=== PATIENT | male | born 1945 | race Caucasian/White ===

== ENCOUNTER 2018-03-12 10:59 | Day surgery (SDC) | payer MEDICARE, OTHER ==
[~2018-03-12 10:59] MED LIST: AMLODIPINE BESY10 MG PO; ASPIRIN EC81 MG PO; CALCIUM600 MG; FLUOXETINE HCL20 MG PO; FUROSEMIDE40 MG PO; LANTUS100 UNITS/ SUB-Q; LOSARTAN-HCTZ1 EAC1 PO; METOPROLOL TART50 MG PO; NOVOLOG100 UNITS/ SUB-Q; PERCOCET 5-3251 EACH PO; PRAVASTATIN SOD40 MG PO; TOUJEO SOL300 UNIT/1 SUB-Q; TYLENOL EXTRA500 MG PO; VITAMIN D32000 UNI1 PO
--- NOTE | 2018-03-12 12:50 | NUR ---
03/12/18 1250 Diane Sood 1217 PT ARRIVED IN PACU AWAKE WITH NO C/O'S. REPOSITIONED TO R SIDE FROM STOMACH. OXYGEN DECREASED TO 1L VIA NC. 1230 OXYGEN REMOVED. SATS 95% ON RA. PT AWAKE TALKING TO STAFF. 1245 PT GETTING DRESSSED. 1250 DC INSTRUCTIONS GIVEN.
== END 2018-03-12 12:55 | disposition home or self-care (01) ==
LOC: OPS 10:59 → DS 10:59 → OPS 12:00
PROVIDERS: Specialist
PROC: 07DR3ZX Extraction of Iliac Bone Marrow, Percutaneous Approach, Diagnostic (ICD-10-PCS; principal; 2018-03-12 12:00)
DX: C90.00 Multiple myeloma not having achieved remission (principal)
CPT/HCPCS: 80500; 85025; 99152; J2250; J3010; J7120

== ENCOUNTER 2018-03-28 10:46 | Day surgery (SDC) | payer MEDICARE, OTHER ==
[~2018-03-28] VITALS: Ht 185.4 cm; Wt 159.2 kg
--- NOTE | 2018-03-28 12:37 | NUR ---
03/28/18 1237 Sinai Suarez 1233 PATIENT IN PACU POST PROCEDURE, LAYING ON RIGHT SIDE. SLEEPING, AWAKENS WITH VERBAL STIMULI, DENIES PAIN THEN BACK TO SLEEP. RESP EVEN AND UNLABORED, NC AT 3 LITERS.
== END 2018-03-28 13:00 | disposition home or self-care (01) ==
LOC: OPS 10:46 → DS 10:46 → OPS 12:00
PROVIDERS: Specialist
PROC: 079T3ZX Drainage of Bone Marrow, Percutaneous Approach, Diagnostic (ICD-10-PCS; 2018-03-28)
PROC: 07DR3ZX Extraction of Iliac Bone Marrow, Percutaneous Approach, Diagnostic (ICD-10-PCS; principal; 2018-03-28 12:00)
DX: C90.00 Multiple myeloma not having achieved remission (principal); F32.9 Major depressive disorder, single episode, unspecified; M10.9 Gout, unspecified; M54.5 Low back pain; G89.29 Other chronic pain; I12.9 Hypertensive chronic kidney disease with stage 1 through stage 4 chronic kidney disease, or unspecified chronic kidney disease; N18.4 Chronic kidney disease, stage 4 (severe); E11.42 Type 2 diabetes mellitus with diabetic polyneuropathy; E55.9 Vitamin D deficiency, unspecified; Z90.89 Acquired absence of other organs; Z98.890 Other specified postprocedural states; E66.01 Morbid (severe) obesity due to excess calories; Z79.899 Other long term (current) drug therapy; Z88.1 Allergy status to other antibiotic agents; Z68.42 Body mass index [BMI] 45.0-49.9, adult
CPT/HCPCS: 85025; 99152; 99153; J2250; J3010; J7120

== ENCOUNTER 2019-03-01 10:42 | Inpatient (IN) | payer MEDICARE, OTHER ==
[~2019-03-01] VITALS: Ht 188 cm; Wt 142.0 kg
--- OUTSIDE RECORDS SUMMARY | ~2019-03-01 | XMS | Encounter Summary ---
Demographics + + + | Address | [address] | | | [place] [address] | + + + | Home Phone | | + + + | Preferred Language | Unknown | + + + | Marital Status | Single | + + + | Yarsanism Affiliation | Unknown | + + + | Race | Unknown | + + + | Ethnic Group | Other Race | + + + Author + + + | Author | [facility] | + + + | Organization | [facility] | + + + | Address | Unknown | + + + | Phone | Unavailable | + + + Care Team Providers + +------+ + | Care Printing Machine Operator Tape Rules Name | Role | Phone | + +------+ + | Daniel Sofia MD | PCP | | + +------+ + Reason for Referral Diagnostic Testing (Routine) +--------+--------+ + + + + | Status | Reason | Specialty | Diagnoses / | Referred By | Referred To | | | | | Procedures | Contact | Contact | +--------+--------+ + + + + | Closed | | Radiology | Diagnoses | Tommy | Xxrad Vasc | | | | | Lymphedema | [place], | [facility] | | | | | Procedures | MD James | [address] | | | | | VASC LAB | [address] | [address] | | | | | ARTER DUPLEX | [address] | [facility] | | | | | LOWER | [address] | Mailcode: | | | | | EXTREMITY | [facility], [place] | [address] | | | | | BILATERAL | [address] | Physicians | | | | | COMPLETE | Phone: | Pavilion | | | | | | [phone] | [place], [place] | | | | | | Fax: | [address] | | | | | | [phone] | Phone: | | | | | | | [phone] | | | | | | | Fax: | | | | | | | [phone] | +--------+--------+ + + + + Diagnostic Testing (Routine) +--------+--------+ + + + + | Status | Reason | Specialty | Diagnoses / | Referred By | Referred To | | | | | Procedures | Contact | Contact | +--------+--------+ + + + + | Closed | | Radiology | Diagnoses | [place] | Xxrad Vasc | | | | | Lymphedema | [place], | [facility] | | | | | Procedures | MD James | [address] | | | | | VASC LAB | [address] | [address] | | | | | ARTER DUPLEX | [address] | Road | | | | | LOWER | [facility] | Mailcode: | | | | | EXTREMITY | [place], [place] | [address] | | | | | BILATERAL | [address] | Physicians | | | | | COMPLETE | Phone: | Pavilion | | | | | | [phone] | [place], [place] | | | | | | Fax: | [address] | | | | | | [phone] | Phone: | | | | | | | [phone] | | | | | | | Fax: | | | | | | | [phone] | +--------+--------+ + + + + Reason for Visit Diagnostic Testing (Routine) +--------+--------+ + + + + | Status | Reason | Specialty | Diagnoses / | Referred By | Referred To | | | | | Procedures | Contact | Contact | +--------+--------+ + + + + | Closed | | Radiology | Diagnoses | Tommy | Xxrad Vasc | | | | | Lymphedema | [place], | [facility] | | | | | Procedures | MD James | [address] | | | | | VASC LAB | [address] | [address] | | | | | ARTER DUPLEX | [address] | Road | | | | | LOWER | [address] | Mailcode: | | | | | EXTREMITY | [facility], [place] | [address] | | | | | BILATERAL | [address] | Physicians | | | | | COMPLETE | Phone: | Pavilion | | | | | | [phone] | [place], [place] | | | | | | Fax: | [address] | | | | | | [phone] | Phone: | | | | | | | [phone] | | | | | | | Fax: | | | | | | | [phone] | +--------+--------+ + + + + Encounter Details +--------+ + + + + | Date | Type | Department | Care Team | Description | +--------+ + + + + | 05/06/ | Hospital | Diagnostic | | | | 2012 | Encounter | Radiology at [facility] | | | | | | [address] | | | | | | [address] | | | | | | Mailcode: [address] | | | | | | Physicians [place] | | | | | | [place], [place] | | | | | | [address] | | | | | | [phone] | | | +--------+ + + + [...] Comments | + + +---------+ + | No | | | | + + +---------+ [...] at Time of Discharge + + + +---------+--------+ + | Medication | Sig | Dispensed | Refills | Start | End Date | | | | | | Date | | + + + +---------+--------+ + | amLODIPine 10 mg | Take 10 mg by mouth | | 0 | | | | Oral tablet | once daily. | | | | | + + + +---------+--------+ + | aspirin EC 81 mg | Take 81 mg by mouth | | 0 | | | | Oral tablet,delayed | once daily. | | | | | | release (DR/EC) | | | | | | + + + +---------+--------+ + | Cinnamon Bark | Take by mouth. | | 0 | | | | (CINNAMON) 500 mg | | | | | | | Oral capsule | | | | | | + + + +---------+--------+ + | FLUoxetine 20 mg | Take 60 mg by mouth | | 0 | | | | Oral capsule | three times daily. | | | | | + + + +---------+--------+ + | furosemide 40 mg | Take 40 mg by mouth | | 0 | | | | Oral tablet | once daily. | | | | | + + + +---------+--------+ + | insulin aspart | Inject under the | | 0 | | | | (NOVOLOG) 100 | skin (SUBC) three | | | | | | unit/mL Subcutaneous | times daily before | | | | | | Solution | meals. Sliding scale | | | | | | | 2 times daily AM | | | | | | | and PM | | | | | + + + +---------+--------+ + | insulin glargine | Inject 50 Units | | 0 | | | | 100 unit/mL | under the skin | | | | | | Subcutaneous | (SUBC) two times | | | | | | Solution | daily. | | | | | + + + +---------+--------+ + | | Take 2 Tabs by mouth | | 0 | | | | losartan-hydrochloro | once daily. | | | | | | thiazide 50-12.5 mg | | | | | | | Oral tablet | | | | | | + + + +---------+--------+ + | metoprolol | Take 50 mg by mouth | | 0 | | | | tartrate 50 mg Oral | two times daily. | | | | | | tablet | | | | | | + + + +---------+--------+ + | pravastatin 40 mg | Take 40 mg by mouth | | 0 | | | | Oral tablet | once daily at | | | | | | | bedtime. | | | | | + + + +---------+--------+ + documented as of this encounter Plan of Treatment Not on filedocumented as of this encounter Procedures + +--------+ + + + | Procedure Name | Priori | Date/Time | Associated Diagnosis | Comments | | | ty | | | | + +--------+ + + + | VASC LAB ARTER | Routin | 05/06/2013 | Lymphedema | Results for this | | DUPLEX LOWER | e | 2:46 PM | | procedure are in the | | EXTREMITY BILATERAL | | PDT | | results section. | | COMPLETE | | | | | + +--------+ + + + documented in this encounter Results VAS LAB ARTER DUPLEX LOWER EXTREMITY BILATERAL COMPLETE (05/06/2013 2:46 PM PDT) + + + + + + | Component | Value | Ref Range | Performed | Pathologist | | | | | At | Signature | + + + + + + | VASC LAB | PERIPHERAL ARTERIAL | | | | | ARTERY | EXAMINATION: 05/06/20 | | | | | DUPLEX | 13 Dictated | | | | | LOWER | 05/06/2013 | | | | | EXTREMITY | INDICATION: Periphera | | | | | BILATERAL | l vascular disease. The | | | | | COMPLETE | ankle/brachial index on | | | | | | the right is 1.11 and on | | | | | | the left, 1.02. The | | | | | | duplex scanner was used | | | | | | to examine the common | | | | | | femoral, profunda | | | | | | femoris,superficial | | | | | | femoral, popliteal, and | | | | | | tibial vessels of the | | | | | | right and left | | | | | | lowerextremities. It | | | | | | is noted that the tibial | | | | | | vessels are | | | | | | significantly | | | | | | calcifiedbilaterally. In | | | | | | the right lower | | | | | | extremity, the common | | | | | | femoral artery has a | | | | | | flow velocity of158 cm/s | | | | | | with a triphasic | | | | | | waveform. The | | | | | | profunda femoris artery | | | | | | has a flowvelocity of 63 | | | | | | cm/s with a triphasic | | | | | | waveform. Flow | | | | | | velocities in | | | | | | thesuperficial femoral | | | | | | artery vary from 106 to | | | | | | 162 cm/s, all with | | | | | | triphasicwaveforms. T | | | | | | he popliteal artery has | | | | | | flow velocities between | | | | | | 117 and 130 cm/swith | | | | | | triphasic | | | | | | waveforms. The | | | | | | anterior tibial and | | | | | | peroneal arteries | | | | | | appearcontinuously | | | | | | patent from the | | | | | | popliteal trifurcation | | | | | | to the ankle. The | | | | | | peronealartery could not | | | | | | be visualized because | | | | | | of calcification. In the | | | | | | left lower extremity, | | | | | | the common femoral, | | | | | | profunda femoris, | | | | | | superficialfemoral, and | | | | | | popliteal arteries all | | | | | | have normal flow | | | | | | velocities with | | | | | | triphasicwaveforms. T | | | | | | he tibial vessels are | | | | | | highly calcified. The | | | | | | mid portions of | | | | | | theperoneal and anterior | | | | | | tibial arteries could | | | | | | not be | | | | | | identified. Proximall | | | | | | y anddistally, the | | | | | | anterior tibial and | | | | | | peroneal arteries have | | | | | | normal | | | | | | flowvelocities. The | | | | | | posterior tibial artery | | | | | | appears continuously | | | | | | patent from thepopliteal | | | | | | trifurcation to the | | | | | | ankle. IMPRESSION: Lower | | | | | | extremity peripheral | | | | | | arterial examination | | | | | | with evidence of | | | | | | calcifiedtibial vessels | | | | | | bilaterally. Arterial | | | | | | inflow to the level of | | | | | | the ankle,however, | | | | | | appears normal to near | | | | | | normal bilaterally. | | | | | | END IMPRESSION: | | | | | | Attending | | | | | | Radiologists: ,Author | | | | | | : ANIYAH WESTON MD I | | | | | | have personally viewed | | | | | | this procedure/exam, | | | | | | reviewed this report, | | | | | | and madechanges to it | | | | | | where appropriate. | | | | | | Final/Electronically | | | | | | signed / ANIYAH | | | | | | TRISTA Preliminary | | | | | | / Yomaira Clay | | | | + + + + + + + + | Specimen | + + | | + + + +---------+ + + | Performing | Address | City/State/Zipcode | Phone Number | | Organization | | | | + +---------+ + + | [facility] | | | | [facility] | | | | + +---------+ + + documented in this encounter Visit Diagnoses + + | Diagnosis | + + | Lymphedema Other lymphedema | + + documented in this encounter"
--- OUTSIDE RECORDS SUMMARY | ~2019-03-01 | XMS | Encounter Summary ---
Demographics + + + | Address | [address] | | | [place] [address] | + + + | Home Phone | | + + + | Preferred Language | Unknown | + + + | Marital Status | Single | + + + | Alevism Affiliation | Unknown | + + + | Race | Unknown | + + + | Ethnic Group | Other Race | + + + Author + + + | Author | [facility] | + + + | Organization | [facility] | + + + | Address | Unknown | + + + | Phone | Unavailable | + + + Care Team Providers + +------+ + | Care Pattern Drafter Name | Role | Phone | + +------+ + | Daniel Sofia MD | PCP | | + +------+ + Encounter Details +--------+ + + + + | Date | Type | Department | Care Team | Description | +--------+ + + + + | 07/16/ | Documentati | NON-[facility] | Unknown . | | | 2016 | on | Department | | | +--------+ + + + [...] Not on filedocumented as of this encounter Visit Diagnoses Not on filedocumented in this encounter"
--- OUTSIDE RECORDS SUMMARY | ~2019-03-01 | XMS | Clinical Summary ---
Demographics + + + | Address | [address] | | | [place] [address] | + + + | Home Phone | | + + + | Preferred Language | Unknown | + + + | Marital Status | Single | + + + | Baptist Affiliation | Unknown | + + + | Race | Unknown | + + + | Ethnic Group | Other Race | + + + Author + + + | Author | [facility] | + + + | Organization | [facility] | + + + | Address | Unknown | + + + | Phone | Unavailable | + + + Care Team Providers + +------+ + | Care Ibm Bpm Developer Name | Role | Phone | + +------+ + | Daniel Sofia MD | PP | | + +------+ + Source Comments [facility] is fully live on both EpicCare Ambulatory and EpicCare InPatient.[facility] Allergies No Known Allergies Medications + + + +---------+------+------+-------+ | Medication | Sig | Dispensed | Refills | Star | End | Statu | | | | | | t | Date | s | | | | | | Date | | | + + + +---------+------+------+-------+ | FLUoxetine 20 mg | Take 60 mg by mouth | | 0 | | | Activ | | Oral capsule | three times daily. | | | | | e | + + + +---------+------+------+-------+ | amLODIPine 10 mg | Take 10 mg by mouth | | 0 | | | Activ | | Oral tablet | once daily. | | | | | e | + + + +---------+------+------+-------+ | | Take 2 Tabs by mouth | | 0 | | | Activ | | losartan-hydrochloro | once daily. | | | | | e | | thiazide 50-12.5 mg | | | | | | | | Oral tablet | | | | | | | + + + +---------+------+------+-------+ | metoprolol | Take 50 mg by mouth | | 0 | | | Activ | | tartrate 50 mg Oral | two times daily. | | | | | e | | tablet | | | | | | | + + + +---------+------+------+-------+ | furosemide 40 mg | Take 40 mg by mouth | | 0 | | | Activ | | Oral tablet | once daily. | | | | | e | + + + +---------+------+------+-------+ | pravastatin 40 mg | Take 40 mg by mouth | | 0 | | | Activ | | Oral tablet | once daily at | | | | | e | | | bedtime. | | | | | | + + + +---------+------+------+-------+ | Cinnamon Bark | Take by mouth. | | 0 | | | Activ | | (CINNAMON) 500 mg | | | | | | e | | Oral capsule | | | | | | | + + + +---------+------+------+-------+ | insulin glargine | Inject 50 Units | | 0 | | | Activ | | 100 unit/mL | under the skin | | | | | e | | Subcutaneous | (SUBC) two times | | | | | | | Solution | daily. | | | | | | + + + +---------+------+------+-------+ | insulin aspart | Inject under the | | 0 | | | Activ | | (NOVOLOG) 100 | skin (SUBC) three | | | | | e | | unit/mL Subcutaneous | times daily before | | | | | | | Solution | meals. Sliding scale | | | | | | | | 2 times daily AM | | | | | | | | and PM | | | | | | + + + +---------+------+------+-------+ | aspirin EC 81 mg | Take 81 mg by mouth | | 0 | | | Activ | | Oral tablet,delayed | once daily. | | | | | e | | release (DR/EC) | | | | | | | + + + +---------+------+------+-------+ Active Problems No known active problems Social History + +-------+ +--------+------+ | Tobacco [...] recent travel history available. | + + Last Filed Vital Signs + + + + + | Vital Sign | Reading | Time Taken | Comments | + + + + + | Blood Pressure | 117/74 | 05/06/2013 10:28 AM | | | | | PDT | | + + + + + | Pulse | 63 | 05/06/2013 10:28 AM | | | | | PDT | | + + + + + | Temperature | 37 C (98.6 F) | 05/06/2013 10:28 AM | | | | | PDT | | + + + + + | Respiratory Rate | - | - | | + + + + + | Oxygen Saturation | 99% | 05/06/2013 10:28 AM | | | | | PDT | | + + + + + | Inhaled Oxygen | - | - | | | Concentration | | | | + + + + + | Weight | 175 kg (385 lb 12.8 | 05/06/2013 10:28 AM | | | | oz) | PDT | | + + + + + | Height | 193 cm (6' 4") | 05/06/2013 10:28 AM | | | | | PDT | | + + + + + | Body Mass Index | 46.96 | 05/06/2013 10:28 AM | | | | | PDT | | + + + + + Plan of Treatment + + + + + | Health Maintenance | Due Date | Last Done | Comments | + + + + + | Pneumococcal (Adult) | | | | | (1 of 2 - PCV13) | 8 | | | + + + + + | Influenza (Flu) | | | | | vaccination (Season | 9 | | | | Ended) | | | | + + + + + Results Not on filefrom Last 3 Months Insurance + +--------+ +--------+ + +--------+ | Payer | Benefi | Subscriber | Effect | Phone | Address | Type | | | t Plan | ID | ivanna | | | | | | / | | Dates | | | | | | Group | | | | | | + +--------+ +--------+ + +--------+ | MEDICARE | MEDICA | xxxxxxxxxx | | [phone] | [address] | | | RE [address] & | | [phone] | | | [address] | | esent | | [place], [place] | | | | | | | | [address] | | + +--------+ +--------+ + +--------+ | COMMERCIAL GROUP | COMMER | xxxxxxxxx | Effect | | | Indemn | | | CIAL | | vianna | | | ity | | | GROUP | | for | | | | | | | | all | | | | | | | | dates | | | | + +--------+ +--------+ + +--------+ + +--------+ +--------+ + + | Guarantor Name | Accoun | Relation to | Date | Phone | Billing Address | | | t Type | Patient | of | | | | | | | | | | + +--------+ +--------+ + + | Renny Mariano | Person | Self | [birth year] | [address] | | | al/[place] | | 1945 | [phone] | [place] [address] | | | walt | | | 6 (Home) | | + +--------+ +--------+ + +
--- OUTSIDE RECORDS SUMMARY | ~2019-03-01 | XMS | Encounter Summary ---
Demographics + + + | Address | [address] | | | [place] [address] | + + + | Home Phone | | + + + | Preferred Language | Unknown | + + + | Marital Status | Single | + + + | Scientologist Affiliation | Unknown | + + + | Race | Unknown | + + + | Ethnic Group | Other Race | + + + Author + + + | Author | [facility] | + + + | Organization | [facility] | + + + | Address | Unknown | + + + | Phone | Unavailable | + + + Care Team Providers + +------+ + | Care Shoe Designer Name | Role | Phone | + +------+ + PCP | Unavailable | + +------+ + Encounter Details +--------+ + + + + | Date | Type | Department | Care Team | Description | +--------+ + + + + | 10/18/ | Document-Sc | UNKNOWN DEPARTMENT | Other, Faculty | | | 2010 | anned | [address] | [phone] | | | | | [facility] | | | | | | [place], [place] | | | | | | [address] | | | +--------+ + + + [...] | + +--------+ + + + | RADIOLOGY | | 09/11/2012 | | Results for this | | | | 12:00 AM | | procedure are in the | | | | PST | | results section. | + +--------+ + + + | PATHOLOGY | | 10/19/2010 | | Results for this | | | | 12:00 AM | | procedure are in the | | | | PST | | results section. | + +--------+ + + + documented in this encounter Results RADIOLOGY (09/11/2012 12:00 AM PST) + + + | Narrative | Performed At | + + + | | | | | | + + + + + | Procedure Note | + + | Tiffany Mace - 01/13/2013 6:25 PM PDT | + + PATHOLOGY (10/19/2010 12:00 AM PST) + + + | Narrative | Performed At | + + + | | | + + + + + | Procedure Note | + + | Tiffany Mace - 10/19/2010 12:00 AM PST | | | + + documented in this encounter Visit Diagnoses Not on filedocumented in this encounter"
--- OUTSIDE RECORDS SUMMARY | ~2019-03-01 | XMS | Encounter Summary ---
Demographics + + + | Address | [address] | | | [place] [address] | + + + | Home Phone [...] Author + + + | Author | [facility] | + + + | Organization | [facility] | + + + | Address | Unknown | + + + | Phone | Unavailable | + + + Care Team Providers + +------+ + | Care Cable Television Program Director Name | Role | Phone | + [...]
--- OUTSIDE RECORDS SUMMARY | ~2019-03-01 | XMS | Encounter Summary ---
Demographics + + + | Address | [address] | | | [place] [address] | + + + | Home Phone | | + + + | Preferred Language | Unknown | + + + | Marital Status | Single | + + + | Zoroastrianism Affiliation | Unknown | + + + | Race | Unknown | + + + | Ethnic Group | Other Race | + + + Author + + + | Author | [facility] | + + + | Organization | [facility] | + + + | Address | Unknown | + + + | Phone | Unavailable | + + + Care Team Providers + +------+ + | Care Wire Machine Cutter Name | Role | Phone | + +------+ + PCP | Unavailable | + +------+ + Encounter Details +--------+ + + + + | Date | Type | Department | Care Team | Description | +--------+ + + + + | 10/18/ | Results | NON[facility] | Roula, Yohan V, | | | 2010 | Only | Department | [facility] | | | | | | [facility] | | | | | | [address] | | | | | | [place] | | | | | | [address] | | | | | | | [...] | | OLOGY(WET | FIRST TISSUE LEVEL | | DERMATOPATH | | | MNT) | [place] [address] | | OLOGY | | | | CLINICAL | | | | | | DESCRIPTION:Punch, 4mm, | [...] | | | measures 0.4 x 0.7 | | | | | | cm. The specimen is | | | | [...] | | | | | | spindled | | | | | | fibrocytes. The | | | | | | fibrocytes are | | | | | [...] | | | | | | VBK:mm10/23/10 | | | | | | Case review by:Alma | | | | | | Roshan Saucedo, | | | | | | M.D./Dermatopathology | | | | | | Hilario Longo, | | | | | | M.D./Dermatopathologist | | | | | | My [...] | | | | | | Rendering | | | | | | Diagnostician: Raul | | | | | | Donta | | | | | | M.D.PathologistElectroni | | | | | | claudia [...] + + + | [facility] | [address] | [place] [address] | | | DERMATOPATHOLOGY | [address] | | | + + + + + documented in this encounter Visit Diagnoses Not on filedocumented in this encounter"
--- OUTSIDE RECORDS SUMMARY | ~2019-03-01 | XMS | Encounter Summary ---
Demographics + + + | Address | [address] | | | [place] [address] | + + + | Home Phone | | + + + | Preferred Language | Unknown | + + + | Marital Status | Single | + + + | Latter Day Affiliation | Unknown | + + + | Race | Unknown | + + + | Ethnic Group | Other Race | + + + Author + + + | Author | [facility] | + + + | Organization | [facility] | + + + | Address | Unknown | + + + | Phone | Unavailable | + + + Care Team Providers + +------+ + | Care Fiscal Officer Name | Role | Phone | + [...] | | | ARTER DUPLEX | [place] | [facility] | | | | | LOWER | [address] | Mailcode: | | | | | EXTREMITY | [facility], [place] | [address] | | | | | BILATERAL | [address] | Physicians | | | | | COMPLETE | Phone: | Pavilion | | | | | | [phone] | [place], [place] | | | | | | Fax: | [address] | | | | | | [phone] | Phone: | | | | | | | [phone] | | | | | | | Fax: | | | | | | | [phone] | +--------+--------+ + + + + Diagnostic Testing (Routine) +--------+--------+ + + + + | Status | Reason | Specialty | Diagnoses / | Referred By | Referred To | | | | | Procedures | Contact | Contact | +--------+--------+ + + + + | Closed | | Radiology | Diagnoses | [place] | X[facility] Vasc | | | | | Lymphedema | [place], | [facility] [address] | | | | | Procedures | MD James | [address] | | | | | VASC LAB | [address] | [address] | | | | | ARTER DUPLEX | [address] [place] | Road | | | | | LOWER | [facility] | Mailcode: | | | | | EXTREMITY | [place], [place] | [address] | | | | | BILATERAL | [address] | Physicians | | | | | COMPLETE | Phone: | Pavilion | | | | | | [phone] | [place], [place] | | | | | | Fax: | [address] | | | | | | [phone] | Phone: | | | | | | | [phone] | | | | | | | Fax: | | | | | | | [phone] | +--------+--------+ + + + + Reason [...] | | | ARTER DUPLEX | [address] | Road | | | | | LOWER | [address] | Mailcode: | | | | | EXTREMITY | [facility], [place] | [address] | | | | | BILATERAL | [address] | Physicians | | | | | COMPLETE | Phone: | Pavilion | | | | | | [phone] | [place], [place] | | | | | | Fax: | [address] | | | | | | [phone] | Phone: | | | | | | | [phone] | | | | | | | Fax: | | | | | | | [phone] | +--------+--------+ + + + + Encounter [...] [address] | | | | | | [place], [place] | | | | | | [address] | | | | | | [phone] | | | +--------+ + + + [...]
--- OUTSIDE RECORDS SUMMARY | ~2019-03-01 | XMS | Encounter Summary ---
Demographics + + + | Address | [address] | | | [place] [address] | + + + | Home Phone | | + + + | Preferred Language | Unknown | + + + | Marital Status | Single | + + + | Amish Affiliation | Unknown | + + + | Race | Unknown | + + + | Ethnic Group | Other Race | + + + Author + + + | Author | [facility] | + + + | Organization | [facility] | + + + | Address | Unknown | + + + | Phone | Unavailable | + + + Care Team Providers + +------+ + | Care House Furnishings Supervisor Name | Role | Phone | + +------+ + | Daniel Sofia MD | PCP | | + +------+ + Reason for Referral Consultation (Routine) + +--------+ + + + + | Status | Reason | Specialty | Diagnoses / | Referred By | Referred To | | | | | Procedures | Contact | Contact | + +--------+ + + + + | Authorized | | Vascular | Diagnoses | Jack Burroughs | Vas Vasc | | | | Surgery | Lymphedema | [address] | Surg Ppv | | | | | Procedures | [address] | [address] | | | | | CONSULT TO | [facility] | [facility] | | | | | SURGERY - | Rd | Road | | | | | VASCULAR | [place], [place] | Mailcode: | | | | | SURGERY | [address] | [address] | | | | | DIVISION | | Physicians | | | | | | | Pavilion | | | | | | | [place], [place] | | | | | | | [address] | | | | | | | Phone: | | | | | | | [phone] | | | | | | | Fax: | | | | | | | [phone] | + +--------+ + + + + Diagnostic Testing (Urgent) +--------+--------+ + + + + | Status | Reason | Specialty | Diagnoses / | Referred By | Referred To | | | | | Procedures | Contact | Contact | +--------+--------+ + + + + | Closed | | Radiology | Diagnoses | Jack Burroughs | Xxrad Vasc | | | | | Lower | [address] | Lab [address] | | | | | extremity | [address] | | | | | edema | [facility] | [facility] | | | | | Procedures | Rd | Road | | | | | VASC LAB | [place], [place] | Mailcode: | | | | | VENOUS | [address] | [id number] | | | | | DUPLEX LOWER | | Physicians | | | | | EXTREMITY | | Pavilion | | | | | BILAT COMP | | [place], [place] | | | | | | | [address] | | | | | | | Phone: | | | | | | | [phone] | | | | | | | Fax: | | | | | | | [phone] | +--------+--------+ + + + + Reason for Visit + + + | Reason | Comments | + + + | New patient | | | consultation | | + + + Consultation (Routine) +--------+--------+ + + + + | Status | Reason | Specialty | Diagnoses / | Referred By | Referred To | | | | | Procedures | Contact | Contact | +--------+--------+ + + + + | Closed | | Orthopedics | Diagnoses | Saud, | Philippe | | | | | lumbar pain | Hollis Vazquez, | MD Dane | | | | | | MD Bui | [address] | | | | | | [facility] | [address] | | | | | | & Keegan | [place], | | | | | | [address] | [place] | | | | | | [address]yl [address] | [address] | | | | | | [place], | Phone: | | | | | | [place] [address] | [phone] | | | | | | Phone: | Fax: | | | | | | [phone] | [phone] | | | | | | Fax: | | | | | | | [phone] | | +--------+--------+ + + + + Encounter Details +--------+---------+ + + + | Date | Type | Department | Care Team | Description | +--------+---------+ + + + | 04/03/ | Office | Orthopaedic Spine | Dane Paez MD | Lymphedema (Primary | | 2012 | Visit | Center at [facility] [address] | [address] | Dx); Back pain; | | | | [address] | [facility], | Lower extremity | | | | Mailcode: [id number] | [place] [address] | edema | | | | [facility] | [phone] | | | | | and Healing, 8th | | | | | | Floor [place], [place] | | | | | | [address] | | | | | | [phone] | | | +--------+---------+ + + + Social History + +-------+ [...] + + documented as of this encounter Last Filed Vital Signs + + + + + | Vital Sign | Reading | Time Taken | Comments | + + + + + | Blood Pressure | - | - | | + + + + + | Pulse | - | - | | + + + + + | Temperature | - | - | | + + + + + | Respiratory Rate | - | - | | + + + + + | Oxygen Saturation | - | - | | + + + + + | Inhaled Oxygen | - | - | | | Concentration | | | | + + + + + | Weight | 167.8 kg (370 lb) | 04/03/2013 12:48 PM | | | | | PDT | | + + + + + | Height | 193 cm (6' 4") | 04/03/2013 12:48 PM | | | | | PDT | | + + + + + | Body Mass Index | 45.04 | 04/03/2013 12:48 PM | | | | | PDT | | + + + + + documented in this encounter Progress Notes Dane Paez MD - 04/09/2013 2:01 PM PDT Chief complaint: Chief Complaint Patient presents with New patient consultation HPI Renny Mariano is a 67 y.o. male who presents today with a history of bilateral lower extr emity edema. He has had no specific sciatica but does have some discomfort in the calves. He has had priro workup that was negative for deep vein thrombosis and is sent for evaluatio n of possible lumbar spine etiology of his leg swelling. With review of systems he has no b owel or bladder dysfunction or fevers, chills, night sweats, unexplained weight loss or appe tite changes. I have performed my own history and physical examination today and agree with the resident's documentation of the history. Current outpatient prescriptions:amLODIPine 10 mg Oral tablet, Take 10 mg by mouth once shelley ly., Disp: , Rfl: aspirin EC 81 mg Oral tablet,delayed release (DR/EC), Take 81 mg by mouth once daily., Disp : , Rfl: Cinnamon Bark (CINNAMON) 500 mg Oral capsule, Take by mouth., Disp: , Rfl: FLUoxetine 20 mg Oral capsule, Take 20 mg by mouth once daily., Disp: , Rfl: furosemide 40 mg Oral tablet, Take 40 mg by mouth once daily., Disp: , Rfl: insulin aspart (NOVOLOG) 100 unit/mL Subcutaneous Solution, Inject under the skin (SUBC) t hree times daily before meals. Sliding scale 2 times daily AM and PM, Disp: , Rfl: insulin glargine 100 unit/mL Subcutaneous Solution, Inject 50 Units under the skin (SUBC) t wo times daily., Disp: , Rfl: losartan-hydrochlorothiazide 50-12.5 mg Oral tablet, Take 2 Tabs by mouth once daily., Disp : , Rfl: metoprolol tartrate 50 mg Oral tablet, Take 50 mg by mouth two times daily., Disp: , Rfl: pravastatin 40 mg Oral tablet, Take 40 mg by mouth once daily at bedtime., Disp: , Rfl: No Known Allergies No past medical history on file. No past surgical history on file. History Social History Marital Status: Single Spouse Name: N/A Number of Children: N/A Years of Education: N/A Occupational History Not on file. Social History Main Topics Smoking status: Not on file Smokeless tobacco: Not on file Alcohol Use: Not on file Drug Use: Not on file Sexually Active: Not on file Other Topics Concern Not on file Social History Narrative No narrative on file Visit Vitals Item Reading Ht 1.93 m (6' 4") Wt 167.831 kg (370 lb) BMI 45.06 kg/(m^2) ROS Reviewed on patient information sheet filled out by patient. No other pertinent positives noted. Physical Exam Constitutional: He is well-developed, well-nourished, and in no distress. Neck: Normal range of motion. No spinous process tenderness and no muscular tenderness pres ent. Spurlings maneuver is negative. Cardiovascular: Intact distal pulses. Musculoskeletal: Normal range of motion. Right shoulder: He exhibits no tenderness and no spasm. Left shoulder: Normal. He exhibits no tenderness and no spasm. Lymphadenopathy: He has no cervical adenopathy. Neurological: Reflex Scores: Patellar reflexes are 0 on the right side and 0 on the left side. Achilles reflexes are 0 on the right side and 0 on the left side. Skin: Skin is warm and dry. No ecchymosis and no lesion noted. No cyanosis or erythema. Mary Ann ls show no clubbing. He has bilateral lower extremities swelling suggestive of lymphedema. Psychiatric: Mood and affect normal. Neurologic Exam Motor Exam Muscle bulk: normal Overall muscle tone: normal Strength Right iliopsoas: 5/5 Left iliopsoas: 5/5 Right quadriceps: 5/5 Left quadriceps: 5/5 Right hamstrin/5 Left hamstrin/5 Right anterior tibial: 5/5 Left anterior tibial: 5/5 Right peroneal: 5/5 Left peroneal: 5/5 Right gastroc: 5/5 Left gastroc: 5/5 Right extensor hallicus longus: 5/5 Left extensor hallicus longus: 5/5 Sensory Exam Right arm light touch: normal Left arm light touch: normal Right leg light touch: normal Left leg light touch: normal Gait, Coordination, and Reflexes Gait Gait: wide-based Reflexes Right patellar: 0 Left patellar: 0 Right achilles: 0 Left achilles: 0 Right plantar: normal Left plantar: normal Right ankle clonus: absent Left ankle clonus: absent Independent with transfering Ortho Exam: Right Hip Right hip exam is normal. Tenderness The patient is experiencing no tenderness. Range of Motion The patient has normal right hip ROM. Tests DENNIS: negative Left Hip Left hip exam is normal. Tenderness The patient is experiencing no tenderness. Range of Motion The patient has normal left hip ROM. Tests DENNIS: negative Back Tenderness The patient is experiencing no tenderness. Range of Motion Extension: normal Flexion: normal Lateral Bend Right: normal Lateral Bend Left: normal Muscle Strength Right Quadricep: 5 Left Quadricep: 5 Right Hamstrin Left amstrin Tests Straight leg raise right: negative Straight leg raise left: negative Other Toe Walk: normal Heel Walk: normal Gait: normal ASSESSMENT: The patients symptoms, physical examination findings are not suggestive of sciatica. This is more consistent with possible lymphedema. He is without neurologic deficits. Reviewed warning signs of progressive radiculopathy/myelopathy with patient. Patient advis ed to seek urgent medical attention if any of these occur. Encounter Diagnoses Name Primary? Lymphedema Yes Back pain Lower extremity edema RECOMMENDATIONS: We have discussed potential management options. Orders Placed This Encounter VASC LAB VENOUS DUPLEX LOWER EXTREMITY BILAT COMP Standing Status: Future Number of Occurrences: 1 Standing Expiration Date: 05/03/2014 CONSULT TO SURGERY - VASCULAR SURGERY DIVISION Call or return to clinic if these symptoms worsen or fail to improve as anticipated. Dane Paez M.D. Commercial Correspondent Physical Medicine and Rehabilitation Dane Hsieh MD - 1:51 PM PDT Chief complaint: Chief Complaint Patient presents with New patient consultation HPI Renny Mariano is a 67 y.o. male who presents today with a history of Current outpatient prescriptions:amLODIPine 10 mg Oral tablet, Take 10 mg by mouth once shelley ly., Disp: , Rfl: aspirin EC 81 mg Oral tablet,delayed release (DR/EC), Take 81 mg by mouth once daily., Disp : , Rfl: Cinnamon Bark (CINNAMON) 500 mg Oral capsule, Take by mouth., Disp: , Rfl: FLUoxetine 20 mg Oral capsule, Take 20 mg by mouth once daily., Disp: , Rfl: furosemide 40 mg Oral tablet, Take 40 mg by mouth once daily., Disp: , Rfl: insulin aspart (NOVOLOG) 100 unit/mL Subcutaneous Solution, Inject under the skin (SUBC) t hree times daily before meals. Sliding scale 2 times daily AM and PM, Disp: , Rfl: insulin glargine 100 unit/mL Subcutaneous Solution, Inject 50 Units under the skin (SUBC) t wo times daily., Disp: , Rfl: losartan-hydrochlorothiazide 50-12.5 mg Oral tablet, Take 2 Tabs by mouth once daily., Disp : , Rfl: metoprolol tartrate 50 mg Oral tablet, Take 50 mg by mouth two times daily., Disp: , Rfl: pravastatin 40 mg Oral tablet, Take 40 mg by mouth once daily at bedtime., Disp: , Rfl: No Known Allergies No past medical history on file. No past surgical history on file. History Social History Marital Status: Single Spouse Name: N/A Number of Children: N/A Years of Education: N/A Occupational History Not on file. Social History Main Topics Smoking status: Not on file Smokeless tobacco: Not on file Alcohol Use: Not on file Drug Use: Not on file Sexually Active: Not on file Other Topics Concern Not on file Social History Narrative No narrative on file Visit Vitals Item Reading Ht 1.93 m (6' 4") Wt 167.831 kg (370 lb) BMI 45.06 kg/(m^2) ROS Reviewed on patient information sheet filled out by patient. No other pertinent positives noted. Physical Exam Constitutional: He is well-developed, well-nourished, and in no distress. Neck: Normal range of motion. No spinous process tenderness and no muscular tenderness pres ent. Spurlings maneuver is negative. Musculoskeletal: Normal range of motion. Right shoulder: He exhibits no tenderness and no spasm. Left shoulder: Normal. He exhibits no tenderness and no spasm. Lymphadenopathy: He has no cervical adenopathy. Neurological: Gait normal. Reflex Scores: Patellar reflexes are 1+ on the right side and 1+ on the left side. Achilles reflexes are 0 on the right side and 0 on the left side. Skin: Skin is warm and dry. No rash noted. No cyanosis or erythema. Nails show no clubbing. He has bilateral lower extremity edema suggestive of lymphedema without significant Psychiatric: Mood and affect normal. Neurologic Exam Motor Exam Muscle bulk: normal Overall muscle tone: normal Strength Right iliopsoas: 5/5 Left iliopsoas: 5/5 Right quadriceps: 5/5 Left quadriceps: 5/5 Right hamstrin/5 Left hamstrin/5 Right anterior tibial: 5/5 Left anterior tibial: 5/5 Right peroneal: 5/5 Left peroneal: 5/5 Right gastroc: 5/5 Left gastroc: 5/5 Right extensor hallicus longus: 5/5 Left extensor hallicus longus: 5/5 Sensory Exam Right arm light touch: normal Left arm light touch: normal Right leg light touch: normal Left leg light touch: normal Gait, Coordination, and Reflexes Gait Gait: normal Reflexes Right patellar: 1+ Left patellar: 1+ Right achilles: 0 Left achilles: 0 Right plantar: normal Left plantar: normal Right ankle clonus: absent Left ankle clonus: absent Independent with transfering Ortho Exam: Right Hip Right hip exam is normal. Tenderness The patient is experiencing no tenderness. Range of Motion The patient has normal right hip ROM. Tests DENNIS: negative Left Hip Left hip exam is normal. Tenderness The patient is experiencing no tenderness. Range of Motion The patient has normal left hip ROM. Tests DENNIS: negative Back Tenderness The patient is experiencing no tenderness. Range of Motion Extension: normal Flexion: normal Lateral Bend Right: normal Lateral Bend Left: normal Muscle Strength Right Quadricep: 5 Left Quadricep: 5 Right Hamstrin Left amstrin Tests Straight leg raise right: negative Straight leg raise left: negative Other Toe Walk: normal Heel Walk: normal Gait: normal ASSESSMENT: The patients symptoms, physical examination findings are not suggestive of a lumbar spine r adiculitis. His symptoms are predominantly lower extremity edema. He is without neurologic deficits. Reviewed warning signs of progressive radiculopathy/myelopathy with patient. Patient advis ed to seek urgent medical attention if any of these occur. Encounter Diagnoses Name Primary? Lymphedema Yes Back pain Lower extremity edema RECOMMENDATIONS: We have discussed potential management options. Orders Placed This Encounter VASC LAB VENOUS DUPLEX LOWER EXTREMITY BILAT COMP Standing Status: Future Number of Occurrences: 1 Standing Expiration Date: 05/03/2014 CONSULT TO SURGERY - VASCULAR SURGERY DIVISION Call or return to clinic if these symptoms worsen or fail to improve as anticipated. Dane Paez M.D. Commercial Correspondent Physical Medicine and Rehabilitation ox, Jack Vazquez MD - 04/03 12:56 PM PDT [facility] DEPARTMENT OF ORTHOPAEDICS & REHABILITATION Physical Medicine & Rehabilitation (PMR) History & Physical Patient: Renny Mariano Encounter Date: 04/03/2013 CHIEF COMPLAINT: Renny Mariano is a 67 y.o. M with a chief complaint of left sided low back pain, bilatera l leg swelling, HISTORY OF PRESENT ILLNESS: Symptoms began swelling in August 2012. Onset for both the back pain and swelling of the left leg were subacute over 1-2 weeks. Right leg started swelling 2-3 weeks ago. They are co nstantly swollen despite positioning or time of day, worsens with walking/standing for prolo nged periods. Has seen PCP, orthopaedist doctor, "back" doctor. He was referred here to see if his back p ain was related to his swelling. Low back pain is not significant at this time. Patient notes that the symptoms are located at the midline low lumbar region. Numbness: no Weakness: no Bladder dysfunction: no Symptoms worse with laying on back and side, lifting aggravate back and flank pain Symptoms better with sitting upright. The swelling does not improve significantly with elev ation of the legs. Prior history of similar pain: no Prior treatment history: cortisone injections in knees, steroid injections in October 2012 in back helped for only 3 hours Record Review: I have reviewed notes from [facility]. In brief, these show bilateral knee arthritis s/p steroid injection with good relief. Negat ivanna DVT scan. Reports/records sent to be scanned into [employer] system. 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 Type II diabetes Stroke 10 years ago Kidney stone Hammer toe PAST SURGICAL HISTORY: No past surgical history on file. Toe amputation 2010 SOCIAL HISTORY: has no tobacco history on file., has no alcohol history on file., has no drug history on file. Occupation: retired MEDICATIONS: Current outpatient prescriptions:amLODIPine 10 mg Oral tablet, Take 10 mg by mouth once shelley ly., Disp: , Rfl: aspirin EC 81 mg Oral tablet,delayed release (DR/EC), Take 81 mg by mouth once daily., Disp : , Rfl: Cinnamon Bark (CINNAMON) 500 mg Oral capsule, Take by mouth., Disp: , Rfl: FLUoxetine 20 mg Oral capsule, Take 20 mg by mouth once daily., Disp: , Rfl: furosemide 40 mg Oral tablet, Take 40 mg by mouth once daily., Disp: , Rfl: insulin aspart (NOVOLOG) 100 unit/mL Subcutaneous Solution, Inject under the skin (SUBC) t hree times daily before meals. Sliding scale 2 times daily AM and PM, Disp: , Rfl: insulin glargine 100 unit/mL Subcutaneous Solution, Inject 50 Units under the skin (SUBC) t wo times daily., Disp: , Rfl: losartan-hydrochlorothiazide 50-12.5 mg Oral tablet, Take 2 Tabs by mouth once daily., Disp : , Rfl: metoprolol tartrate 50 mg Oral tablet, Take 50 mg by mouth two times daily., Disp: , Rfl: pravastatin 40 mg Oral tablet, Take 40 mg by mouth once daily at bedtime., Disp: , Rfl: ALLERGIES: has no known allergies. FAMILY HISTORY reviewed, non-contributory EXERCISE HISTORY Yard work ROS REVIEW OF SYSTEMS: A 10 point review of systems was completed and the pertinent positives and negatives are no delfin above in the history of present illness. PHYSICAL EXAMINATION Physical Exam Vitals reviewed. Constitutional: He is oriented to person, place, and time and well-developed, well-nourishe d, and in no distress. HENT: Head: Normocephalic and atraumatic. Cardiovascular: Normal rate. Pulmonary/Chest: Effort normal. Neurological: He is alert and oriented to person, place, and time. Gait normal. Reflex Scores: Patellar reflexes are 2+ on the right side and 2+ on the left side. Achilles reflexes are 2+ on the right side and 2+ on the left side. Skin: Skin is warm and dry. Psychiatric: Mood and affect normal. Neurologic Exam Mental Status Oriented to person, place, and time. Motor Exam Muscle bulk: normal Overall muscle tone: normal Right leg tone: normal Left leg tone: normal Strength Right iliopsoas: 5/5 Left iliopsoas: 5/5 Right quadriceps: 5/5 Left quadriceps: 5/5 Right hamstrin/5 Left hamstrin/5 Right glutei: 5/5 Left glutei: 5/5 Right anterior tibial: 5/5 Left anterior tibial: 5/5 Right posterior tibial: 5/5 Left posterior tibial: 5/5 Right peroneal: 5/5 Left peroneal: 5/5 Right gastroc: 5/5 Left gastroc: 5/5 Right extensor hallicus longus: 5/5 Sensory Exam Right leg light touch: normal Left leg light touch: normal Gait, Coordination, and Reflexes Gait Gait: normal Reflexes Right patellar: 2+ Left patellar: 2+ Right achilles: 2+ Left achilles: 2+ Right plantar: normal Left plantar: normal Ortho Exam: Right Hip Tenderness The patient is experiencing no tenderness. Range of Motion Flexion: normal Internal Rotation: normal External Rotation: normal Muscle Strength Abduction: 5/5 Adduction: 5/5 Flexion: 5/5 Left Hip Tenderness The patient is experiencing no tenderness. Range of Motion Flexion: normal Internal Rotation: normal External Rotation: normal Muscle Strength Abduction: 5/5 Adduction: 5/5 Flexion: 5/5 Back Tenderness The patient is experiencing tenderness in the lumbar. Range of Motion Extension: normal Flexion: normal Lateral Bend Right: normal Lateral Bend Left: normal Rotation Right: normal Rotation Left: normal Muscle Strength Right Quadricep: 5 Left Quadricep: 5 Right Hamstrin Left amstrin Tests Straight leg raise right: negative Straight leg raise left: negative Other Toe Walk: normal Heel Walk: normal Bilateral lower extremities: - left lateral thigh mass (there since 1949s per patient) - 3+ non-pitting edema bilaterally - mild erythema around feet, no warmth or pain - limited ankle ROM from edema - left big toe absent PATIENT ASSESSMENT 1. Idiopathic lymphedema, bilateral below knee 2. Low back pain, no neurologic deficits or radicular symptoms. Not of concern to the antonio ent at the moment. 3. Bilateral knee arthritis, mild PLAN 1. Referral to vascular surgery for lymphedema 2. Venous duplex of Bilateral lower extremities today to r/o DVT 3. Try stockings, elevation, or compressive wraps with Duarte wrap 4. RTC as needed. Jack Burroughs MD PGY-1, Orthopaedic Surgery Physical Medicine and Rehabilitation Department of Orthopaedics and Rehabilitation. [facility] [place] Department of Orthopaedics & Rehabilitation [address] [place] [address] Mail Code: OP31 [facility] [address] documented in this encoun ter Plan of Treatment Not on filedocumented as of this encounter Procedures + +--------+ + + + | Procedure Name | Priori | Date/Time | Associated Diagnosis | Comments | | | ty | | | | + +--------+ + + + | RADIOLOGY | | 12/15/2012 | | Results for this | | | | 12:00 AM | | procedure are in the | | | | PST | | results section. | + +--------+ + + + | LAB REPORTS | | 09/11/2012 | | Results for [...] + + documented in this encounter Results VASC LAB VENOUS DUPLEX LOWER EXTREMITY BILAT COMP (04/03/2013 3:07 PM PDT) + + + + + + | Component | Value | Ref Range | Performed | Pathologist | | | | | At | Signature | + + + + + + | VASC LAB | LOWER EXTREMITY VENOUS | | | | | VENOUS | STUDY: 04/03/2013 | | | | | DUPLEX | Dictated 04/03/2013 | | | | | LOWER | INDICATION: Edema. | | | | | EXTREMITY | The duplex scanner was | | | | | BILATERAL | used to examine the deep | | | | | COMPLETE | and superficial veins | | | | | | of theright and left | | | | | | lower extremities. | | | | | | The veins are patent | | | | | | with normal flows | | | | | | andresponses to | | | | | | augmentation and | | | | | | compression maneuvers | | | | | | and no thrombus was | | | | | | noted.It is noted that | | | | | | the examination of the | | | | | | calf veins was difficult | | | | | | because ofpatient | | | | | | edema. IMPRESSION: | | | | | | Venous examination of | | | | | | the lower extremities | | | | | | without evidence of | | | | | | venousthrombosis. Exa | | | | | | mination of the calf | | | | | | veins was technically | | | | | | difficult. END | | | | | | IMPRESSION: Attending | | | | | | [...] | | + +---------+ + + | [facility] DEPARTMENT OF | | | | | RADIOLOGY | | | | + +---------+ + + RADIOLOGY (12/15/2012 12:00 AM PST) + + + | Narrative | Performed At | + + + | | | | | | + + + + + | Procedure Note | + + | Tiffany Mace - 04/29/2013 2:03 PM PDT | + + LAB REPORTS (09/11/2012 12:00 AM PST) + + + | Narrative | Performed At | + + + | | | | | | + + + + + | Procedure Note | + + | Other, Faculty - 04/29/2013 2:03 PM PDT | + + RADIOLOGY (09/11/2012 12:00 AM PST) + + + | Narrative | Performed At | + + + | | | | | | + + + + + | Procedure Note | + + | Other, Faculty - 04/29/2013 2:03 PM PDT | + + documented in this encounter Visit Diagnoses + + | Diagnosis | + + | Lymphedema - Primary Other lymphedema | + + | Back pain Backache, unspecified | + + | Lower extremity edema Edema | + + documented in this encounter
--- OUTSIDE RECORDS SUMMARY | ~2019-03-01 | XMS | Encounter Summary ---
Demographics + + + | Address | [address] | | | [place] [address] | + + + | Home Phone [...] Team Providers + +------+ + | Care Sole Assessor Name | Role | Phone | + +------+ + PCP | Unavailable | + +------+ + Encounter Details +--------+ + + + + | Date | Type | Department | Care Team | Description | +--------+ + + + + | 10/18/ | Document-Sc | UNKNOWN DEPARTMENT | Other, Faculty | | | 2010 | anned | [address] [facility] | [phone] | | | | | [facility] | | | | | | [place], [place] | | | | | | [address] | | | +--------+ + + + [...]
--- OUTSIDE RECORDS SUMMARY | ~2019-03-01 | XMS | Clinical Summary ---
Demographics + + + | Address | [address] | | | [place] [address] | + + + | Home Phone | | + + + | Preferred Language | Unknown | + + + | Marital Status | | + + + | Druze Affiliation | Unknown | + + + | Race | Unknown | + + + | Ethnic Group | Unknown | + + + Author + + + | Author | [facility] | | | and [place] | + + + | Organization | [facility] | | | [...] [place], | | | | | [place] [address] | | + + + + + Care Team Providers + +------+ + | Care Resource Engineer Name | Role | Phone | + +------+ + | Andrew Parra MD | PP | | + +------+ + Allergies No Known Allergies Medications + + [...] 0 | | | Activ | | (LANTUS) 100 | under the skin 2 | | | | | e | | units/mL injection | times daily. | | | | | | + + + +---------+------+------+-------+ | insulin aspart | Inject 10 Units | | 0 | | | Activ | | (NOVOLOG) 100 | under the skin as | | | | | e | | units/mL injection | needed. | | | | | | + + + +---------+------+------+-------+ | | Take 1 tablet by | | 0 | | | Activ | | losartan-hydrochloro | mouth Daily. | | | | | e | | thiazide (HYZAAR) | | | | | | | | 100-25 MG per tablet | | | | | | | + + + +---------+------+------+-------+ | amlodipine | Take 10 mg by mouth | | 0 | | | Activ | | (NORVASC) 10 MG | Daily. | | | | | e | | tablet | | | | | | | + + + +---------+------+------+-------+ | metoprolol | Take 50 mg by mouth | | 0 | | | Activ | | tartrate (LOPRESSOR) | 2 times daily. | | | | | e | | 50 mg tablet | | | | | | | + + + +---------+------+------+-------+ | furosemide (LASIX) | Take 20 mg by mouth | | 0 | | | Activ | | 20 mg tablet | 2 times daily. | | | | | e | + + + +---------+------+------+-------+ | venlafaxine | Take 75 mg by mouth | | 0 | | | Activ | | (EFFEXOR) 75 MG | 2 times daily. | | | | | e | | tablet | | | | | | | + + + +---------+------+------+-------+ | aspirin 81 mg | Take 81 mg by mouth | | 0 | | | Activ | | chewable tablet | Daily. | | | | | e | + + + +---------+------+------+-------+ | LORazepam (ATIVAN) | Take 1 tablet by | 20 | 0 | 01/2 | | Activ | | 1 mg | mouth 1 hour prior | tablet | | 8/20 | | e | | tabletIndications: | to procedure, repeat | | | 13 | | | | Anxiety | in 30 minutes if | | | | | | | | needed. | | | | | | + + + +---------+------+------+-------+ Active Problems + + + | Problem | Noted Date | + + + | Left knee pain - medial and posterior near the insertion of the | 10/23/2012 | | hamstring tendons | | + + + | DDD (degenerative disc disease), lumbar | 10/23/2012 | + + + | Diabetes mellitus | 10/23/2012 | + + + | Obesity | 10/23/2012 | + + + Family History + + +------+ + | Medical History | Relation | Name | Comments | + + +------+ + | Stroke | Mother | | | + + +------+ + + +------+--------+ + | Relation | Name | Status | Comments | + +------+--------+ + | Mother | | | | + +------+--------+ + Social History + +-------+ +--------+------+ | [...] Filed Vital Signs + + + + | Vital Sign | Reading | Time Taken | + + + + | Blood Pressure | 134/66 | 10/23/2012 0858 PST | + + + + | Pulse | 53 | 10/23/2012857 PST | + + + + | Temperature | - | - | + + + + | Respiratory Rate | - | - | + + + + | Oxygen Saturation | - | - | + + + + | Inhaled Oxygen | - | - | | Concentration | | | + + + + | Weight | 159.2 kg (351 lb) | 10/23/2012857 PST | + + + + | Height | 193 cm (6' 4") | 10/23/2012857 PST | + + + + | Body Mass Index | 42.73 | 10/23/2012857 PST | + + + + Plan of Treatment + + + + + | Health Maintenance | Due Date | Last Done | Comments | + + + + + | Diabetic Eye Exam | | | | | | 1 | | | + + + + + | Diabetic Foot Exam | | | | | | 1 | | | + + + + + | Hemoglobin A1c | | | | | Screening | 1 | | | + + + + + | Vaccine: | | | | | Dtap/Tdap/Td (1 - | 2 | | | | Tdap) | | | | + + + + + | Colorectal Cancer | | | | | Screening | 3 | | | | (Colonoscopy) | | | | + + + + + | Vaccine: Zoster (1 | | | | | of 2) | 3 | | | + + + + + | Vaccine: | | | | | Pneumococcal 65+ | 8 | | | | Low/Medium Risk (1 | | | | | of 2 - PCV13) | | | | + + + + + | Adult Annual | | | | | Wellness Visit | 8 | | | + + + + + | Statin Therapy | | | | | (optimal intensity) | 8 | | | + + + + + | Vaccine: Influenza | | | | | (Season Ended) | 9 | | | + + + + [...] + +--------+ | MEDICARE | MEDICA | [id number] | | [phone] | | Medica | | | RE | | 009-Pr | 5 | | re | | | PART A | | esent | | | | | | AND B | | | | | | + +--------+ +--------+ + +--------+ | MODA | MODA | [id number] | | [phone] | [address] | Indemn | | | HEALTH | | [address] | 9 | [id number] | ity | | | MDCR | | esent | | [place], | | | | [place] | | | | [place] [address] | | + +--------+ +--------+ + +--------+ + +--------+ +--------+ + + | Guarantor Name | Accoun | Relation to | Date | Phone | Billing Address | | | t Type | Patient | of | | | | | | | | | | + +--------+ +--------+ + + | Ruby Mariano | Person | Other | [birth year] | [address] | | | [place] | | 1945 | [phone] | [place] [address] | | | [place] | | | 6 (Home) | | + +--------+ +--------+ + + Advance Directives Patient has advance care planning documents on file. For more information, please contact:[facility] [place] [address]
--- OUTSIDE RECORDS SUMMARY | ~2019-03-01 | XMS | Encounter Summary ---
Demographics + + + | Address | [address] | | | [place] [address] | + + + | Home Phone | | + + + | Preferred Language | Unknown | + + + | Marital Status | Single | + + + | Anglican Affiliation | Unknown | + + + | Race | Unknown | + + + | Ethnic Group | Other Race | + + + Author + + + | Author | [facility] | + + + | Organization | [facility] | + + + | Address | Unknown | + + + | Phone | Unavailable | + + + Care Team Providers + +------+ + | Care Civil Preparedness Coordinator Name | Role | Phone | + +------+ + PCP | Unavailable | + +------+ + Encounter Details +--------+ + + + + | Date | Type | Department | Care Team | Description | +--------+ + + + + | 12/15/ | Document-Sc | UNKNOWN DEPARTMENT | Unknown . | | | 2012 | anned | [address] [facility] | | | | | | [facility] | | | | | | [place], [place] | | | | | | [address] | | | +--------+ + + + [...] + documented in this encounter Results RADIOLOGY (12/15/2012 12:00 AM PST) + + + | Narrative | Performed At | + + + | | | | | | + + + + + | Procedure Note | + + | Tiffany Mace - 03/31/2013 10:53 AM PDT | + + documented in this encounter Visit Diagnoses Not on filedocumented in this encounter"
--- OUTSIDE RECORDS SUMMARY | ~2019-03-01 | XMS | Clinical Summary ---
Demographics + + + | Address | [address] | | | [place] [address] | + + + | Home Phone | | + + + | Preferred Language | Unknown | + + + | Marital Status | | + + + | Scientology Affiliation | Unknown | + + + | Race | Unknown | + + + | Ethnic Group | Unknown | + + + Author + + + | Author | [facility] | + + + | Organization | [facility] | + + + | Address | Unknown | + + + | Phone | Unavailable | + + + Support + + +---------+ + | Name | Relationship | Address | Phone | + + +---------+ + | Ian Mariano | ECON | Unknown | | + + +---------+ + Care Team Providers + +------+ + | Care Die Cast Supervisor Name | Role | Phone | + +------+ + PP | Unavailable | + +------+ + Allergies No Known Allergies Current Medications + + +---------+---------+------+------+-------+ | Prescription | Sig. | Disp. | Refills | Star | End | Statu | | | | | | t | Date | s | | | | | | Date | | | + + +---------+---------+------+------+-------+ | furosemide (LASIX) | Take 1 tablet by | 180 | 3 | 12/0 | | Activ | | 40 MG tablet | mouth 2 (two) times | tablet | | 6/20 | | e | | | daily. | | | 11 | | | + + +---------+---------+------+------+-------+ | amLODIPine | Take 10 mg by mouth | | | | | Activ | | (NORVASC) 10 MG | daily. | | | | | e | | tabletIndications: | | | | | | | | Type 1 diabetes | | | | | | | | mellitus without | | | | | | | | complication (HCC), | | | | | | | | Amputated great toe | | | | | | | | of left foot (HCC), | | | | | | | | Anemia in chronic | | | | | | | | kidney | | | | | | | | disease(285.21), | | | | | | | | Benign neoplasm of | | | | | | | | skin of other and | | | | | | | | unspecified parts of | | | | | | | | face, Benign | | | | | | | | neoplasm of skin of | | | | | | | | trunk, except | | | | | | | | scrotum, Benign | | | | | | | | neoplasm of skin of | | | | | | | | upper limb, | | | | | | | | including shoulder, | | | | | | | | unspecified | | | | | | | | laterality, Chronic | | | | | | | | kidney disease, | | | | | | | | stage III (moderate) | | | | | | | | (HCC), Vitamin D | | | | | | | | deficiency, | | | | | | | | Essential | | | | | | | | hypertension, | | | | | | | | benign, Mixed | | | | | | | | hyperlipidemia, | | | | | | | | Diabetes type 2, | | | | | | | | uncontrolled (HCC), | | | | | | | | Edema | | | | | | | + + +---------+---------+------+------+-------+ | aspirin 81 MG EC | Take 81 mg by mouth | | | | | Activ | | tabletIndications: | daily with | | | | | e | | Type 1 diabetes | breakfast. | | | | | | | mellitus without | | | | | | | | complication (HCC), | | | | | | | | Amputated great toe | | | | | | | | of left foot (HCC), | | | | | | | | Anemia in chronic | | | | | | | | kidney | | | | | | | | disease(285.21), | | | | | | | | Benign neoplasm of | | | | | | | | skin of other and | | | | | | | | unspecified parts of | | | | | | | | face, Benign | | | | | | | | neoplasm of skin of | | | | | | | | trunk, except | | | | | | | | scrotum, Benign | | | | | | | | neoplasm of skin of | | | | | | | | upper limb, | | | | | | | | including shoulder, | | | | | | | | unspecified | | | | | | | | laterality, Chronic | | | | | | | | kidney disease, | | | | | | | | stage III (moderate) | | | | | | | | (HCC), Vitamin D | | | | | | | | deficiency, | | | | | | | | Essential | | | | | | | | hypertension, | | | | | | | | benign, Mixed | | | | | | | | hyperlipidemia, | | | | | | | | Diabetes type 2, | | | | | | | | uncontrolled (HCC), | | | | | | | | Edema | | | | | | | + + +---------+---------+------+------+-------+ | FLUoxetine | Take 20 mg by mouth | | | | | Activ | | (PROZAC) 20 MG | daily. Take two | | | | | e | | capsuleIndications: | capsules at bedtime. | | | | | | | Type 1 diabetes | | | | | | | | mellitus without | | | | | | | | complication (HCC), | | | | | | | | Amputated great toe | | | | | | | | of left foot (HCC), | | | | | | | | Anemia in chronic | | | | | | | | kidney | | | | | | | | disease(285.21), | | | | | | | | Benign neoplasm of | | | | | | | | skin of other and | | | | | | | | unspecified parts of | | | | | | | | face, Benign | | | | | | | | neoplasm of skin of | | | | | | | | trunk, except | | | | | | | | scrotum, Benign | | | | | | | | neoplasm of skin of | | | | | | | | upper limb, | | | | | | | | including shoulder, | | | | | | | | unspecified | | | | | | | | laterality, Chronic | | | | | | | | kidney disease, | | | | | | | | stage III (moderate) | | | | | | | | (HCC), Vitamin D | | | | | | | | deficiency, | | | | | | | | Essential | | | | | | | | hypertension, | | | | | | | | benign, Mixed | | | | | | | | hyperlipidemia, | | | | | | | | Diabetes type 2, | | | | | | | | uncontrolled (HCC), | | | | | | | | Edema | | | | | | | + + +---------+---------+------+------+-------+ | metoprolol | Take 50 mg by mouth | | | | | Activ | | (TOPROL-XL) 50 MG 24 | 2 (two) times daily. | | | | | e | | hr | Patient takes 1.5 | | | | | | | tabletIndications: | (75mg) tabs one | | | | | | | Type 1 diabetes | daily. | | | | | | | mellitus without | | | | | | | | complication (HCC), | | | | | | | | Amputated great toe | | | | | | | | of left foot (HCC), | | | | | | | | Anemia in chronic | | | | | | | | kidney | | | | | | | | disease(285.21), | | | | | | | | Benign neoplasm of | | | | | | | | skin of other and | | | | | | | | unspecified parts of | | | | | | | | face, Benign | | | | | | | | neoplasm of skin of | | | | | | | | trunk, except | | | | | | | | scrotum, Benign | | | | | | | | neoplasm of skin of | | | | | | | | upper limb, | | | | | | | | including shoulder, | | | | | | | | unspecified | | | | | | | | laterality, Chronic | | | | | | | | kidney disease, | | | | | | | | stage III (moderate) | | | | | | | | (HCC), Vitamin D | | | | | | | | deficiency, | | | | | | | | Essential | | | | | | | | hypertension, | | | | | | | | benign, Mixed | | | | | | | | hyperlipidemia, | | | | | | | | Diabetes type 2, | | | | | | | | uncontrolled (HCC), | | | | | | | | Edema | | | | | | | + + +---------+---------+------+------+-------+ | insulin aspart | Inject into the | | | | | Activ | | (NOVOLOG) 100 | skin 3 (three) times | | | | | e | | UNIT/ML | daily before meals. | | | | | | | injectionIndications | | | | | | | | : Type 1 diabetes | | | | | | | | mellitus without | | | | | | | | complication (HCC), | | | | | | | | Amputated great toe | | | | | | | | of left foot (HCC), | | | | | | | | Anemia in chronic | | | | | | | | kidney | | | | | | | | disease(285.21), | | | | | | | | Benign neoplasm of | | | | | | | | skin of other and | | | | | | | | unspecified parts of | | | | | | | | face, Benign | | | | | | | | neoplasm of skin of | | | | | | | | trunk, except | | | | | | | | scrotum, Benign | | | | | | | | neoplasm of skin of | | | | | | | | upper limb, | | | | | | | | including shoulder, | | | | | | | | unspecified | | | | | | | | laterality, Chronic | | | | | | | | kidney disease, | | | | | | | | stage III (moderate) | | | | | | | | (HCC), Vitamin D | | | | | | | | deficiency, | | | | | | | | Essential | | | | | | | | hypertension, | | | | | | | | benign, Mixed | | | | | | | | hyperlipidemia, | | | | | | | | Diabetes type 2, | | | | | | | | uncontrolled (HCC), | | | | | | | | Edema | | | | | | | + + +---------+---------+------+------+-------+ | pravastatin | Take 40 mg by mouth | | | | | Activ | | (PRAVACHOL) 40 MG | nightly. | | | | | e | | tabletIndications: | | | | | | | | Type 1 diabetes | | | | | | | | mellitus without | | | | | | | | complication (HCC), | | | | | | | | Amputated great toe | | | | | | | | of left foot (HCC), | | | | | | | | Anemia in chronic | | | | | | | | kidney | | | | | | | | disease(285.21), | | | | | | | | Benign neoplasm of | | | | | | | | skin of other and | | | | | | | | unspecified parts of | | | | | | | | face, Benign | | | | | | | | neoplasm of skin of | | | | | | | | trunk, except | | | | | | | | scrotum, Benign | | | | | | | | neoplasm of skin of | | | | | | | | upper limb, | | | | | | | | including shoulder, | | | | | | | | unspecified | | | | | | | | laterality, Chronic | | | | | | | | kidney disease, | | | | | | | | stage III (moderate) | | | | | | | | (HCC), Vitamin D | | | | | | | | deficiency, | | | | | | | | Essential | | | | | | | | hypertension, | | | | | | | | benign, Mixed | | | | | | | | hyperlipidemia, | | | | | | | | Diabetes type 2, | | | | | | | | uncontrolled (HCC), | | | | | | | | Edema | | | | | | | + + +---------+---------+------+------+-------+ | | Take by mouth as | | | | | Activ | | Diphenhydramine-APAP | needed. | | | | | e | | , sleep, (TYLENOL PM | | | | | | | | EXTRA STRENGTH PO) | | | | | | | + + +---------+---------+------+------+-------+ | insulin glargine | Inject 50 Units into | | | | | Activ | | (KEYUR DOCKERY) | the skin daily. | | | | | e | | 300 UNIT/ML | | | | | | | | injection | | | | | | | + + +---------+---------+------+------+-------+ | insulin lispro, | Inject into the | | | | | Activ | | human, (HUMALOG) 100 | skin 2 (two) times | | | | | e | | UNIT/ML injection | daily. Sliding scale | | | | | | + + +---------+---------+------+------+-------+ | calcitRIOL | Take 1 capsule by | 30 | 11 | 11/0 | | Activ | | (ROCALTROL) 0.25 MCG | mouth daily. | capsule | | 6/20 | | e | | capsule | | | | 17 | | | + + +---------+---------+------+------+-------+ | allopurinol | Take 1 tablet by | 90 | 3 | 04/13 | | Activ | | (ZYLOPRIM) 100 MG | mouth daily. | tablet | | 11/02 | | e | | tablet | | | | 18 | | | + + +---------+---------+------+------+-------+ | | Take 0.5 tablets by | | | 11/0 | | Activ | | losartan-hydrochloro | mouth daily. | | | 05/02 | | e | | thiazide (HYZAAR) | | | | 18 | | | | 100-25 MG per | | | | | | | | tabletIndications: | | | | | | | | Type 1 diabetes | | | | | | | | mellitus without | | | | | | | | complication (HCC), | | | | | | | | Amputated great toe | | | | | | | | of left foot (HCC), | | | | | | | | Benign neoplasm of | | | | | | | | skin of trunk, | | | | | | | | except scrotum, | | | | | | | | Benign neoplasm of | | | | | | | | skin of upper limb, | | | | | | | | including shoulder, | | | | | | | | unspecified | | | | | | | | laterality, Chronic | | | | | | | | kidney disease, | | | | | | | | stage III (moderate) | | | | | | | | (HCC), Vitamin D | | | | | | | | deficiency, | | | | | | | | Essential | | | | | | | | hypertension, | | | | | | | | benign, Mixed | | | | | | | | hyperlipidemia | | | | | | | + + +---------+---------+------+------+-------+ Active Problems + + + | Problem | Noted Date | + + + | Anemia | 08/31/2016 | + + + | Morbid obesity due to excess calories (HCC) | 04/30/2016 | + + + | Bradycardia | 01/16/2016 | + + + | Hyperparathyroidism (HCC) | 10/24/2015 | + + + | Hyperuricemia | 07/18/2015 | + + + | Amputated great toe of left foot (HCC) | 05/19/2015 | + + + | Benign neoplasm of skin of other and unspecified parts of face | 05/19/2015 | + + + | Benign neoplasm of skin of trunk, except scrotum | 05/19/2015 | + + + | Benign neoplasm of skin of upper limb, including shoulder | 05/19/2015 | + + + | Chronic kidney disease, stage III (moderate) | 05/19/2015 | + + + | Vitamin D deficiency | 05/19/2015 | + + + | Essential hypertension, benign | 05/19/2015 | + + + | Mixed hyperlipidemia | 05/19/2015 | + + + | Type 2 diabetes mellitus with diabetic nephropathy (HCC) | 05/19/2015 | + + + | Bilateral edema of lower extremity | 05/19/2015 | + + + Encounters +--------+ + + + + | Date | Type | Specialty | Care Team | Description | +--------+ + + + + | 02/27/ | Telephone | | Roman, | | | 2018 | | | JOHAN Contreras | | +--------+ + + + + from Last 3 Months Immunizations + + + + | Name | Dates Previously Given | Next Due | + + + + | INFLUENZA, PF | 08/16/2016 | | | TRIVALENT HIGH DOSE | | | | 63 YRS [place] > | | | + + + + | Pneumococcal | 08/16/2016 | | | Polysaccharide | | | | 23-valent | | | + + + + Social History + +-------+ +--------+------+ | Tobacco Use | Types | Packs/Day | Years | Date | | | | | Used | | + +-------+ +--------+------+ | Never Smoker | | | | | + +-------+ +--------+------+ + +---+---+---+ | Smokeless Tobacco: | | | | | Never Used | | | | + +---+---+---+ + + | Tobacco Cessation: Counseling Given: No | + + + + +---------+ + | Alcohol Use | Drinks/We | oz/Week | Comments | | | ek | | | + + +---------+ + | No | | | | + + +---------+ + + + + | Sex Assigned at | Date Recorded | | | | + + + | Not on file | | + + + Last Filed Vital Signs + + + + | Vital Sign | Reading | Time Taken | + + + + | Blood Pressure | 116/38 | 08/20/2018 11:04 AM PST | + + + + | Pulse | 60 | 08/20/2018 11:04 AM PST | + + + + | Temperature | 36.2 C (97.1 F) | 04/23/2018 11:29 AM PDT | + + + + | Respiratory Rate | - | - | + + + + | Oxygen Saturation | 98% | 08/20/2018 11:04 AM PST | + + + + | Inhaled Oxygen | - | - | | Concentration | | | + + + + | Weight | 159.7 kg (352 lb 1.6 | 08/20/2018 11:04 AM PST | | | oz) | | + + + + | Height | 193 cm (6' 4") | 08/20/2018 11:04 AM PST | + + + + | Body Mass Index | 42.86 | 08/20/2018 11:04 AM PST | + + + + Plan of Treatment +--------+---------+ + + + | Date | Type | Specialty | Care Team | Description | +--------+---------+ + + + | 03/04/ | Office | | Cameron Self, | | | 2018 | Visit | | [facility]RIN [facility]CCALL | | | | | | [address] | | | | | | [place] [address] | | | | | | [phone] | | | | | | | | +--------+---------+ + + + + + + + + | Health Maintenance | Due Date | Last Done | Comments | + + + + + | Diabetic Eye Exam | | | | | | 3 | | | + + + + + | Diabetic Foot Exam | | | | | | 3 | | | + + + + + | Vaccine: | | | | | Dtap/Tdap/Td (1 - | 2 | | | | Tdap) | | | | + + + + + | Colon Cancer | | | | | Screening | 3 | | | | (Colonoscopy) | | | | + + + + + | Vaccine: Zoster (1 | | | | | of 2) | 3 | | | + + + + + | Statin Therapy | | | | | (optimal intensity) | 6 | | | + + + + + | Vaccine: | | 08/16/2016 | | | Pneumococcal 65+ | 7 | | | | Low/Medium Risk (2 | | | | | of 2 - PCV13) | | | | + + + + + | Hemoglobin A1c | | 08/07/2017, 12/15/2014 | | | | 8 | | | + + + + + | Vaccine: Influenza | | 08/16/2016 | | | (Season Ended) | 9 | | | + + + + + Results Not on filefrom Last 3 Months Insurance + +--------+ +------+-------+ + | Payer | Benefi | Subscriber | Type | Phone | Address | | | t Plan | ID | | | | | | / | | | | | | | Group | | | | | + +--------+ +------+-------+ + | MEDICARE | MEDICA | [id number] | | | [address] | | | RE | | | | [place] [phone] | | | IP-OP | | | | | + +--------+ +------+-------+ + | [employer] | ODS | [id number] | | | | | | HEALTH | | | | | | | PLAN | | | | | + +--------+ +------+-------+ + + +--------+ +--------+ + + | Guarantor Name | Accoun | Relation to | Date | Phone | Billing Address | | | t Type | Patient | of | | | | | | | | | | + +--------+ +--------+ + + | RENNY MARAINO | Person | Self | [birth year] | Home: | [address] | | | al/Fam | | 1945 | [phone] | [place] | | | [place] | | | [phone] | [phone] | + +--------+ +--------+ + +
--- OUTSIDE RECORDS SUMMARY | ~2019-03-01 | XMS | Encounter Summary ---
Demographics + + + | Address | [address] | | | [place] [address] | + + + | Home Phone [...] Author + + + | Author | [facility] | + + + | Organization | [facility] | + + + | Address | Unknown | + + + | Phone | Unavailable | + + + Care Team Providers + +------+ + | Care Semiconductor Development Technician Name | Role | Phone | + [...]
--- OUTSIDE RECORDS SUMMARY | ~2019-03-01 | XMS | Encounter Summary ---
Demographics + + + | Address | [address] | | | [place] [address] | + + + | Home Phone [...] Author + + + | Author | [facility] | + + + | Organization | [facility] | + + + | Address | Unknown | + + + | Phone | Unavailable | + + + Care Team Providers + +------+ + | Care Professor Of Law Name | Role | Phone | + [...] | | | | CONSULT TO | [facility] | | | | | SURGERY - | Rd | Road | | | | | VASCULAR | [place], [place] | Mailcode: | | | | | SURGERY | [address] | [address] | | | | | DIVISION | | Physicians | | | | | | | Pavilion | | | | | | | [place], [place] | | | | | | | [address] | | | | | | | Phone: | | | | | | | [phone] | | | | | | | Fax: | | | | | | | [phone] | + +--------+ + + + + [...] | | | | | edema | [facility] | | | | | Procedures | Rd | Road | | | | | VASC LAB | [place], [place] | Mailcode: | | | | | VENOUS | [address] | [address] | | | | | DUPLEX LOWER | | Physicians | | | | | EXTREMITY | | Pavilion | | | | | BILAT COMP | | [place], [place] | | | | | | | [address] | | | | | | | Phone: | | | | | | | [phone] | | | | | | | Fax: | | | | | | | [phone] | +--------+--------+ + + + + Reason [...] | | | & Keegan | [place], | | | | | | [address] | [place] | | | | | | [address] | [address] | | | | | | [place], | Phone: | | | | | | [place] [address] | [phone] | | | | | | Phone: | Fax: | | | | | | [phone] | [phone] | | | | | | Fax: | | | | | | | [phone] | | +--------+--------+ + + + + Encounter Details +--------+---------+ + + + | Date | Type | Department | Care Team | Description | +--------+---------+ + + + | 04/03/ | Office | Orthopaedic Spine | Dane Paez MD | Lymphedema (Primary | | 2012 | Visit | Center at [facility] [address] | [address] | Dx); Back pain; | | | | [address] | [facility], | Lower extremity | | | | Mailcode: CH8N | [place] [address] | edema | | | | [facility] | [phone] | | | | | and Healing, 8th | | | | | | Floor [place], [place] | | | | | | [address] | | | | | | [phone] | | | +--------+---------+ + + + [...] to improve as anticipated. Dane Paez M.D. Contract [facility] Physical Medicine and Rehabilitation Dane Hsieh MD [...] to improve as anticipated. Dane Paez M.D. Contract Mail [facility] Physical Medicine and Rehabilitation ox, Jack Vazquez MD - 04/03 12:56 PM PDT [facility] DEPARTMENT OF ORTHOPAEDICS & REHABILITATION Physical Medicine [...] Record Review: I have reviewed notes from [facility]. In brief, these show bilateral knee arthritis s/p steroid injection with good relief. Negat ivanna DVT scan. Reports/records sent to be scanned into [employer] system. DIAGNOSTIC STUDIES: CT lumbar spine at [...] and Rehabilitation Department of Orthopaedics and Rehabilitation. [facility] [place] Department of Orthopaedics & Rehabilitation [address] [place] [address] Mail Code: OP31 [facility] [id number] documented in this encoun ter Plan of [...]
--- OUTSIDE RECORDS SUMMARY | ~2019-03-01 | XMS | Encounter Summary ---
Demographics + + + | Address | [address] | | | [place] [address] | + + + | Home Phone | | + + + | Preferred Language | Unknown | + + + | Marital Status | Single | + + + | Jainism Affiliation | Unknown | + + + | Race | Unknown | + + + | Ethnic Group | Other Race | + + + Author + + + | Author | [facility] | + + + | Organization | [facility] | + + + | Address | Unknown | + + + | Phone | Unavailable | + + + Care Team Providers + +------+ + | Care Family Physician Name | Role | Phone | + +------+ + | Daniel Sofia MD | PCP | | + +------+ + Encounter Details +--------+ + + + + | Date | Type | Department | Care Team | Description | +--------+ + + + + | 04/25/ | Hospital | Dermatopathology | | | | 2016 | Encounter | [address] | | | | | | Mail Code: CH16D | | | | | | [facility] | | | | | | and Healing, 5th | | | | | | floor [place], [place] | | | | | | [address] | | | | | | [phone] | | | +--------+ + + + [...] | + +--------+ + + + | DERM PATHOLOGY | Routin | 04/25/2016 | | Results for this | | | e | | | procedure are in the | | | | | | results section. | + +--------+ + + + documented in this encounter Results DERM PATHOLOGY (04/25/2016) + + + + + + | Component | Value | Ref Range | Performed | Pathologist | | | | | At | Signature | + + + + + + | DERMATOPATH | SOURCE OF SPECIMEN:A Rt. | | [facility] | | | OLOGY(WET | mid paraspinal, | | DERMATOPATH | | | MNT) | excision | | OLOGY | | | | CLINICAL | | | | | | DESCRIPTION:Compound | | | | | | melanocytic nevus w/ | | | | | | unusual features. spec. | | | | | | marked inferiorly; | | | | | | bxscar. GROSS | | | | | | DESCRIPTION:Received in | | | | | | formalin is a specimen | | | | | | labeled García, | | | | | | Renny:A: Specimen is | | | | | | labeled "R mid | | | | | | paraspinal" and consists | | | | | | of an ellipse | | | | | | [id number]-mpm-ijamz-white | | | | | | skin, [id number]. The | | | | | | specimen is oriented by | | | | | | a sutureat one apex, | | | | | | which is designated as | | | | | | inferior. With the | | | | | | suture in the | | | | | | 12:00position, the | | | | | | specimen is inked blue | | | | | | from 12:00-3:00-6:00 and | | | | | | black | | | | | | from6:00-9:00-12:00. | | | | | | The tissue is serially | | | | | | sectioned from 12:00 to | | | | | | 6:00 andsubmitted | | | | | | respectively in | | | | | | cassettes A1 | | | | | | | | | | | | A6. MICROSCOPIC | | | | | | DESCRIPTION:There is | | | | | | dermal fibrosis with an | | | | | | increased number of | | | | | | collagen bundles | | | | | | withfibrocytes arranged | | | | | | parallel to the skin | | | | | | surface with vertically | | | | | | orientedblood | | | | | | vessels. | | | | | | DIAGNOSIS:SCAR, WITH NO | | | | | | RESIDUUM | | | | | | IDENTIFIED. | | | | | | NOTE: No residual | | | | | | melanocytic nevus with | | | | | | unusual features is | | | | | | identified. My | | | | | | electronic signature | | | | | | indicates that I have | | | | | | personally reviewed | | | | | | alldiagnostic slides, | | | | | | the gross and/or | | | | | | microscopic portion of | | | | | | thisreport and | | | | | | formulated the final | | | | | | diagnosis. | | | | | | Rendering | | | | | | Diagnostician: Dori | | | | | | katharina Walter | | | | | | MDPathologistElectronica | | | | | | lly Signed 04/30/2016 | | | | | | 11:35AM | | | | + + + [...] + + | BARBARA | [address], [address] | [place] [address] | | | DERMATOPATHOLOGY | [address] | | | + + + + + documented in this encounter Visit Diagnoses Not on filedocumented in this encounter
--- OUTSIDE RECORDS SUMMARY | ~2019-03-01 | XMS | Encounter Summary ---
Demographics + + + | Address | [address] | | | [place] [address] | + + + | Home Phone | | + + + | Preferred Language | Unknown | + + + | Marital Status | Single | + + + | Jewish Affiliation | Unknown | + + + | Race | Unknown | + + + | Ethnic Group | Other Race | + + + Author + + + | Author | [facility] | + + + | Organization | [facility] | + + + | Address | Unknown | + + + | Phone | Unavailable | + + + Care Team Providers + +------+ + | Care Capsule Machine Operator Name | Role | Phone [...] [address] | | | | | | [facility] | | | | | | and Healing, 5th | | | | | | floor [place], [place] | | | | | | [address] | | | | | | [phone] | | | +--------+ + + + [...] ellipse | | | | | | tnavq-esz-iaoti-white | | | | | | skin, [id number]. The | | | | | | [...] + + | BARBARA | [address], [address] | [place] [address] | | | DERMATOPATHOLOGY | [address] | | | + + + + + documented in this encounter Visit Diagnoses Not on filedocumented in this encounter
--- OUTSIDE RECORDS SUMMARY | ~2019-03-01 | XMS | Encounter Summary ---
Demographics + + + | Address | [address] | | | [place] [address] | + + + | Home Phone | | + + + | Preferred Language | Unknown | + + + | Marital Status | Single | + + + | Uatsdin Affiliation | Unknown | + + + | Race | Unknown | + + + | Ethnic Group | Other Race | + + + Author + + + | Author | [facility] | + + + | Organization | [facility] | + + + | Address | Unknown | + + + | Phone | Unavailable | + + + Care Team Providers + +------+ + | Care Staff Certified Nurse Midwife Name | Role | Phone | + [...]
--- OUTSIDE RECORDS SUMMARY | ~2019-03-01 | XMS | Encounter Summary ---
Demographics + + + | Address | [address] | | | [place] [address] | + + + | Home Phone | | + + + | Preferred Language | Unknown | + + + | Marital Status | Single | + + + | Religion Affiliation | Unknown | + + + | Race | Unknown | + + + | Ethnic Group | Other Race | + + + Author + + + | Author | [facility] | + + + | Organization | [facility] | + + + | Address | Unknown | + + + | Phone | Unavailable | + + + Care Team Providers + +------+ + | Care Bone Crusher Name | Role | Phone | + +------+ + PCP | Unavailable | + +------+ + Encounter Details +--------+ + + + + | Date | Type | Department | Care Team | Description | +--------+ + + + + | 10/18/ | Document-Sc | UNKNOWN DEPARTMENT | Other, Faculty | | | 2010 | anned | [address] [facility] | [phone] | | | | | [facility] | | | | | | [place], [place] | | | | | | [address] | | | +--------+ + + + [...]
--- OUTSIDE RECORDS SUMMARY | ~2019-03-01 | XMS | Encounter Summary ---
Demographics + + + | Address | [address] | | | [place] [address] | + + + | Home Phone | | + + + | Preferred Language | Unknown | + + + | Marital Status | Single | + + + | Taoism Affiliation | Unknown | + + + | Race | Unknown | + + + | Ethnic Group | Other Race | + + + Author + + + | Author | [facility] | + + + | Organization | [facility] | + + + | Address | Unknown | + + + | Phone | Unavailable | + + + Care Team Providers + +------+ + | Care Barge Engineer Name | Role | Phone | [...] | | | ART[address] | [address] | [facility] | | | | | LOWER | [address] | Mailcode: | | | | | EXTREMITY | [facility] [place] | [address] | | | | | BILATERAL | [address] | Physicians | | | | | COMPLETE | Phone: | Pavilion | | | | | | [phone] | [place], [place] | | | | | | Fax: | [address] | | | | | | [phone] | Phone: | | | | | | | [phone] | | | | | | | Fax: | | | | | | | [phone] | +--------+--------+ + + + + Reason for Visit + + + | Reason | Comments | + + + | Evaluation AND/OR | | | management - new | | | patient | | + + + Consultation (Routine) + +--------+ + + + [...] | CONSULT TO | [facility] | [facility] | | | | | SURGERY - | Rd | Road | | | | | VASCULAR | [place], [place] | Mailcode: | | | | | SURGERY | [address] | [address] | | | | | DIVISION | | Physicians | | | | | | | Pavilion | | | | | | | [place], [place] | | | | | | | [address] | | | | | | | Phone: | | | | | | | [phone] | | | | | | | Fax: | | | | | | | [phone] | + +--------+ + + + + Encounter Details +--------+---------+ + + + | Date | Type | Department | Care Team | Description | +--------+---------+ + + + | 05/06/ | Office | Vascular Surgery | Juve Shaw, | Lymphedema (Primary | | 2012 | Visit | at [facility] 2nd Floor | MD Jose Ragland | Dx); Other | | | | [address] | [facility] | lymphedema; Other | | | | [facility] | [place], [place] | noninfectious | | | | Mailcode: [address]11 | [address] | disorders of | | | | Physicians Pavilion | [phone] | lymphatic channels; | | | | [place], [place] | | Type II or | | | | [address] | | unspecified type | | | | [phone] | | diabetes mellitus | | | | | | with other specified | | | | | | manifestations, not | | | | | | stated as | | | | | | uncontrolled; Ulcer | | | | | | of other part of | | | | | | foot | +--------+---------+ + + + Social History [...] + documented in this encounter Progress Notes Juve Shaw MD - 05/06/2013 12:08 PM PDTI saw and evaluated the patient. I agree with the findings and the plan of care as documented in the resident s note. JUVE SHAW MD VASCULAR SURGERY [address] [place] [address] Mailcode: [address] [place] [address] ames Vicente MD - 05/06/2013 11:55 AM PDT VASCULAR SURGERY HISTORY AND PHYSICAL Author: JAMES ORTEGA MD Attending Physician: Rikki Shaw MD PCP: Rosey Sofia MD Chief Complaint : Bilateral lower extremity pain and edema HPI Mr. Mariano is a 68 year old man with DM, obesity referred to us for the management of ly mphedema. He noticed that his legs started swelling back in August 2012 and since then it has gotten progressively worse. He has undergone LE duplex showing no DVTs. He is currently being managed by lymphedema massage and compression gavi wraps. He denies any recurrent cellu litis or infections, however recently he has developed a small wound over hid left medial ca lf. He is diabetic and has some elevated Cr (1.8) but otherwise denies cardiac or renal problem s. 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 He denies claudication however he does notice worsening BL leg pain while laying flat, this pain gets better when he dangles his extremities over the edge of the bed. Review of Systems: General: No constitutional symptoms of fevers, fatigue, chills, weight loss or sweats. Respiratory: No shortness of breath, coughing up blood, excessive sputum, cough, chest dis comfort or wheezing. Cardiovascular: No chest pain, skipping beats, lightheadedness, difficulty breathing uprig ht or lying down, fatigue, near fainting or fainting, palpitations, weight gain, edema, leg cramps. Gastrointestinal: No abdominal pain, no jaundice, hematemesis, melena, hematochezia, dyphag ia or anorexia. Genitourinary: No urinary frequency, blood in urine, difficulty in urination, discharge, p ainful urination, incontinence, urinary urgency or genital sores. All other systems were interrogated and negative Past Medical History Diagnosis Date DM (diabetes mellitus) Hammer toe Nephrolithiasis CKD (chronic kidney disease) Obesity Past Surgical History Procedure Laterality Date Toe amputation Right Side (1st toe) No Known Allergies Current Outpatient Prescriptions on File Prior to Visit Medication Sig Dispense Refill amLODIPine 10 mg Oral tablet Take 10 mg by mouth once daily. aspirin EC 81 mg Oral tablet,delayed release (DR/EC) Take 81 mg by mouth once daily. Cinnamon Bark (CINNAMON) 500 mg Oral capsule Take by mouth. FLUoxetine 20 mg Oral capsule Take 60 mg by mouth three times daily. furosemide 40 mg Oral tablet Take 40 mg by mouth once daily. insulin aspart (NOVOLOG) 100 unit/mL Subcutaneous Solution Inject under the skin (SUBC ) three times daily before meals. Sliding scale 2 times daily AM and PM insulin glargine 100 unit/mL Subcutaneous Solution Inject 50 Units under the skin (SUBC ) two times daily. losartan-hydrochlorothiazide 50-12.5 mg Oral tablet Take 2 Tabs by mouth once daily. metoprolol tartrate 50 mg Oral tablet Take 50 mg by mouth two times daily. pravastatin 40 mg Oral tablet Take 40 mg by mouth once daily at bedtime. No current facility-administered medications on file prior to visit. History Substance Use Topics Smoking status: Never Smoker Smokeless tobacco: Not on file Alcohol Use: No Family History Non contributory Physical Exam: BP 117/74 | Pulse 63 | Temp 37 C (98.6 F) | Ht 1.93 m (6' 4") | Wt 174.998 kg (385 lb 1 2.8 oz) | SpO2 99% | BMI 46.98 kg/(m^2) General Appearance: Elderly, obese man in no distress HEENT: Moist mucosas, no palpable lymphadenopathy Respiratory: CTA Cardiovascular: RRR no mrg Gastrointestinal: Obese, benign Extremities: Severe bilateral lymphedema up to knees. Bilateral feet are scaly. His left ca lf has a 3cm supperficial ulcer, with a moist base, minimal surrounding erythema. Absence of left 1st toe. Pulse exam: R L Carotid 2+ 2+ Radial 2+ 2+ DP 1+ 1+ Assessment and Plan: Renny Mariano is a 68 y.o. Male with diabetes and severe idiopathic lymphedema. We spent most of the consultation time explaining him the physiology behind his lymphedema and the di fferent treatment possibilities. Mainly we mentioned that his lymphedema is manageable but n ot curable. We have suggested the following interventions: 1. Weight loss 2. Leg elevation and 3. Leg compression: He would benefit from custom made compression velcro Circaids however he give some symptomatology of mild PAD so before applying too much compression to his lower extremities we would like to evaluate his lower extremity circulation for which we will ord er an arterial duplex and will call him with the results. We gave him a prescription for Cir caids that he should use daily. Furthermore given his long standing diabetes and previous amputation we stressed the need t o improve feet hygiene and daily evaluation of his feet to be cautious of any foot infection s. Also his feet are dry and scaly so we also suggested use of moisturizer to avoid new woun ds to form. Finally he is being managed at home near [place], [place] by a fuel pilot engineer and a lymphedema t herapist and it appears that all the recommendations he has received from them are appropria te and will also help him for the management of his lymphedema. We answered all his questions. The patient was discussed with Dr. Valeria ORTEGA MD Resident, PGY-4 [facility], Dept. of Surgery Pager [phone] Andres Dewey - 05/06/2013 10:42 AM PDT Reason for Visit: Chief Complaint Patient presents with Evaluation AND/OR management - new patient Pain Score: 5 Filed Vitals 05/06/2013 10:31 AM Height: 193 cm (6' 4")( < 3 %ile) Weight: 174.998 kg (385 lbs 12.8 oz)( < 3 %ile) BP: 117/74 Pulse: 63 Temp: 37 C (98.6 F) SpO2: 99% BMI: 46.98 kg/(m^2) History Smoking status Never Smoker Smokeless tobacco Not on file Additional staff support provided to the patient during this encounter included: Assist with patient exam Procedures/Treatment: Dressings/simple wound care documented in this encounte r Plan of Treatment Not on filedocumented as of this encounter Results VASC LAB ARTER DUPLEX LOWER EXTREMITY BILATERAL COMPLETE [...] | | | | | | : JUVE SHAW MD I | | | | | | have personally viewed | | | | | | this procedure/exam, | | | | | | reviewed this report, | | | | | | and madechanges to it | | | | | | where appropriate. | | | | | | Final/Electronically | | | | | | signed / JUVE | | | | | | VALERIA Preliminary | | | | | | / Yomaira Clay | | | | + + + + + + + + | Specimen | + + | | + + + +---------+ + + | Performing | Address | City/State/Zipcode | Phone Number | | Organization | | | | + +---------+ + + | [facility] DEPARTMENT OF | | | | | RADIOLOGY | | | | + +---------+ + + documented in this encounter Visit Diagnoses + + | Diagnosis | + + | Lymphedema - Primary Other lymphedema | + + | Other lymphedema | + + | Other noninfectious disorders of lymphatic channels | + + | Type II or unspecified type diabetes mellitus with other specified manifestations, not | | stated as uncontrolled | + + | Ulcer of other part of foot | + + documented in this encounter
--- OUTSIDE RECORDS SUMMARY | ~2019-03-01 | XMS | Clinical Summary ---
Demographics + + + | Address | [address] | | | [place] [address] | + + + | Home Phone | | + + + | Preferred Language | Unknown | + + + | Marital Status | | + + + | Taoist Affiliation | Unknown | + + + | Race | Unknown | + + + | Ethnic Group | Unknown | + + + Author + + + | Author | [facility] | | | and [place] | + + + | Organization | [facility] | | [...] [place], | | | | | [place] [address] | | + + + + + Care Team Providers + +------+ + | Care Hot Knife Foxing Cutter Name | Role | Phone | [...] + +--------+ | MEDICARE | MEDICA | [id number] | | [phone] | | Medica | | | RE | | 009-Pr | 5 | | re | | | PART A | | esent | | | | | | AND B | | | | | | + +--------+ +--------+ + +--------+ | MODA | MODA | [id number] | | [phone] | [address] | Indemn | | | HEALTH | | 009-Pr | 9 | [id number] | ity | | | MDCR | | esent | | [place], | | | | [place] | | | | [place] [address] | | + +--------+ +--------+ + +--------+ [...] | | chapin/Luis | | 1945 | [phone] | [place] [address] | | | walt | | | 6 (Home) | | + +--------+ +--------+ + + Advance Directives Patient has advance care planning documents on file. For more information, please contact:[facility] [place] [address]
--- OUTSIDE RECORDS SUMMARY | ~2019-03-01 | XMS | Encounter Summary ---
Demographics + + + | Address | [address] | | | [place] [address] | + + + | Home Phone | | + + + | Preferred Language | Unknown | + + + | Marital Status | Single | + + + | Pentecostalism Affiliation | Unknown | + + + | Race | Unknown | + + + | Ethnic Group | Other Race | + + + Author + + + | Author | [facility] | + + + | Organization | [facility] | + + + | Address | Unknown | + + + | Phone | Unavailable | + + + Care Team Providers + +------+ + | Care Political Reporter Name | Role | Phone | + [...] | | | ARTER [address]LEX | [address] | [facility] | | | | | LOWER | [address] | Mailcode: | | | | | EXTREMITY | [facility] [place] [place] | [address] | | | | | BILATERAL | [address] | Physicians | | | | | COMPLETE | Phone: | Pavilion | | | | | | [phone] | [place], [place] | | | | | | Fax: | [address] | | | | | | [phone] | Phone: | | | | | | | [phone] | | | | | | | Fax: | | | | | | | [phone] | +--------+--------+ + + + + Diagnostic Testing (Routine) +--------+--------+ + + + + | Status | Reason | Specialty | Diagnoses / | Referred By | Referred To | | | | | Procedures | Contact | Contact | +--------+--------+ + + + + | Closed | | Radiology | Diagnoses | [place] | Xxrad Vasc | | | | | Lymphedema | [place], | Lab [facility] [address] | | | | | Procedures | MD James | [address] | | | | | VASC LAB | [address] | Jean Woodruff | | | | | ARTER [address]LEX | [address] | Road | | | | | LOWER | [facility] | Mailcode: | | | | | EXTREMITY | [place], [place] | [address] | | | | | BILATERAL | [address] | Physicians | | | | | COMPLETE | Phone: | Pavilion | | | | | | [phone] | [place], [place] | | | | | | Fax: | [address] | | | | | | [phone] | Phone: | | | | | | | [phone] | | | | | | | Fax: | | | | | | | [phone] | +--------+--------+ + + + + Reason [...] | | | ARTER DUPLEX | [address] | Road | | | | | LOWER | [address] | Mailcode: | | | | | EXTREMITY | [facility] [place] [place] | [address] | | | | | BILATERAL | [address] | Physicians | | | | | COMPLETE | Phone: | Pavilion | | | | | | [phone] | [place], [place] | | | | | | Fax: | [address] | | | | | | [phone] | Phone: | | | | | | | [phone] | | | | | | | Fax: | | | | | | | [phone] | +--------+--------+ + + + + Encounter [...] [address]ia | | | | | | [place], [place] | | | | | | [address] | | | | | | [phone] | | | +--------+ + + + [...]
--- OUTSIDE RECORDS SUMMARY | ~2019-03-01 | XMS | Encounter Summary ---
Demographics + + + | Address | [address] | | | [place] [address] | + + + | Home Phone | | + + + | Preferred Language | Unknown | + + + | Marital Status | Single | + + + | Latter-Day Affiliation | Unknown | + + + | Race | Unknown | + + + | Ethnic Group | Other Race | + + + Author + + + | Author | [facility] | + + + | Organization | [facility] | + + + | Address | Unknown | + + + | Phone | Unavailable | + + + Care Team Providers + +------+ + | Care Combat Information Center Officer Name | Role | Phone | [...] | | | ARTER DUPLEX | [place]ie [place] | [facility] | | | | | LOWER | [address] | Mailcode: | | | | | EXTREMITY | [facility], [place] | [address] | | | | | BILATERAL | [address] | Physicians | | | | | COMPLETE | Phone: | Pavilion | | | | | | [phone] | [place], [place] | | | | | | Fax: | [address] | | | | | | [phone] | Phone: | | | | | | | [phone] | | | | | | | Fax: | | | | | | | [phone] | +--------+--------+ + + + + Reason [...] | | | | | VASCULAR | [place], [place] | Mailcode: | | | | | SURGERY | [address] | [address] | | | | | DIVISION | | Physicians | | | | | | | Pavilion | | | | | | | [place], [place] | | | | | | | [address] | | | | | | | Phone: | | | | | | | [phone] | | | | | | | Fax: | | | | | | | [phone] | + +--------+ + + + + [...] | | | [address] | [facility] | lymphedema; Other | | | | [facility] | [place], [place] | noninfectious | | | | Mailcode: OP11 | [address] | disorders of | | | | Physicians Pavilion | [phone] | lymphatic channels; | | | | [place], [place] | | Type II or | | | | [address] | | unspecified type | | | | [phone] | | diabetes mellitus | | | [...] s note. JUVE SHAW MD VASCULAR SURGERY [address] [place] [address] Mailcode: [address]11 [place] [address] ames Vicente MD - 05/06/2013 11:55 AM [...] he is being managed at home near [place], [place] by a test engine mechanic and a lymphedema t herapist and it appears that all the recommendations he has received from them are appropria te and will also help him for the management of his lymphedema. We answered all his questions. The patient was discussed with Dr. Valeria ORTEGA MD Resident, PGY-4 [facility], Dept. of Surgery Pager [phone] Andres Dewey - 05/06/2013 10:42 AM PDT [...] | | + +---------+ + + | [facility] DEPARTMENT OF | | | | | [...]
--- OUTSIDE RECORDS SUMMARY | ~2019-03-01 | XMS | Encounter Summary ---
Demographics + + + | Address | [address] | | | [place] [address] | + + + | Home Phone [...] + + + | Author | [facility] | + + + | Organization | [facility] | + + + | Address | Unknown | + + + | Phone | Unavailable | + + + Care Team Providers + +------+ + | Care Mushroom Growth Media Mixer Name | Role | Phone | + +------+ + PCP | Unavailable | + +------+ + Encounter Details +--------+ + + + + | Date | Type | Department | Care Team | Description | +--------+ + + + + | 12/15/ | Document-Sc | UNKNOWN DEPARTMENT | Unknown . | | | 2012 | anned | [address] [facility] | | | | | | [facility] | | | | | | [place], [place] | | | | | | [address] | | | +--------+ + + + [...]
--- OUTSIDE RECORDS SUMMARY | ~2019-03-01 | XMS | Clinical Summary ---
Demographics + + + | Address | [address] | | | [place] [address] | + + + | Home Phone | | + + + | Preferred Language | Unknown | + + + | Marital Status | | + + + | Faith Affiliation | Unknown | + + + | Race | Unknown | + + + | Ethnic Group | Unknown | + + + Author + + + | Author | [facility] | + + + | Organization | [facility] | + + + | Address | Unknown | + + + | Phone | Unavailable | + + + Support + + +---------+ + | Name | Relationship | Address | Phone | + + +---------+ + | Ian Mariano | ECON | Unknown | | + + +---------+ + Care Team Providers + +------+ + | Care Decal Maker Name | Role | Phone | + [...] [address] | | | | | | [place] [address] | | | | | | [phone] | | | | | | | [...] +------+-------+ + | MEDICARE | MEDICA | [id number] | | | [address] | | | RE | | | | [place] [address] | | | IP-OP | | | | | + +--------+ +------+-------+ + | ODS HEALTH PLAN | ODS | [id number] | | | | | | HEALTH [...] + +--------+ +--------+ + + | RENNY MARIANO | Person | Self | [birth year] | Home: | [address] | | | al/Fam | | 1945 | [phone] [place] | | | [place] | | | [address] | [address] | + +--------+ +--------+ + +
--- OUTSIDE RECORDS SUMMARY | ~2019-03-01 | XMS | Encounter Summary ---
Demographics + + + | Address | [address] | | | [place] [address] | + + + | Home Phone [...] Author + + + | Author | [facility] | + + + | Organization | [facility] | + + + | Address | Unknown | + + + | Phone | Unavailable | + + + Care Team Providers + +------+ + | Care Supervising Airplane Pilot Name | Role | Phone | + +------+ + | Daniel Sofia MD | PCP | | + +------+ + Encounter Details +--------+ + + + + | Date | Type | Department | Care Team | Description | +--------+ + + + + | 03/15/ | Hospital | Dermatopathology | | | | 2016 | Encounter | [address] | | | | | | Mail Code: CH16D | | | | | | [facility] | | | | | | and Healing, 5th | | | | | | floor [place], [place] | | | | | | [address] | | | | | | [phone] | | | +--------+ + + + [...] + | DERM PATHOLOGY | Routin | 03/15/2016 | | Results for this | | | e | | | procedure are in the | | | | | | results section. | + +--------+ + + + documented in this encounter Results DERM PATHOLOGY (03/15/2016) + + + + + + | Component | Value | Ref Range | Performed | Pathologist | | | | | At | Signature | + + + + + + | DERMATOPATH | SOURCE OF SPECIMEN:A Rt. | | [facility] | | | OLOGY(WET | mid paraspinal, shave | | DERMATOPATH | | | MNT) | biopsy CLINICAL | | OLOGY | | | | DESCRIPTION:9.5 x 9 mm | | | | | | doll and dark brown | | | | | | macule; r/o atypical | | | | | | nevus. GROSS | | | | | | DESCRIPTION:Received in | | | | | | formalin is a specimen | | | | | | labeled Schuening, | | | | | | Renny:A: Specimen is | | | | | | labeled "R mid | | | | | | paraspinal" and consists | | | | | | of an irregularshave of | | | | | | patchy [id number] | | | | | | skin, [id number]. The | | | | | | surgical margin isinked | | | | | | black; the tissue is | | | | | | serially sectioned, and | | | | | | entirely submitted | | | | | | incassette A1. | | | | | | MICROSCOPIC | | | | | | DESCRIPTION:There is a | | | | | | broad, not entirely | | | | | | well-circumscribed, | | | | | | compound | | | | | | melanocyticneoplasm | | | | | | characterized by nests | | | | | | and an increase in | | | | | | single | | | | | | melanocytesdistributed | | | | | | somewhat irregularly | | | | | | along the basal layer, | | | | | | with a few | | | | | | singlemelanocytes | | | | | | extending focally above | | | | | | it, and in the upper | | | | | | dermis amidst apatchy | | | | | | lymphocytic infiltrate | | | | | | with melanophages. Most | | | | | | of the melanocyticnuclei | | | | | | are round to oval, a | | | | | | few are hyperchromatic, | | | | | | and the cells | | | | | | containamphophilic | | | | | | cytoplasm with | | | | | | melanin. 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 NOTE: | | | | | | Increased single | | | | | | junctional melanocytes | | | | | | with focal | | | | | | intraspinousinvolvement | | | | | | and irregular | | | | | | distribution of nests | | | | | | are unusual features. | | | | | | Thelesion extends | | | | | | focally to the deep | | | | | | biopsy margin, and | | | | | | conservative removalmay | | | | | | be considered | | | | | | prudent. My | | | | | | [...] | | | | | lly Signed 03/20/2016 | | | | | | 10:35AM | | | | + + + [...] + + | [facility] | [address] | [place] [address] | | | DERMATOPATHOLOGY | [address] | | | + + + + + documented in this encounter Visit Diagnoses Not on filedocumented in this encounter
--- OUTSIDE RECORDS SUMMARY | ~2019-03-01 | XMS | Encounter Summary ---
Demographics + + + | Address | [address] | | | [place] [address] | + + + | Home Phone | | + + + | Preferred Language | Unknown | + + + | Marital Status | | + + + | Anabaptism Affiliation | Unknown | + + + | Race | Unknown | + + + | Ethnic Group | Unknown | + + + Author + + + | Author | [facility] | + + + | Organization | [facility] [employer] [facility] [facility] | + + + | Address | Unknown | + + + | Phone | Unavailable | + + + Support + + +---------+ + | Name | Relationship | Address | Phone | + + +---------+ + | Ian Mariano | ECON | Unknown | | + + +---------+ + Care Team Providers + +------+ + | Care Steward/Stewardess Second Name | Role | Phone | + +------+ + PCP | Unavailable | + +------+ + Encounter Details +--------+ + + + + | Date | Type | Department | Care Team | Description | +--------+ + + + + | 02/27/ | Telephone | [facility] | [place], | | | 2018 | | [address] | [address] | | | | | [address] | | | | | | [place] [address] | | | | | | [phone] | | | +--------+ + + + [...] on file | | + + + as of this encounter Plan of Treatment +--------+---------+ + + + | Date | Type | Specialty | Care Team | Description | +--------+---------+ + + + | 03/04/ | Office | Nephrology | Cameron Self, | | | 2019 | Visit | | [address] | | | | | | [address] | | | | | | [place] [address] | | | | | | [phone] | | | | | | | | +--------+---------+ + + + as of this encounter Visit Diagnoses Not on filein this encounter"
--- OUTSIDE RECORDS SUMMARY | ~2019-03-01 | XMS | Encounter Summary ---
Demographics + + + | Address | [address] | | | [place] [address] | + + + | Home Phone | | + + + | Preferred Language | Unknown | + + + | Marital Status | Single | + + + | Bahai Affiliation | Unknown | + + + | Race | Unknown | + + + | Ethnic Group | Other Race | + + + Author + + + | Author | [facility] | + + + | Organization | [facility] | + + + | Address | Unknown | + + + | Phone | Unavailable | + + + Care Team Providers + +------+ + | Care Dairy Machine Operator Farmworker Name | Role | Phone | + +------+ + PCP | Unavailable | + +------+ + Encounter Details +--------+ + + + + | Date | Type | Department | Care Team | Description | +--------+ + + + + | 10/18/ | Document-Sc | UNKNOWN DEPARTMENT | Other, Faculty | | | 2010 | anned | [address] [facility] | [phone] | | | | | [facility] | | | | | | [place], [place] | | | | | | [address] | | | +--------+ + + + [...]
--- OUTSIDE RECORDS SUMMARY | ~2019-03-01 | XMS | Encounter Summary ---
Demographics + + + | Address | [address] | | | [place] [address] | + + + | Home Phone | | + + + | Preferred Language | Unknown | + + + | Marital Status | Single | + + + | Sikh Affiliation | Unknown | + + + | Race | Unknown | + + + | Ethnic Group | Other Race | + + + Author + + + | Author | [facility] | + + + | Organization | [facility] | + + + | Address | Unknown | + + + | Phone | Unavailable | + + + Care Team Providers + +------+ + | Care Distribution Agent Name | Role | Phone | [...] [address] | | | | | | [facility] | | | | | | and Healing, 5th | | | | | | floor [place], [place] | | | | | | [address] | | | | | | [phone] | | | +--------+ + + + [...] | | | | | | patchy [id number] | | | | | | skin, [id number]. The | | | | | | [...] + + | [facility] | [address] | [place] [address] | | | DERMATOPATHOLOGY | [address] | | | + + + + + documented in this encounter Visit Diagnoses Not on filedocumented in this encounter
--- OUTSIDE RECORDS SUMMARY | ~2019-03-01 | XMS | Encounter Summary ---
Demographics + + + | Address | [address] | | | [place] [address] | + + + | Home Phone [...] Author + + + | Author | [facility] | + + + | Organization | [facility] | + + + | Address | Unknown | + + + | Phone | Unavailable | + + + Care Team Providers + +------+ + | Care Alteration Manager Name | Role | Phone | [...]
--- OUTSIDE RECORDS SUMMARY | ~2019-03-01 | XMS | Clinical Summary ---
Demographics + + + | Address | [address] | | | [place] [address] | + + + | Home Phone | | + + + | Preferred Language | Unknown | + + + | Marital Status | | + + + | Episcopal Affiliation | Unknown | + + + | Race | Unknown | + + + | Ethnic Group | Unknown | + + + Author + + + | Author | [facility] | | | and [place] | + + + | Organization | [facility] | | | [...] [place], | | | | | [place] [address] | | + + + + + Care Team Providers + +------+ + | Care Improvement Intern Name | Role | Phone | + [...] + +--------+ | MEDICARE | MEDICA | [id number] | | [phone] | | Medica | | | RE | | 009-Pr | 5 | | re | | | PART A | | esent | | | | | | AND B | | | | | | + +--------+ +--------+ + +--------+ | MODA | MODA | [id number] | | [phone] | [address] | Indemn | | | HEALTH | | [address] | 9 | [phone] | ity | | | MDCR | | esent | | [place], | | | | [place] | | | | [place] [address] | | + +--------+ +--------+ + +--------+ [...] | | chapin/Luis | | 1945 | [phone] | [place] [address] | | | walt | | | 6 (Home) | | + +--------+ +--------+ + + Advance Directives Patient has advance care planning documents on file. For more information, please contact:[place] [address]
--- OUTSIDE RECORDS SUMMARY | ~2019-03-01 | XMS | Encounter Summary ---
Demographics + + + | Address | [address] | | | [place] [address] | + + + | Home Phone | | + + + | Preferred Language | Unknown | + + + | Marital Status | Single | + + + | Hinduism Affiliation | Unknown | + + + | Race | Unknown | + + + | Ethnic Group | Other Race | + + + Author + + + | Author | [facility] | + + + | Organization | [facility] | + + + | Address | Unknown | + + + | Phone | Unavailable | + + + Care Team Providers + +------+ + | Care Clerical Dentist Assistant Name | Role | Phone | [...]
--- OUTSIDE RECORDS SUMMARY | ~2019-03-01 | XMS | Encounter Summary ---
Demographics + + + | Address | [address] | | | [place] [address] | + + + | Home Phone | | + + + | Preferred Language | Unknown | + + + | Marital Status | Single | + + + | Methodist Affiliation | Unknown | + + + [...] Team Providers + +------+ + | Care Echo Vascular Technologist Name | Role | Phone | + [...] | | | | | edema | [facility] | [facility] | | | | | Procedures | Rd | Road | | | | | VASC LAB | [place], [place] | Mailcode: | | | | | VENOUS | [address] | [address] | | | | | [address] | | Physicians | | | | | EXTREMITY | | Pavilion | | | | | BILAT COMP | | [place], [place] | | | | | | | [address] | | | | | | | Phone: | | | | | | | [phone] | | | | | | | Fax: | | | | | | | [phone] | +--------+--------+ + + + + Diagnostic Testing (Urgent) [...] | | | | | edema | [facility] | [facility] | | | | | Procedures | Rd | Road | | | | | VASC LAB | [place], [place] | Mailcode: | | | | | VENOUS | [address] | [address] | | | | | [address] | | Physicians | | | | | EXTREMITY | | Pavilion | | | | | BILAT COMP | | [place], [place] | | | | | | | [address] | | | | | | | Phone: | | | | | | | [phone] | | | | | | | Fax: | | | | | | | [phone] | +--------+--------+ + + + + Reason [...] | | | | | edema | [facility] | [facility] | | | | | Procedures | Rd | Road | | | | | VASC LAB | [place], [place] | Mailcode: | | | | | VENOUS | [address] | [address] | | | | | [address] | | Physicians | | | | | EXTREMITY | | Pavilion | | | | | BILAT COMP | | [place], [place] | | | | | | | [address] | | | | | | | Phone: | | | | | | | [phone] | | | | | | | Fax: | | | | | | | [phone] | +--------+--------+ + + + + Encounter Details +--------+ + + + + | Date | Type | Department | Care Team | Description | +--------+ + + + + | 04/03/ | Hospital | Radiology/Imaging | | | | 2012 | Encounter | Lab at [facility] [address] | | | | | | [address] | | | | | | Mailcode: CH3G | | | | | | [facility] | | | | | | and Chris, 3rd | | | | | | Floor [place], [place] | | | | | | [address] | | | | | | [phone] | | | +--------+ + + + [...] | | + +---------+ + + | [facility] DEPARTMENT OF | | | | | RADIOLOGY | | | | + +---------+ + + documented in this encounter Visit Diagnoses + + | Diagnosis | + + | Lower extremity edema Edema | + + documented in this encounter"
--- OUTSIDE RECORDS SUMMARY | ~2019-03-01 | XMS | Encounter Summary ---
Demographics + + + | Address | [address] | | | [place] [address] | + + + | Home Phone | | + + + | Preferred Language | Unknown | + + + | Marital Status | | + + + | Christian Affiliation | Unknown | + + + | Race | Unknown | + + + | Ethnic Group | Unknown | + + + Author + + + | Author | [facility] | + + + | Organization | [facility] | + + + | Address | Unknown | + + + | Phone | Unavailable | + + + Support + + +---------+ + | Name | Relationship | Address | Phone | + + +---------+ + | Ian Mariano | ECON | Unknown | | + + +---------+ + Care Team Providers + +------+ + | Care Lab Associate Name | Role | Phone | + [...] | | | | | [place] [address] | | | | | | [phone] | | | +--------+ + + + [...] | | | | | [place] [address] | | | | | | [phone] | | | | | | | | +--------+---------+ + + + as of this encounter Visit Diagnoses Not on filein this encounter"
--- OUTSIDE RECORDS SUMMARY | ~2019-03-01 | XMS | Encounter Summary ---
Demographics + + + | Address | [address] | | | [place] [address] | + + + | Home Phone | | + + + | Preferred Language | Unknown | + + + | Marital Status | Single | + + + | Confucianist Affiliation | Unknown | + + + | Race | Unknown | + + + | Ethnic Group | Other Race | + + + Author + + + | Author | [facility] | + + + | Organization | [facility] | + + + | Address | Unknown | + + + | Phone | Unavailable | + + + Care Team Providers + +------+ + | Care Therapist Asst Name | Role | Phone | + [...] | | | | | | floor [place], [place] | | | | | | [address] | | | | | | [phone] | | | +--------+ + + + [...] | | | | | | patchy [id number] | | | | | | skin, [id number]. The | | | | | | [...] + + | [facility] | [address] | [place] [address] | | | DERMATOPATHOLOGY | [address] | | | + + + + + documented in this encounter Visit Diagnoses Not on filedocumented in this encounter
--- OUTSIDE RECORDS SUMMARY | ~2019-03-01 | XMS | Encounter Summary ---
Demographics + + + | Address | [address] | | | [place] [address] | + + + | Home Phone [...] Team Providers + +------+ + | Care Log Brander Name | Role | Phone | + [...]
--- OUTSIDE RECORDS SUMMARY | ~2019-03-01 | XMS | Clinical Summary ---
Demographics + + + | Address | [address] | | | [place] [address] | + + + | Home Phone | | + + + | Preferred Language | Unknown | + + + | Marital Status | Single | + + + | Catholic Affiliation | Unknown | + + + | Race | Unknown | + + + | Ethnic Group | Other Race | + + + Author + + + | Author | [facility] | + + + | Organization | [facility] | + + + | Address | Unknown | + + + | Phone | Unavailable | + + + Care Team Providers + +------+ + | Care Audio Experience Expert Name | Role | Phone | + +------+ + | Daniel Sofia MD | PP | | + +------+ + Source Comments [facility] is fully live on both EpicCare Ambulatory and EpicCare InPatient.Count Includes [facility] Allergies No Known Allergies Medications + + [...] | B | | esent | | [place], [place] | | | | | | | | [address] | | + +--------+ +--------+ + +--------+ | [employer]CIAL [employer] | COMMER | xxxxxxxxx | Effect | | | Indemn | | | CIAL | | ivanna | | | ity | | | [...] | 1945 | [phone] | [place] [address] | | | [place] | | | 6 (Home) | | + +--------+ +--------+ + +
--- OUTSIDE RECORDS SUMMARY | ~2019-03-01 | XMS | Encounter Summary ---
Demographics + + + | Address | [address] | | | [place] [address] | + + + | Home Phone | | + + + | Preferred Language | Unknown | + + + | Marital Status | Single | + + + | Episcopalian Affiliation | Unknown | + + + [...] Providers + +------+ + | Care Biomass Power Plant Superintendent Name | Role | Phone | [...] [address] | | | | | | [facility] | | | | | | and Healing, 5th | | | | | | floor [place], [place] | | | | | | [address] | | | | | | [phone] | | | +--------+ + + + [...] ellipse | | | | | | [id number] | | | | | | skin, [id number]. The | | | | | | [...] [facility] | [address] | [place] [address] | | | DERMATOPATHOLOGY | [address] | | | + + + + + documented in this encounter Visit Diagnoses Not on filedocumented in this encounter
--- OUTSIDE RECORDS SUMMARY | ~2019-03-01 | XMS | Encounter Summary ---
Demographics + + + | Address | [address] | | | [place] [address] | + + + | Home Phone | | + + + | Preferred Language | Unknown | + + + | Marital Status | Single | + + + | Caodaism Affiliation | Unknown | + + + | Race | Unknown | + + + | Ethnic Group | Other Race | + + + Author + + + | Author | [facility] | + + + | Organization | [facility] | + + + | Address | Unknown | + + + | Phone | Unavailable | + + + Care Team Providers + +------+ + | Care Pot Runner Name | Role | Phone | + [...]
--- OUTSIDE RECORDS SUMMARY | ~2019-03-01 | XMS | Clinical Summary ---
Demographics + + + | Address | [address] | | | [place] [address] | + + + | Home Phone | | + + + | Preferred Language | Unknown | + + + | Marital Status | | + + + | Advent Affiliation | Unknown | + + + | Race | Unknown | + + + | Ethnic Group | Unknown | + + + Author + + + | Author | [facility] | | | and [place] | + + + | Organization | [facility] | | | [...] [place], | | | | | [place] [address] | | + + + + + Care Team Providers + +------+ + | Care Dowel Maker Name | Role | Phone | [...] + +--------+ | MEDICARE | MEDICA | [id number] | | [phone] | | Medica | | | RE | | 009-Pr | 5 | | re | | | PART A | | esent | | | | | | AND B | | | | | | + +--------+ +--------+ + +--------+ | MODA | MODA | [id number] | | [phone] | [address] | Indemn | | | HEALTH | | [address] | 9 | [address] | ity | | | MDCR | | esent | | [place], | | | | [place] | | | | [place] [address] | | + +--------+ +--------+ + +--------+ [...] | | chapin/Luis | | 1945 | [phone] | [place] [address] | | | walt | | | 6 (Home) | | + +--------+ +--------+ + + Advance Directives Patient has advance care planning documents on file. For more information, please contact:[facility] [place] [address]
--- OUTSIDE RECORDS SUMMARY | ~2019-03-01 | XMS | Encounter Summary ---
Demographics + + + | Address | [address] | | | [place] [address] | + + + | Home Phone [...] Author + + + | Author | [facility] | + + + | Organization | [facility] | + + + | Address | Unknown | + + + | Phone | Unavailable | + + + Care Team Providers + +------+ + | Care Egyptologist Name | Role | Phone | + [...] | | | ARTER [address]LEX | [address] | [facility] | | | | | LOWER | [address] | Mailcode: | | | | | EXTREMITY | [facility], [place] | [address] | | | | | BILATERAL | [address] | Physicians | | | | | COMPLETE | Phone: | Pavilion | | | | | | [phone] | [place], [place] | | | | | | Fax: | [address] | | | | | | [phone] | Phone: | | | | | | | [phone] | | | | | | | Fax: | | | | | | | [phone] | +--------+--------+ + + + + Reason [...] | | | | | VASCULAR | [place], [place] | Mailcode: | | | | | SURGERY | [address] | [address] | | | | | DIVISION | | Physicians | | | | | | | Pavilion | | | | | | | [place], [place] | | | | | | | [address] | | | | | | | Phone: | | | | | | | [phone] | | | | | | | Fax: | | | | | | | [phone] | + +--------+ + + + + [...] | | | [address] | [facility] | lymphedema; Other | | | | [facility] | [place], [place] | noninfectious | | | | Mailcode: OP11 | [address] | disorders of | | | | [facility] | [phone] | lymphatic channels; | | | | [place], [place] | | Type II or | | | | [address] | | unspecified type | | | | [phone] | | diabetes mellitus | | | [...] s note. JUVE SHAW MD VASCULAR SURGERY [address] [place] [address] Mailcode: Op11 [place] [address] ames Vicente MD - 05/06/2013 11:55 AM [...] he is being managed at home near [place], [place] by a instructional services librarian and a lymphedema t herapist and it appears that all the recommendations he has received from them are appropria te and will also help him for the management of his lymphedema. We answered all his questions. The patient was discussed with Dr. Valeria ORTEGA MD Resident, PGY-4 [facility], Dept. of Surgery Pager [phone] Andres Dewey - 05/06/2013 10:42 AM PDT [...] | + +---------+ + + | [facility] DEPARTMENT OF | | | | [...]
--- OUTSIDE RECORDS SUMMARY | ~2019-03-01 | XMS | Encounter Summary ---
Demographics + + + | Address | [address] | | | [place] [address] | + + + | Home Phone [...] Team Providers + +------+ + | Care Financial Coach Name | Role | Phone | + [...] | | | | | edema | [facility] | [facility] | | | | | Procedures | Rd | Road | | | | | VASC LAB | [place], [place] | Mailcode: | | | | | VENOUS | [address] | [address] | | | | | DUPLEX LOWER | | Physicians | | | | | EXTREMITY | | Pavilion | | | | | BILAT COMP | | [place], [place] | | | | | | | [address] | | | | | | | Phone: | | | | | | | [phone] | | | | | | | Fax: | | | | | | | [phone] | +--------+--------+ + + + + Diagnostic [...] | | | | | edema | [facility] | [facility] | | | | | Procedures | Rd | Road | | | | | VASC LAB | [place], [place] | Mailcode: | | | | | VENOUS | [address] | [address] | | | | | DUPLEX LOWER | | Physicians | | | | | EXTREMITY | | Pavilion | | | | | BILAT COMP | | [place], [place] | | | | | | | [address] | | | | | | | Phone: | | | | | | | [phone] | | | | | | | Fax: | | | | | | | [phone] | +--------+--------+ + + + + Reason [...] | | | | | edema | [facility] | [facility] | | | | | Procedures | Rd | Road | | | | | VASC LAB | [place], [place] | Mailcode: | | | | | VENOUS | [address] | [address] | | | | | DUPLEX LOWER | | Physicians | | | | | EXTREMITY | | Pavilion | | | | | BILAT COMP | | [place], [place] | | | | | | | [address] | | | | | | | Phone: | | | | | | | [phone] | | | | | | | Fax: | | | | | | | [phone] | +--------+--------+ + + + + Encounter Details +--------+ + + + + | Date | Type | Department | Care Team | Description | +--------+ + + + + | 04/03/ | Hospital | Radiology/Imaging | | | | 2012 | Encounter | Lab at [facility] [address] | | | | | | [address] | | | | | | Mailcode: CH3G | | | | | | [facility] | | | | | | and Chris, 3rd | | | | | | Floor [place], [place] | | | | | | [address] | | | | | | [phone] | | | +--------+ + + + [...] | | + +---------+ + + | [facility] DEPARTMENT OF | | | | | RADIOLOGY | | | | + +---------+ + + documented in this encounter Visit Diagnoses + + | Diagnosis | + + | Lower extremity edema Edema | + + documented in this encounter"
--- OUTSIDE RECORDS SUMMARY | ~2019-03-01 | XMS | Encounter Summary ---
Demographics + + + | Address | [address] | | | [place] [address] | + + + | Home Phone | | + + + | Preferred Language | Unknown | + + + | Marital Status | Single | + + + | Mandaeism Affiliation [...] Team Providers + +------+ + | Care Banquet Captain Name | Role | Phone | + [...] | | | | | edema | [facility] | [facility] | | | | | Procedures | Rd | Road | | | | | VASC LAB | [place], [place] | Mailcode: | | | | | VENOUS | [address] | [address] | | | | | DUPLEX LOWER | | Physicians | | | | | EXTREMITY | | Pavilion | | | | | BILAT COMP | | [place], [place] | | | | | | | [address] | | | | | | | Phone: | | | | | | | [phone] | | | | | | | Fax: | | | | | | | [phone] | +--------+--------+ + + + + Diagnostic [...] | | | | | edema | [facility] | [facility] | | | | | Procedures | Rd | Road | | | | | VASC LAB | [place], [place] | Mailcode: | | | | | VENOUS | [address] | [address] | | | | | DUPLEX LOWER | | Physicians | | | | | EXTREMITY | | Pavilion | | | | | BILAT COMP | | [place], [place] | | | | | | | [address] | | | | | | | Phone: | | | | | | | [phone] | | | | | | | Fax: | | | | | | | [phone] | +--------+--------+ + + + + Reason [...] | | | | | edema | [facility] | [facility] | | | | | Procedures | Rd | Road | | | | | VASC LAB | [place], [place] | Mailcode: | | | | | VENOUS | [address] | [address] | | | | | DUPLEX LOWER | | Physicians | | | | | EXTREMITY | | Pavilion | | | | | BILAT COMP | | [place], [place] | | | | | | | [address] | | | | | | | Phone: | | | | | | | [phone] | | | | | | | Fax: | | | | | | | [phone] | +--------+--------+ + + + + Encounter Details +--------+ + + + + | Date | Type | Department | Care Team | Description | +--------+ + + + + | 04/03/ | Hospital | Radiology/Imaging | | | | 2012 | Encounter | Lab at [facility] [address] | | | | | | [address] | | | | | | Mailcode: CH3G | | | | | | [facility] | | | | | | and Chris, 3rd | | | | | | Floor [place], [place] | | | | | | [address] | | | | | | [phone] | | | +--------+ + + + [...] | | + +---------+ + + | [facility] DEPARTMENT OF | | | | | RADIOLOGY | | | | + +---------+ + + documented in this encounter Visit Diagnoses + + | Diagnosis | + + | Lower extremity edema Edema | + + documented in this encounter"
--- OUTSIDE RECORDS SUMMARY | ~2019-03-01 | XMS | Encounter Summary ---
Demographics + + + | Address | [address] | | | [place] [address] | + + + | Home Phone | | + + + | Preferred Language | Unknown | + + + | Marital Status | Single | + + + | Oriental Orthodox [...] Team Providers + +------+ + | Care Stenographer Secretary Name | Role | Phone | + [...] | | | [address] | [address] [place] | [facility] | | | | | LOWER | [address] | Mailcode: | | | | | EXTREMITY | [facility], [place] | [address] | | | | | BILATERAL | [address] | Physicians | | | | | COMPLETE | Phone: | Pavilion | | | | | | [phone] | [place], [place] | | | | | | Fax: | [address] | | | | | | [phone] | Phone: | | | | | | | [phone] | | | | | | | Fax: | | | | | | | [phone] | +--------+--------+ + + + + Diagnostic Testing (Routine) +--------+--------+ + + + + | Status | Reason | Specialty | Diagnoses / | Referred By | Referred To | | | | | Procedures | Contact | Contact | +--------+--------+ + + + + | Closed | | Radiology | Diagnoses | [place] | Xxrad Vasc | | | | | Lymphedema | [place], | Lab [address] | | | | | Procedures | MD James | [address] | | | | | VASC LAB | [address] | [address] | | | | | ARTER DUPLEX | [place] [place] | Road | | | | | LOWER | [facility] | Mailcode: | | | | | EXTREMITY | [place], [place] | [address] | | | | | BILATERAL | [address] | Physicians | | | | | COMPLETE | Phone: | Pavilion | | | | | | [phone] | [place], [place] | | | | | | Fax: | [address] | | | | | | [phone] | Phone: | | | | | | | [phone] | | | | | | | Fax: | | | | | | | [phone] | +--------+--------+ + + + + Reason [...] | | | ARTER DUPLEX | [place] [place] | Road | | | | | LOWER | [address] | Mailcode: | | | | | EXTREMITY | [facility], [place] | [address] | | | | | BILATERAL | [address] | Physicians | | | | | COMPLETE | Phone: | Pavilion | | | | | | [phone] | [place], [place] | | | | | | Fax: | [address] | | | | | | [phone] | Phone: | | | | | | | [phone] | | | | | | | Fax: | | | | | | | [phone] | +--------+--------+ + + + + Encounter [...] [address] | | | | | | [place], [place] | | | | | | [address] | | | | | | [phone] | | | +--------+ + + + [...]
--- OUTSIDE RECORDS SUMMARY | ~2019-03-01 | XMS | Clinical Summary ---
Demographics + + + | Address | [address] | | | [place] [address] | + + + | Home Phone | | + + + | Preferred Language | Unknown | + + + | Marital Status | | + + + | Adventist Affiliation | Unknown | + + + | Race | Unknown | + + + | Ethnic Group | Unknown | + + + Author + + + | Author | [facility] | + + + | Organization | [facility] | + + + | Address | Unknown | + + + | Phone | Unavailable | + + + Support + + +---------+ + | Name | Relationship | Address | Phone | + + +---------+ + | Ian Mariano | ECON | Unknown | | + + +---------+ + Care Team Providers + +------+ + | Care Picture Copyist Name | Role | Phone | + [...] [address] | | | | | | [place] [address] | | | | | | [phone] | | | | | | | [...] +------+-------+ + | MEDICARE | MEDICA | [id number] | | | [address] | | | RE | | | | [place] [address] | | | IP-OP | | | | | + +--------+ +------+-------+ + | [employer]AN | ODS | [id number] | | | | | | HEALTH [...] | | al/Fam | | 1945 | [phone] | [place] | | | walt | | | [address]11 | [address] | + +--------+ +--------+ + +
--- OUTSIDE RECORDS SUMMARY | ~2019-03-01 | XMS | Encounter Summary ---
Demographics + + + | Address | [address] | | | [place] [address] | + + + | Home Phone | | + + + | Preferred Language | Unknown | + + + | Marital Status | Single | + + + | Mandaen Affiliation | Unknown | + + + [...] Team Providers + +------+ + | Care Platform Power Technician Name | Role | Phone | [...] [id number] | | | | | | [facility] | | | | | | and Healing, 5th | | | | | | floor [place], [place] | | | | | | [address] | | | | | | [phone] | | | +--------+ + + + [...] ellipse | | | | | | [id number] | | | | | | skin, [id number]. The | | | | | | [...] + + | BARBARA | [address], [address] | [place] [address] | | | DERMATOPATHOLOGY | [address] | | | + + + + + documented in this encounter Visit Diagnoses Not on filedocumented in this encounter
--- OUTSIDE RECORDS SUMMARY | ~2019-03-01 | XMS | Encounter Summary ---
Demographics + + + | Address | [address] | | | [place] [address] | + + + | Home Phone | | + + + | Preferred Language | Unknown | + + + | Marital Status | Single | + + + | Gnosticism Affiliation | Unknown | + + + | Race | Unknown | + + + | Ethnic Group | Other Race | + + + Author + + + | Author | [facility] | + + + | Organization | [facility] | + + + | Address | Unknown | + + + | Phone | Unavailable | + + + Care Team Providers + +------+ + | Care Territory Account Representative Name | Role | Phone | + [...] | | | ARTER DUPLEX | [address] [place] | [facility] | | | | | LOWER | [address] | Mailcode: | | | | | EXTREMITY | [facility], [place] | [address] | | | | | BILATERAL | [address] | Physicians | | | | | COMPLETE | Phone: | Pavilion | | | | | | [phone] | [place], [place] | | | | | | Fax: | [address] | | | | | | [phone] | Phone: | | | | | | | [phone] | | | | | | | Fax: | | | | | | | [phone] | +--------+--------+ + + + + Reason [...] | | | | | VASCULAR | [place], [place] | Mailcode: | | | | | SURGERY | [address] | [address] | | | | | DIVISION | | Physicians | | | | | | | Pavilion | | | | | | | [place], [place] | | | | | | | [address] | | | | | | | Phone: | | | | | | | [phone] | | | | | | | Fax: | | | | | | | [phone] | + +--------+ + + + + [...] | | | [address] | [facility] | lymphedema; Other | | | | [facility] | [place], [place] | noninfectious | | | | Mailcode: OP11 | [address] | disorders of | | | | Physicians Pavilion | [phone] | lymphatic channels; | | | | [place], [place] | | 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 JUVE SHAW MD VASCULAR SURGERY [address] [place] [address] Mailcode: Op11 [place] [address] ames Vicente MD - 05/06/2013 11:55 AM [...] he is being managed at home near [place], [place] by a beef skinner and a lymphedema t herapist and it appears that all the recommendations he has received from them are appropria te and will also help him for the management of his lymphedema. We answered all his questions. The patient was discussed with Dr. Valeria ORTEGA MD Resident, PGY-4 [facility], Dept. of Surgery Pager [phone] Andres Dewey - 05/06/2013 10:42 AM PDT [...] | | + +---------+ + + | [facility] DEPARTMENT OF | | | | | [...]
--- OUTSIDE RECORDS SUMMARY | ~2019-03-01 | XMS | Encounter Summary ---
Demographics + + + | Address | [address] | | | [place] [address] | + + + | Home Phone | | + + + | Preferred Language | Unknown | + + + | Marital Status | Single | + + + | Mu-Ism Affiliation | Unknown | + + + | Race | Unknown | + + + | Ethnic Group | Other Race | + + + Author + + + | Author | [facility] | + + + | Organization | [facility] | + + + | Address | Unknown | + + + | Phone | Unavailable | + + + Care Team Providers + +------+ + | Care Endoscopy Technican Name | Role | Phone | + [...] | | | | CONSULT TO | [facility] | | | | | SURGERY - | Rd | Road | | | | | VASCULAR | [place], [place] | Mailcode: | | | | | SURGERY | [address] | [address] | | | | | DIVISION | | Physicians | | | | | | | Pavilion | | | | | | | [place], [place] | | | | | | | [address] | | | | | | | Phone: | | | | | | | [phone] | | | | | | | Fax: | | | | | | | [phone] | + +--------+ + + + + [...] | | | | | edema | [facility] | [facility] | | | | | Procedures | Rd | Road | | | | | VASC LAB | [place], [place] | Mailcode: | | | | | VENOUS | [address] | [address] | | | | | DUPLEX LOWER | | Physicians | | | | | EXTREMITY | | Pavilion | | | | | BILAT COMP | | [place], [place] | | | | | | | [address] | | | | | | | Phone: | | | | | | | [phone] | | | | | | | Fax: | | | | | | | [phone] | +--------+--------+ + + + + Reason [...] | | MD Bui | [address] | | | | | | [facility] | [address] | | | | | | & Keegan | Jean [address], | | | | | | [address] | [place] | | | | | | [address] | [address] | | | | | | [place], | Phone: | | | | | | [place] [address] | [phone] | | | | | | Phone: | Fax: | | | | | | [phone] | [phone] | | | | | | Fax: | | | | | | | [phone] | | +--------+--------+ + + + + Encounter Details +--------+---------+ + + + | Date | Type | Department | Care Team | Description | +--------+---------+ + + + | 04/03/ | Office | Orthopaedic Spine | Dane Paez MD | Lymphedema (Primary | | 2012 | Visit | Center at [facility] [address] | [address] | Dx); Back pain; | | | | [address] | [facility], | Lower extremity | | | | Mailcode: CH8N | [place] [address] | edema | | | | [facility] | [phone] | | | | | and Healing, 8th | | | | | | Floor [place], [place] | | | | | | [address] | | | | | | [phone] | | | +--------+---------+ + + + [...] to improve as anticipated. Dane Paez M.D. [facility] Dane Hsieh MD [...] to improve as anticipated. Dane Paez M.D. [facility] ox, Jack Vazquez MD - 04/03 12:[address] [facility] DEPARTMENT OF ORTHOPAEDICS & REHABILITATION Physical Medicine [...] Record Review: I have reviewed notes from [facility]. In brief, these show bilateral knee arthritis s/p steroid injection with good relief. Negat ivanna DVT scan. Reports/records sent to be scanned into [employer] system. DIAGNOSTIC STUDIES: CT lumbar spine at [...] Department of Orthopaedics and Rehabilitation. [facility] [place] Department of Orthopaedics & Rehabilitation [address] [place] [address] Mail Code: OP31 [facility] [address] documented in this encoun ter Plan of [...]
--- OUTSIDE RECORDS SUMMARY | ~2019-03-01 | XMS | Encounter Summary ---
Demographics + + + | Address | [address] | | | [place] [address] | + + + | Home Phone | | + + + | Preferred Language | Unknown | + + + | Marital Status | | + + + | Confucianist Affiliation | Unknown | + + + | Race | Unknown | + + + | Ethnic Group | Unknown | + + + Author + + + | Author | [facility] | + + + | Organization | [facility] | + + + | Address | Unknown | + + + | Phone | Unavailable | + + + Support + + +---------+ + | Name | Relationship | Address | Phone | + + +---------+ + | Ian Mariano | ECON | Unknown | | + + +---------+ + Care Team Providers + +------+ + | Care Senior Reliability Engineer Name | Role | Phone | [...] | | | | | [place] [address] | | | | | | [phone] | | | +--------+ + + + [...] | | | | | [place] [address] | | | | | | [phone] | | | | | | | | +--------+---------+ + + + as of this encounter Visit Diagnoses Not on filein this encounter"
--- OUTSIDE RECORDS SUMMARY | ~2019-03-01 | XMS | Encounter Summary ---
Demographics + + + | Address | [address] | | | [place] [address] | + + + | Home Phone | | + + + | Preferred Language | Unknown | + + + | Marital Status | Single | + + + | Samaritan Affiliation [...] Team Providers + +------+ + | Care Mattress Maker Name | Role | Phone | [...] | | | | | [place] | | | | | | [address] | | | | | | | [...] DERMATOPATH | | | MNT) | [place] [address] | | OLOGY | | | | [...] BARBARA | [address], [address] | [place] [address] | | | DERMATOPATHOLOGY | [address] | | | + + + + + documented in this encounter Visit Diagnoses Not on filedocumented in this encounter"
--- OUTSIDE RECORDS SUMMARY | ~2019-03-01 | XMS | Encounter Summary ---
Demographics + + + | Address | [address] | | | [place] [address] | + + + | Home Phone | | + + + | Preferred Language | Unknown | + + + | Marital Status | Single | + + + | Sabianism Affiliation | Unknown | + + + | Race | Unknown | + + + | Ethnic Group | Other Race | + + + Author + + + | Author | [facility] | + + + | Organization | [facility] | + + + | Address | Unknown | + + + | Phone | Unavailable | + + + Care Team Providers + +------+ + | Care Block Layer Name | Role | Phone | + +------+ + PCP | Unavailable | + +------+ + Encounter Details +--------+ + + + + | Date | Type | Department | Care Team | Description | +--------+ + + + + | 12/15/ | Document-Sc | UNKNOWN DEPARTMENT | Unknown . | | | 2012 | anned | [address] [facility] | | | | | | [facility] | | | | | | [place], [place] | | | | | | [address] | | | +--------+ + + + [...]
--- OUTSIDE RECORDS SUMMARY | ~2019-03-01 | XMS | Encounter Summary ---
Demographics + + + | Address | [address] | | | [place] [address] | + + + | Home Phone | | + + + | Preferred Language | Unknown | + + + | Marital Status | Single | + + + | Cheondoism Affiliation [...] Team Providers + +------+ + | Care Oil Winterizer Name | Role | Phone | + [...] | | | | | edema | [facility] | [facility] | | | | | Procedures | Rd | Road | | | | | VASC LAB | [place], [place] | Mailcode: | | | | | VENOUS | [address] | [address] | | | | | DUPLEX LOWER | | Physicians | | | | | EXTREMITY | | Pavilion | | | | | BILAT COMP | | [place], [place] | | | | | | | [address] | | | | | | | Phone: | | | | | | | [phone] | | | | | | | Fax: | | | | | | | [phone] | +--------+--------+ + + + + Diagnostic [...] | | | | | edema | [facility] | [facility] | | | | | Procedures | Rd | Road | | | | | VASC LAB | [place], [place] | Mailcode: | | | | | VENOUS | [address] | [address] | | | | | DUPLEX LOWER | | Physicians | | | | | EXTREMITY | | Pavilion | | | | | BILAT COMP | | [place], [place] | | | | | | | [address] | | | | | | | Phone: | | | | | | | [phone] | | | | | | | Fax: | | | | | | | [phone] | +--------+--------+ + + + + Reason [...] | | | | | edema | [facility] | [facility] | | | | | Procedures | Rd | Road | | | | | VASC LAB | [place], [place] | Mailcode: | | | | | VENOUS | [address] | [address] | | | | | DUPLEX LOWER | | Physicians | | | | | EXTREMITY | | Pavilion | | | | | BILAT COMP | | [place], [place] | | | | | | | [address] | | | | | | | Phone: | | | | | | | [phone] | | | | | | | Fax: | | | | | | | [phone] | +--------+--------+ + + + + Encounter Details +--------+ + + + + | Date | Type | Department | Care Team | Description | +--------+ + + + + | 04/03/ | Hospital | Radiology/Imaging | | | | 2012 | Encounter | Lab at [facility] [address] | | | | | | [address] | | | | | | Mailcode: CH3G | | | | | | [facility] | | | | | | and Chris, 3rd | | | | | | Floor [place], [place] | | | | | | [address] | | | | | | [phone] | | | +--------+ + + + [...] | | + +---------+ + + | [facility] DEPARTMENT OF | | | | | RADIOLOGY | | | | + +---------+ + + documented in this encounter Visit Diagnoses + + | Diagnosis | + + | Lower extremity edema Edema | + + documented in this encounter"
--- OUTSIDE RECORDS SUMMARY | ~2019-03-01 | XMS | Encounter Summary ---
Demographics + + + | Address | [address] | | | [place] [address] | + + + | Home Phone | | + + + | Preferred Language | Unknown | + + + | Marital Status | Single | + + + | Restorationist Affiliation | Unknown | + + + | Race | Unknown | + + + | Ethnic Group | Other Race | + + + Author + + + | Author | [facility] | + + + | Organization | [facility] | + + + | Address | Unknown | + + + | Phone | Unavailable | + + + Care Team Providers + +------+ + | Care Book Coverer Name | Role | Phone | + [...] [place] | | | | | | [address] | | | | | | | [...] DERMATOPATH | | | MNT) | [place] [address] | | OLOGY | | | | [...] BARBARA | [address], [address] | [place] [address] | | | DERMATOPATHOLOGY | [address] | | | + + + + + documented in this encounter Visit Diagnoses Not on filedocumented in this encounter"
--- OUTSIDE RECORDS SUMMARY | ~2019-03-01 | XMS | Clinical Summary ---
Demographics + + + | Address | [address] | | | [place] [address] | + + + | Home Phone | | + + + | Preferred Language | Unknown | + + + | Marital Status | Single | + + + | Sabianist Affiliation | Unknown | + + + | Race | Unknown | + + + | Ethnic Group | Other Race | + + + Author + + + | Author | [facility] | + + + | Organization | [facility] | + + + | Address | Unknown | + + + | Phone | Unavailable | + + + Care Team Providers + +------+ + | Care Concession Supervisor Name | Role | Phone | + +------+ + | Daniel Sofia MD | PP | | + +------+ + Source Comments [facility] is fully live on both EpicCare Ambulatory and EpicCare InPatient.[facility] & [facility] Allergies No Known Allergies Medications + [...] | B | | esent | | [place], [place] | | | | | | | | [address] | | + +--------+ +--------+ + +--------+ [...] | + +--------+ +--------+ + + | eRnny Mariano | Person | Self | [birth year] | | [address] | | | al/Luis | | 1945 | [phone] | [place] [address] | | | walt | | | 6 (Home) | | + +--------+ +--------+ + +
--- OUTSIDE RECORDS SUMMARY | ~2019-03-01 | XMS | Encounter Summary ---
Demographics + + + | Address | [address] | | | [place] [address] | + + + | Home Phone | | + + + | Preferred Language | Unknown | + + + | Marital Status | Single | + + + | Quaker Affiliation | Unknown | + + + [...] Team Providers + +------+ + | Care Paper And Pulp Mill Operator Name | Role | Phone | + +------+ + PCP | Unavailable | + +------+ + Encounter Details +--------+ + + + + | Date | Type | Department | Care Team | Description | +--------+ + + + + | 12/15/ | Document-Sc | UNKNOWN DEPARTMENT | Unknown . | | | 2012 | anned | [address] | | | | | | [facility] | | | | | | [place], [place] | | | | | | [address] | | | +--------+ + + + [...]
--- OUTSIDE RECORDS SUMMARY | ~2019-03-01 | XMS | Encounter Summary ---
Demographics + + + | Address | [address] | | | [place] [address] | + + + | Home Phone [...] Author + + + | Author | [facility] | + + + | Organization | [facility] | + + + | Address | Unknown | + + + | Phone | Unavailable | + + + Care Team Providers + +------+ + | Care Outdoor Adventure Guides Name | Role | Phone | + [...] | | | | CONSULT TO | [facility] | | | | | SURGERY - | Rd | Road | | | | | VASCULAR | [place], [place] | Mailcode: | | | | | SURGERY | [address] | [address] | | | | | DIVISION | | Physicians | | | | | | | Pavilion | | | | | | | [place], [place] | | | | | | | [address] | | | | | | | Phone: | | | | | | | [phone] | | | | | | | Fax: | | | | | | | [phone] | + +--------+ + + + + [...] | | | | | edema | [facility] | | | | | Procedures | Rd | Road | | | | | VASC LAB | [place], [place] | Mailcode: | | | | | VENOUS | [address] | [id number] | | | | | [address] | | Physicians | | | | | EXTREMITY | | Pavilion | | | | | BIL[address] COMP | | [place], [place] | | | | | | | [address] | | | | | | | Phone: | | | | | | | [phone] | | | | | | | Fax: | | | | | | | [phone] | +--------+--------+ + + + + Reason [...] Obie | | | | | | [facility] | [address] | | | | | | & Keegan | [place], | | | | | | [address] | [place] | | | | | | Cheryl [address] | [address] | | | | | | [place], | Phone: | | | | | | [place] [address] | [phone] | | | | | | Phone: | Fax: | | | | | | [phone] | [phone] | | | | | | Fax: | | | | | | | [phone] | | +--------+--------+ + + + + Encounter Details +--------+---------+ + + + | Date | Type | Department | Care Team | Description | +--------+---------+ + + + | 04/03/ | Office | Orthopaedic Spine | Dane Paez MD | Lymphedema (Primary | | 2012 | Visit | Center at [facility] [address] | [address] | Dx); Back pain; | | | | [address] | [facility], | Lower extremity | | | | Mailcode: CH8N | [place] [address] | edema | | | | [facility] | [phone] | | | | | and Healing, 8th | | | | | | Floor [place], [place] | | | | | | [address] | | | | | | [phone] | | | +--------+---------+ + + + [...] to improve as anticipated. Dane Paez M.D. Motorcycle Designer Physical Medicine and Rehabilitation Dane Hsieh MD [...] to improve as anticipated. Dane Paez M.D. Motorcycle Designer Physical Medicine and Rehabilitation ox, Jack Vazquez MD - 04/03 12:56 PM PDT [facility] DEPARTMENT OF ORTHOPAEDICS & REHABILITATION Physical Medicine [...] Record Review: I have reviewed notes from [facility]. In brief, these show bilateral knee arthritis s/p steroid injection with good relief. Negat ivanna DVT scan. Reports/records sent to be scanned into [employer] system. DIAGNOSTIC STUDIES: CT lumbar spine at [...] and Rehabilitation Department of Orthopaedics and Rehabilitation. [facility] [place] Department of Orthopaedics & Rehabilitation [address] [place] [address] Mail Code: OP31 [facility] [address] documented in this encoun ter Plan of [...]
--- OUTSIDE RECORDS SUMMARY | ~2019-03-01 | XMS | Encounter Summary ---
Demographics + + + | Address | [address] | | | [place] [address] | + + + | Home Phone | | + + + | Preferred Language | Unknown | + + + | Marital Status | Single | + + + | Nondenominational Affiliation | Unknown | + + + | Race | Unknown | + + + | Ethnic Group | Other Race | + + + Author + + + | Author | [facility] | + + + | Organization | [facility] | + + + | Address | Unknown | + + + | Phone | Unavailable | + + + Care Team Providers + +------+ + | Care Central Sterile Tech Name | Role | Phone | + +------+ + PCP | Unavailable | + +------+ + Encounter Details +--------+ + + + + | Date | Type | Department | Care Team | Description | +--------+ + + + + | 10/18/ | Results | [facility] | Roula, Oyhan V, | | | 2010 | Only | Department | [facility] | | | | | | [facility] | | | | | | [address] | | | | | | [place] | | | | | | [address] | | | | | | | [...] DERMATOPATH | | | MNT) | [place] [address] | | OLOGY | | | | [...] BARBARA | [address], [address] | [place] [address] | | | DERMATOPATHOLOGY | [address] | | | + + + + + documented in this encounter Visit Diagnoses Not on filedocumented in this encounter"
--- OUTSIDE RECORDS SUMMARY | ~2019-03-01 | XMS | Clinical Summary ---
Demographics + + + | Address | [address] | | | [place] [address] | + + + | Home Phone | | + + + | Preferred Language | Unknown | + + + | Marital Status | | + + + | Christian Affiliation | Unknown | + + + | Race | Unknown | + + + | Ethnic Group | Unknown | + + + Author + + + | Author | [facility] | + + + | Organization | [facility] | + + + | Address | Unknown | + + + | Phone | Unavailable | + + + Support + + +---------+ + | Name | Relationship | Address | Phone | + + +---------+ + | Ian Mariano | ECON | Unknown | | + + +---------+ + Care Team Providers + +------+ + | Care Wire Rope Sling Maker Name | Role | Phone | [...] [address] | | | | | | [place] [address] | | | | | | [phone] | | | | | | | [...] +------+-------+ + | MEDICARE | MEDICA | [id number] | | | [address] | | | RE | | | | [place] [address] | | | IP-OP | | | | | + +--------+ +------+-------+ + | [employer]AN | ODS | [id number] | | | | | | HEALTH [...] | | al/Fam | | 1945 | [phone] [place] | | | [place] | | | [phone] | [address] | + +--------+ +--------+ + +
--- OUTSIDE RECORDS SUMMARY | ~2019-03-01 | XMS | Encounter Summary ---
Demographics + + + | Address | [address] | | | [place] [address] | + + + | Home Phone | | + + + | Preferred Language | Unknown | + + + | Marital Status | | + + + | Congregation Affiliation | Unknown | + + + | Race | Unknown | + + + | Ethnic Group | Unknown | + + + Author + + + | Author | [facility] | + + + | Organization | [facility] | + + + | Address | Unknown | + + + | Phone | Unavailable | + + + Support + + +---------+ + | Name | Relationship | Address | Phone | + + +---------+ + | Ian Mariano | ECON | Unknown | | + + +---------+ + Care Team Providers + +------+ + | Care Electronic Console Display Operator Name | Role | Phone | [...] | | | | | [place] [address] | | | | | | [phone] | | | +--------+ + + + [...] | | | | | [place] [address] | | | | | | [phone] | | | | | | | | +--------+---------+ + + + as of this encounter Visit Diagnoses Not on filein this encounter"
--- OUTSIDE RECORDS SUMMARY | ~2019-03-01 | XMS | Encounter Summary ---
Demographics + + + | Address | [address] | | | [place] [address] | + + + | Home Phone | | + + + | Preferred Language | Unknown | + + + | Marital Status | Single | + + + | Spiritism Affiliation | Unknown | + + + | Race | Unknown | + + + | Ethnic Group | Other Race | + + + Author + + + | Author | [facility] | + + + | Organization | [facility] | + + + | Address | Unknown | + + + | Phone | Unavailable | + + + Care Team Providers + +------+ + | Care Physician Surgeon Name | Role | Phone | + [...] [id number] | | | | | | [facility] | | | | | | and Healing, 5th | | | | | | floor [place], [place] | | | | | | [address] | | | | | | [phone] | | | +--------+ + + + [...] | | | | | | patchy [id number] | | | | | | skin, [id number]. The | | | | | | [...] + + | BARBARA | [address] | [place] [address] | | | DERMATOPATHOLOGY | [address] | | | + + + + + documented in this encounter Visit Diagnoses Not on filedocumented in this encounter
--- OUTSIDE RECORDS SUMMARY | ~2019-03-01 | XMS | Clinical Summary ---
Demographics + + + | Address | [address] | | | [place] [address] | + + + | Home Phone | | + + + | Preferred Language | Unknown | + + + | Marital Status | Single | + + + | Orthodox Affiliation | Unknown | + + + | Race | Unknown | + + + | Ethnic Group | Other Race | + + + Author + + + | Author | [facility] | + + + | Organization | [facility] | + + + | Address | Unknown | + + + | Phone | Unavailable | + + + Care Team Providers + +------+ + | Care Safety Sitter Name | Role | Phone | + +------+ + | Daniel Sofia MD | PP | | + +------+ + Source Comments [facility] is fully live on both EpicCare Ambulatory and EpicCare InPatient.[facility] Allergies No Known Allergies Medications [...] | B | | esent | | [place], [place] | | | | | | | | [address] | | + +--------+ +--------+ + +--------+ [...] | 1945 | [phone] | [place] [address] | | | walt | | | 6 (Home) | | + +--------+ +--------+ + +
[~2019-03-01 10:42] MED LIST changes: +ALLOPURINOL100 MG PO; +CIPRO500 MG PO; +FLAGYL500 MG PO; +METOPROLOL TART25 MG PO; -METOPROLOL TART50 MG PO; +NORCO 5-325 TA1 EACH PO; +NORVASC10 MG PO; +NOVOLOG100 UNIT/1; -NOVOLOG100 UNITS/ SUB-Q; +PRAVACHOL20 MG PO; -PRAVASTATIN SOD40 MG PO; +VITAMIN D-32000 UNIT PO
[2019-03-01] MEDS ORDERED: CALCITRIOL0.25 MCG PO (11:03)
[2019-03-01] MEDS ORDERED: SERTRALINE HCL50 MG PO (11:03)
[2019-03-01] MEDS ORDERED: DICYCLOMINE HCL10 MG PO (11:03)
--- NOTE | 2019-03-01 13:25 | NUR ---
PT ARRIVED FROM ER. TRANSFERRED WITH MINIMAL ASSIST FROM STRETCHER TO HOSITAL BED. PT HAD 10/10 PAIN IN BILATERAL LE WITH AMB, BECAME VERY SOB. SATS 99% ON RA. ONCE IN BED PT REPORTS PAIN SIGNIFICANTLY IMPROVED. LEGS ELEVATED ON PILLOWS. NOTED SMALL WOUND ON RIGHT ANTERIOR ANKLE WITH SCANT AMOUNT OF SEROSANGUINOUS DRAINAGE, AND SMALL SUPERFICIAL WOUND TO LEFT CHANCE, NO DRAINAGE NOTED. SCATTERED REDDENED AREAS ON BILATERAL LE. 3+ PITTING EDEMA TO BILAT LE. CRACKLES NOTED IN BILATERAL LUNG BASES, FAITH, NO COUGH. PT ALERT AND ORIENTED. IV TO LEFT AC FLUSHES EASILY, DRESSING CDI. TELE MONITOR 5 ON, SR, HR IN 60'S. CALL LIGHT WITHIN REACH.
--- NOTE | 2019-03-01 14:05 | NUR ---
BILATERAL LE WRAPPED WITH CAST PADDING AND ELVIA WRAP. WOUNDS TO EACH LEG COVERED WITH NON ADHERANT PADS PRIOR TO WRAPPING. BOTH LEGS ELEVATED ON PILLOWS. PT REPORTS LEGS FEELING BETTER AFTER BEING WRAPPED. DENIES PAIN, NAUSEA, OR OTHER CONCERNS. CALL LIGHT WITHIN REACH.
[2019-03-01] MEDS ORDERED: METOPROLOL SUCC25 MG PO (14:47)
--- NOTE | 2019-03-01 15:20 | NUR ---
PT HAS ONLY VOIDED 100ML SINCE ADMIT. BLADDER SCANNED PER DR. CASTRO. SCANNED FOR 550ML OF URINE. HERNANDEZ PLACED AT THIS TIME, 550ML OF IMMEDIATE RETURN. URINE CLEAR, PALE YELLOW.
--- NOTE | 2019-03-01 15:27 | NUR ---
Medications reconciled using pharmacy records and patient interview. Per patient, recently fluoxetine was lowered from 40mg daily to 20mg and sertraline was added. Dr Parra felt that he was "resistant" to fluoxetine and it may be helpful to lower fluoxetine dose and add sertraline. Aside from that, minor changes in med rec made
--- NOTE | 2019-03-01 17:10 | NUR ---
PT SITTING UP IN BED EATING DINNER, ISIAH WELL. HERNANDEZ DRAINING WELL. PT DENIES NEEDS OR CONCERNS. CALL LIGHT WITHIN REACH.
--- NOTE | 2019-03-01 19:05 | NUR ---
SHIFT REPORT RECEIVED. PATIENT APPEARS TO BE SLEEPING. HOB ELEVATED. RR 19. CALL LIGHT IN REACH.
--- NOTE | 2019-03-01 20:59 | NUR ---
ROUNDED CHARGE. PATIENT IS RESTING IN BED. PATIENT DENIES ANY COMMENTS, QUESITON, OR CONCERNS. NO NEEDS NOTED. CALL LIGHT IN REACH.
--- NOTE | 2019-03-01 21:05 | NUR ---
VITALS AND I&OS DONE AND CHARTED. BLOOD SUGAR DONE WELL. INFORMED RN ANN AND CHARTED. BEDSIDE TABLE AND CALL LIGHT IN REACH.
--- NOTE | 2019-03-01 21:15 | NUR ---
EVENING MEDS PROVIDED PER ORDER. PATIENT IS AAOX4. REPORTS PAIN IN RAIN LOWER EXTREMITIES, 10/10. PRN TYLENOL PROVIDED. REPOSITION PATIENT FOR COMFORT. PATIENT APPEARS SOB BUT STATES HE IS AT HIS BASELINE. LUNG SOUNDS ARE CLEAR BUT DIM IN THE BASES. 2+ EDEMA NOTED ON UPPER EXTREMITIES. ABD IS LARGE AND SOFT. PATIENT DENIES GI UPSET. HERNANDEZ IN PLACE, CATH CARE PERFORMED. PARTIAL BED BATH PERFORMED WITH MANAGER OPERATIONS CARMEN ASSIST. NYSTATIN APPLIED TO PANIS AND IN FOLDS IN THE GROIN AREA. REDNESS NOTED BUT SKIN INTACT. ABRASIONS NOTED ON SCROTUM, PATIENT DENIES KNOWING THE CAUSE OF THESE AND STATES THEY ARE NOT PAINFUL. LIGHTLY COVERED WITH ABSORBANT PAD. RAIN LOWER EXTREMITIES ARE COVERED WITH CAST PADDING AND ELVIA WRPAS. WRAPS READJUSTED BUT LEFT IN PLACE. LEGS ELEVATED WITH TWO PILLOWS. PATINET DENIES FURTHER NEEDS. CALL LIGHT IN REACH.
--- NOTE | 2019-03-01 23:00 | NUR ---
PATIENT APPEARS TO BE SLEEPING SOUNDLY. HOB ELEVATED. RR 18. CALL LIGHT IN REACH.
--- NOTE | 2019-03-02 01:28 | NUR ---
VS COMPLETE. PATIENT HAS BEEN SLEEPING SOUNDLY. DENIES ANY NEEDS. REPORTS PAIN IS MINIMAL UNLESS HE MOVES HIS LEGS. REPOSITIONED FOR COMFORT. URINE OUTPUT QS.
--- NOTE | 2019-03-02 01:30 | NUR ---
VITALS AND I&OS DONE AND CHARTED. BEDSIDE TABLE AND CALL LIGHT IN REACH. PT NEEDS NOTHING MORE AT THIS TIME.
--- NOTE | 2019-03-02 04:24 | NUR ---
PATIENT ATTEMPTING TO ROLL IN BED. REPORTS PAIN IN LEGS AND DIFFICULTY SLEEPING. ASSISTED PATIENT TO REPOSITION AND PROVIDED PRN TYLENOL. PATIENT STATES HE TAKES TYLENOL AT HOME FOR PAIN BUT IT RARELY WORKS. ENCOURAGED PATIENT TO ATTEMPT TO REST AND IF UNABLE TO DO SO THIS RN WILL CONTACT THE MD. PATIENT AGREEABLE TO PLAN.
--- NOTE | 2019-03-02 05:20 | NUR ---
PATIENT WAS ABLE TO SLEEP OFF AND ON THIS SHIFT. REPORTS SEVERE PAIN IN RAIN LOWER EXTREMITIES, WORSE WITH MOVEMENT. LOWER EXTREMITIES ARE WRAPPED. HERNANDEZ IN PLACE, OUTPUT QS. LUNGS ARE CLEAR IN UPPER LOBES WITH FINE CRACKLES IN THE BASES. PATIENT NOT OUT OF BED THIS SHIFT, TURN PRN. NYSTATIN TO HÉCTOR AREA AND UNDER PANIS FOR RASH. WOUND CONSULT, ECHO, AND LEG ULTRASOUND SCHEDULED FOR TODAY. IV SL, 1800ML FLUID RESTRICTION.
--- NOTE | 2019-03-02 06:24 | NUR ---
VITALS AND I&OS DONE AND CHARTED. FRESH ICE WATER GIVEN. GARBAGES EMPTIED. BEDSIDE TABLE AND CALL LIGHT IN REACH. PT NEEDS NOTHING MORE AT THIS TIME.
--- NOTE | 2019-03-02 06:43 | NUR ---
PATIENT REPORTS ONGOING PAIN. DENIES REPOSITIONING AT THIS TIME.
--- NOTE | 2019-03-02 07:42 | NUR ---
CALLED TO REPORT CRITICAL LAB H/H 6.8 AND 20.1 LAB ALSO REPORTED THAT PATIENT USUALLY RECIEVES CMV- AND IRRADIATED BLOOD. SAID TO ORDER HIS USUAL.
--- NOTE | 2019-03-02 07:58 | NUR ---
MANAGER SHAREPOINT IN ROOM COMPLETING ECHO.
--- NOTE | 2019-03-02 09:30 | NUR ---
PT SITTING UP IN BED AFTER EATING 100% OF BREAKFAST, ISIAH WELL. PT REPORTING 10/10 BILATERAL LEG PAIN. LEGS WRAPPED PER DR. CASTRO AND ELEVATED ON PILLOWS. WRAP CDI. EDEMA APPEARS TO BE SIGNIFICATNLY IMPROVED FROM YESTERDAY. PT MEDICATED WITH PRN OXY. ALERT AND ORIENTED. CALL LIGHT WITHIN REACH.
--- NOTE | 2019-03-02 09:38 | NUR ---
PATIENT IN BED, RN IN ROOM. FRESH WATER GIVEN. CALL LIGHT IN REACH. NO FURTHER NEEDS AT THIS TIME.
--- NOTE | 2019-03-02 10:28 | NUR ---
NOTIFIED SG IN DAY SURGERY OF WOUND CONSULT ORDERED
--- NOTE | 2019-03-02 11:30 | NUR ---
PT RESTING QUIETLY IN BED, EYES CLOSED, RESP EVEN AND UNLABORED.
--- NOTE | 2019-03-02 11:53 | NUR ---
PT IS ALERT, ORIENTED AND FRUSTRATED WITH HIS PRESENT CONDITION, AND BEING HERE. HE ADMITTED THOUGH THAT THIS IS WHERE HE NEEDS TO BE. FEELS INFORMED, NO QUESTIONS ABOUT HIS PLAN OF CARE.WE HAD A GOOD VISIT,PT REQUESTED PRAYER WILL FOLLOW NEEDED
--- NOTE | 2019-03-02 12:11 | NUR ---
OBTAINED BLOOD FROM TATI IN LAB. SECOND VERIFIED BLOOD AND PT AND ORDER WITH VICKI LINN. PT HAS HAD BLOOD IN THE PAST AND STATES HE HAS HAD NO REACTION. AGREES TO INFUSION ATT. STARTED BLOOD AND STAYING IN ROOM FOR 1ST 15MIN. ADVISED PT OF S\S OF REACTION AND INSTRUCTED TO LET US KNOW IF HE EXPERIENCES ANYTHING AT ALL. RAN AT 100ML/HR FOR 1ST 15 MIN. THEN BUMPED UP TO 150
--- NOTE | 2019-03-02 12:30 | NUR ---
PT RESTING IN BED. NO SIGNS OF TRANSFUSION REACTION AT THIS TIME. PT REPORTS OXYCODONE "HELPED A LITTLE BIT". ONLY TOOK PAIN FROM A 07/23 TO 06/23. HERNANDEZ PUTTING OUT MODERATE AMOUNT OF CLEAR YELLOW URINE. PT DENIES NEEDS OR CONCERNS AT THIS TIME. CALL LIGHT WITHIN REACH.
--- NOTE | 2019-03-02 14:10 | NUR ---
PT SITTING UP IN BED. DENIES NEEDS OR CONCERNS. BLOOD INFUSING WITHOUT PROBLEMS. CALL LIGHT WITHIN REACH.
--- NOTE | 2019-03-02 14:28 | NUR ---
VS AND I&O'S TAKEN AND DOCUMENTED. PT STATES HE HAS NO NEEDS AT THIS TIME. INFORMED PT TO CALL IF HE NEEDS ANYTHING. CALL LIGHT IS IN REACH.
--- NOTE | 2019-03-02 15:01 | NUR ---
SECOND UNIT OF PRBC'S STARTED AT 1450. RATE OF 75ML/HR. PT RESTING QUIETLY IN BED. DENIES ANY S/S OF TRANFUSION REACTION.
--- NOTE | 2019-03-02 15:05 | NUR ---
FIRST 15 MIN OF BLOOD COMPLETED. VS STABLE. NO S/S OF REACTION. RATE INCREASED TO 150ML/HR. PT RESTING QUIETLY IN BED, EYES CLOSED, RESP EVEN AND UNLABORED. CALL LIGHT WITHIN REACH.
--- NOTE | 2019-03-02 15:30 | NUR ---
DENA RN FROM DAY SURGERY IN ROOM ASSESSING PT LEGS FOR WOUND CONSULT. THOROUGH CLEANING AND WOUND CARE COMPLETED. NEW ORERS WRITTEN BY DR. WARE. LEGS WRAPPED WITH CAST PADDING AND ELVIA WRAP. PT DENIES NEEDS OR CONCERNS AT THIS TIME. CALL LIGHT WITHIN REACH.
--- NOTE | 2019-03-02 17:45 | NUR ---
SECOND UNIT OF BLOOD COMPLETE. PT SITTING UP IN BED EATING DINNER, ISIAH WELL. MEDICATED WITH PRN OXY FOR 9/10 LEG PAIN. CALL LIGHT WITHIN REACH.
--- NOTE | 2019-03-02 18:19 | NUR ---
PATIENT IN BED RESTING WITH EYES CLOSED. CALL LIGHT IN REACH. NO FURTHER NEEDS AT THIS TIME.
--- NOTE | 2019-03-02 19:05 | NUR ---
SHIFT REPORT RECEIVED. PATIENT RESTING IN BED. APPEARS TO BE SLEEPING. RR 18. CALL LIGHT IN REACH.
--- NOTE | 2019-03-02 21:45 | NUR ---
EVENING MEDS PROVIDED. PATIENT REPORTS PAIN IN RAIN LEGS WITH MOVEMENT. REPORTS GOOD PAIN CONTROL WITH OXY. PATIENT'S BREATHING APPEARS IMPROVED FROM PREVIOUS SHIFT. LUNGS ARE CLEAR, DIM IN THE BASES. ABD IS LARGER, SOFT, WITH ACTIVE BOWEL SOUNDS. PARTIAL BEDBATH COMPLETED, HÉCTOR CARE PERFORMED. NYSTATIN APPLIED TO PANIS AND GROIN. HERNANDEZ IN PLACE. OUTPUT QS. EDEMA IMPROVED IN RAIN LOWER EXTREMITIES. WRAPS IN PLACE. ELEAVTED ON PILLOWS. REPOSITIONED PATIENT FOR COMFORT. HE DENIES FURTHER NEEDS AT THIS TIME. CALL LIGHT IN REACH.
--- NOTE | 2019-03-03 00:30 | NUR ---
PATIENT APPEARS TO BE SLEEPING SOUNDLY. DID NOT WAKE WITH RN IN ROOM. RR 20.
--- NOTE | 2019-03-03 03:30 | NUR ---
PATIENT SLEEPING SOUNDLY. WOKE EASILY TO VOICE. PATIENT DENIES PAIN AT THIS TIME. PATIENT ABLE TO ASSIST WITH REPOSITIONING IN BED. REPORTS BEING COMFORTABLE. DENIES FURTHER NEEDS. CALL LIGHT IN REACH.
--- NOTE | 2019-03-03 05:49 | NUR ---
PATIENT SLEPT MORE THIS SHIFT THAN LAST NIGHT. PAIN IN LEGSHAS IMPROVED. ENCOUARGED PATIENT TO REPOSITION NEEDED FOR COMFORT AND SKIN INTEGRITY. LEGS WRAPPED BY WOUND CARE NURSE. EDEMA SIGNIFICANTLY IMPROVED. PATIENT APPEARS SOB, STATES THIS IS NORMAL FOR HIM. LUNGS ARE CLEAR. SKIN UNDER PANIS AND IN GROIN IS RED, NYSTATIN PER ORDER. IV SL. FLUID RESTIRCTION. HERNANDEZ IN PLACE, OUTPUT QS.
--- NOTE | 2019-03-03 07:40 | NUR ---
Pt awake, alert and oriented x3, sitting up in bed. Pt received pain medication recently for generalized pain. No needs at this time. Call light within reach.
--- NOTE | 2019-03-03 08:03 | NUR ---
PATIENT SITTING UP IN BED FOR BREAKFAST. CALL LIGHT IN REACH. NO FURTHER NEEDS AT THIS TIME.
--- NOTE | 2019-03-03 11:24 | NUR ---
PT RESTING COMFORTABLY, MENTIONED THAT HE SLEPT MUCH BETTER LAST NIGHT. IV APPEARS TO BE DC'D AND PT IS CONSCIOUS ABOUT HIS FLUID RESTRICTION. EDEMA IS DOWN ON FEET AND SOME ON LEGS. HAD PLEASANT VISIT, EXTENDED A BLESSING AND WILL CONTINUE TO FOLLOW
--- NOTE | 2019-03-03 14:00 | NUR ---
PATIENT IN BED RESTING. FRESH WATER GIVEN. CALL LIGHT IN REACH. NO FURTHER NEEDS AT THIS TIME.
--- NOTE | 2019-03-03 14:17 | NUR ---
DR. WARE REMOVED ELVIA WRAP FROM LEGT AND RIGHT LEGS. PT'S BILAT LOWER EXT TO RA.
--- NOTE | 2019-03-03 15:17 | NUR ---
CONSULT RECEIVED FOR CHF DIET EDUCATION. PATIENT LIVES ALONE AND COOKS FOR HIMSELF. HE STATES HE OFTEN GETS STUCK THINKING OF DINNER IDEAS. SOMETIMES HE MIGHT JUST HAVE A BOWL OF RICE. HE EATS FRUIT THROUGHOUT THE DAY. USUALLY EATS ONLY 2 MEALS: A LATE BREAKFAST AND A DINNER. HE DOES EAT CHEESE, BUT NOT EVERY DAY. EATS SMITH OR SAUSAGE MAYBE ONCE A WEEK. DOES NOT BUY CANNED SOUPS. RARELY EATS OUT. LIKES RAW VEGGIES MORE THAN COOKED. DOES NOT DRINK MILK. DOESN'T USE KETCHUP, BBQ SAUCE, OR SOY SAUCE. LIKES MUSTARD. HE IS DOING WELL AVOIDING HIGH SODIUM FOODS. HE ADDS A LITTLE SALT TO EGGS AND CORN ONLY. PROVIDED A LIST OF LOW-SODIUM SNACKS. ALSO REVIEWED LOW-SODIUM TIPS WHICH SEVERAL HE IS ALREADY DOING. HE USES AN AIR-FRYER TO COOK MEATS IN QUITE A BIT. HE HAS NO QUESTIONS AT THIS TIME. WILL CONTINUE TO BE AVAILABLE IF NEEDED.
--- NOTE | 2019-03-03 17:29 | NUR ---
PT A&OX3. PT ON RA. IV LASIX INCREASED TODAY FROM BID TO TID. LEGS UNWRAPPED VIA DR. WARE. TOLERATING 60G CARBS DIET. BS CHECKS WITH SLIDING SCALE INSULING. HERNANDEZ IN PLACE FOR RETENTION HX. PT CALLS STAFF APPROP.
--- NOTE | 2019-03-03 18:04 | NUR ---
PATIENT IN BED RESTING WITH EYES CLOSED. HÉCTOR CARE AND CATH CARE DONE. FRESH WATER GIVEN. CALL LIGHT IN REACH. NO FURTHER NEEDS AT THI TIME.
--- NOTE | 2019-03-03 18:05 | NUR ---
REPORT RECEIVED FROM VICKI DENSON. PT RESTINGF WITH EYES CLOSED.
--- NOTE | 2019-03-03 19:01 | NUR ---
CHARGE NURSE ROUNDS WITH DAY RN. PT IN BED, WITH EYES CLOSED.
--- NOTE | 2019-03-03 19:05 | NUR ---
BEDSIDE REPORT RECEIVED FROM VICKI PALMA. PT RESTING IN BED WITH EYES CLOSED, AWAKENS TO VOICE. HERNANDEZ DRAINING CLEAR YELLOW URINE. CALL LIGHT IN REACH. NO REQUESTS AT THIS TIME.
--- NOTE | 2019-03-03 20:51 | NUR ---
PT ASSESSMENT COMPLETE. PT DENIES ANY PAIN. 2+ EDEMA BLE, CAP REFILL <3, NUMBNESS BILATERALLY. LEGS ELEVATED ON PILLOWS. CBG WNL. HERNANDEZ CARE COMPLETE. NYSTATIN PLACED UNDER PANUS, SCROTAL AREA. REDNESS NOTED. CALL LIGHT IN REACH. PT HAS NO ADDITIONAL REQUESTS AT THIS TIME. VSS.
--- NOTE | 2019-03-03 23:13 | NUR ---
CHECKED ON PT RESTING IN BED ON SIDE. RR 22. LIGHTS OFF IN ROOM.
--- NOTE | 2019-03-04 01:30 | NUR ---
CHECKED ON PT, APPEARS TO BE SLEEPING, BREATHING EQUAL AND NON-LABORED. LIGHTS OFF IN ROOM.
--- NOTE | 2019-03-04 03:10 | NUR ---
CHECKED ON PT, LYING IN BED AWAKE. PRN PAIN MEDICATION ADMINISTERED FOR 8/10 LEG PAIN. ALLEVYN REPLACED ON L ANKLE PREVIOUS ALLEVYN FELL OFF IN BED. LUNGS CLEAR THROUGHOUT ALL LOBES. 2 + EDEMA BLE. PT ASSISTED TO REPOSITION IN BED, LEGS ELEVATED. HERNANDEZ CATHETER EMPTIED CLEAR YELLOW URINE. CALL LIGHT IN REACH. ALLOTTED ICE WATER PROVIDED.
--- NOTE | 2019-03-04 06:40 | NUR ---
PATIENT RESTED IN BED THROUGHOUT SHIFT. HERNANDEZ DRAINING QS URINE, HERNANDEZ CARE COMPLETE. 2 + EDEMA BLE, ELEVATED THROUGHOUT SHIFT. ALLEVYN DRESSINGS IN PLACE BLE. PRN PAIN MEDICATION X 1 FOR LEG PAIN. REDNESS NOTED IN HÉCTOR AREA/SCROTUM, NYSTATIN APPLIED ORDERED. LUNGS CLEAR THROUGHOUT ALL LOBES. VSS.
--- NOTE | 2019-03-04 06:40 | NUR ---
PATIENT RESTING IN BED WITH EYES CLOSED, RR 22. BREATHING NON-LABORED. BED WEIGHT 333.2. CALL LIGHT NEXT TO PATIENT.
--- NOTE | 2019-03-04 07:25 | NUR ---
PT RESTING SUPINE IN BED, EYES CLOSED AND RESPIRATIONS EVEN AND UNLABORED. CALL LIGHT AND H2O IN REACH. PT APPEARS TO BE SLEEPING COMFORTABLY. BEDSIDE RTPORT RECAEIVED FROM VICKI HENDERSON.
--- NOTE | 2019-03-04 08:38 | NUR ---
PATIENT GOT UP TO THE CHAIR WITH THE FWW. WARM WASHCLOTH OFFERED. PATIENT EATING BREAKFAST. CALL LIGHT IN REACH. BED LINNENS CHANGED.
--- NOTE | 2019-03-04 08:43 | NUR ---
PT SITTING UP IN CHAIR FINISHING UP EATING BREAKFAST. PT TOLERATED WELL AND DENIES NAUSEA,SOB OR PAIN. PT ALERT AND ORIENTED. ASSESSMENT COMPLETED. CALL LIGHT AND H20 IN REACH AND PT DENIES CONCERNS OR REQUESTS AT THIS TIME.
--- NOTE | 2019-03-04 11:55 | NUR ---
PT APPEARS TO BE IN NO DISTRESS RESTING SUPINE IN BED. PT EDUCATED ON CATH DC.10 MLS OF FLUID REMOVED FROM CATH [place] AND HERNANDEZ CATH REMOVED AT THIS TIME PER DR WARE REQUEST. CALL LIGHT AND 200 MLS OF FRESH ICE WATER IN REACH. PT TOLERATING FLUID RESTRICTION WELL. NO FURTHER CONCERNS OR REQUESTS VOICED.
--- NOTE | 2019-03-04 13:00 | NUR ---
PT UP AMBULATING WITH P.T. HE APPEARS TO RELY HEAVILY ON HIS WALKER, AND KINGS IS CLOSE BY HIS SIDE. NOTICE REDDNESS ON L CALF. HE IS ABLE TO CARRY ON CONVERSATION WHILE WALKING. GAVE ENCOURAGEMENT AND BLESSING. WILL FOLLOW NEEDED
--- NOTE | 2019-03-04 13:15 | NUR ---
PT RESTING SUPINE IN BED ALERT TO VOICE AND ORIENTED X4. ASSESSMENT COMPLETED AND VS'S TAKEN. O2 SAT 84% ON RA, PT ENCOURAGED TO DEEP BREATH AND COUGH AND EDUCATED ON I.S. USE. O2 UP TO 89-90% WITH DBC AND IS. PT PLACED ON 2LPNC AND CPOX APPLIED PT SATTING IN LOW TO MID 90'S ON 2LPNC. PT DENIES SOB, NAUSEA AND STATES BILAT LE PAIN IS TOLERABLE. SCHEDULED MEDS ADMINISTERED. DR WARE NOTIFIED, NEW ORDER RECEIVED FOR I.S.
--- NOTE | 2019-03-04 14:19 | NUR ---
PATIENT IS IN BED RESTING. SHOWER OFFERED. PATIENT SAYS HE WANTS TO RELAX A LITTLE MORE. CALL LIGHT IN REACH. NO FURTHER NEEDS AT THIS TIME.
--- NOTE | 2019-03-04 16:21 | NUR ---
Certified Heart Failure Nurse Notes: Diagnosis:CHF, CKD stage IV, lower exremity swelling Floodplain Manager NA PCP: Dr Parra Date of echocardiogram 03/02/19 EF 50-55% Admit Wt.: 347 lb Today's Wt.:333 lb Admit BNP: 333 Social support system: lives alone Weight monitoring: Scale not present in home. Antenova digital scale with 440lb limit given to patient for home use.. Discussed how to weigh daily/ when to notify PCP Symptom management: Addressed monitoring and reporting changes in weight or symptoms utilizing Zones form Diet: Usual meals include eggs and toast, a lot of fruit. Likes raw vegetables. Reports not using table salk but does like a lot of pepper and cinnamon. Dines out 2 times per month. Discussed rational for monitoring salt in diet, Was seen by fountain pen turner this visit. Usual physical activity: [place] walk [place] the [place]. Limitied activity for > 10 months due to foot ulcer. Given ideas on chair exercises / asking PCP about outpatient physical therapy when stable. Medication routine:Utilizes 7 day pill box. Denies missed meds. Reports takes PO meds in AM. Tobacco: NA Advanced directive: Not discussed at this initial visit Barriers to self-care include: mobility , unable to read current education docs since he left glasses at home Screenings completed today: Mini-Cog score of 2 (a cut point of <3 has been validated for dementia screening and may indicate a need for further evaluation) PHQ-9 score of 6 Follow-up plans: Will discuss case and possible home needs with case management and [facility]. Patient may be a good candidate for outpatient services including meals on wheels. This service will call patient post [place]. Teaching materials at bedside: [facility] Heart Failure bundle folder-[facility] My Action Plan Living Well with Heart Failure book, Daily weight and symptom monitoring log, Zones magnet, [facility] contact information Low Sodium Shopping and dining lists were given by fountain pen turner
--- NOTE | 2019-03-04 17:55 | NUR ---
PT RESTING SUPINE IN BED, WATCHING TV. PT DENIES SOB, NAUSEA AND STATES HE ONLY HAS SLIGHT PAIN TO HIS BILAT LOWER EXTREMITIES AND THAT THIS IS NORMAL FOR HIM. PT DENIES WANTING TYLENOL FOR PAIN. PT CONTINUES TO VOID QS CLEAR YELLOW URINE. PT TOLERATING FLUID RESTRICTION WELL. O2 SATS REMAIN IN MID 90'S ON 2LPNC. CALL LIGHT AND H20 IN REACH. PT DENIES NEEDS/CONCERNS.
--- NOTE | 2019-03-04 19:10 | NUR ---
IN ROOM FOR REPORT, PT DENIES NEEDS AT THIS TIME. CALL LIGHT IS CLOSE.
--- NOTE | 2019-03-04 20:42 | NUR ---
IN ROOM TO ASSESS PT AND ADMINISTER MEDICATIONS. NYSTATIN APPLIED TO PANUS, HÉCTOR AREA, NO REDNESS VISUALIZED. ALLEVYN DRESSINGS ARE IN PLACE ON BILAT LE AND ARE CDI WITH A VERY SMALL AMOUT OF SHADOWING NOTED. PT REPORTS PAIN AT 5/10 BUT DENIES THE NEED FOR TYLENOL. CALL LIGHT IS CLOSE AND PT DENIES FURTHER NEEDS AT THIS TIME.
--- NOTE | 2019-03-04 22:28 | NUR ---
PT IS AWAKE IN BED WATCHING TV. HE DENIES NEEDS AT THIS TIME. CALL LIGHT IS CLOSE.
--- NOTE | 2019-03-05 00:09 | NUR ---
PT IS RESTING WITH EYES CLOSED, RESPIRATIONS ARE EVEN AND NONLABORED ON 1LNC AND CPOX AT 93%. CALL LIGHT IS CLOSE.
--- NOTE | 2019-03-05 01:59 | NUR ---
PT IS RESTING WITH EYES CLOSED, RESPIRATIONS ARE EVEN AND NONLABORED. CALL LIGHT IS WITHIN REACH.
--- NOTE | 2019-03-05 03:10 | NUR ---
PT'S NC CAME OUT OF HIS NOSE WHILE SLEEPING AND CPOX DROPED INTO UPPER 80'S. REPLACED NC AND PT IS BACK TO LOW 90'S WITH 1.5 LNC. HE DENIES PAIN AND SOB AT THIS TIME. HE DENIES NEEDS AT THIS TIME. CALL LIGHT IS WITHIN REACH.
--- NOTE | 2019-03-05 04:54 | NUR ---
PT IS RESTING WITH EYES CLOSED, RESPIRATIONS ARE EVEN AND NONLABORED ON 1.5 LNC AND CPOX. CALL LIGHT IS WITHIN REACH.
--- NOTE | 2019-03-05 05:11 | NUR ---
PT REQUIRED 1.5LNC THROUGHT THE NIGHT WHILE SLEEPING WITH CPOX IN PLACE. HE HAS NOT BEEN OUT OF BED DURING THIS SHIFTBUT AMBULATES 2PA WITH FWW PER REPORT. HE IS ON A 60G CARB DIET WITH ACCUCHECKS ACHS, 1800 FLUID RESTRICTION, AND 2G SODIUM. HE HAS LASIX 60MG BID AND IS VOIDING LIGHT YELLOW URINE IN THE URINAL AT BEDSIDE. NYSTATIN IS APPLIED TO PUNUS AND EMILIANA/HÉCTOR AREA. PT'S BLOOD SUGAR AT HS WAS 173 REQUIRING 2 UNITS OF INSULIN.
--- NOTE | 2019-03-05 06:41 | NUR ---
PT IS RESTING WITH EYES CLOSED, RESPIRATIONS ARE EVEN AND NONLABORED. CALL LIGHT IS WITHIN REACH.
--- NOTE | 2019-03-05 08:04 | NUR ---
PT RESTING ON RIGHT LATERAL SIDE IN BED, EYES CLOSED AND RESPIRATIONS EVEN AND UNLABORED. PT ALERT TO VOICE AND INSULIN ADMINISTERED, BREAKFAST TRAY SET UP AND PT EATING AT THIS TIME. PT DENIES FURTHER NEEDS/CONCERNS
--- NOTE | 2019-03-05 09:15 | NUR ---
PT RESTING SUPINE IN BED EYES CLOSED AND RESPIRATIONS EVEN AND UNLABORED. PT ALERT TO VOICE. ASSESSMENT COMPLETED. AM MEDS ADMINISTERED AT THSI TIME -SEE EMAR. PT DENIES PAIN, NAUSEA OR SOB. 02 SATTING IN MID 90'S ON 1LPNC SO TITRATED OFF AND PT SATS 89% SO WAS TITRATED BACK UP TO 1LPNC AND SATTING IN LOW 90'S. CALL LIGHT AND H2O IN REACH. PT DENIES FURTHER NEEDS/CONCERNS.
--- NOTE | 2019-03-05 10:47 | NUR ---
PT SITTING UP IN CHAIR, AGREES TO GET UP TO SHOWER WITH SN DENIZ AND LINNEA WALLACE. PT ALERT AND ORIENTED, PT DENIES CONCERNS OR REQUESTS AT THIS TIME.
--- NOTE | 2019-03-05 11:15 | NUR ---
PT SITTING UP IN CHAIR, DR WARE IN TO SEE PATIENT. DRESSINGS TO BILAT LE'S REMOVED PER DR WARE REQUESTS AND WOUNDS ASSESSED BY MD. PER DR WARE REQUEST, WILL HAVE PT SHOWERED WITH ANTIBACTERIAL SOAP AND DRESSINGS WILL BE REPLACED. MADISON YARBROUGH AND SN DENIZ IN TO SHOWER PATIENT AT THIS TIME WITH ANTIBACREIAL SOAP FOR LE'S.
--- NOTE | 2019-03-05 12:55 | NUR ---
PT ASSISTED UP FROM CHAIR WITH SBA AND FWW TO BED, WOUNDS TO BILAT LE'S CLEANSED WITH WOUND CLEANSER. NEW AG DSGS APPLIED TO OPEN SORES AND NEW ALLYVN DSGS APPLIED. PT DENIES PAIN. LUNCH TRAY SET UP FOR PATIENT. PT DENIES FURTHER NEEDS/CONCERNS. CALL LIGHT AND H2O IN REACH.
--- NOTE | 2019-03-05 17:36 | NUR ---
PT RESTING IN SEMIFOWLERS POSITION IN BED EYES CLOSED AND RESPIRATIONS EVEN AND UNLABORED AT 18 O2 SAT MAINTAINING IN MID 90'S ON .5LPNC SO TITRATED OFF AND PT CONTINUES TO MAINTAIN O2 SAT AT 93% ON RA. CALL LIGHT AND H20 IN REACH. CPOX REMAINS IN PLACE. NO NEEDS/CONCERNS VOICED.
--- NOTE | 2019-03-05 19:43 | NUR ---
AWAKE, WATCHING TV, NO C/O PAIN
--- NOTE | 2019-03-05 21:51 | NUR ---
COOP WITH ASSESSMENT, IN BED, CPOX IN PLACE, ON ROOM AIR, SATS 92%. NO C/O PAIN, NO N/V. SL PATENT, USING USIRNAL. CBG 168 RECEIVED 2 UNITS HUMALOG INSULIN SQ
--- NOTE | 2019-03-06 00:18 | NUR ---
resting, no c/o resp distress or pain. call light at bedside.
--- NOTE | 2019-03-06 02:11 | NUR ---
RESTING, NO REQUESTS, NO S/SX CP OR SOB. USING USIRNADL AND VOIDING QS YELLOW URINE. CONTINUES TO TOLERATE FLUID RESTRICTION, LEGS ELEVATED. CALL LIGHT AT BEDSIDE
--- NOTE | 2019-03-06 06:05 | NUR ---
currently resting, no c/o cp or sob. turns self in bed. uses urinal, voiding qs, CBG was 168 received 2 units Insulin sq. Has denies c/o pain. dressing over both feet/leg intact. elevated. Continues on fluid restriction. Call light at bedside
--- NOTE | 2019-03-06 07:01 | NUR ---
REPORT RECEIVED FROM UMESH COHEN. PT RESTING SUPINE IN BED WITH EYES CLOSED AND APPEARS TO BE SLEEPING COMFORTABLY. RESPIRATIONS EVEN AND UNLABORED. CALL LIGHT AND H20 IN REACH.
--- NOTE | 2019-03-06 09:49 | NUR ---
PT UP TO RESTROOM AT THIS TIME WITH PT.
--- NOTE | 2019-03-06 11:21 | NUR ---
PT RESTING IN SEMI FOWLERS POSITION IN BED ALERT AND ORIENTED, DSGS PEELING OFF SO REMOVED AND WOUNDS CLEANSED WITH WOUND CLEANSER, [AT DRIED WITH STERILE GUAZE AND SILVER AG APPLIED TO OPEN WOUNDS AND ALLYVN DSGS APPLIED. LEGS WRAPPED WITH ELVIA WRAPPS INSTEAD OF STOCKINGS DUE TO FRAGILE SKIN TO BILAT LEGS. PT VOICES THAT HE FEELS LIKE HE IS READY TO GO HOME TODAY AND STATES HE FELT FINE AMBULATING IN HALLS AND GOING UP AND DOWN STAIRS WITH PHYSICAL THERAPY. PT DENIES HAVING ANY FURTHER CONCERNS OR REQUESTS AND STATES HE IS COMFORTABLE. [facility] WNL FOR PATIENT TO BILAT LE'S. CALL LIGHT AND H2O IN REACH. PT TOLERATING FLUID RESTRICTION WELL AND EDEMA TO BILAT LE'S APPEARS TO BE IMPROVED. PT SATTING IN LOW 90'S ON ROOM AIR AND DENIES SOB, CPOX REMAINS IN PLACE.
--- NOTE | 2019-03-06 12:10 | NUR ---
PT SITTING UP EATING LUNCH, PT DENIES NEEDS/CONCERNS AND APPEARS TO BE IN NO DISTRESS ON RA. CALL LIGHT AND H20 IN REACH.
--- NOTE | 2019-03-06 13:03 | NUR ---
PT RESTING IN BED, ALERT AND ORIENTED. EDEMA IN LEGS IS REDUCED AND REDDNESS DECREASED WELL. PT SEEMS TO BE MORE "MANAGER GENERATION" TODAY AND SAID HE WANTS TO GO HOME SO HE CAN SLEEP. GOOD VISIT, EXTENDED A BLESSING. WILL FOLLOW NEEDED
[2019-03-06] MEDS ORDERED: FUROSEMIDE80 MG PO (13:51)
--- NOTE | 2019-03-06 14:21 | NUR ---
PT RESTING IN SEMI FOWLERS POSITION IN BED, ALERT AND ORIENTED. PM MED ADMINISTERED SEE EMAR. PT WATCHING TV AND DENIES NEEDS/CONCERNS. PT DENIES NAUSEA,PAIN OR SOB AND VSS ON ROOM AIR. CALL LIGHT AND H20 IN REACH.
== END 2019-03-06 15:55 | disposition home or self-care (01) | DRG 291 ==
LOC: ED 10:42 → MS 10:44 → ED 10:44 → MS 14:02
PROVIDERS: ADMIT Student in an Organized Health Care Education/Training Program
PROC: 30233N1 Transfusion of Nonautologous Red Blood Cells into Peripheral Vein, Percutaneous Approach (ICD-10-PCS; principal; 2019-03-02)
DX: I13.0 Hypertensive heart and chronic kidney disease with heart failure and stage 1 through stage 4 chronic kidney disease, or unspecified chronic kidney disease (principal); I50.33 Acute on chronic diastolic (congestive) heart failure; L97.929 Non-pressure chronic ulcer of unspecified part of left lower leg with unspecified severity; L97.919 Non-pressure chronic ulcer of unspecified part of right lower leg with unspecified severity; Z68.41 Body mass index [BMI] 40.0-44.9, adult; N18.3 Chronic kidney disease, stage 3 (moderate); E11.22 Type 2 diabetes mellitus with diabetic chronic kidney disease; I87.2 Venous insufficiency (chronic) (peripheral); F32.9 Major depressive disorder, single episode, unspecified; D64.3 Other sideroblastic anemias; M10.9 Gout, unspecified; E78.5 Hyperlipidemia, unspecified; M54.5 Low back pain; G89.29 Other chronic pain; E66.01 Morbid (severe) obesity due to excess calories; E55.9 Vitamin D deficiency, unspecified; E11.42 Type 2 diabetes mellitus with diabetic polyneuropathy; M79.605 Pain in left leg; M79.604 Pain in right leg; Z79.82 Long term (current) use of aspirin; Z87.442 Personal history of urinary calculi; Z88.1 Allergy status to other antibiotic agents; Z79.4 Long term (current) use of insulin; Z79.899 Other long term (current) drug therapy
CPT/HCPCS: 36415; 36430; 71045; 80048; 80053; 83735; 83880; 85025; 86644; 86850; 86900; 86901; 86920; 93306; 93971; 94762; 96374; 97110; 97116; 97162; 97165; 99285-25; J1650; J1815; J1940; P9040

== ENCOUNTER 2020-04-07 18:19 | Emergency (ER) | payer MEDICARE, OTHER ==
[~2020-04-07] VITALS: Ht 188 cm; Wt 150.6 kg
--- OUTSIDE RECORDS SUMMARY | ~2020-04-07 | XMS | Encounter Summary ---
Demographics + + + | Address | [address] | | | [place] [address] | + + + | Home Phone | | + + + | Preferred Language | Unknown | + + + | Marital Status | | + + + | Spiritism Affiliation | Unknown | + + + | Race | Unknown | + + + | Ethnic Group | Unknown | + + + Author + + + | Author | [facility] | | | and [place] | + + + | Organization | [facility] | | | and [place] | + + + | Address | Unknown | + + + | Phone | Unavailable | + + + Support + + + + + | Name | Relationship | Address | Phone | + + + + + | [facility] | [address] | | | | | [place] | | | | | [place] [address] | | + + + + + Care Team Providers + +------+ + | Care Airplane Dispatcher Name | Role | Phone | + +------+ + | Andrew Parra MD | PCP | | + +------+ + Encounter Details +--------+ + + + + | Date | Type | Department | Care Team | Description | +--------+ + + + + | 03/02/ | Orders Only | [facility] | [address] | | | 2019 | | [address] | | [address] | [place] [address] | | | | | [place], [place] | [phone] | | | | | [address] | | | | | | [phone] | | | +--------+ + + + + Social History + +-------+ +--------+------+ | Tobacco Use | Types | Packs/Day | Years | Date | | | | | Used | | + +-------+ +--------+------+ | Never Smoker | | | | | + +-------+ +--------+------+ + + +---------+ + | Alcohol Use | Drinks/Week | oz/Week | Comments | + + +---------+ + | Not Asked | | | | + + +---------+ + + + + | Sex Assigned at | Date Recorded | | | | + + + | Not on file | | + + + documented as of this encounter Plan of Treatment +--------+---------+ + + + | Date | Type | Specialty | Care Team | Description | +--------+---------+ + + + | 07/04/ | Office | Nephrology | Arnold Sun MD | | | 2020 | Visit | | [address] [facility] | | | | | | [address] [place] | | | | | | [address] | | | | | | | | +--------+---------+ + + + documented as of this encounter Procedures + +--------+ + + + | Procedure Name | Priori | Date/Time | Associated Diagnosis | Comments | | | ty | | | | + +--------+ + + + | ECHO INTERPRETATION | Routin | 03/02/2019 | | Results for this | | OF OUTSIDE FILMS | e | 9:53 AM | | procedure are in the | | | | PDT | | results section. | + +--------+ + + + documented in this encounter Results ECHO Interpretation of Outside Films (03/02/2019 9:53 AM PDT) + + | Specimen | + + | | + + + + + | Impressions | Performed At | + + + | 1. This was a technically difficult study with suboptimal views. 2. | | | Overall left ventricular systolic function is low-normal with, an EF | | | between 50 - 55 %. 3. There is mild concentric left ventricular | | | hypertrophy. 4. Pseudonormal LV diastolic filling pattern, consistent | | | with elevated LA pressure and moderate dysfunction (Grade II). 5. | | | The right ventricle is mildly enlarged with normal systolic function. | | | 6. The right ventricular systolic pressure (pulmonary artery systolic | | | pressure), as measured by Doppler, is 59.12mmHg. | | + + + + + + | Narrative | Performed At | + + + | Patient Name: Renny Mariano Date of : 1945 | | | Performing Physician: Elana Soares | | | | | | INDICATIONS Volume overload, R/O CHF CONCLUSIONS | | | 1. This was a technically difficult study with suboptimal | | | views. 2. Overall left ventricular systolic function is low-normal | | | with, an EF between 50 - 55 %. 3. There is mild concentric left | | | ventricular hypertrophy. 4. Pseudonormal LV diastolic filling | | | pattern, consistent with elevated LA pressure and moderate dysfunction | | | (Grade II). 5. The right ventricle is mildly enlarged with normal | | | systolic function. 6. The right ventricular systolic pressure | | | (pulmonary artery systolic pressure), as measured by Doppler, is | | | 59.12mmHg. FINDINGS -------- ECG rhythm: Sinus rhythm. Study: A | | | 2-dimensional transthoracic echocardiogram with m-mode, spectral and | | | color flow Doppler was perfomed. Study: This was a technically | | | difficult study with suboptimal views. Left Ventricle: Overall left | | | ventricular systolic function is low-normal with, an EF between 50 - | | | 55 %. Left Ventricle: The left ventricle is mildly dilated. Left | | | Ventricle: There is mild concentric left ventricular hypertrophy. | | | Left Ventricle: There is a septal bounce present. Left Ventricle: | | | Pseudonormal LV diastolic filling pattern, consistent with elevated LA | | | pressure and moderate dysfunction (Grade II). Right Ventricle: The | | | right ventricle is mildly enlarged. Right Ventricle: The right | | | ventricular systolic function is normal. Left Atrium: The left atrium | | | is moderately enlarged. Right Atrium: The right atrium is mildly | | | enlarged. Aortic Valve: The aortic valve appears to be trileaflet. | | | Aortic Valve: There is no evidence of aortic regurgitation. Aortic | | | Valve: There is no evidence of aortic stenosis. Aortic Valve: Aortic | | | valve is mildly thickened. Mitral Valve: No mitral regurgitation. | | | Mitral Valve: Mild mitral annular calcification present. Tricuspid | | | Valve: The tricuspid valve appears structurally normal. Tricuspid | | | Valve: Trace tricuspid regurgitation present. Tricuspid Valve: There | | | is moderate to severe pulmonary hypertension. Tricuspid Valve: The | | | right ventricular systolic pressure (pulmonary artery systolic | | | pressure), as measured by Doppler, is 59.12mmHg. Pulmonic Valve: The | | | pulmonic valve was not well visualized. Pericardium: There is no | | | pericardial effusion. IVC/Hepatic Veins: The IVC is dilated (>2.5cm) | | | and collapses <50% with sniff, consistent with central venous | | | pressures of 15-20mmHg. Aorta: The ascending aorta is dilated | | | measuring up to 3.9cm. Mass: No mass visualized Thrombus: No clot | | | visualized Thrombus: No vegetation visualized. Septum: No ASD | | | observed. Septum: No VSD observed. MEASUREMENTS | | | Ao asc: 3.86 cm Ao Diam: 3.37 cm Ao sinus: 3.[address] | | | junct: 3.39 cm IVC: 2.92 cm LA Major: 5.61 cm EDV(Teich): | | | 186.26 ml IVSd: 1.17 cm LVIDd: 6.09 cm LVPWd: 1.23 cm | | | LVOT Diam: 2.41 cm %FS: 25.88 % EF(Teich): 50.00 % | | | ESV(Teich): 93.12 ml LVIDs: 4.51 cm SV(Teich): 93.14 ml RA | | | Major: 5.44 cm RV Major: 9.72 cm RV Minor: 3.61 cm RV | | | Minor: 3.56 cm LVEF MOD A2C: 50.17 % SV MOD A2C: 99.40 ml | | | LVEF MOD A4C: 50.49 % SV MOD A4C: 95.57 ml EF Biplane: | | | 47.36 % LVEDV MOD BP: 181.11 ml LVESV MOD BP: 95.32 ml LVEDV | | | MOD A2C: 198.11 ml LVLd A2C: 10.42 cm LVEDV MOD A4C: 189.28 | | | ml LVLd A4C: 10.08 cm LVESV MOD A2C: 98.71 ml LVLs A2C: | | | 8.80 cm LVESV MOD A4C: 93.71 ml LVLs A4C: 8.25 cm LAESV(A-L): | | | 114.96 ml LAESV Index (A-L): 42.26 ml/m2 LAAs A2C: 31.62 | | | cm2 LAESV A-L A2C: 126.54 ml LAESV MOD A2C: 122.01 ml LALs | | | A2C: 6.70 cm LAAs A4C: 24.51 cm2 LAESV A-L A4C: 89.12 ml | | | LAESV MOD A4C: 82.23 ml LALs A4C: 5.72 cm RAAs: 18.36 cm2 | | | RAESV A-L: 46.64 ml RAESV MOD: 47.83 ml RALs: 6.13 cm | | | TAPSE: 3.11 cm LVOT Env.Ti: 384.38 ms LVOT maxP.87 mmHg | | | LVOT meanP.24 mmHg LVSI Dopp: 54.43 ml/m2 LVSV Dopp: | | | 148.05 ml LVOT Vmax: 1.21 m/s LVOT Vmean: 0.84 m/s LVOT VTI: | | | 32.37 cm MV A Chris: 0.93 m/s MV Dec [place]: 6.79 m/s2 MV | | | DecT: 169.58 ms MV E Chris: 1.15 m/s MV E/A Ratio: 1.23 E/E' | | | Sept: 16.60 E' Lat: 0.09 m/s E' Sept: 0.06 m/s RAP: 15 | | | mmHg RV S': 0.14 m/s RVSP: 59.11 mmHg TR maxP.11 | | | mmHg TR Vmax: 3.32 m/s Furnace Process Plant Operator: Authenticated by: Elana | | | Rodger Report Date/Time: 03-02-2019 14:6:24 | | + + + + + | Procedure Note | + + | Allan Dickerson Conversion - 06/04/2019 1:43 PM PDT Patient Name: Marilynn Marianomaninder of | | : 1945 Performing Physician: Elana | | Rodger INDICATIONS | | -Volume overload, R/O CHF CONCLUSIONS 1. This was a technically difficult | | study with suboptimal views.2. Overall left ventricular systolic function is low-normal | | with, an EF between 50 - 55 %.3. There is mild concentric left ventricular | | hypertrophy.4. Pseudonormal LV diastolic filling pattern, consistent with elevated LA | | pressure and moderate dysfunction (Grade II).5. The right ventricle is mildly enlarged | | with normal systolic function.6. The right ventricular systolic pressure (pulmonary | | artery systolic pressure), as measured by Doppler, is 59.12mmHg. FINDINGS--------ECG | | rhythm: Sinus rhythm.Study: A 2-dimensional transthoracic echocardiogram with m-mode, | | spectral and color flow Doppler was perfomed.Study: This was a technically difficult | | study with suboptimal views.Left Ventricle: Overall left ventricular systolic function | | is low-normal with, an EF between 50 - 55 %.Left Ventricle: The left ventricle is mildly | | dilated.Left Ventricle: There is mild concentric left ventricular hypertrophy.Left | | Ventricle: There is a septal bounce present.Left Ventricle: Pseudonormal LV diastolic | | filling pattern, consistent with elevated LA pressure and moderate dysfunction (Grade | | II).Right Ventricle: The right ventricle is mildly enlarged.Right Ventricle: The right | | ventricular systolic function is normal.Left Atrium: The left atrium is moderately | | enlarged.Right Atrium: The right atrium is mildly enlarged.Aortic Valve: The aortic | | valve appears to be trileaflet.Aortic Valve: There is no evidence of aortic | | regurgitation.Aortic Valve: There is no evidence of aortic stenosis.Aortic Valve: Aortic | | valve is mildly thickened.Mitral Valve: No mitral regurgitation.Mitral Valve: Mild | | mitral annular calcification present.Tricuspid Valve: The tricuspid valve appears | | structurally normal.Tricuspid Valve: Trace tricuspid regurgitation present.Tricuspid | | Valve: There is moderate to severe pulmonary hypertension.Tricuspid Valve: The right | | ventricular systolic pressure (pulmonary artery systolic pressure), as measured by | | Doppler, is 59.12mmHg.Pulmonic Valve: The pulmonic valve was not well | | visualized.Pericardium: There is no pericardial effusion.IVC/Hepatic Veins: The IVC is | | dilated (>2.5cm) and collapses <50% with sniff, consistent with central venous pressures | | of 15-20mmHg.Aorta: The ascending aorta is dilated measuring up to 3.9cm.Mass: No mass | | visualizedThrombus: No clot visualizedThrombus: No vegetation visualized.Septum: No ASD | | observed.Septum: No VSD observed. MEASUREMENTS Ao asc: 3.86 cmAo Diam: | | 3.37 cmAo sinus: 3.[address] junct: 3.39 cmIVC: 2.92 cmLA Major: 5.61 | | cmEDV(Teich): 186.26 mlIVSd: 1.17 cmLVIDd: 6.09 cmLVPWd: 1.23 cmLVOT Diam: | | 2.41 cm%FS: 25.88 %EF(Teich): 50.00 %ESV(Teich): 93.12 mlLVIDs: 4.51 | | cmSV(Teich): 93.14 mlRA Major: 5.44 cmRV Major: 9.72 cmRV Minor: 3.61 cmRV | | Minor: 3.56 cmLVEF MOD A2C: 50.17 %SV MOD A2C: 99.40 mlLVEF MOD A4C: 50.49 %SV | | MOD A4C: 95.57 mlEF Biplane: 47.36 %LVEDV MOD BP: 181.11 mlLVESV MOD BP: 95.32 | | mlLVEDV MOD A2C: 198.11 mlLVLd A2C: 10.42 cmLVEDV MOD A4C: 189.28 mlLVLd A4C: | | 10.08 cmLVESV MOD A2C: 98.71 mlLVLs A2C: 8.80 cmLVESV MOD A4C: 93.71 mlLVLs A4C: | | 8.25 cmLAESV(A-L): 114.96 mlLAESV Index (A-L): 42.26 ml/m2LAAs A2C: 31.62 | | [id number] A-L A2C: 126.54 mlLAESV MOD A2C: 122.01 mlLALs A2C: 6.70 cmLAAs A4C: | | 24.51 [id number] A-L A4C: 89.12 mlLAESV MOD A4C: 82.23 mlLALs A4C: 5.72 cmRAAs: | | 18.36 [id number] A-L: 46.64 mlRAESV MOD: 47.83 mlRALs: 6.13 cmTAPSE: 3.11 cmLVOT | | Env.Ti: 384.38 msLVOT maxP.87 mmHgLVOT meanP.24 mmHgLVSI Dopp: 54.43 | | ml/m2LVSV Dopp: 148.05 mlLVOT Vmax: 1.21 m/sLVOT Vmean: 0.84 m/sLVOT VTI: 32.37 | | cmMV A Chris: 0.93 m/sMV Dec [place]: 6.79 m/s2MV DecT: 169.58 msMV E Chris: 1.15 | | m/sMV E/A Ratio: 1.23E/E' Sept: 16.60E' Lat: 0.09 m/sE' Sept: 0.06 m/sRAP: 15 | | mmHgRV S': 0.14 m/sRVSP: 59.11 mmHgTR maxP.11 mmHgTR Vmax: 3.32 m/s | | Furnace Process Plant Operator:Authenticated by: Elana Valentino Date/Time: 03-02-2019 14:6:24 | | IMPRESSION: 1. This was a technically difficult study with suboptimal views.2. Overall | | left ventricular systolic function is low-normal with, an EF between 50 - 55 %.3. There | | is mild concentric left ventricular hypertrophy.4. Pseudonormal LV diastolic filling | | pattern, consistent with elevated LA pressure and moderate dysfunction (Grade II).5. The | | right ventricle is mildly enlarged with normal systolic function.6. The right | | ventricular systolic pressure (pulmonary artery systolic pressure), as measured by | | Doppler, is 59.12mmHg. | |Ao Diam: 3.37 cm | |Ao sinus: 3.37 cm | |Ao st junct: 3.39 cm | |IVC: 2.92 cm | |LA Major: 5.61 cm | |EDV(Teich): 186.26 ml | |IVSd: 1.17 cm | |LVIDd: 6.09 cm | |LVPWd: 1.23 cm | |LVOT Diam: 2.41 cm | |%FS: 25.88 % | |EF(Teich): 50.00 % | |ESV(Teich): 93.12 ml | |LVIDs: 4.51 cm | |SV(Teich): 93.14 ml | |RA Major: 5.44 cm | |RV Major: 9.72 cm | |RV Minor: 3.61 cm | |RV Minor: 3.56 cm | |LVEF MOD A2C: 50.17 % | |SV MOD A2C: 99.40 ml | |LVEF MOD A4C: 50.49 % | |SV MOD A4C: 95.57 ml | |EF Biplane: 47.36 % | |LVEDV MOD BP: 181.11 ml | |LVESV MOD BP: 95.32 ml | |LVEDV MOD A2C: 198.11 ml | |LVLd A2C: 10.42 cm | |LVEDV MOD A4C: 189.28 ml | |LVLd A4C: 10.08 cm | |LVESV MOD A2C: 98.71 ml | |LVLs A2C: 8.80 cm | |LVESV MOD A4C: 93.71 ml | |LVLs A4C: 8.25 cm | |LAESV(A-L): 114.96 ml | |LAESV Index (A-L): 42.26 ml/m2 | |LAAs A2C: 31.62 cm2 | |LAESV A-L A2C: 126.54 ml | |LAESV MOD A2C: 122.01 ml | |LALs A2C: 6.70 cm | |LAAs A4C: 24.51 cm2 | |LAESV A-L A4C: 89.12 ml | |LAESV MOD A4C: 82.23 ml | |LALs A4C: 5.72 cm | |RAAs: 18.36 cm2 | |RAESV A-L: 46.64 ml | |RAESV MOD: 47.83 ml | |RALs: 6.13 cm | |TAPSE: 3.11 cm | |LVOT Env.Ti: 384.38 ms | |LVOT maxP.87 mmHg | |LVOT meanP.24 mmHg | |LVSI Dopp: 54.43 ml/m2 | |LVSV Dopp: 148.05 ml | |LVOT Vmax: 1.21 m/s | |LVOT Vmean: 0.84 m/s | |LVOT VTI: 32.37 cm | |MV A Chris: 0.93 m/s | |MV Dec [place]: 6.79 m/s2 | |MV DecT: 169.58 ms | |MV E Chris: 1.15 m/s | |MV E/A Ratio: 1.23 | |E/E' Sept: 16.60 | |E' Lat: 0.09 m/s | |E' Sept: 0.06 m/s | |RAP: 15 mmHg | |RV S': 0.14 m/s | |RVSP: 59.11 mmHg | |TR maxP.11 mmHg | |TR Vmax: 3.32 m/s | | | |Furnace Process Plant Operator: | |Authenticated by: Elana Soares | |Report Date/Time: 03-02-2019 14:6:24 | | | |IMPRESSION: | |1. This was a technically difficult study with suboptimal views. | |2. Overall left ventricular systolic function is low-normal with, an EF between 50 - 55 %. | |3. There is mild concentric left ventricular hypertrophy. | |4. Pseudonormal LV diastolic filling pattern, consistent with elevated LA pressure and mode rate dysfunction (Grade II). | |5. The right ventricle is mildly enlarged with normal systolic function. | |6. The right ventricular systolic pressure (pulmonary artery systolic pressure), as measure d by Doppler, is 59.12mmHg. | + + documented in this encounter Visit Diagnoses Not on filedocumented in this encounter"
--- OUTSIDE RECORDS SUMMARY | ~2020-04-07 | XMS | Encounter Summary ---
Demographics + + + | Address | [address] | | | [place] [address] | + + + | Home Phone | | + + + | Preferred Language | Unknown | + + + | Marital Status | | + + + | Denominational Affiliation | Unknown | + + + | Race | Unknown | + + + | Ethnic Group | Unknown | + + + Author + + + | Author | [facility] | | | and [place] | + + + | Organization | [facility] | | | and [...] [place] | | | | | [place] [address] | | + + + + + Care Team Providers + +------+ + | Care Database Marketing Manager Name | Role | Phone | + +------+ + | Hollis Villavicencio MD | PCP | | + +------+ + Encounter Details +--------+ + + + + | Date | Type | Department | Care Team | Description | +--------+ + + + + | 11/24/ | Hospital | [facility] | [place], | | | 2012 | Encounter | MED CTR EMERGENCY | Gregory Mosher MD [address] | | | | [place] [address] | [address] [place] | | | | | [place], [place] | [place] [address] | | | | | [address] | [phone] | | | | | [phone] | | | +--------+ + + + [...] + + documented as of this encounter Medications at Time of Discharge + + + +---------+ + + | Medication | Sig | Dispensed | Refills | Start | End Date | | | | | | Date | | + + + +---------+ + + | amlodipine | Take 10 mg by mouth | | 0 | | | | (NORVASC) 10 MG | Daily. | | | | | | tablet | | | | | | + + + +---------+ + + | furosemide (LASIX) | Take 20 mg by mouth | | 0 | | | | 20 mg tablet | 2 times daily. | | | | | + + + +---------+ + + | insulin aspart | Inject 10 Units | | 0 | | | | (NOVOLOG) 100 | under the skin as | | | | | | units/mL injection | needed. | | | | | + + + +---------+ + + | | Take 1 tablet by | | 0 | | | | losartan-hydrochloro | mouth Daily. | | | | | | thiazide (HYZAAR) | | | | | | | 100-25 MG per tablet | | | | | | + + + +---------+ + + | aspirin 81 mg | Take 81 mg by mouth | | 0 | | | | chewable tablet | Daily. | | | | 9 | + + + +---------+ + + | furosemide (LASIX) | Take 1 tablet by | | 0 | 09/18/20 | | | 40 mg tablet | mouth 2 (two) times | | | 11 | 9 | | | daily. | | | | | + + + +---------+ + + | insulin glargine | Inject 50 Units | | 0 | | | | (LANTUS) 100 | under the skin 2 | | | | 9 | | units/mL injection | times daily. | | | | | + + + +---------+ + + | LORazepam (ATIVAN) | Take 1 tablet by | 20 | 0 | 11/10/19 | | | 1 mg | mouth 1 hour prior | tablet | | 13 | 9 | | tabletIndications: | to procedure, repeat | | | | | | Anxiety | in 30 minutes if | | | | | | | needed. | | | | | + + + +---------+ + + | metoprolol | Take 50 mg by mouth | | 0 | | | | tartrate (LOPRESSOR) | 2 times daily. | | | | 9 | | 50 mg tablet | | | | | | + + + +---------+ + + | venlafaxine | Take 75 mg by mouth | | 0 | | | | (EFFEXOR) 75 MG | 2 times daily. | | | | 9 | | tablet | | | | | | + + + +---------+ + + documented as of this encounter ED Notes Gregory Link MD - 11/24/2012 10:12 AM [place], [place] [id number] Patient Name: RENNY MARIANO Provider: Unit #: [id number] Location: [facility] #: [id number] : 1945 DATE: 11/24/2012 TIME: 908. CHIEF COMPLAINT: Fall. PRIMARY CARE PHYSICIAN: Dr. Sofia in [place]. HISTORY OF PRESENT ILLNESS: Mr. Mariano is a 67-year-old gentleman who tripped a week ag o walking to the bathroom and said he sort of a ping-ponged off the TV and then a table and then ended up hitting the edge of a rocking chair sort of on his inferior left lateral rib s. He has had pain since then. He said it is worse in the morning when he tries to get up a nd move around, but it is off and on during the day that it bothers him. He has had no abdo nimisha pain per se. He has had no hematuria. He has had no syncope or near syncope, and it j ust occasionally hurts when he breathes deeply, but he does not feel particularly short of breath. PAST MEDICAL HISTORY: He has had a stroke in 1997, diabetes, morbid obesity, and left foot great toe surgery. CURRENT MEDICATIONS 1. Amlodipine. 2. Aspirin. 3. Calcium. 4. Fluoxetine. 5. Furosemide. 6. Kersey. 7. Lantus insulin. 8. NovoLog insulin. 9. Hyzaar. 10. Metoprolol. 11. Pravachol. 13. Vitamin D2 ALLERGIES: NONE. REVIEW OF SYSTEMS A 10-system review is negative except as noted above. SOCIAL HISTORY: Nonsmoker. PHYSICAL EXAMINATION VITAL SIGNS: Blood pressure 125/53, heart rate 50, respirations 18, temperature 97.4, O2 s aturation 98 %. GENERAL APPEARANCE: male, sitting up, speaking normally. HEENT: He is atraumatic. Pupils are equal, round, and reactive. Oropharynx benign. NECK: Supple. CHEST: Good air movement bilaterally. No wheezes or rales. A little tenderness inferior an d lateral left ribs, but no crepitus or step-off. CARDIOVASCULAR: Normal S1, S2. ABDOMEN: Soft, completely nontender, without rebound, guarding, or masses. EXTREMITIES: Atraumatic. NEUROLOGIC: Alert and oriented. Gait and speech are normal. EMERGENCY DEPARTMENT COURSE: I did check a 2-view chest x-ray, which appears clear. I do n ot see any obvious rib fractures, and there is no pneumothorax. So I think this is likely r ib contusion. I told him it certainly could be a cracked rib that we cannot see. At this po int, he will be discharged home. Continue his pain medication, activity as tolerated. Retur n for any concerns. IMPRESSION: LEFT RIB CONTUSIONS. DICTATED BY: Gregory Link MD Emergency Medicine JOB #: [id number] EXT JOB #:[id number] <<Signature on File>> Gregory pham MD11/25/12 0745 < documented in t his encounter Plan of Treatment +--------+---------+ + + + | Date | Type | Specialty | Care Team | Description | +--------+---------+ + + + | 07/04/ | Office | Nephrology | Arnold Sun MD | | | 2020 | Visit | | [address] [facility] | | | | | | [address] [place] | | | | | | [address] | | | | | | | | +--------+---------+ + + + documented as of this encounter Procedures + +--------+ + + + | Procedure Name | Priori | Date/Time | Associated Diagnosis | Comments | | | ty | | | | + +--------+ + + + | XR CHEST PA AND | Routin | 11/24/2012 | | Results for this | | LATERAL | e | 11:10 AM | | procedure are in the | | | | PST | | results section. | + +--------+ + + + | URINALYSIS, REFLEX | Routin | 11/24/2012 | | Results for this | | MICROSCOPIC AND/OR | e | 10:18 AM | | procedure are in the | | CULTURE | | PST | | results section. | + +--------+ + + + documented in this encounter Results XR Chest PA and Lateral (11/24/2012 11:10 AM PST) + + | Specimen | + + | | + + + + + | Narrative | Performed At | + + + | [facility] Diagnostic [facility] | [place] | | Department [address] [facility] | [facility] | | [ rep [address]] [ rep [facility] | | st zip] Signed | - IMAGING | | | | | Patient Name: RENNY MARIANO | | | Physician: STEPH : 1945 Age: 67 Sex: M Unit | | | #: [id number] Exam Date: 11/24/12 Location: | | | ER Report #: [id number] Page: | | | %(RAD)RES..mtdd.print.filter("pg") of %(RAD) | | | RES..mtdd.print.filter("tpg") | | | | | | Accession Number: [id number] | | | CHEST X-RAY CLINICAL HISTORY: FALL ONE WEEK AGO. | | | COMPARISON: None. FINDINGS: PA and lateral views of | | | the chest were obtained. There is some mild scarring versus | | | atelectasis in the left lung base. Bilateral lungs are otherwise clear | | | with no evidence for pneumothorax. The cardiomediastinal silhouette | | | is normal. There are small bridging osteophytes of the thoracic | | | spine. There is no evidence for compression fracture. Limited | | | evaluation of the ribs demonstrates no definite evidence for a | | | fracture. IMPRESSION: 1. NO EVIDENCE FOR TRAUMA TO | | | THE CHEST. IF CLINICALLY INDICATED, DEDICATED RIB SERIES OR CT SCAN | | | COULD BE PERFORMED FOR FURTHER EVALUATION. Dictated | | | Date/Time: 11/24/2012 11:10 Transcribed Date/Time: 11/24/2012 | | | 11:27 Instant Potato Processor: <<Signature on | | | File>> | | | Kishan | | | MD Hernandez11/24/12 1217 <Electronically signed by Kishan Ng MD> | | | Kishan Ng MD 11/24/12 1110 Instant Potato Processor: Nasreen | | | [id number]/13 1127 Gregory Link MD | | | | | + + + + + + + + | Performing | Address | City/State/Zipcode | Phone Number | | Organization | | | | + + + + + | [facility] | [address] | [place] | [phone] | | [facility] | | [address] | | | - IMAGING | | | | + + + + + Urinalysis, Reflex Microscopic and/or Culture (11/24/2012 10:18 AM PST) + + + + + + | Component | Value | Ref Range | Performed | Pathologist | | | | | At | Signature | + + + + + + | COLLECTION | VOID | | [facility] | | | METHOD [facility] | | | [facility] | | | | | | MEDICAL | | | | | | CENTER - | | | | | | LABORATORY | | + + + + + + | Color, | YELLOW | | [facility] | | | Urine | | | [facility] | | | | | | MEDICAL | | | | | | CENTER - | | | | | | LABORATORY | | + + + + + + | Clarity | CLEAR | | [facility] | | | | | | [facility] | | | | | | MEDICAL | | | | | | CENTER - | | | | | | LABORATORY | | + + + + + + | Glucose, | NEGATIVE | NEGATIVE mg/dL | [facility] | | | Urine | | | [facility] | | | | | | MEDICAL | | | | | | CENTER - | | | | | | LABORATORY | | + + + + + + | Bilirubin, | NEGATIVE | NEGATIVE | [facility] | | | Urine | | | [facility] | | | | | | MEDICAL | | | | | | CENTER - | | | | | | LABORATORY | | + + + + + + | Ketones, | NEGATIVE | NEGATIVE | [facility] | | | Urine | | | [facility] | | | | | | MEDICAL | | | | | | CENTER - | | | | | | LABORATORY | | + + + + + + | Specific | 1.020 | 1.001 - 1.030 | [facility] | | | [place], | | | [facility] | | | Urine | | | MEDICAL | | | | | | CENTER - | | | | | | LABORATORY | | + + + + + + | Blood, | NEGATIVE | NEGATIVE | [facility] | | | Urine | | | [facility] | | | | | | MEDICAL | | | | | | CENTER - | | | | | | LABORATORY | | + + + + + + | pH, Urine | 5.5 | 5.0 - 8.0 | [facility] | | | | | | [facility] | | | | | | MEDICAL | | | | | | CENTER - | | | | | | LABORATORY | | + + + + + + | Protein, | NEGATIVE | NEGATIVE mg/dL | [facility] | | | Urine | | | [facility] | | | | | | MEDICAL | | | | | | CENTER - | | | | | | LABORATORY | | + + + + + + | Urobilinoge | NORMAL | NORMAL EU/dL | [facility] | | | n, Urine | | | [facility] | | | | | | MEDICAL | | | | | | CENTER - | | | | | | LABORATORY | | + + + + + + | Nitrite, | NEGATIVE | NEGATIVE | [facility] | | | Urine | | | [facility] | | | | | | MEDICAL | | | | | | CENTER - | | | | | | LABORATORY | | + + + + + + | Leukocyte | NEGATIVE | NEGATIVE | [facility] | | | Esterase, | | | [facility] | | | Urine | | | MEDICAL | | | | | | CENTER - | | | | | | LABORATORY | | + + + + + + | White Blood | 0-2 | 0 - 1 /hpf | [facility] | | | Cells, | | | [facility] | | | Urine | | | MEDICAL | | | | | | CENTER - | | | | | | LABORATORY | | + + + + + + | Red Blood | NONE | 0 - 4 /hpf | [facility] | | | Cells, | | | [facility] | | | Urine | | | MEDICAL | | | | | | CENTER - | | | | | | LABORATORY | | + + + + + + | Squamous | FEW | FEW /hps | [facility] | | | Epithelial | | | [facility] | | | Cells, | | | MEDICAL | | | Urine | | | CENTER - | | | | | | LABORATORY | | + + + + + + | Bacteria, | NONE | NONE /hpf | [facility] | | | Urine | | | [facility] | | | | | | MEDICAL | | | | | | CENTER - | | | | | | LABORATORY | | + + + + + + | Mucus, | MODERATE | /hpf | [facility] | | | Urine | | | [facility] | | | | | | MEDICAL | | | | | | CENTER - | | | | | | LABORATORY | | + + + + + + | Hyaline | MANY | 0 - 1 /lpf | [facility] | | | Casts, | | | [facility] | | | Urine | | | MEDICAL | | | | | | CENTER - | | | | | | LABORATORY | | + + + + + + | Culture | NO | | [facility] | | | Indicated | | | [facility] | | | | | | MEDICAL | | | | | | CENTER - | | | | | | LABORATORY | | + + + + + + + + | Specimen | + + | | + + + + + + + | Performing | Address | City/State/Zipcode | Phone Number | | Organization | | | | + + + + + | [facility] | [address] | [place] | [phone] | | [facility] | | [address] | | | - LABORATORY | | | | + + + + + | [facility] | [address] | [place], [place] | | | [facility] | | [address], [facility] | | | - LABORATORY | | | | + + + + + documented in this encounter Visit Diagnoses Not on filedocumented in this encounter
--- OUTSIDE RECORDS SUMMARY | ~2020-04-07 | XMS | Encounter Summary ---
Demographics + + + | Address | [address] | | | [place] [address] | + + + | Home Phone | | + + + | Preferred Language | Unknown | + + + | Marital Status | Single | + + + | Congregation Affiliation | Unknown | + + + | Race | Unknown | + + + | Ethnic Group | Other Race | + + + Author + + + | Author | [facility] | + + + | Organization | [facility] | + + + | Address | Unknown | + + + | Phone | Unavailable | + + + Care Team Providers + +------+ + | Care C Engineer Name | Role | Phone | + +------+ + PCP | Unavailable | + +------+ + Encounter Details +--------+ + + + + | Date | Type | Department | Care Team | Description | +--------+ + + + + | 10/18/ | Results | [facility] | [place], Y[place], | | | 2010 | Only | Department | [facility] | | | | | | [facility] D[facility] | | | | | | [address] | | | | | | [place] | | | | | | [address] | | | | | | | | +--------+ + + + + Social History + +-------+ +--------+------+ | Tobacco Use | Types | Packs/Day | Years | Date | | | | | Used | | + +-------+ +--------+------+ | Never Assessed | | | | | + +-------+ +--------+------+ + + + | Sex Assigned at | Date Recorded | | | | + + + | Not on file | | + + + + + + + | Job Start Date | Occupation | Industry | + + + + | Not on file | Not on file | Not on file | + + + + + + + + | Travel History | Travel Start | Travel End | + + + + + + | No recent travel history available. | + + documented as of this encounter Plan of Treatment Not on filedocumented as of this encounter Procedures + +--------+ + + + | Procedure Name | Priori | Date/Time | Associated Diagnosis | Comments | | | ty | | | | + +--------+ + + + | DERMATOPATHOLOGY(WET | Routin | 10/18/2010 | | Results for this | | [facility]) | e | | | procedure are in the | | | | | | results section. | + +--------+ + + + documented in this encounter Results DERMATOPATHOLOGY(WET [place]) (10/18/2010) + + + + + + | Component | Value | Ref Range | Performed | Pathologist | | | | | At | Signature | + + + + + + | DERMATOPATH | SOURCE OF SPECIMEN:A | | [facility] | | | OLOGY(WET | FIRST TISSUE LEVEL IV | | DERMATOPATH | | | MNT) | [address] CLINICAL | | OLOGY | | | | DESCRIPTION:Punch, 4mm, | | | | | | rt. lateral upper arm; 8 | | | | | | x 6 mm erythematous | | | | | | firm papule withpositive | | | | | | dimple sign; R/O | | | | | | dermatofibroma vs BCC vs | | | | | | other. GROSS | | | | | | DESCRIPTION:Rt. lateral | | | | | | upper arm. The | | | | | | specimen is received in | | | | | | formalin, labeled | | | | | | rt.lateral upper arm, | | | | | | with the patient's name | | | | | | and consists of a pale | | | | | | doll punchbiopsy, which | | | | | | measures 0.4 x 0.7 cm. | | | | | | The specimen is | | | | | | bisected and | | | | | | entirelysubmitted in one | | | | | | cassette. | | | | | | MICROSCOPIC | | | | | | DESCRIPTION:There is a | | | | | | well circumscribed | | | | | | nodule within the dermis | | | | | | characterized by | | | | | | aproliferation of | | | | | | spindled fibrocytes. | | | | | | The fibrocytes are | | | | | | associated withcollagen | | | | | | bundles arranged in | | | | | | haphazard as well as | | | | | | storiform | | | | | | configurationwith | | | | | | peripheral keloidal | | | | | | collagen. | | | | | | DIAGNOSIS:DERMATOFIBROMA | | | | | | . NOTE: The | | | | | | right lateral upper arm | | | | | | DERMATOFIBROMA extends | | | | | | to the | | | | | | peripheralsurgical | | | | | | margins of the punch | | | | | | specimen. There is no | | | | | | evidence of basal | | | | | | cellcarcinoma in these | | | | | | sections. | | | | | | VBK:mm10/23/10 Case | | | | | | review by:Alma Islas | | | | | | Lewis, | | | | | | Kimber/Dermatopathology | | | | | | Hilario Longo, | | | | | | MKonrad/Dermatopathologist | | | | | | My electronic | | | | | | signature indicates that | | | | | | I have personally | | | | | | reviewed alldiagnostic | | | | | | slides, the gross and/or | | | | | | microscopic portion of | | | | | | thisreport and | | | | | | formulated the final | | | | | | diagnosis. | | | | | | Rendering Diagnostician: | | | | | | Raul Longo | | | | | | MKonradPathologistElectroni | | | | | | claudia Signed 10/25/2010 | | | | | | 10:23AM | | | | + + + + + + + + | Specimen | + + | | + + + + + + + | Performing | Address | City/State/Zipcode | Phone Number | | Organization | | | | + + + + + | [facility] | [address] | [place] [address] | | | DERMATOPATHOLOGY | [address] | | | + + + + + documented in this encounter Visit Diagnoses Not on filedocumented in this encounter"
--- OUTSIDE RECORDS SUMMARY | ~2020-04-07 | XMS | Encounter Summary ---
Demographics + + + | Address | [address] | | | [place] [address] | + + + | Home Phone | | + + + | Preferred Language | Unknown | + + + | Marital Status | | + + + | Sabianism Affiliation | Unknown | + + + | Race | Unknown | + + + | Ethnic Group | Unknown | + + + Author + + + | Author | [facility] | | | and [place] | + + + | Organization | [facility] | | | [...] [place] | | | | | [place] [address] | | + + + + + Care Team Providers + +------+ + | Care Director Hydrogen Storage Engineering Name | Role | Phone | + +------+ + | Andrew Parra MD | PCP | | + +------+ + Encounter Details +--------+ + + + + | Date | Type | Department | Care Team | Description | +--------+ + + + + | 04/06/ | Orders Only | [facility] | Arnold Sun MD | | | 2019 | | NEPHROLOGY [place] | [address] [place] | | | | | [address] [place] | [address] [place], [place] | | | | | [address] [place], [place] | [address] | | | | | [address] | | | | | | [phone] | | | +--------+ + + + [...] 2020 | Visit | | [address] [place] | | | | | | [address] [place] | | | | | | [address] | | | | | | | | +--------+---------+ + + + documented as of this encounter Procedures + +--------+ + + + | Procedure Name | Priori | Date/Time | Associated Diagnosis | Comments | | | ty | | | | + +--------+ + + + | EXTERNAL LAB: CBC | Routin | 04/06/2019 | | Results for this | | | e | 2:50 PM | | procedure are in the | | | | PDT | | results section. | + +--------+ + + + | BASIC METABOLIC | Routin | 04/06/2019 | | Results for this | | PANEL | e | 2:50 PM | | procedure are in the | | | | PDT | | results section. | + +--------+ + + + documented in this encounter Results External Lab: CBC (04/06/2019 2:50 PM PDT) + + + + + + | Component | Value | Ref Range | Performed | Pathologist | | | | | At | Signature | + + + + + + | WBC | 5.2 | 4.5 - 11.0 10 | EXTERNAL | | | | | | LAB | | + + + + + + | Red Blood | 2.68 (A) | 4.3 - 5.7 10 | EXTERNAL | | | Cells | | | LAB | | | Counted | | | | | + + + + + + | Hemoglobin | 9.0 (A) | 13.5 - 18.0 | EXTERNAL | | | | | g/dL | LAB | | + + + + + + | Hematocrit, | 26.5 (A) | 41 - 50 % | EXTERNAL | | | POC | | | LAB | | + + + + + + | MCV | 98.6 | 81 - 99 fL | EXTERNAL | | | | | | LAB | | + + + + + + | MCH | 34 (A) | 27 - 33 pg | EXTERNAL | | | | | | LAB | | + + + + + + | MCHC | 34 | 30 - 36 g/dL | EXTERNAL | | | | | | LAB | | + + + + + + | Platelet | 137 (A) | 140 - 440 K/ L | EXTERNAL | | | Count | | | LAB | | | Plasma | | | | | + + + + + + | RDW-CV | 22.4 (A) | 10.5 - 15.0 % | EXTERNAL | | | | | | LAB | | + + + + + + | MPV | | fL | EXTERNAL | | | | | | LAB | | + + + + + + | Differentia | | | EXTERNAL | | | l Type | | | LAB | | + + + + + + | % Segmented | 46.4 | 39 - 80 % | EXTERNAL | | | | | | LAB | | | Neutrophils | | | | | + + + + + + | % | 26.8 | 24 - 44 % | EXTERNAL | | | Lymphocytes | | | LAB | | + + + + + + | % Monocytes | 14.5 (A) | 0 - 12 % | EXTERNAL | | | | | | LAB | | + + + + + + | % | 11.4 (A) | 0 - 6 % | EXTERNAL | | | Eosinophils | | | LAB | | + + + + + + | % Basophils | 0.9 | 0 - 2 % | EXTERNAL | | | | | | LAB | | + + + + + + | Absolute | | / L | EXTERNAL | | | Segmented | | | LAB | | | Neutrophils | | | | | + + + + + + | Absolute | | / L | EXTERNAL | | | Lymphocytes | | | LAB | | + + + + + + | Absolute | | / L | EXTERNAL | | | Monocytes | | | LAB | | + + + + + + | Absolute | | / L | EXTERNAL | | | Eosinophils | | | LAB | | + + + + + + | Absolute | | / L | EXTERNAL | | | Basophils | | | LAB | | + + + + + + + + | Specimen | + + | Blood specimen | | (specimen) | + + + +---------+ + + | Performing | Address | City/State/Zipcode | Phone Number | | Organization | | | | + +---------+ + + | EXTERNAL LAB | | | | + +---------+ + + Basic Metabolic Panel (04/06/2019 2:50 PM PDT) + + + + + + | Component | Value | Ref Range | Performed | Pathologist | | | | | At | Signature | + + + + + + | Glucose, | 70 | 70 - 100 mg/dL | EXTERNAL | | | Fasting | | | LAB | | + + + + + + | BUN | 9 | 6 - 23 mg/dL | EXTERNAL | | | | | | LAB | | + + + + + + | Creatinine | 2.25 (A) | 0.70 - 1.18 | EXTERNAL | | | | | mg/dL | LAB | | + + + + + + | BUN/Creatin | 41.3 (A) | 6.0 - 28.6 | EXTERNAL | | | ine Ratio | | | LAB | | + + + + + + | Calcium | 8.8 | 8.5 - 10.3 | EXTERNAL | | | | | mg/dL | LAB | | + + + + + + | Na | 142 | 132 - 143 | EXTERNAL | | | | | mmol/L | LAB | | + + + + + + | K | 4.4 | 3.6 - 5.1 | EXTERNAL | | | | | mmol/L | LAB | | + + + + + + | Cl | 107 | 95 - 112 mmol/L | EXTERNAL | | | | | | LAB | | + + + + + + | CO2 | 24 | 19 - 31 mmol/L | EXTERNAL | | | | | | LAB | | + + + + + + | Anion Gap | 15.4 | 7 - 21 mmol/L | EXTERNAL | | | | | | LAB | | + + + + + + | Estimated | 29 (A) | 60 - 140 mg/dL | EXTERNAL | | | GFR | | | LAB | | + + + + + + + + | Specimen | + + | Blood specimen | | (specimen) | + + + +---------+ + + | Performing | Address | City/State/Zipcode | Phone Number | | Organization | | | | + +---------+ + + | EXTERNAL LAB | | | | + +---------+ + + documented in this encounter Visit Diagnoses Not on filedocumented in this encounter"
--- OUTSIDE RECORDS SUMMARY | ~2020-04-07 | XMS | Encounter Summary ---
Demographics + + + | Address | [address] | | | [place] [address] | + + + | Home Phone | | + + + | Preferred Language | Unknown | + + + | Marital Status | | + + + | Jainism Affiliation | Unknown | + + + | Race | Unknown | + + + | Ethnic Group | Unknown | + + + Author + + + | Author | [facility] | | | and [place] | + + + | Organization | [facility] | | | and [place] | + + + | Address | Unknown | + + + | Phone | Unavailable | + + + Support + + + + + | Name | Relationship | Address | Phone | + + + + + | Jersey Mariano | ECON | [address] | | | | | [place], | | | | | [place] [address] | | + + + + + Care Team Providers + +------+ + | Care Snow Plow Operator Name | Role | Phone | + +------+ + PCP | Unavailable | + +------+ + Encounter Details +--------+ + + + + | Date | Type | Department | Care Team | Description | +--------+ + + + + | 12/26/ | Hospital | [facility] | GeraldineGregory, | | | 1999 - | Encounter | MED CTR GENERIC IP | [address] | | | | | CONV DEPT [address] [place], [place] | | | 01/02/ | | [place], | [address] | | | 2001 | | [place] [address] | | | | | | [phone] | | | +--------+ + + + [...] 2020 | Visit | | [address] [facility] | | | | | | [address] [place] | | | | | | [address] | | | | | | | | +--------+---------+ + + + documented as of this encounter Visit Diagnoses Not on filedocumented in this encounter"
--- OUTSIDE RECORDS SUMMARY | ~2020-04-07 | XMS | Encounter Summary ---
Demographics + + + | Address | [address] | | | [place] [address] | + + + | Home Phone | | + + + | Preferred Language | Unknown | + + + | Marital Status | | + + + | Denominational Affiliation | Unknown | + + + | Race | Unknown | + + + | Ethnic Group | Unknown | + + + Author + + + | Author | [facility] | | | and [place] | + + + | Organization | [facility] | | | and [...] [place] | | | | | [place] [address] | | + + + + + Care Team Providers + +------+ + | Care Aerospace Stress Engineer Name | Role | Phone | + +------+ + | Andrew Parra MD | PCP | | + +------+ + Encounter Details +--------+ + + + + | Date | Type | Department | Care Team | Description | +--------+ + + + + | 08/13/ | Orders Only | [facility] | Conversion | | | 2017 | | [place]OLOG[place] | Transaction, | | | | | [address] | Provider Unknown | | | | | [address] [place], [place] | [phone] | | | | | [address] | | | | | | [phone] | | | +--------+ + + + [...] 2020 | Visit | | [address] [facility] | | | | | | [address] [place] | | | | | | [address] | | | | | | | | +--------+---------+ + + + documented as of this encounter Procedures + +--------+ + + + | Procedure Name | Priori | Date/Time | Associated Diagnosis | Comments | | | ty | | | | + +--------+ + + + | LIPID PANEL | Routin | 08/14/2018 | | Results for this | | | e | 12:00 AM | | procedure are in the | | | | PDT | | results section. | + +--------+ + + + | COMPREHENSIVE | Routin | 08/14/2018 | | Results for this | | METABOLIC PANEL | e | 12:00 AM | | procedure are in the | | | | PDT | | results section. | + +--------+ + + + | CBC NO DIFFERENTIAL | Routin | 08/13/2018 | | Results for this | | | e | 12:00 AM | | procedure are in the | | | | PDT | | results section. | + +--------+ + + + | COMPREHENSIVE | Routin | 08/13/2018 | | Results for this | | METABOLIC PANEL | e | 12:00 AM | | procedure are in the | | | | PDT | | results section. | + +--------+ + + + documented in this encounter Results Lipid Panel (08/14/2018 12:00 AM PDT) + +-------+ + + + | Component | Value | Ref Range | Performed | Pathologist | | | | | At | Signature | + +-------+ + + + | Cholesterol | 78 | mg/dL | EXTERNAL | | | | | | LAB | | + +-------+ + + + | Triglycerid | 57 | 30 - 150 mg/dL | EXTERNAL | | | es | | | LAB | | + +-------+ + + + | HDL | 20 | mg/dl | EXTERNAL | | | | | | LAB | | + +-------+ + + + | LDL, | 47 | mg/dL | EXTERNAL | | | Calculated | | | LAB | | + +-------+ + + + | LDl/HDL | | | EXTERNAL | | | Ratio | | | LAB | | + +-------+ + + + | Chol/HDL | 39 | | EXTERNAL | | | Ratio | | | LAB | | + +-------+ + + + | VLDL | 11 | 4 - 40 mg/dL | EXTERNAL | | | | | | LAB | | + +-------+ + + + | Non HDL | 58 | | EXTERNAL | | | Chol. | | | LAB | | | (LDL+VLDL) | | | | | + +-------+ + + + + + | Specimen | + + | Blood specimen | | (specimen) | + + + +---------+ + + | Performing | Address | City/State/Zipcode | Phone Number | | Organization | | | | + +---------+ + + | EXTERNAL LAB | | | | + +---------+ + + Comprehensive Metabolic Panel (08/14/2018 12:00 AM PDT) + + + + + + | Component | Value | Ref Range | Performed | Pathologist | | | | | At | Signature | + + + + + + | Glucose, | 82 | 70 - 100 mg/dL | EXTERNAL | | | Fasting | | | LAB | | + + + + + + | BUN | 67 (A) | 6 - 28.6 mg/dL | EXTERNAL | | | | | | LAB | | + + + + + + | Creatinine | 1.98 (A) | 0.70 - 1.18 | EXTERNAL | | | | | mg/dL | LAB | | + + + + + + | BUN/Creatin | 33.8 (A) | 6 - 28.6 | EXTERNAL | | | ine Ratio | | | LAB | | + + + + + + | Calcium | 8.4 (A) | 8.5 - 10.3 | EXTERNAL | | | | | mg/dL | LAB | | + + + + + + | Protein, | 6.4 | 6.0 - 8.3 g/dL | EXTERNAL | | | Total | | | LAB | | + + + + + + | Albumin | 3.7 | 3.5 - 5.0 | EXTERNAL | | | | | | LAB | | + + + + + + | Globulin | 2.7 | 1.8 - 3.5 | EXTERNAL | | | | | | LAB | | + + + + + + | A/G Ratio | 1.4 | 1.1 - 2.4 | EXTERNAL | | | | | | LAB | | + + + + + + | Bilirubin | 0.4 | 0.0 - 1.2 mg/dL | EXTERNAL | | | Total | | | LAB | | + + + + + + | ALP, | 60 | 31 - 120 | EXTERNAL | | | External | | | LAB | | + + + + + + | ALT | 9 | 7 - 52 U/L | EXTERNAL | | | | | | LAB | | + + + + + + | AST | 10 (A) | 13 - 39 U/L | EXTERNAL | | | | | | LAB | | + + + + + + | Na | 139 | 132 - 143 | EXTERNAL | | | | | mmol/L | LAB | | + + + + + + | K | 4.3 | 3.6 - 5.1 | EXTERNAL | | | | | mmol/L | LAB | | + + + + + + | Cl | 109 | 95 - 112 mmol/L | EXTERNAL | | | | | | LAB | | + + + + + + | CO2 | 23 | 19 - 31 mmol/L | EXTERNAL | | | | | | LAB | | + + + + + + | Anion Gap | 11.3 | 7 - 21 mmol/L | EXTERNAL | | | | | | LAB | | + + + + + + | Estimated | 33 | mg/dL | EXTERNAL | | | GFR [...] | | | + +---------+ + + CBC no Differential (08/13/2018 12:00 AM PDT) + + + + + + | Component | Value | Ref Range | Performed | Pathologist | | | | | At | Signature | + + + + + + | WBC | 4.8 | 4.5 - 11 10 | EXTERNAL | | | | | | LAB | | + + + + + + | Red Blood | 2.59 (A) | 4.3 - 5.7 10 | EXTERNAL | | | Cells | | | LAB | | | Counted | | | | | + + + + + + | Hemoglobin | 9.4 (A) | 13.5 - 18 g/dL | EXTERNAL | | | | | | LAB | | + + + + + + | Hematocrit, | 28.1 (A) | 41 - 50 % | EXTERNAL | | | POC | | | LAB | | + + + + + + | MCV | 108.5 (A) | 81 - 99 fL | EXTERNAL | | | | | | LAB | | + + + + + + | MCH | 36 (A) | 27 - 33 pg | EXTERNAL | | | | | | LAB | | + + + + + + | MCHC | 33 | 30 - 36 g/dL | EXTERNAL | | | | | | LAB | | + + + + + + | RDW-CV | 17.9 (A) | 10.5 - 15 | EXTERNAL | | | | | | LAB | | + + + + + + | Platelet | 139 (A) | 140 - 440 K/ L [...] | | | + +---------+ + + Comprehensive Metabolic Panel (08/13/2018 12:00 AM PDT) + + + + + + | Component | Value | Ref Range | Performed | Pathologist | | | | | At | Signature | + + + + + + | Glucose, | 101 (A) | 70 - 100 mg/dL | EXTERNAL | | | Fasting | | | LAB | | + + + + + + | BUN | 71 (A) | 6 - 23 mg/dL | EXTERNAL | | | | | | LAB | | + + + + + + | Creatinine | 1.99 (A) | 0.70 - 1.18 | EXTERNAL | | | | | mg/dL | LAB | | + + + + + + | BUN/Creatin | 35.7 (A) | 6 - 28.6 | EXTERNAL | | | ine Ratio | | | LAB | | + + + + + + | Calcium | 8.6 | 8.5 - 10.3 | EXTERNAL | | | | | mg/dL | LAB | | + + + + + + | Protein, | 5.8 (A) | 6.0 - 8.3 g/dL | EXTERNAL | | | Total | | | LAB | | + + + + + + | Albumin | 3.5 | 3.5 - 5.0 | EXTERNAL | | | | | | LAB | | + + + + + + | Globulin | 2.3 | 1.8 - 3.5 | EXTERNAL | | | | | | LAB | | + + + + + + | A/G Ratio | 1.5 | 1.1 - 2.4 | EXTERNAL | | | | | | LAB | | + + + + + + | Bilirubin | 0.4 | 0.0 - 1.2 mg/dL | EXTERNAL | | | Total | | | LAB | | + + + + + + | ALP, | 65 | 31 - 120 | EXTERNAL | | | External | | | LAB | | + + + + + + | ALT | 8 | 7 - 52 U/L | EXTERNAL | | | | | | LAB | | + + + + + + | AST | 9 (A) | 13 - 39 U/L | EXTERNAL | | | | | | LAB | | + + + + + + | Na | 141 | 132 - 143 | EXTERNAL | | | | | mmol/L | LAB | | + + + + + + | K | 4.3 | 3.6 - 5.1 | EXTERNAL | | | | | mmol/L | LAB | | + + + + + + | Cl | 109 | 95 - 112 mmol/L | EXTERNAL | | | | | | LAB | | + + + + + + | CO2 | 21 | 19 - 31 mmol/L | EXTERNAL | | | | | | LAB | | + + + + + + | Anion Gap | 15.3 | 7 - 21 mmol/L | EXTERNAL | | | | | | LAB | | + + + + + + | Estimated | 33 | mg/dL | EXTERNAL | | | GFR [...]
--- OUTSIDE RECORDS SUMMARY | ~2020-04-07 | XMS | Encounter Summary ---
Demographics + + + | Address | [address] | | | [place] [address] | + + + | Home Phone | | + + + | Preferred Language | Unknown | + + + | Marital Status | | + + + | Adventism Affiliation | Unknown | + + + | Race | Unknown | + + + | Ethnic Group | Unknown | + + + Author + + + | Author | [facility] | | | and [place] | + + + | Organization | [facility] | | | [...] [place] | | | | | [place] [address] | | + + + + + Care Team Providers + +------+ + | Care Reverse Unit Operator Name | Role | Phone | + +------+ + | Hollis Villavicencio MD | PCP | | + +------+ + Encounter Details +--------+ + + + + | Date | Type | Department | Care Team | Description | +--------+ + + + + | 05/12/ | Hospital | [facility] | Jean ClaudeAlex mercedes, | | | 2013 - | Encounter | [facility] | DPM [address] | | | | | [address] | [place] | | | 05/13/ | | [place] [address] | [address] | | | 2012 | | [phone] | [phone] | | | | | | | [...] Sun MD | | | 2019 | Visit | | [address] [facility] | | | | | | [address] | | | | | | [address] | | | | | | | | +--------+---------+ + + + documented as of this encounter Visit Diagnoses Not on filedocumented in this encounter"
--- OUTSIDE RECORDS SUMMARY | ~2020-04-07 | XMS | Encounter Summary ---
Demographics + + + | Address | [address] | | | [place] [address] | + + + | Home Phone | | + + + | Preferred Language | Unknown | + + + | Marital Status | | + + + | Baptist Affiliation | Unknown | + + + | Race | Unknown | + + + | Ethnic Group | Unknown | + + + Author + + + | Author | [facility] | | | and [place] | + + + | Organization | [facility] | | | and [...] [place] | | | | | [place] [address] | | + + + + + Care Team Providers + +------+ + | Care Pipe Cutter Name | Role | Phone | + +------+ + | Andrew Parra MD | PCP | | + +------+ + Encounter Details +--------+ + + + + | Date | Type | Department | Care Team | Description | +--------+ + + + + | 04/21/ | Orders Only | [facility] | Conversion | | | 2019 | | NEPRHOLOGY [place] | Transaction, | | | | | [address] | Provider Unknown | | | | | [address] [place], [place] | [phone] | | | | | [address] | | | | | | [phone] | | | +--------+ + + + [...] 2020 | Visit | | [address] [facility] | | | | | | [address] [place] | | | | | | [address] | | | | | | | | +--------+---------+ + + + documented as of this encounter Procedures + +--------+ + + + | Procedure Name | Priori | Date/Time | Associated Diagnosis | Comments | | | ty | | | | + +--------+ + + + | BASIC METABOLIC | Routin | 04/21/2019 | | Results for this | | PANEL | e | 12:00 AM | | procedure are in the | | | | PDT | | results section. | + +--------+ + + + documented in this encounter Results Basic Metabolic Panel (04/21/2019 12:00 AM PDT) + + + + + + | Component | Value | Ref Range | Performed | Pathologist | | | | | At | Signature | + + + + + + | Glucose, | 171 (A) | 70 - 100 mg/dL | EXTERNAL | | | Fasting | | | LAB | | + + + + + + | BUN | 69 (A) | 6 - 23 mg/dL | EXTERNAL | | | | | | LAB | | + + + + + + | Creatinine | 2.11 (A) | 0.70 - 1.18 | EXTERNAL | | | | | mg/dL | LAB | | + + + + + + | BUN/Creatin | 32.7 (A) | 6.0 - 28.6 | EXTERNAL | | | ine Ratio | | | LAB | | + + + + + + | Calcium | 8.3 (A) | 8.5 - 10.3 | EXTERNAL | | | | | mg/dL | LAB | | + + + + + + | Na | 141 | 132 - 143 | EXTERNAL | | | | | mmol/L | LAB | | + + + + + + | K | 3.6 | 3.6 - 5.1 | EXTERNAL | | | | | mmol/L | LAB | | + + + + + + | Cl | 106 | 95 - 112 mmol/L | EXTERNAL | | | | | | LAB | | + + + + + + | CO2 | 26 | 19 - 31 mmol/L | EXTERNAL | | | | | | LAB | | + + + + + + | Anion Gap | 12.6 | 7 - 21 mmol/L | EXTERNAL | | | | | | LAB | | + + + + + + | Estimated | 31 | mg/dL | EXTERNAL | | | GFR | | | LAB | | + + + + + + + + | Specimen | + + | Blood specimen | | (specimen) | + + + + + | Narrative | Performed At | + + + | [facility] | EXTERNAL LAB | + + + + +---------+ + + | Performing | Address | City/State/Zipcode | Phone Number | | Organization | | | | + +---------+ + + | EXTERNAL LAB | | | | + +---------+ + + documented in this encounter Visit Diagnoses Not on filedocumented in this encounter"
--- OUTSIDE RECORDS SUMMARY | ~2020-04-07 | XMS | Encounter Summary ---
Demographics + + + | Address | [address] | | | [place] [address] | + + + | Home Phone | | + + + | Preferred Language | Unknown | + + + | Marital Status | | + + + | Zoroastrianism Affiliation | Unknown | + + + | Race | Unknown | + + + | Ethnic Group | Unknown | + + + Author + + + | Author | [facility] | | | and [place] | + + + | Organization | [facility] | | | and [...] [place] | | | | | [place] [address] | | + + + + + Care Team Providers + +------+ + | Care General Ledger Accountant Name | Role | Phone | + +------+ + | Adnrew Parra MD | PCP | | + +------+ + Encounter Details +--------+ + + + + | Date | Type | Department | Care Team | Description | +--------+ + + + + | 08/23/ | Orders Only | [facility] | Conversion | | | 2015 | | NEPHROLOGY [place] | Transaction, | | | | | [address] | Provider Unknown | | | | | [address] [place], [place] | | | | | | [address] | (Fax) | | | | | [phone] | | | +--------+ + + + [...] 2020 | Visit | | [address] [facility] | | | | | | [address] [place] | | | | | | [address] | | | | | | | | +--------+---------+ + + + documented as of this encounter Procedures + +--------+ + + + | Procedure Name | Priori | Date/Time | Associated Diagnosis | Comments | | | ty | | | | + +--------+ + + + | EXTERNAL LAB: CBC | Routin | 08/23/2016 | | Results for this | | | e | 3:00 PM | | procedure are in the | | | | PST | | results section. | + +--------+ + + + | VITAMIN D, | Routin | 08/23/2016 | | Results for this | | DEFICIENCY SCREEN | e | 3:00 PM | | procedure are in the | | (25-HYDROXY) | | PST | | results section. | + +--------+ + + + | URINALYSIS, | Routin | 08/23/2016 | | Results for this | | MICROSCOPIC ONLY | e | 3:00 PM | | procedure are in the | | | | PST | | results section. | + +--------+ + + + | URIC ACID | Routin | 08/23/2016 | | Results for this | | | e | 3:00 PM | | procedure are in the | | | | PST | | results section. | + +--------+ + + + | PARATHYROID HORMONE, | Routin | 08/23/2016 | | Results for this | | INTACT | e | 3:00 PM | | procedure are in the | | | | PST | | results section. | + +--------+ + + + | MAGNESIUM | Routin | 08/23/2016 | | Results for this | | | e | 3:00 PM | | procedure are in the | | | | PST | | results section. | + +--------+ + + + | RENAL FUNCTION PANEL | Routin | 08/23/2016 | | Results for this | | | e | 3:00 PM | | procedure are in the | | | | PST | | results section. | + +--------+ + + + documented in this encounter Results Vitamin D, Deficiency Screen (25-Hydroxy) (08/23/2016 3:00 PM PST) + +-------+ + + + | Component | Value | Ref Range | Performed | Pathologist | | | | | At | Signature | + +-------+ + + + | Vit D, | 40 | 30 - 100 | EXTERNAL | | | 25-Hydroxy | | | LAB | | + +-------+ + + + + + | Specimen | + + | Blood specimen | | (specimen) | + + + +---------+ + + | Performing | Address | City/State/Zipcode | Phone Number | | Organization | | | | + +---------+ + + | EXTERNAL LAB | | | | + +---------+ + + Urinalysis, Microscopic Only (08/23/2016 3:00 PM PST) + + + + + + | Component | Value | Ref Range | Performed | Pathologist | | | | | At | Signature | + + + + + + | Color | Yellow | | EXTERNAL | | | | | | LAB | | + + + + + + | Clarity | Clear | | EXTERNAL | | | | | | LAB | | + + + + + + | Specific | 1.011 | 1.005 - 1.030 | EXTERNAL | | | Roberts, | | | LAB | | | Urine | | | | | + + + + + + | Leukocyte | Negative | | EXTERNAL | | | Esterase, | | | LAB | | | Urine | | | | | + + + + + + | Nitrite, | Negative | | EXTERNAL | | | Urine | | | LAB | | + + + + + + | Urobilinoge | Normal | | EXTERNAL | | | n, Urine | | | LAB | | + + + + + + | Protein, | Negative | | EXTERNAL | | | Urine | | | LAB | | + + + + + + | pH, Urine | 5 | 5 - 9 | EXTERNAL | | | | | | LAB | | + + + + + + | Blood, | NegativeComment: 10 | | EXTERNAL | | | Urine | | | LAB | | + + + + + + | Ketones | Negative | | EXTERNAL | | | | | | LAB | | + + + + + + | Bilirubin, | Negative | | EXTERNAL | | | Urine | | | LAB | | + + + + + + | Glucose, | Negative | | EXTERNAL | | | Urine | | | LAB | | + + + + + + + + | Specimen | + + | Urine specimen | | (specimen) | + + + +---------+ + + | Performing | Address | City/State/Zipcode | Phone Number | | Organization | | | | + +---------+ + + | EXTERNAL LAB | | | | + +---------+ + + External Lab: [facility] (08/23/2016 3:00 PM PST) + + + + + + | Component | Value | Ref Range | Performed | Pathologist | | | | | At | Signature | + + + + + + | WBC | 6.5 | 4.5 - 11.0 10 | EXTERNAL | | | | | | LAB | | + + + + + + | Red Blood | 3.73 (A) | 4.3 - 5.7 10 | EXTERNAL | | | Cells | | | LAB | | | Counted | | | | | + + + + + + | Hemoglobin | 11.7 (A) | 13.5 - 18.0 | EXTERNAL | | | | | g/dL | LAB | | + + + + + + | Hematocrit, | 35.1 (A) | 41 - 50 % | EXTERNAL | | | POC | | | LAB | | + + + + + + | MCV | 94.2 | 81 - 99 fL | EXTERNAL | | | | | | LAB | | + + + + + + | MCH | 31 | 27 - 33 pg | EXTERNAL | | | | | | LAB | | + + + + + + | MCHC | 33 | 30 - 36 g/dL | EXTERNAL | | | | | | LAB | | + + + + + + | Platelet | 207 | 140 - 440 K/ L | EXTERNAL | | | Count | | | LAB | | | Plasma | | | | | + + + + + + | RDW-CV | 16.2 (A) | 10.5 - 15.0 % | [...] + + + | % Segmented | | % | EXTERNAL | | | | | | LAB | | | Neutrophils | | | | | + + + + + + | % | | % | EXTERNAL | | | Lymphocytes | | | LAB | | + + + + + + | % Monocytes | | % | EXTERNAL | | | | | | LAB | | + + + + + + | % | | % | EXTERNAL | | | Eosinophils | | | LAB | | + + + + + + | % Basophils | | % | EXTERNAL | | | | [...] | | | + +---------+ + + Uric Acid (08/23/2016 3:00 PM PST) + +-------+ + + + | Component | Value | Ref Range | Performed | Pathologist | | | | | At | Signature | + +-------+ + + + | Uric Acid | 6.8 | 4.4 - 7.6 | EXTERNAL | | | | | [...] | | | + +---------+ + + Parathyroid Hormone, Intact (08/23/2016 3:00 PM PST) + + + + + + | Component | Value | Ref Range | Performed | Pathologist | | | | | At | Signature | + + + + + + | PTH INTACT | 197.8 (A) | 15 - 65 pg/mL | EXTERNAL | | | | | [...] | | | + +---------+ + + Magnesium (08/23/2016 3:00 PM PST) + +-------+ + + + | Component | Value | Ref Range | Performed | Pathologist | | | | | At | Signature | + +-------+ + + + | Magnesium | 2.1 | 1.7 - 2.5 mg/dL | EXTERNAL | | | | [...] | | | + +---------+ + + Renal Function Panel (08/23/2016 3:00 PM PST) + + + + + + | Component | Value | Ref Range | Performed | Pathologist | | | | | At | Signature | + + + + + + | Glucose, | 117 (A) | 70 - 100 mg/dL | EXTERNAL | | | Fasting | | | LAB | | + + + + + + | BUN | 75 (A) | 6 - 23 mg/dL | EXTERNAL | | | | | | LAB | | + + + + + + | Creatinine | 2.09 (A) | 0.70 - 1.18 | EXTERNAL | | | | | mg/dL | LAB | | + + + + + + | PHOSPHORUS | 4.0 | 2.5 - 5.0 mg/dL | EXTERNAL | | | | | | LAB | | + + + + + + | Albumin | 3.7 | 3.5 - 5.0 | EXTERNAL | | | | | | LAB | | + + + + + + | Na | 138 | 132 - 143 | EXTERNAL | | | | | mmol/L | LAB | | + + + + + + | K | 4.5 | 3.6 - 5.1 | EXTERNAL | [...] + + + | Anion Gap | 15.5 | 7 - 21 mmol/L | EXTERNAL | | | | | | LAB | | + + + + + + | eGFR if not | | | EXTERNAL | | | | | | LAB | | | TRINIDADIAN | | | | | + + + + + + | Phosphorus, | 4.0 | 2.5 - 5.0 | EXTERNAL | | | Inorganic | | | LAB | | + + + + + + | BUN/Creatin | 35.9 (A) | 6.0 - 28.6 | EXTERNAL | | | ine Ratio | | | LAB | | + + + + + + | Calcium | 8.6 | 8.4 - 10.2 | EXTERNAL | | | | | [...]
--- OUTSIDE RECORDS SUMMARY | ~2020-04-07 | XMS | Encounter Summary ---
Demographics + + + | Address | [address] | | | [place] [address] | + + + | Home Phone | | + + + | Preferred Language | Unknown | + + + | Marital Status | | + + + | Baptist Affiliation | Unknown | + + + | Race | Unknown | + + + | Ethnic Group | Unknown | + + + Author + + + | Author | [facility] | | | and [place] | + + + | Organization | [facility] | | | [...] [place] | | | | | [place] [address] | | + + + + + Care Team Providers + +------+ + | Care Vehicle Service Agent Name | Role | Phone | + +------+ + | Andrew Parra MD | PCP | | + +------+ + Encounter Details +--------+ + + + + | Date | Type | Department | Care Team | Description | +--------+ + + + + | 08/07/ | Orders Only | [facility] | Cameron Self, | | | 2017 | | NEPHROLOGY [place] | GEOGRAPHIC INFORMATION SYSTEM ANALYST [address] | | | | | [address] [place] | [address] | | | | | [address] [place], [place] | [place] | | | | | [address] | [address] | | | | | [phone] | [phone] | | | | | | | [...] 2020 | Visit | | [facility] [address] [facility] | | | | | | [address] | | | | | | [address] | | | | | | | | +--------+---------+ + + + documented as of this encounter Procedures + +--------+ + + + | Procedure Name | Priori | Date/Time | Associated Diagnosis | Comments | | | ty | | | | + +--------+ + + + | PROTEIN/CREATININE | Routin | 08/07/2017 | | Results for this | | RATIO, URINE | e | 12:05 PM | | procedure are in the | | | | PDT | | results section. | + +--------+ + + + | PARATHYROID HORMONE, | Routin | 08/07/2017 | | Results for this | | INTACT | e | 12:05 PM | | procedure are in the | | | | PDT | | results section. | + +--------+ + + + | MAGNESIUM | Routin | 08/07/2017 | | Results for this | | | e | 12:05 PM | | procedure are in the | | | | PDT | | results section. | + +--------+ + + + | RENAL FUNCTION PANEL | Routin | 08/07/2017 | | Results for this | | | e | 12:05 PM | | procedure are in the | | | | PDT | | results section. | + +--------+ + + + documented in this encounter Results Protein/Creatinine Ratio, Urine (08/07/2017 12:05 PM PDT) + +-------+ + + + | Component | Value | Ref Range | Performed | Pathologist | | | | | At | Signature | + +-------+ + + + | Protein/Cre | 68.0 | 0 - 150 | EXTERNAL | | | at Ratio | | | LAB | | [...] + +---------+ + + Parathyroid Hormone, Intact (08/07/2017 12:05 PM PDT) + + + + + + | Component | Value | Ref Range | Performed | Pathologist | | | | | At | Signature | + + + + + + | PTH INTACT | 301.1 (A) | 15 - 65 pg/mL | [...] | | + +---------+ + + Magnesium (08/07/2017 12:05 PM PDT) + +-------+ + + + | Component | Value | Ref Range | Performed | Pathologist | | | | | At | Signature | + +-------+ + + + | Magnesium | 2.0 | 1.7 - 2.5 mg/dL | EXTERNAL [...] + +---------+ + + Renal Function Panel (08/07/2017 12:05 PM PDT) + + + + + + | Component | Value | Ref Range | Performed | Pathologist | | | | | At | Signature | + + + + + + | Glucose, | 108 (A) | 70 - 100 mg/dL | EXTERNAL | | | Fasting | | | LAB | | + + + + + + | BUN | 49 (A) | 6 - 23 mg/dL | EXTERNAL | | | | | | LAB | | + + + + + + | Creatinine | 1.82 (A) | 0.70 - 1.18 | EXTERNAL | | | | | mg/dL | LAB | | + + + + + + | PHOSPHORUS | | mg/dL | EXTERNAL | | | | | | LAB | | + + + + + + | Albumin | 3.7 | 3.5 - 5.0 | EXTERNAL | | | | | | LAB | | + + + + + + | Na | 140 | 132 - 143 | EXTERNAL | | | | | mmol/L | LAB | | + + + + + + | K | 4.3 | 3.6 - 5.1 | EXTERNAL | | | | | mmol/L | LAB | | + + + + + + | Cl | 105 | 95 - 112 mmol/L | EXTERNAL | | | | | | LAB | | + + + + + + | CO2 | 22 | 19 - 31 mmol/L | EXTERNAL | | | | | | LAB | | + + + + + + | Anion Gap | 17.3 | 7 - 21 mmol/L | EXTERNAL | | | | | | LAB | | + + + + + + | eGFR if not | | | EXTERNAL | | | | | | LAB | | | [facility] | | | | | + + + + + + | Phosphorus, | 5.4 (A) | 2.5 - 5.0 | EXTERNAL | | | Inorganic | | | LAB | | + + + + + + | BUN/Creatin | 26.9 | 6.0 - 28.6 | EXTERNAL | | | ine Ratio | | | LAB | | + + + + + + | Calcium | 8.6 | 8.4 - 10.2 | EXTERNAL | | | | | mg/dL | LAB | | + + + + + + | Estimated | 37 (A) | 60 mg/dL | EXTERNAL | | | GFR [...]
--- OUTSIDE RECORDS SUMMARY | ~2020-04-07 | XMS | Encounter Summary ---
Demographics + + + | Address | [address] | | | [place] [address] | + + + | Home Phone | | + + + | Preferred Language | Unknown | + + + | Marital Status | Single | + + + | Buddhism Affiliation | Unknown | + + + | Race | Unknown | + + + | Ethnic Group | Other Race | + + + Author + + + | Author | [facility] | + + + | Organization | [facility] | + + + | Address | Unknown | + + + | Phone | Unavailable | + + + Care Team Providers + +------+ + | Care Ticket Chopper Assembler Name | Role | Phone | + +------+ + | Daniel Sofia MD | PCP | | + +------+ + Encounter Details +--------+ + + + + | Date | Type | Department | Care Team | Description | +--------+ + + + + | 10/01/ | Documentati | NON-[facility] EPIC | Unknown [...]
--- OUTSIDE RECORDS SUMMARY | ~2020-04-07 | XMS | Encounter Summary ---
Demographics + + + | Address | [address] | | | [place] [address] | + + + | Home Phone | | + + + | Preferred Language | Unknown | + + + | Marital Status | | + + + | Mu-Ism Affiliation | Unknown | + + + | Race | Unknown | + + + | Ethnic Group | Unknown | + + + Author + + + | Author | [facility] | | | and [place] | + + + | Organization | [facility] | | | [...] [place] | | | | | [place] [address] | | + + + + + Care Team Providers + +------+ + | Care Cementing Bulk Material Operator Name | Role | Phone | + +------+ + | Andrew Parra MD | PCP | | + +------+ + Encounter Details +--------+ + + + + | Date | Type | Department | Care Team | Description | +--------+ + + + + | 04/21/ | Orders Only | [facility] | Cameron Self, | | | 2018 | | NEPHROLOGY [place] | DOCUMENTATION LEAD [address] | | | | [address] [place] | [address] | | | | | [address] [place], [place] | [address] | | | | | [address] | [address] | | | | | [phone] | [phone] | | | | | | | [...] 2020 | Visit | | [address] [facility] | | | | | | [address] [place] | | | | | | [address] | | | | | | | | +--------+---------+ + + + documented as of this encounter Procedures + +--------+ + + + | Procedure Name | Priori | Date/Time | Associated Diagnosis | Comments | | | ty | | | | + +--------+ + + + | PROTEIN/CREATININE | Routin | 04/21/2018 | | Results for this | | RATIO, URINE | e | 11:50 AM | | procedure are in the | | | | PDT | | results section. | + +--------+ + + + | URIC ACID | Routin | 04/21/2018 | | Results for this | | | e | 11:50 AM | | procedure are in the | | | | PDT | | results section. | + +--------+ + + + | PARATHYROID HORMONE, | Routin | 04/21/2018 | | Results for this | | INTACT | e | 11:50 AM | | procedure are in the | | | | PDT | | results section. | + +--------+ + + + | MAGNESIUM | Routin | 04/21/2018 | | Results for this | | | e | 11:50 AM | | procedure are in the | | | | PDT | | results section. | + +--------+ + + + | RENAL FUNCTION PANEL | Routin | 04/21/2018 | | Results for this | | | e | 11:50 AM | | procedure are in the | | | | PDT | | results section. | + +--------+ + + + documented in this encounter Results Protein/Creatinine Ratio, Urine (04/21/2018 11:50 AM PDT) + + + + + + | Component | Value | Ref Range | Performed | Pathologist | | | | | At | Signature | + + + + + + | Protein/Cre | 433.3 (A) | 0 - 150 | EXTERNAL | [...] | + +---------+ + + Uric Acid (04/21/2018 11:50 AM PDT) + + + + + + | Component | Value | Ref Range | Performed | Pathologist | | | | | At | Signature | + + + + + + | Uric Acid | 10.6 (A) | 4.4 - 7.6 | EXTERNAL | [...] + +---------+ + + Parathyroid Hormone, Intact (04/21/2018 11:50 AM PDT) + + + + + + | Component | Value | Ref Range | Performed | Pathologist | | | | | At | Signature | + + + + + + | PTH INTACT | 288.3 (A) | 15 - 65 pg/mL | [...] | | + +---------+ + + Magnesium (04/21/2018 11:50 AM PDT) + +-------+ + + + [...] + +---------+ + + Renal Function Panel (04/21/2018 11:50 AM PDT) + + + + + + | Component | Value | Ref Range | Performed | Pathologist | | | | | At | Signature | + + + + + + | Glucose, | 85 | 70 - 100 mg/dL | EXTERNAL | | | Fasting | | | LAB | | + + + + + + | BUN | 58 (A) | 6 - 23 mg/dL | EXTERNAL | | | | | | LAB | | + + + + + + | Creatinine | 2.17 (A) | 0.7 - 1.18 | EXTERNAL | | | [...] + + + + | CO2 | 20 | 19 - 31 mmol/L | EXTERNAL [...] | | | LAB | | | [facility] | | | | | + + + + + + | Phosphorus, | | | EXTERNAL | | | Inorganic | | | LAB | | + + + + + + | BUN/Creatin | 26.7 | 6.0 - 28.6 | EXTERNAL | | | ine Ratio | | | LAB | | + + + + + + | Calcium | 8.4 | 8.4 - 10.2 | EXTERNAL | | | | | mg/dL | LAB | | + + + + + + | Estimated | 30 (A) | 60 mg/dL | EXTERNAL | [...]
--- OUTSIDE RECORDS SUMMARY | ~2020-04-07 | XMS | Encounter Summary ---
Demographics + + + | Address | [address] | | | [place] [address] | + + + | Home Phone | | + + + | Preferred Language | Unknown | + + + | Marital Status | | + + + | Jewish Affiliation | Unknown | + + + [...] [place] | | | | | [place] [address] | | + + + + + Care Team Providers + +------+ + | Care Bearing Machine Operator Name | Role | Phone | + +------+ + | Andrew Parra MD | PCP | | + +------+ + Encounter Details +--------+ + + + + | Date | Type | Department | Care Team | Description | +--------+ + + + + | 04/25/ | Orders Only | [facility] | Arnold Sun MD | | | 2016 | | NEPRHOLOGY [place] | [address] [place] | | | | | [address] | [address] [place], [place] | | | | | [address] [place], [place] | [address] | | | | | [address] | | | | | | [phone] | | | +--------+ + + + [...] 2020 | Visit | | [address] [place] | | | | | | [address] [place] | | | | | | [address] | | | | | | (Fax) | | +--------+---------+ + + + documented as of this encounter Procedures + +--------+ + + + | Procedure Name | Priori | Date/Time | Associated Diagnosis | Comments | | | ty | | | | + +--------+ + + + | RENAL FUNCTION PANEL | Routin | 04/25/2016 | | Results for this | | | e | 4:55 PM | | procedure are in the | | | | PDT | | results section. | + +--------+ + + + | EXTERNAL LAB: CBC | Routin | 04/25/2016 | | Results for this | | | e | 12:55 PM | | procedure are in the | | | | PDT | | results section. | + +--------+ + + + | IRON AND IRON | Routin | 04/25/2016 | | Results for this | | BINDING CAPACITY | e | 12:55 PM | | procedure are in the | | | | PDT | | results section. | + +--------+ + + + | URINALYSIS WITH | Routin | 04/25/2016 | | Results for this | | MICROSCOPIC IF | e | 12:55 PM | | procedure are in the | | INDICATED | | PDT | | results section. | + +--------+ + + + | VITAMIN D, | Routin | 04/25/2016 | | Results for this | | DEFICIENCY SCREEN | e | 12:55 PM | | procedure are in the | | (25-HYDROXY) | | PDT | | results section. | + +--------+ + + + | PROTEIN/CREATININE | Routin | 04/25/2016 | | Results for this | | RATIO, URINE | e | 12:55 PM | | procedure are in the | | | | PDT | | results section. | + +--------+ + + + | URIC ACID | Routin | 04/25/2016 | | Results for this | | | e | 12:55 PM | | procedure are in the | | | | PDT | | results section. | + +--------+ + + + | MAGNESIUM | Routin | 04/25/2016 | | Results for this | | | e | 12:55 PM | | procedure are in the | | | | PDT | | results section. | + +--------+ + + + | FERRITIN | Routin | 04/25/2016 | | Results for this | | | e | 12:55 PM | | procedure are in the | | | | PDT | | results section. | + +--------+ + + + documented in this encounter Results Renal Function Panel (04/25/2016 4:55 PM PDT) + + + + + + | Component | Value | Ref Range | Performed | Pathologist | | | | | At | Signature | + + + + + + | Glucose, | 283 (A) | 70 - 100 mg/dL | EXTERNAL | | | Fasting | | | LAB | | + + + + + + | BUN | 64 (A) | 6 - 23 mg/dL | EXTERNAL | | | | | | LAB | | + + + + + + | Creatinine | 2.14 (A) | 0.70 - 1.18 | EXTERNAL | | | | | mg/dL | LAB | | + + + + + + | PHOSPHORUS | 3.6 | 2.5 - 5.0 mg/dL | EXTERNAL | | | | | | LAB | | + + + + + + | Albumin | 3.6 | 3.5 - 5.0 | EXTERNAL | | | | | | LAB | | + + + + + + | Na | 135 | 132 - 143 | EXTERNAL | | | | | mmol/L | LAB | | + + + + + + | K | 4.7 | 3.6 - 5.1 | EXTERNAL | | | | | mmol/L | LAB | | + + + + + + | Cl | 103 | 95 - 112 mmol/L | EXTERNAL | | | | | | LAB | | + + + + + + | CO2 | 21 | 19 - 31 mmol/L | EXTERNAL | | | | | | LAB | | + + + + + + | Anion Gap | 15.7 | 7 - 21 mmol/L | EXTERNAL | | | | | | LAB | | + + + + + + | eGFR if not | | | EXTERNAL | | | | | | LAB | | | THAI | | | | | + + + + + + | Phosphorus, | | | EXTERNAL | | | Inorganic | | | LAB | | + + + + + + | BUN/Creatin | 29.9 (A) | 6.0 - 28.6 | EXTERNAL | | | ine Ratio | | | LAB | | + + + + + + | Calcium | 8.4 | 8.4 - 10.2 | EXTERNAL | | | | | mg/dL | LAB | | + + + + + + | Estimated | 30 | mg/dL | EXTERNAL | | | [...] | | | + +---------+ + + Iron and Iron Binding Capacity (04/25/2016 12:55 PM PDT) + +-------+ + + + | Component | Value | Ref Range | Performed | Pathologist | | | | | At | Signature | + +-------+ + + + | Iron | 65.63 | 37 - 160 | EXTERNAL | | | | | | LAB | | + +-------+ + + + | Iron | 26.1 | 20 - 55 | EXTERNAL | | | Saturation | | | LAB | | + +-------+ + + + | TIBC | 251 | 245 - 400 | EXTERNAL | | | | | [...] | | | + +---------+ + + Protein/Creatinine Ratio, Urine (04/25/2016 12:55 PM PDT) + +-------+ + + + | Component | Value | Ref Range | Performed | Pathologist | | | | | At | Signature | + +-------+ + + + | Protein/Cre | 99.0 | 0 - 150 | EXTERNAL | [...] | | | + +---------+ + + Vitamin D, Deficiency Screen (25-Hydroxy) (04/25/2016 12:55 PM PDT) + +--------+ + + + | Component | Value | Ref Range | Performed | Pathologist | | | | | At | Signature | + +--------+ + + + | Vit D, | 24 (A) | 30 - 100 | EXTERNAL | | | 25-Hydroxy | | | LAB | | + +--------+ + + + + + | Specimen | + + | Blood specimen | | (specimen) | + + + +---------+ + + | Performing | Address | City/State/Zipcode | Phone Number | | Organization | | | | + +---------+ + + | EXTERNAL LAB | | | | + +---------+ + + Urinalysis with Microscopic if Indicated (04/25/2016 12:55 PM PDT) + + + + + [...] + + + + + + | Spec Grav, | 1.012 | 1.005 - 1.030 | EXTERNAL | | | Fluid | | | LAB | | + [...] + + + + + + | Total | Negative | | EXTERNAL | | | Protein | | | LAB | | + + + + + + | pH, Urine | 5 | 5 - 9 | EXTERNAL | | | | | | LAB | | + + + + + + | Blood, | Negative | | EXTERNAL | | [...] | + +---------+ + + External Lab: CBC (04/25/2016 12:55 PM PDT) + + + + + + | Component | Value | Ref Range | Performed | Pathologist | | | | | At | Signature | + + + + + + | WBC | 6.7 | 4.5 - 11.0 10 | EXTERNAL | | | | | | LAB | | + + + + + + | Red Blood | 3.67 (A) | 4.3 - 5.7 10 | EXTERNAL | | | Cells | | | LAB | | | Counted | | | | | + + + + + + | Hemoglobin | 11.3 (A) | 13.5 - 18.0 | EXTERNAL | | | | | g/dL | LAB | | + + + + + + | Hematocrit, | 34.2 (A) | 41 - 50 % | EXTERNAL | | | POC | | | LAB | | + + + + + + | MCV | 93.2 | 81 - 99 fL | EXTERNAL [...] + + + + | Platelet | 197 | 140 - 440 K/ L | EXTERNAL | | | Count | | | LAB | | | Plasma | | | | | + + + + + + | RDW-CV | | % | EXTERNAL | | [...] | + +---------+ + + Uric Acid (04/25/2016 12:55 PM PDT) + +-------+ + + + | Component | Value | Ref Range | Performed | Pathologist | | | | | At | Signature | + +-------+ + + + | Uric Acid | 6.4 | 4.4 - 7.6 | EXTERNAL | [...] | | + +---------+ + + Magnesium (04/25/2016 12:55 PM PDT) + +-------+ + + + [...] | | | + +---------+ + + Ferritin (04/25/2016 12:55 PM PDT) + +-------+ + + + | Component | Value | Ref Range | Performed | Pathologist | | | | | At | Signature | + +-------+ + + + | Ferritin, | 180.9 | 30 - 400 ng/mL | EXTERNAL | | | External | [...]
--- OUTSIDE RECORDS SUMMARY | ~2020-04-07 | XMS | Encounter Summary ---
Demographics + + + | Address | [address] | | | [place] [address] | + + + | Home Phone | | + + + | Preferred Language | Unknown | + + + | Marital Status | Single | + + + | Church Affiliation | Unknown | + + + | Race | Unknown | + + + | Ethnic Group | Other Race | + + + Author + + + | Author | [facility] | + + + | Organization | [facility] | + + + | Address | Unknown | + + + | Phone | Unavailable | + + + Care Team Providers + +------+ + | Care Controls Design Engineer Name | Role | Phone | [...] | | Procedures | [address] | [address] | | | | | CONSULT TO | Jean Woodruff | Kaia Judge | | | | | SURGERY - | Rd | Physicians | | | | | VASCULAR | [place], [place] | [address], [facility] | | | | | SURGERY | [address] | Floor | | | | | DIVISION | | [place], [place] | | | | | | | [address] | | | | | | | Phone: | | | | | | | [phone] | | | | | | | Fax: | | | | | | | [phone] | + +--------+ + + + + Diagnostic Testing (Urgent) +--------+--------+ + + + + | Status | Reason | Specialty | Diagnoses / | Referred By | Referred To | | | | | Procedures | Contact | Contact | +--------+--------+ + + + + | Closed | | Radiology | Diagnoses | Jack Burroughs | Valrad Vasc | | | | | Lower | MD [address] | [address] | | | | | extremity | [address] | [address] | | | | | edema | [address] | Loop | | | | | Procedures | Rd | Mailcode: | | | | | VASC LAB | [facility] [place] | [address] | | | | | VENOUS | [address] | Physician's | | | | | DUPLEX LOWER | | Pavilion | | | | | EXTREMITY | | [place], [place] | | | | | BILAT COMP | | [address] | | | | | | | Phone: | | | | | | | [phone] | | | | | | | Fax: | | | | | | | [phone] | +--------+--------+ + + + + Reason [...] | Orthopedics | Diagnoses | Saud, | Philippe, | | | | | lumbar pain | Hollis Vazquez, | MD Dane | | | | | | MD Bui | [address] | | | | | | [facility] | Jean Woodruff | | | | | | & Keegan | [place] | | | | | | [address] | [place] | | | | | | Cheryl Escobar | [address] | | | | | | [place] | Phone: | | | | | | [place] [address] | [phone] | | | | | | Phone: | Fax: | | | | | | [phone] | [phone] | | | | | | Fax: | | | | | | | [phone] | | +--------+--------+ + + + + Encounter Details +--------+---------+ + + + | Date | Type | Department | Care Team | Description | +--------+---------+ + + + | 04/03/ | Office | Orthopaedic Spine | Dane Paez MD | Lymphedema (Primary | | 2012 | Visit | Center at [facility] [address] | [address] | Dx); Back pain; | | | | [address] | [address] [place], | Lower extremity | | | | Mailcode: [address] | [place] [address] | edema | | | | [facility] | [phone] | | | | | and Healing, | | | | | | [facility] | | | | | | Floor [place], [place] | | | | | | [address] | | | | | | [phone] | | | +--------+---------+ + + + [...] to improve as anticipated. Dane Paez M.D. Bottling Supervisor Physical Medicine and Rehabilitation arDane saxena MD - 1:51 PM PDT Chief complaint: [...] to improve as anticipated. Dane Paez M.D. Bottling Supervisor Physical Medicine and Rehabilitation ox, Jack Vazquez MD - 04/03 12:56 PM PDT [facility] DEPARTMENT OF ORTHOPAEDICS & REHABILITATION Physical Medicine [...] Record Review: I have reviewed notes from [facility]. In brief, these show bilateral knee arthritis s/p steroid injection with good relief. Negat ivanna DVT scan. Reports/records sent to be scanned into [employer] system. 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 [facility] [place] Department of Orthopaedics & Rehabilitation [address] [facility] Mail Code: OP31 [facility] [id number] documented in this encoun ter Plan of [...] | | | LOWER | INDICATION: Edema. The | | | | | EXTREMITY | duplex scanner was used | | | | | BILATERAL | to examine the deep and | | | | | COMPLETE | superficial veins of | | | | | | theright and left lower | | | | | | extremities. The | | | | | | veins are patent with | | | | | | normal flows | | | | | [...] | | | | | | venousthrombosis. | | | | | | Examination of the | | | | | | calf veins was | | | | | | technically difficult. | | | | | | END IMPRESSION: | | | | | | Attending Radiologists: | | | | | | ,Author: ANIYAH | | | | | | MD TRISTA I have | | | | | | personally viewed this | | | | | | procedure/exam, reviewed | | | | | | this report, and | | | | | | madechanges to it where | | | | | | appropriate. | | | | | | Final/Electronically | | | | | | signed / ANIYAH | | | | | | TRISTA Preliminary / | | | | | | Yomaira Clay | | | | + + + + + + + + | Specimen | + + | | + + + +---------+ + + | Performing | Address | City/State/Zipcode | Phone Number | | Organization | | | | + +---------+ + + | [facility] DEPARTMENT OF | | | | | [...]
--- OUTSIDE RECORDS SUMMARY | ~2020-04-07 | XMS | Encounter Summary ---
Demographics + + + | Address | [address] | | | [place] [address] | + + + | Home Phone | | + + + | Preferred Language | Unknown | + + + | Marital Status | | + + + | Faith Affiliation | Unknown | + + + | Race | Unknown | + + + | Ethnic Group | Unknown | + + + Author + + + | Author | [facility] | | | and [place] | + + + | Organization | [facility] | | | and [...] [place] | | | | | [place] [address] | | + + + + + Care Team Providers + +------+ + | Care Health Care Marketing Manager Name | Role | Phone | + +------+ + | Andrew Parra MD | PCP | | + +------+ + Encounter Details +--------+ + + + + | Date | Type | Department | Care Team | Description | +--------+ + + + + | 07/11/ | Orders Only | [facility] | Arnold Sun MD | | | 2014 | | NEPHROLOGY [place] | [address] [place] | | | | | [address] [place] | [address] [place], [place] | | | | | [address] [place], [place] | [address] | | | | | [address] | | | | | | [phone] | | | +--------+ + + + [...] [place] | | | | | | [id number] | | | | | | | | +--------+---------+ + + + documented as of this encounter Procedures + +--------+ + + + | Procedure Name | Priori | Date/Time | Associated Diagnosis | Comments | | | ty | | | | + +--------+ + + + | EXTERNAL LAB: CBC | Routin | 07/11/2015 | | Results for this | | | e | 12:00 AM | | procedure are in the | | | | PDT | | results section. | + +--------+ + + + | LIPID PANEL | Routin | 07/11/2015 | | Results for this | | | e | 12:00 AM | | procedure are in the | | | | PDT | | results section. | + +--------+ + + + | VITAMIN B-12 | Routin | 07/11/2015 | | Results for this | | | e | 12:00 AM | | procedure are in the | | | | PDT | | results section. | + +--------+ + + + | URINALYSIS, | Routin | 07/11/2015 | | Results for this | | MICROSCOPIC ONLY | e | 12:00 AM | | procedure are in the | | | | PDT | | results section. | + +--------+ + + + | PROTEIN/CREATININE | Routin | 07/11/2015 | | Results for this | | RATIO, URINE | e | 12:00 AM | | procedure are in the | | | | PDT | | results section. | + +--------+ + + + | URIC ACID | Routin | 07/11/2015 | | Results for this | | | e | 12:00 AM | | procedure are in the | | | | PDT | | results section. | + +--------+ + + + | TSH | Routin | 07/11/2015 | | Results for this | | | e | 12:00 AM | | procedure are in the | | | | PDT | | results section. | + +--------+ + + + | MAGNESIUM | Routin | 07/11/2015 | | Results for this | | | e | 12:00 AM | | procedure are in the | | | | PDT | | results section. | + +--------+ + + + | COMPREHENSIVE | Routin | 07/11/2015 | | Results for this | | METABOLIC PANEL | e | 12:00 AM | | procedure are in the | | | | PDT | | results section. | + +--------+ + + + documented in this encounter Results Protein/Creatinine Ratio, Urine (07/11/2015 12:00 AM PDT) + +-------+ + + + | Component | Value | Ref Range | Performed | Pathologist | | | | | At | Signature | + +-------+ + + + | Protein/Cre | 97.2 | 0 - 150 | EXTERNAL | [...] + +---------+ + + Urinalysis, Microscopic Only (07/11/2015 12:00 AM PDT) + + + + [...] + + + + | Specific | 1.009 | 1.005 - 1.030 | EXTERNAL | | | [place], | | | LAB | | | Urine | | | | | + + + + + + | Leukocyte | | | EXTERNAL | | | Esterase, | | | LAB | | | Urine | | | | | + + + + + + | Nitrite, | | | EXTERNAL | | | Urine [...] + + + + | Blood, | | | EXTERNAL | | | Urine [...] + +---------+ + + External Lab: CBC (07/11/2015 12:00 AM PDT) + + + + + + | Component | Value | Ref Range | Performed | Pathologist | | | | | At | Signature | + + + + + + | WBC | 7.1Comment: 4 | 4.5 - 11.0 10 | EXTERNAL | | | | | | LAB | | + + + + + + | Red Blood | 4.06 (A) | 4.3 - 5.7 10 | EXTERNAL | | | Cells | | | LAB | | | Counted | | | | | + + + + + + | Hemoglobin | 12.5 (A) | 13.5 - 18.0 | EXTERNAL | | | | | g/dL | LAB | | + + + + + + | Hematocrit, | 36.5 (A) | 41 - 50 % | EXTERNAL | | | POC | | | LAB | | + + + + + + | MCV | 90.0 | 81 - 99 fL | EXTERNAL [...] + + + + | Platelet | 192 | 140 - 440 K/ L | EXTERNAL | | | Count | | | LAB | | | Plasma | | | | | + + + + + + | RDW-CV | 15.5 (A) | 10.5 - 15.0 % | EXTERNAL | | | | | | LAB | | + + + + + + | MPV | | fL | EXTERNAL | | | | | | LAB | | + + + + + + | Differentia | Auto | | EXTERNAL | | | l Type | | | LAB | | + + + + + + | % Segmented | 47.5 | 39 - 80 % | EXTERNAL | | | | | | LAB | | | Neutrophils | | | | | + + + + + + | % | 32.5 | 24 - 44 % | EXTERNAL | | | Lymphocytes | | | LAB | | + + + + + + | % Monocytes | 12.8 (A) | 0 - 12 % | EXTERNAL | | | | | | LAB | | + + + + + + | % | 6.3 (A) | 0 - 6 % | [...] | + +---------+ + + Uric Acid (07/11/2015 12:00 AM PDT) + +---------+ + + + | Component | Value | Ref Range | Performed | Pathologist | | | | | At | Signature | + +---------+ + + + | Uric Acid | 9.5 (A) | 4.4 - 7.6 | EXTERNAL | | | | | | LAB | | + +---------+ + + + + + | Specimen | + + | Blood specimen | | (specimen) | + + + +---------+ + + | Performing | Address | City/State/Zipcode | Phone Number | | Organization | | | | + +---------+ + + | EXTERNAL LAB | | | | + +---------+ + + TSH (07/11/2015 12:00 AM PDT) + +-------+ + + + | Component | Value | Ref Range | Performed | Pathologist | | | | | At | Signature | + +-------+ + + + | TSH | 2.30 | 0.270 - 4.20 | EXTERNAL | | | | | uIU/mL | LAB | | + +-------+ + + + + + | Specimen | + + | Blood specimen | | (specimen) | + + + +---------+ + + | Performing | Address | City/State/Zipcode | Phone Number | | Organization | | | | + +---------+ + + | EXTERNAL LAB | | | | + +---------+ + + Magnesium (07/11/2015 12:00 AM PDT) + +-------+ + + + | Component | Value | Ref Range | Performed | Pathologist | | | | | At | Signature | + +-------+ + + + | Magnesium | 1.8 | 1.7 - 2.5 mg/dL | EXTERNAL [...] | | + +---------+ + + Vitamin B-12 (07/11/2015 12:00 AM PDT) + +-------+ + + + | Component | Value | Ref Range | Performed | Pathologist | | | | | At | Signature | + +-------+ + + + | VITAMIN | 334.1 | 211 - 946 | EXTERNAL | | | B-12 | | | LAB | | + +-------+ + + + + + | Specimen | + + | Blood specimen | | (specimen) | + + + +---------+ + + | Performing | Address | City/State/Zipcode | Phone Number | | Organization | | | | + +---------+ + + | EXTERNAL LAB | | | | + +---------+ + + Lipid Panel (07/11/2015 12:00 AM PDT) + +---------+ + + + | Component | Value | Ref Range | Performed | Pathologist | | | | | At | Signature | + +---------+ + + + | Cholesterol | 120 | 200 mg/dL | EXTERNAL | | | | | | LAB | | + +---------+ + + + | Triglycerid | 78 | 30 - 150 mg/dL | EXTERNAL | | | es | | | LAB | | + +---------+ + + + | HDL | 21 (A) | 40 mg/dl | EXTERNAL | | | | | | LAB | | + +---------+ + + + | LDL, | 83 | 100 mg/dL | EXTERNAL | | | Calculated | | | LAB | | + +---------+ + + + | LDl/HDL | | | EXTERNAL | | | Ratio | | | LAB | | + +---------+ + + + | Chol/HDL | 5.5 (A) | 4.97 | EXTERNAL | | | Ratio | | | LAB | | + +---------+ + + + | VLDL | 16 | 4 - 40 mg/dL | EXTERNAL | | | | | | LAB | | + +---------+ + + + | Non HDL | 98 | 130 | EXTERNAL | | | Chol. | | | LAB | | | (LDL+VLDL) | | | | | + +---------+ + + + + + | Specimen | + + | Blood specimen | | (specimen) | + + + +---------+ + + | Performing | Address | City/State/Zipcode | Phone Number | | Organization | | | | + +---------+ + + | EXTERNAL LAB | | | | + +---------+ + + Comprehensive Metabolic Panel (07/11/2015 12:00 AM PDT) + + + + + + | Component | Value | Ref Range | Performed | Pathologist | | | | | At | Signature | + + + + + + | Glucose, | 106 (A) | 70 - 100 mg/dL | EXTERNAL | | | Fasting | | | LAB | | + + + + + + | BUN | 42 (A) | 6 - 23 | EXTERNAL | | | | | | LAB | | + + + + + + | Creatinine | 1.86 (A) | 0.70 - 1.18 | EXTERNAL | | | | | mg/dL | LAB | | + + + + + + | BUN/Creatin | 22.6 | 6.0 - 28.6 | EXTERNAL | | | ine Ratio | | | LAB | | + + + + + + | Calcium | 8.7 | 8.4 - 10.2 | EXTERNAL | | | | | mg/dL | LAB | | + + + + + + | Protein, | 6.5 | 6.0 - 8.0 g/dL | EXTERNAL | | | Total | | | LAB | | + + + + + + | Albumin | 3.9 | 3.5 - 5.0 | EXTERNAL | | | | | | LAB | | + + + + + + | Globulin | 2.6 | 1.8 - 3.5 | EXTERNAL | | | | | | LAB | | + + + + + + | A/G Ratio | 1.5 | 1.1 - 2.4 | EXTERNAL | | | | | | LAB | | + + + + + + | Bilirubin | 0.5 | 0.0 - 1.2 mg/dL | EXTERNAL | | | Total | | | LAB | | + + + + + + | ALP, | 107 | 30 - 128 | EXTERNAL | | | External | | | LAB | | + + + + + + | ALT | 15 | 7 - 52 U/L | EXTERNAL | | | | | | LAB | | + + + + + + | AST | 13 | 13 - 39 U/L | EXTERNAL | | | | | | LAB | | + + + + + + | Na | 139 | 132 - 143 | EXTERNAL | | | | | mmol/L | LAB | | + + + + + + | K | 3.8 | 3.6 - 5.1 | EXTERNAL | | | | | mmol/L | LAB | | + + + + + + | Cl | 103 | 95 - 112 mmol/L | EXTERNAL | | | | | | LAB | | + + + + + + | CO2 | 25 | 19 - 31 mmol/L | EXTERNAL | | | | | | LAB | | + + + + + + | Anion Gap | 14.8 | 7 - 21 mmol/L | EXTERNAL | | | | | | LAB | | + + + + + + | Estimated | 36 (A) | 60 - 140 mg/dL | [...]
--- OUTSIDE RECORDS SUMMARY | ~2020-04-07 | XMS | Encounter Summary ---
Demographics + + + | Address | [address] | | | [place] [address] | + + + | Home Phone | | + + + | Preferred Language | Unknown | + + + | Marital Status | Single | + + + | Confucianism Affiliation | Unknown | + + + | Race | Unknown | + + + | Ethnic Group | Other Race | + + + Author + + + | Author | [facility] | + + + | Organization | [facility] | + + + | Address | Unknown | + + + | Phone | Unavailable | + + + Care Team Providers + +------+ + | Care Table Filler Name | Role | Phone | + +------+ + | Daneil Sofia MD | PCP | | + [...]
--- OUTSIDE RECORDS SUMMARY | ~2020-04-07 | XMS | Encounter Summary ---
Demographics + + + | Address | [address] | | | [place] [address] | + + + | Home Phone | | + + + | Preferred Language | Unknown | + + + | Marital Status | | + + + | Buddhist Affiliation | Unknown | + + + | Race | Unknown | + + + | Ethnic Group | Unknown | + + + Author + + + | Author | [facility] | | | and [place] | + + + | Organization | [facility] | | | and [...] [place] | | | | | [place] [address] | | + + + + + Care Team Providers + +------+ + | Care Fish And Wildlife Biologist Name | Role | Phone | + +------+ + | Hollis Villavicencio MD | PCP | | + +------+ + Encounter Details +--------+ + + + + | Date | Type | Department | Care Team | Description | +--------+ + + + + | 07/23/ | Hospital | [facility] | Jean ClaudeAlex mercedes, | | | 2012 - | Encounter | MED [facility] | DPM [address] | | | | | [address] | [place] | | | 08/13/ | | [place] [id number] | [address] | | | 2012 | | [phone] | [phone] | | | | | | | [...] 2019 | Visit | | [address] [facility] | | | | | | [address] [place] | | | | | | [address] | | | | | | | | +--------+---------+ + + + documented as of this encounter Visit Diagnoses Not on filedocumented in this encounter"
--- OUTSIDE RECORDS SUMMARY | ~2020-04-07 | XMS | Encounter Summary ---
Demographics + + + | Address | [address] | | | [place] [address] | + + + | Home Phone | | + + + | Preferred Language | Unknown | + + + | Marital Status | | + + + | Samaritan Affiliation | Unknown | + + + | Race | Unknown | + + + | Ethnic Group | Unknown | + + + Author + + + | Author | [facility] | | | and [place] | + + + | Organization | [facility] | | [...] [place], | | | | | [place] [address] | | + + + + + Care Team Providers + +------+ + | Care Motor Route Carrier Name | Role | Phone | + +------+ + | Andrew Parra MD | PCP | | + +------+ + Reason for Visit + +--------+ + | Reason | Onset | Comments | | | Date | | + +--------+ + | Medication Refill | 06/05/ | | | | 2019 | | + +--------+ + Encounter Details +--------+--------+ + + + | Date | Type | Department | Care Team | Description | +--------+--------+ + + + | 06/05/ | Refill | [facility] | Ирина Hinson | Medication Refill | | 2019 | | NEPRHOLOGY [place] | Ariel Mcintosh | | | | | [address] | Carton Maker | | | | | [address] [place], [place] | | | | | | [address] | | | | | | [phone] | | | +--------+--------+ + + + Social History + +-------+ [...] + + documented as of this encounter Miscellaneous Notes Telephone Encounter - Ирина Hinson V, Deputy Building Guard - 06/05/2019 11:49 AM [place] CP[facility] ent called requesting a refill of: Furosemide 40mg Medication name/dose/frequency: Take one table by mouth twice daily. Pharmacy: [facility] Have they contacted pharmacy: Yes Last OV: 03/23/19 (must be within the past year or we cannot refill medication-options are to schedule follow up and we can refill until their next OV appt or they can get prescriptio n from PCP if they do not choose to schedule). Next OV: 06/22/19 He is aware that refill can take up to two business days to process request: Yes Tdocumented in this encounter Plan of Treatment +--------+---------+ + + + | Date | Type | Specialty | Care Team | Description | +--------+---------+ + + + | 07/04/ | Office | Nephrology | Arnold Sun MD | | | 2020 | Visit | | [address] [facility] | | | | | | [address] [place], [place] | | | | | | [address] | | | | | | | | +--------+---------+ + + + documented as of this encounter Visit Diagnoses + + | Diagnosis | + + | Essential hypertension, benign - Primary | + + | Chronic kidney disease, stage III (moderate) (HCC) Chronic kidney disease, Stage III | | (moderate) | + + documented in this encounter"
--- OUTSIDE RECORDS SUMMARY | ~2020-04-07 | XMS | Clinical Summary ---
Demographics + + + | Address | [address] | | | [place] [address] | + + + | Home Phone | | + + + | Preferred Language | Unknown | + + + | Marital Status | | + + + | Sabianist Affiliation | Unknown | + + + | Race | Unknown | + + + | Ethnic Group | Unknown | + + + Author + + + | Author | [facility] | | | and [place] | + + + | Organization | [facility] | | | [...] [place], | | | | | [place] [address] | | + + + + + Care Team Providers + +------+ + | Care Printing Table Hand Name | Role | Phone | + +------+ + | Kennedy Arzola DO | PCP | | + +------+ + Allergies No [...] + + + +---------+------+------+-------+ | | Take by mouth as | | 0 | | | Activ | | diphenhydrAMINE-APAP | needed. | | | | | e | | , sleep, (TYLENOL PM | | | | | | | | EXTRA STRENGTH PO) | | | | | | | + + + +---------+------+------+-------+ | allopurinol | Take 2 tablets by | | 0 | 06/1 | | Activ | | (ZYLOPRIM) 100 mg | mouth daily. | | | 0/20 | | e | | tablet | | | | 19 | | | + + + +---------+------+------+-------+ | cholecalciferol | Take 2,000 Units by | | 0 | | | Activ | | (CHOLECALCIFEROL) | mouth daily. | | | | | e | | 1000 units TABS | | | | | | | + + + +---------+------+------+-------+ | dicyclomine | Take 10 mg by mouth | | 0 | | | Activ | | (BENTYL) 10 mg | 4 (four) times daily | | | | | e | | capsule | before meals and | | | | | | | | nightly. | | | | | | + + + +---------+------+------+-------+ | FLUoxetine | Take 20 mg by mouth | | 0 | | | Activ | | (PROZAC) 20 mg | daily. Take two | | | | | e | | capsule | capsules at bedtime. | | | | | | + + + +---------+------+------+-------+ | metoprolol | Take 50 mg by mouth | | 0 | | | Activ | | succinate | 2 (two) times daily. | | | | | e | | (TOPROL-XL) 50 mg 24 | Patient takes 1.5 | | | | | | | hr tablet | (75mg) tabs one | | | | | | | | daily. | | | | | | + + + +---------+------+------+-------+ | pravastatin | Take 40 mg by mouth | | 0 | | | Activ | | (PRAVACHOL) 40 MG | nightly. | | | | | e | | tablet | | | | | | | + + + +---------+------+------+-------+ | aspirin 81 MG EC | Take 81 mg by mouth | | 0 | | | Activ | | tablet | daily with | | | | | e | | | breakfast. | | | | | | + + + +---------+------+------+-------+ | insulin glargine | Inject 50 Units into | | 0 | | | Activ | | (TOUJEO SOLOSTAR) | the skin daily. | | | | | e | | 300 units/mL | | | | | | | | concentrated | | | | | | | | injection (pen) | | | | | | | + + + +---------+------+------+-------+ | calcitriol | Take 1 capsule by | 90 | 3 | 03/1 | | Activ | | (ROCALTROL) 0.5 MCG | mouth Daily. | capsule | | 6/20 | | e | | capsule | | | | 20 | | | + + + +---------+------+------+-------+ Active Problems + + + | Problem | Noted Date | + + + | Secondary hyperparathyroidism | 12/28/2019 | + + + | Macrocytic anemia | 08/31/2016 | + + + | Morbid obesity due to excess calories | 04/30/2016 | + + + | Bradycardia | 01/16/2016 | + + + | Hyperuricemia | 07/18/2015 | + + + | Amputated great toe of left foot | 05/19/2015 | + + + | [...] extremity | 05/19/2015 | + + + | Chronic kidney disease, stage III (moderate) | 05/19/2015 | + + + | Essential hypertension, benign | 05/19/2015 | + + + | Mixed hyperlipidemia | 05/19/2015 | + + + | Vitamin D deficiency | 05/19/2015 | + + + | Type 2 diabetes mellitus with diabetic nephropathy, 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 | | + + + | Left knee pain - medial and posterior near the insertion of the | 10/23/2012 | | hamstring tendons | | + + + | DDD (degenerative disc disease), lumbar | 10/23/2012 | + + + | Diabetes mellitus | 10/23/2012 | + + + | Obesity | 10/23/2012 | + + + Resolved Problems + + + + | Problem | Noted | Resolved | | | Date | Date | + + + + | Hyperparathyroidism | 10/24/19 | | | | 16 | 9 | + + + + Immunizations + + + + | Name | Administration Dates | Next Due | + + + + | INFLUENZA 63 Y OR >, | 08/16/2016 | | | TRIVALENT HIGH-DOSE | | | + + + + | PNEUMOCOCCAL | 08/16/2016 | | | POLYSACCHARIDE | | | | 23-VALENT (PPSV23) | | | + + + + Family History + + [...] | | | + +---+---+---+ + + +---------+ + | Alcohol Use | Drinks/Week | oz/Week | Comments | + + +---------+ + | Not Currently | | | | + + +---------+ + + + + | Sex Assigned at | Date Recorded | | | | + + + | Not on file | | + + + Last Filed Vital Signs + + + + + | Vital Sign | Reading | Time Taken | Comments | + + + + + | Blood Pressure | 142/48 | 12/28/2019 2:09 PM | | | | | PDT | | + + + + + | Pulse | 64 | 12/28/2019 2:09 PM | | | | | PDT | | + + + + + | Temperature | 36.2 C (97.1 F) | 04/23/2018 11:34 AM | | | | | PDT | | + + + + + | Respiratory Rate | - | - | | + + + + + | Oxygen Saturation | 99% | 12/28/2019 2:09 PM | | | | | PDT | | + + + + + | Inhaled Oxygen | - | - | | | Concentration | | | | + + + + + | Weight | 152.3 kg (335 lb | 12/28/2019 2:09 PM | | | | 11.2 oz) | PDT | | + + + + + | Height | 188 cm (6' 2") | 12/28/2019 2:09 PM | | | | | PDT | | + + + + + | Body Mass Index | 43.1 | 12/28/2019 2:09 PM | | | | | PDT | | + + + + + Plan of Treatment +--------+---------+ + + + | Date | Type | Specialty | Care Team | Description | +--------+---------+ + + + | 07/04/ | Office | Nephrology | Arnold Sun MD | | | 2020 | Visit | | [address] [facility] | | | | | | [facility] | | | | | | [address] | | | | | | | | +--------+---------+ + + + + + + + + | Health Maintenance | Due Date | Last | Comments | | | | Done | | + + + + + [...] + + | Hemoglobin A1c | | 08/07/20 | | | Screening | 8 | 17, | | | | | 12/16/19 | | | | | 15 | | + + + + + | Adult Annual | | | | | Wellness Visit | 8 | | | + + + + + | Vaccine: Influenza | | 08/14/20 | | | (Season Ended) | 0 | 18, | | | | | 07/28/20 | | | | | 18, | | | | | 07/31/20 | | | | | 17, | | | | | Addition | | | | | al | | | | | history | | | | | exists | | + + + + + | Vaccine: | | 02/22/20 | | | Dtap/Tdap/Td (2 - | 5 | 15 | | | Td) | | | | + + + + + | Vaccine: | Completed | 08/16/20 | | | Pneumococcal 65+ | | 16 | | + + + + + Procedures + +--------+ + + + | Procedure Name | Priori | Date/Time | Associated Diagnosis | Comments | | | ty | | | | + +--------+ + + + | PATHOLOGY - EXTERNAL | | 01/07/2020 | | Results for this | | SCAN | | 12:00 AM | | procedure are in the | | | | PDT | | results section. | + +--------+ + + + from Last 3 Months Results PATHOLOGY - EXTERNAL SCAN (01/07/2020 12:00 AM PDT) + + + | Narrative | Performed At | + + + | Ordered by an | | | unspecified provider. | | + + + from Last 3 Months Insurance + +--------+ +--------+ [...] + +--------+ | MEDICARE | MEDICA | [id number] | | [phone] | | Medica | | | RE | | 009-Pr | 5 | | re | | | PART A | | esent | | | | | | AND B | | | | | | + +--------+ +--------+ + +--------+ | MODA | MODA | [id number] | | [phone] | [address] | Indemn | | | HEALTH | | 009-Pr | 9 | [phone] | ity | | | MDCR | | esent | | [place], | | | | [place] | | | | [place] [address] | | + +--------+ +--------+ + +--------+ | MEDICARE | MEDICA | [id number] | | [phone] | | Medica | | | RE | | 009-Pr | 5 | | re | | | PART A | | esent | | | | | | AND B | | | | | | + +--------+ +--------+ + +--------+ | MODA | MODA | [id number] | 10/14/19 | [phone] | [address] | [place] | | | HEALTH | | 19-Pre | 9 | [phone] | ity | | | MDCR | | sent | | [place], | | | | [place] | | | | [place] [address] | | + +--------+ +--------+ + +--------+ [...] | | chapin/Luis | | 1945 | [phone] | [place] [address] | | | [place] | | | 6 (Home) | | + +--------+ +--------+ + + | Renny Mariano | Person | Self | [birth year] | | [address] | | | al/Fam | | 1945 | [phone] | [address] [place] | | | [place] | | | 6 ([place]) | [address] | + +--------+ +--------+ + + Advance Directives + + + + + | Type | Date Recorded | Patient | Explanation | | | | Capacity Planner | | + + + + + | Power of | | | | | Manager Of Recruiting | | | | + + + + + | Advance | | | | | Directive | | | | + + + + +
--- OUTSIDE RECORDS SUMMARY | ~2020-04-07 | XMS | Encounter Summary ---
Demographics + + + | Address | [address] | | | [place] [address] | + + + | Home Phone | | + + + | Preferred Language | Unknown | + + + | Marital Status | | + + + | Sabianism Affiliation | Unknown | + + + | Race | Unknown | + + + | Ethnic Group | Unknown | + + + Author + + + | Author | [facility] | | | and [place] | + + + | Organization | [facility] | | | [...] [place] | | | | | [place] [address] | | + + + + + Care Team Providers + +------+ + | Care Flask Pusher Name | Role | Phone | + +------+ + | Andrew Parra MD | PCP | | + +------+ + Encounter Details +--------+ + + + + | Date | Type | Department | Care Team | Description | +--------+ + + + + | 06/24/ | Orders Only | [facility] | Ирина Hinson | Essential | | 2019 | | NEPRHOLOGY [place] | V, Medical | hypertension, benign | | | | [address] | Senior Accounting Clerk | (Primary Dx); Type | | | | [address] [place], [place] | | 2 diabetes mellitus | | | | [address] | | with diabetic | | | | [phone] | | nephropathy, with | | | | | | long-term current | | | | | | use of insulin | | | | | | (HCC); Chronic | | | | | | kidney disease, | | | | | | stage III (moderate) | | | | | | (HCC); Macrocytic | | | | | | anemia; Bilateral | | | | | | edema of lower | | | | | | extremity; | | | | | | Hyperuricemia | +--------+ + + + + Social [...] + + documented as of this encounter Ирина Ibarra V, Packer Inspector - 06/24/2019 3:00 PM PDTError. d ocumented in this encounter Plan of Treatment +--------+---------+ + + + | Date | Type | Specialty | Care Team | Description | +--------+---------+ + + + | 07/04/ | Office | Nephrology | Arnold Sun MD | | | 2020 | Visit | | [address] [facility] | | | | | | [address] | | | | | | [id number] | | | | | | | | +--------+---------+ + + + documented as of this encounter Visit Diagnoses + + | Diagnosis | + + | Essential hypertension, benign - Primary | + + | Type 2 diabetes mellitus with diabetic nephropathy, with long-term current use of | | insulin (HCC) | + + | Chronic kidney disease, stage III (moderate) (HCC) Chronic kidney disease, Stage III | | (moderate) | + + | Macrocytic anemia Unspecified deficiency anemia | + + | Bilateral edema of lower extremity Edema | + + | Hyperuricemia Other abnormal blood chemistry | + + documented in this encounter"
--- OUTSIDE RECORDS SUMMARY | ~2020-04-07 | XMS | Encounter Summary ---
Demographics + + + | Address | [address] | | | [place] [address] | + + + | Home Phone | | + + + | Preferred Language | Unknown | + + + | Marital Status | | + + + | Roman Catholic Affiliation | Unknown | + + + | Race | Unknown | + + + | Ethnic Group | Unknown | + + + Author + + + | Author | [facility] | | | and [place] | + + + | Organization | [facility] | | | [...] [place], | | | | | [place] [address] | | + + + + + Care Team Providers + +------+ + | Care Intermission Coordinator Name | Role | Phone | + +------+ + | Andrew Parra MD | PCP | | + +------+ + Reason for Visit +--------+ + | Reason | Comments | +--------+ + | Other | Referral and Notes from PCP | +--------+ + Encounter Details +--------+ + + + + | Date | Type | Department | Care Team | Description | +--------+ + + + + | 06/19/ | Documentati | [facility] | Diane Red | Other (Referral and | | 2019 | on | CARDIOLOGY [place], Kitchen And Bath Designer | Notes from PCP ) | | | | [address] | | | | | | [place] | | | | | | [address] | | | | | | [phone] | | | +--------+ + + + [...] 2019 | Visit | | [address] [facility] | | | | | | [address] | | | | | | [address] | | | | | | | | +--------+---------+ + + + documented as of this encounter Visit Diagnoses Not on filedocumented in this encounter"
--- OUTSIDE RECORDS SUMMARY | ~2020-04-07 | XMS | Encounter Summary ---
Demographics + + + | Address | [address] | | | [place] [address] | + + + | Home Phone | | + + + | Preferred Language | Unknown | + + + | Marital Status | | + + + | Sabianism Affiliation | Unknown | + + + | Race | Unknown | + + + | Ethnic Group | Unknown | + + + Author + + + | Author | [facility] | | | and [place] | + + + | Organization | [facility] | | | and [...] [place] | | | | | [place] [address] | | + + + + + Care Team Providers + +------+ + | Care Nurse Practitioner Physicians Assistant Name | Role | Phone | + +------+ + | Andrew Parra MD | PCP | | + +------+ + Encounter Details +--------+ + + + + | Date | Type | Department | Care Team | Description | +--------+ + + + + | 11/29/ | Orders Only | [facility] | Conversion | | | 2017 | | NEPRHOLOGY [place] | Transaction, | | | | | [address] | Provider Unknown | | | | | [address] [place], [place] | [phone] | | | | | [address] | | | | | | [phone] | | | +--------+ + + + [...] 2020 | Visit | | [address] [facility] | | | | | | [address] | | | | | | [address] | | | | | | | | +--------+---------+ + + + documented as of this encounter Procedures + +--------+ + + + | Procedure Name | Priori | Date/Time | Associated Diagnosis | Comments | | | ty | | | | + +--------+ + + + | EXTERNAL LAB: CBC | Routin | 11/29/2016 | | Results for this | | | e | 2:00 PM | | procedure are in the | | | | PST | | results section. | + +--------+ + + + | METHYLMALONIC ACID, | Routin | 11/29/2016 | | Results for this | | SERUM | e | 2:00 PM | | procedure are in the | | | | PST | | results section. | + +--------+ + + + | IRON AND IRON | Routin | 11/29/2016 | | Results for this | | BINDING CAPACITY | e | 2:00 PM | | procedure are in the | | | | PST | | results section. | + +--------+ + + + | URINALYSIS, | Routin | 11/29/2016 | | Results for this | | MICROSCOPIC ONLY | e | 2:00 PM | | procedure are in the | | | | PST | | results section. | + +--------+ + + + | PROTEIN/CREATININE | Routin | 11/29/2016 | | Results for this | | RATIO, URINE | e | 2:00 PM | | procedure are in the | | | | PST | | results section. | + +--------+ + + + | URIC ACID | Routin | 11/29/2016 | | Results for this | | | e | 2:00 PM | | procedure are in the | | | | PST | | results section. | + +--------+ + + + | TRANSFERRIN | Routin | 11/29/2016 | | Results for this | | | e | 2:00 PM | | procedure are in the | | | | PST | | results section. | + +--------+ + + + | PARATHYROID HORMONE, | Routin | 11/29/2016 | | Results for this | | INTACT | e | 2:00 PM | | procedure are in the | | | | PST | | results section. | + +--------+ + + + | FERRITIN | Routin | 11/29/2016 | | Results for this | | | e | 2:00 PM | | procedure are in the | | | | PST | | results section. | + +--------+ + + + | RENAL FUNCTION PANEL | Routin | 11/29/2016 | | Results for this | | | e | 2:00 PM | | procedure are in the | | | | PST | | results section. | + +--------+ + + + documented in this encounter Results Methylmalonic Acid, Serum (11/29/2016 2:00 PM PST) + +-------+ + + + | Component | Value | Ref Range | Performed | Pathologist | | | | | At | Signature | + +-------+ + + + | METHYLMALON | 308.0 | 211 - 946 | EXTERNAL | | | IC ACID | | | LAB | | + [...] + + Iron and Iron Binding Capacity (11/29/2016 2:00 PM PST) + +-------+ + + + | Component | Value | Ref Range | Performed | Pathologist | | | | | At | Signature | + +-------+ + + + | Iron | 80.81 | 37 - 160 | EXTERNAL | | | | | | LAB | | + +-------+ + + + | Iron | 32.6 | 20 - 55 | EXTERNAL | | | Saturation | | | LAB | | + +-------+ + + + | TIBC | 248 | 245 - 400 | EXTERNAL | [...] + +---------+ + + Protein/Creatinine Ratio, Urine (11/29/2016 2:00 PM PST) + +-------+ + + + | Component | Value | Ref Range | Performed | Pathologist | | | | | At | Signature | + +-------+ + + + | Protein/Cre | 91.5 | 0 - 150 | EXTERNAL | [...] + +---------+ + + Urinalysis, Microscopic Only (11/29/2016 2:00 PM PST) + + + + + [...] + + + + | Specific | 1.012 | 1.005 - 1.030 | EXTERNAL | | | [place], | | | LAB | | | [...] + +---------+ + + External Lab: CBC (11/29/2016 2:00 PM PST) + + + + + [...] + + + | Red Blood | 3.48 (A) | 4.3 - 5.7 10 | EXTERNAL | | | Cells | | | LAB | | | Counted | | | | | + + + + + + | Hemoglobin | 11.0 (A) | 13.5 - 18.0 | EXTERNAL | | | | | g/dL | LAB | | + + + + + + | Hematocrit, | 33.2 (A) | 41 - 50 % | EXTERNAL | | | POC | | | LAB | | + + + + + + | MCV | 95.2 | 81 - 99 fL | EXTERNAL | | | | | | LAB | | + + + + + + | MCH | 32 | 27 - 33 pg | EXTERNAL | | | | | | LAB | | + + + + + + | MCHC | 33 | 30 - 36 g/dL | EXTERNAL | | | | | | LAB | | + + + + + + | Platelet | 173 | 140 - 440 K/ L | EXTERNAL | | | Count | | | LAB | | | Plasma | | | | | + + + + + + | RDW-CV | 15.4 (A) | 10.5 - 15.0 % | [...] | + +---------+ + + Uric Acid (11/29/2016 2:00 PM PST) + +-------+ + + + | Component | Value | Ref Range | Performed | Pathologist | | | | | At | Signature | + +-------+ + + + | Uric Acid | 6.2 | 4.4 - 7.6 | EXTERNAL | [...] | | | + +---------+ + + Transferrin (11/29/2016 2:00 PM PST) + + + + + + | Component | Value | Ref Range | Performed | Pathologist | | | | | At | Signature | + + + + + + | TRANSFERRIN | 177.45 (A) | 180 - 329 | EXTERNAL | | | | | [...] + +---------+ + + Parathyroid Hormone, Intact (11/29/2016 2:00 PM PST) + + + + + + | Component | Value | Ref Range | Performed | Pathologist | | | | | At | Signature | + + + + + + | PTH INTACT | 231.0 (A) | 15 - 65 pg/mL | [...] | | + +---------+ + + Ferritin (11/29/2016 2:00 PM PST) + +-------+ + + + | Component | Value | Ref Range | Performed | Pathologist | | | | | At | Signature | + +-------+ + + + | Ferritin, | 225.6 | 30 - 400 ng/mL | EXTERNAL [...] + +---------+ + + Renal Function Panel (11/29/2016 2:00 PM PST) + + + + + + | Component | Value | Ref Range | Performed | Pathologist | | | | | At | Signature | + + + + + + | Glucose, | 208 (A) | 70 - 100 mg/dL | EXTERNAL | | | Fasting | | | LAB | | + + + + + + | BUN | 54 (A) | 6 - 23 mg/dL | EXTERNAL | | | | | | LAB | | + + + + + + | Creatinine | 1.96 (A) | 0.70 - 1.18 | EXTERNAL [...] + + + + | K | 4.2 | 3.6 - 5.1 | EXTERNAL | [...] + + + | Anion Gap | 17.2 | 7 - 21 mmol/L | EXTERNAL | | | | | | LAB | | + + + + + + | eGFR if not | | | EXTERNAL | | | | | | LAB | | | [facility] | | | | | + + + + + + | Phosphorus, | 3.5 | 2.5 - 5.0 | EXTERNAL | | | Inorganic | | | LAB | | + + + + + + | BUN/Creatin | 27.6 | 6.0 - 28.6 | EXTERNAL | | | ine Ratio | | | LAB | | + + + + + + | Calcium | 8.8 | 8.4 - 10.2 | EXTERNAL | | | | | mg/dL | LAB | | + + + + + + | Estimated | 34 | mg/dL | EXTERNAL | | | [...]
--- OUTSIDE RECORDS SUMMARY | ~2020-04-07 | XMS | Encounter Summary ---
Demographics + + + | Address | [address] | | | [place] [address] | + + + | Home Phone | | + + + | Preferred Language | Unknown | + + + | Marital Status | | + + + | Rastafari Affiliation | Unknown | + + + | Race | Unknown | + + + | Ethnic Group | Unknown | + + + Author + + + | Author | [facility] | | | and [place] | + + + | Organization | [facility] | | [...] [place] | | | | | [place] [address] | | + + + + + Care Team Providers + +------+ + | Care Creping Machine Operator Name | Role | Phone | + +------+ + | Andrew Parra MD | PCP | | + +------+ + Encounter Details +--------+ + + + + | Date | Type | Department | Care Team | Description | +--------+ + + + + | 12/06/ | Orders Only | [facility] | Conversion | | | 2018 | | NEPHROLOGY [place] | Transaction, | | | | | [address] | Provider Unknown | | | | | [address] [place], [place] | | | | | | [address] | (Fax) | | | | | [phone] | | | +--------+ + + + [...] 2020 | Visit | | [address] [facility] | | | | | | [address] [place] | | | | | | [address] | | | | | | | | +--------+---------+ + + + documented as of this encounter Procedures + +--------+ + + + | Procedure Name | Priori | Date/Time | Associated Diagnosis | Comments | | | ty | | | | + +--------+ + + + | PROTEIN | Routin | 12/06/2017 | | Results for this | | ELECTROPHORESIS AND | e | 4:39 PM | | procedure are in the | | DEE DEE, SERUM | | PST | | results section. | + +--------+ + + + documented in this encounter Results Protein Electrophoresis and DEE DEE, Serum (12/06/2017 4:39 PM PST) + + | Specimen | + + | Blood specimen | | (specimen) | + + + + + | Narrative | Performed At | + + + | Protein: 30 Range: 0-50 Albumin: 91.7 Alpha 1: 0 Alpha 2: 1.0 | EXTERNAL LAB | | Beta Glob: 2.1 Gamma Glob: 5.2 Concentrated: 60 Volume: 2500 | | | Interp: Protein electrophoresis on concentrated urine reveals an | | | abnormal protein band of restricted mobility in the gamma region. 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 | | + + + + +---------+ + + | Performing | Address | City/State/Zipcode | Phone Number | | Organization | | | | + +---------+ + + | EXTERNAL LAB | | | | + +---------+ + + documented in this encounter Visit Diagnoses Not on filedocumented in this encounter"
--- OUTSIDE RECORDS SUMMARY | ~2020-04-07 | XMS | Encounter Summary ---
Demographics + + + | Address | [address] | | | [place] [address] | + + + | Home Phone | | + + + | Preferred Language | Unknown | + + + | Marital Status | | + + + | Jain Affiliation | Unknown | + + + | Race | Unknown | + + + | Ethnic Group | Unknown | + + + Author + + + | Author | [facility] | | | and [place] | + + + | Organization | [facility] | | | [...] [place] | | | | | [place] [address] | | + + + + + Care Team Providers + +------+ + | Care Education Managers Name | Role | Phone | + +------+ + | Andrew Parra MD | PCP | | + +------+ + Encounter Details +--------+ + + + + | Date | Type | Department | Care Team | Description | +--------+ + + + + | 01/12/ | Orders Only | [facility] | Conversion | | | 2015 | | NEPRHOLOGY [place] | Transaction, | | | | | [address] | Provider Unknown | | | | | [address] [place], [place] | [phone] | | | | | [address] | | | | | | [phone] | | | +--------+ + + + [...] 2020 | Visit | | [address] [facility] | | | | | | [address] | | | | | | [address] | | | | | | | | +--------+---------+ + + + documented as of this encounter Procedures + +--------+ + + + | Procedure Name | Priori | Date/Time | Associated Diagnosis | Comments | | | ty | | | | + +--------+ + + + | IRON AND IRON | Routin | 01/13/2016 | | Results for this | | BINDING CAPACITY | e | 12:00 AM | | procedure are in the | | | | PDT | | results section. | + +--------+ + + + | PROTEIN/CREATININE | Routin | 01/13/2016 | | Results for this | | RATIO, URINE | e | 12:00 AM | | procedure are in the | | | | PDT | | results section. | + +--------+ + + + | URIC ACID | Routin | 01/13/2016 | | Results for this | | | e | 12:00 AM | | procedure are in the | | | | PDT | | results section. | + +--------+ + + + | MAGNESIUM | Routin | 01/13/2016 | | Results for this | | | e | 12:00 AM | | procedure are in the | | | | PDT | | results section. | + +--------+ + + + | FERRITIN | Routin | 01/13/2016 | | Results for this | | | e | 12:00 AM | | procedure are in the | | | | PDT | | results section. | + +--------+ + + + | RENAL FUNCTION PANEL | Routin | 01/13/2016 | | Results for this | | | e | 12:00 AM | | procedure are in the | | | | PDT | | results section. | + +--------+ + + + documented in this encounter Results Iron and Iron Binding Capacity (01/13/2016 12:00 AM PDT) + +-------+ + + + | Component | Value | Ref Range | Performed | Pathologist | | | | | At | Signature | + +-------+ + + + | Iron | 74.86 | 37 - 160 | EXTERNAL | | | | | | LAB | | + +-------+ + + + | Iron | 25.0 | 20 - 55 | EXTERNAL | | | Saturation | | | LAB | | + +-------+ + + + | TIBC | 300 | 245 - 400 | EXTERNAL | [...] + +---------+ + + Protein/Creatinine Ratio, Urine (01/13/2016 12:00 AM PDT) + +-------+ + + + | Component | Value | Ref Range | Performed | Pathologist | | | | | At | Signature | + +-------+ + + + | Protein/Cre | 125.0 | 0 - 150 | EXTERNAL | [...] | + +---------+ + + Uric Acid (01/13/2016 12:00 AM PDT) + +---------+ + + + | Component | Value | Ref Range | Performed | Pathologist | | | | | At | Signature | + +---------+ + + + | Uric Acid | 8.1 (A) | 4.4 - 7.6 | EXTERNAL [...] | | + +---------+ + + Magnesium (01/13/2016 12:00 AM PDT) + +-------+ + + [...] | | + +---------+ + + Ferritin (01/13/2016 12:00 AM PDT) + +-------+ + + + | Component | Value | Ref Range | Performed | Pathologist | | | | | At | Signature | + +-------+ + + + | Ferritin, | 231.8 | 30 - 400 ng/mL | EXTERNAL [...] + +---------+ + + Renal Function Panel (01/13/2016 12:00 AM PDT) + +---------+ + + + | Component | Value | Ref Range | Performed | Pathologist | | | | | At | Signature | + +---------+ + + + | Glucose, | 245 (A) | 70 - 100 mg/dL | EXTERNAL | | | Fasting | | | LAB | | + +---------+ + + + | BUN | 45 | mg/dL | EXTERNAL | | | | | | LAB | | + +---------+ + + + | Creatinine | 2.02 | mg/dL | EXTERNAL | | | | | | LAB | | + +---------+ + + + | PHOSPHORUS | | mg/dL | EXTERNAL | | | | | | LAB | | + +---------+ + + + | Albumin | 4.0 | | EXTERNAL | | | | | | LAB | | + +---------+ + + + | Na | 136 | mmol/L | EXTERNAL | | | | | | LAB | | + +---------+ + + + | K | 4.7 | mmol/L | EXTERNAL | | | | | | LAB | | + +---------+ + + + | Cl | 101 | mmol/L | EXTERNAL | | | | | | LAB | | + +---------+ + + + | CO2 | 25 | mmol/L | EXTERNAL | | | | | | LAB | | + +---------+ + + + | Anion Gap | 14.7 | mmol/L | EXTERNAL | | | | | | LAB | | + +---------+ + + + | eGFR if not | | | EXTERNAL | | | | | | LAB | | | [facility] | | | | | + +---------+ + + + | Phosphorus, | 3.2 | | EXTERNAL | | | Inorganic | | | LAB | | + +---------+ + + + | BUN/Creatin | 22.3 | | EXTERNAL | | | ine Ratio | | | LAB | | + +---------+ + + + | Calcium | 9.3 | mg/dL | EXTERNAL | | | | | | LAB | | + +---------+ + + + | Estimated | 33 [...]
--- OUTSIDE RECORDS SUMMARY | ~2020-04-07 | XMS | Encounter Summary ---
Demographics + + + | Address | [address] | | | [place] [address] | + + + | Home Phone | | + + + | Preferred Language | Unknown | + + + | Marital Status | | + + + | Hoahaoism Affiliation | Unknown | + + + | Race | Unknown | + + + | Ethnic Group | Unknown | + + + Author + + + | Author | [facility] | | | and [place] | + + + | Organization | [facility] | | [...] [place] | | | | | [place] [address] | | + + + + + Care Team Providers + +------+ + | Care Traffic Superintendent Name | Role | Phone | + +------+ + | Hollis Villavicencio MD | PCP | | + +------+ + Reason for Referral Diagnostic/Screening (Routine) +--------+--------+ + + + + | Status | Reason | Specialty | Diagnoses / | Referred By | Referred To | | | | | Procedures | Contact | Contact | +--------+--------+ + + + + | Closed | | Radiology | Diagnoses | | [facility] | | | | | Left knee | Cristobal, | Imaging [address] | | | | | pain | Bhupendra Altman MD | [address] | | | | | Procedures | [address] | [facility] | | | | | MRI Knee | [place] | [place] | | | | | Left wo | [place] | [address] | | | | | Contrast | [address] | Phone: | | | | | | Phone: | | | | | | | [phone] | Fax: | | | | | | Fax: | | | | | | | [phone] | | +--------+--------+ + + + + Encounter Details +--------+ + + + + | Date | Type | Department | Care Team | Description | +--------+ + + + + | 11/07/ | Hospital | [facility] | Bhupendra Jain | Left knee pain | | 2012 - | Encounter | MED CTR XRAY [address] Altman MD [address] | | | | | [place] | [address] | | | 11/09/ | | [place] [address] | [address] | | | 2012 | | [phone] | | | +--------+ + + + [...] 2020 | Visit | | [address] [facility] | | | | | | [address] | | | | | | [address] | | | | | | | | +--------+---------+ + + + + +---------+--------+ + + | Name | Type | Priori | Associated Diagnoses | Order Schedule | | | | ty | | | + +---------+--------+ + + | MRI Knee Left wo | Imaging | Routin | Left knee pain | 1 Occurrences | | Contrast | | e | | starting 11/07/2012 | + +---------+--------+ + + documented as of this encounter Visit Diagnoses + + | Diagnosis | + + | Left knee pain Pain in joint, lower leg | + + documented in this encounter"
--- OUTSIDE RECORDS SUMMARY | ~2020-04-07 | XMS | Encounter Summary ---
Demographics + + + | Address | [address] | | | [place] [address] | + + + | Home Phone | | + + + | Preferred Language | Unknown | + + + | Marital Status | Single | + + + | Adventism Affiliation | Unknown | + + + | Race | Unknown | + + + | Ethnic Group | Other Race | + + + Author + + + | Author | [facility] | + + + | Organization | [facility] | + + + | Address | Unknown | + + + | Phone | Unavailable | + + + Care Team Providers + +------+ + | Care Activity Manager Name | Role | Phone | + +------+ + | Daniel Sofia MD | PCP | | + +------+ + Encounter Details +--------+ + + + + | Date | Type | Department | Care Team | Description | +--------+ + + + + | 03/23/ | Document-Sc | Health Information | Other, Faculty | | | 2020 | anned | Services [address] | [phone] | | | | | [address] | | | | | | Mailcode: [id number] | | | | | | [facility] | | | | | | [place], [place] | | | | | | [address] | | | | | | [phone] | | | +--------+ + + + [...] + + + | RADIOLOGY | | 02/16/2020 | | Results for this | | | | 12:00 AM | | procedure are in the | | | | PDT | | results section. | + +--------+ + + + documented in this encounter Results RADIOLOGY (02/16/2020 12:00 AM PDT) + + + | Narrative | Performed At | + + + | | | + + + documented in this encounter Visit Diagnoses Not on filedocumented in this encounter"
--- OUTSIDE RECORDS SUMMARY | ~2020-04-07 | XMS | Encounter Summary ---
Demographics + + + | Address | [address] | | | [place] [address] | + + + | Home Phone | | + + + | Preferred Language | Unknown | + + + | Marital Status | | + + + | Taoism Affiliation | Unknown | + + + | Race | Unknown | + + + | Ethnic Group | Unknown | + + + Author + + + | Author | [facility] | | | and [place] | + + + | Organization | [facility] | | [...] [place] | | | | | [place] [address] | | + + + + + Care Team Providers + +------+ + | Care Office Technology Professor Name | Role | Phone | + +------+ + | Hollis Villavicencio MD | PCP | | + +------+ + Encounter Details +--------+ + + + + | Date | Type | Department | Care Team | Description | +--------+ + + + + | 07/02/ | Hospital | [facility] | Jean Claudedaren Alex Altman, | | | 2013 | Encounter | MED CTR LABORATORY | DPM [address] | | | | | [address] [place] | [place], [place] | | | | | [place], [place] | [address] | | | | | [address] | [phone] | | | | | [phone] | | | +--------+ + + + [...] 2019 | Visit | | [address] [facility] | | | | | | [address] [place] | | | | | | [address] | | | | | | | | +--------+---------+ + + + documented as of this encounter Visit Diagnoses Not on filedocumented in this encounter"
--- OUTSIDE RECORDS SUMMARY | ~2020-04-07 | XMS | Encounter Summary ---
Demographics + + + | Address | [address] | | | [place] [address] | + + + | Home Phone | | + + + | Preferred Language | Unknown | + + + | Marital Status | Single | + + + | Adventist Affiliation | Unknown | + + + | Race | Unknown | + + + | Ethnic Group | Other Race | + + + Author + + + | Author | [facility] | + + + | Organization | [facility] | + + + | Address | Unknown | + + + | Phone | Unavailable | + + + Care Team Providers + +------+ + | Care Deep Well Contractor Name | Role | Phone | + +------+ + | Daniel Sofia MD | PCP | | + +------+ + Reason for Referral Diagnostic Testing (Urgent) +--------+--------+ + + + [...] | | | | edema | [address] | Loop | | | | | Procedures | Rd | Mailcode: | | | | | VASC LAB | [place], [place] | [address] | | | | | VENOUS | [address] | Physician's | | | | | DUPLEX LOWER | | Pavilion | | | | | EXTREMITY | | [place], [place] | | | | | BILAT COMP | | [address] | | | | | | | Phone: | | | | | | | [phone] | | | | | | | Fax: | | | | | | | [phone] | +--------+--------+ + + + + Reason for Visit Diagnostic Testing (Urgent) +--------+--------+ + + + + | Status | Reason | Specialty | Diagnoses / | Referred By | Referred To | | | | | Procedures | Contact | Contact | +--------+--------+ + + + + | Closed | | Radiology | Diagnoses | Jack [address]roughs | [facility] | | | | | Lower | [address] | [address] | | | | | extremity | [address] | [address] | | | | | edema | [address] | Loop | | | | | Procedures | Rd | Mailcode: | | | | | VASC LAB | [place], [place] | [address] | | | | | VENOUS | [address] | Physician's | | | | | DUPLEX LOWER | | Pavilion | | | | | EXTREMITY | | [place], [place] | | | | | BILAT COMP | | [address] | | | | | | | Phone: | | | | | | | [phone] | | | | | | | Fax: | | | | | | | [phone] | +--------+--------+ + + + + Encounter Details +--------+ + + + + | Date | Type | Department | Care Team | Description | +--------+ + + + + | 04/03/ | Hospital | Radiology/Imaging | | | | 2012 | Encounter | Lab at [facility] [address] | | | | | | [address] Mailcode: | | | | | | [facility] | | | | | | [facility], | | | | | | [place] [address], [facility] | | | | | | Floor [place], [place] | | | | | | [address] | | | | | | [phone] | | | +--------+ + + + [...] +--------+ + + + | VASC LAB VENOUS | Routin | 04/03/2013 | Lower extremity | Results for this | | DUPLEX LOWER | e | 3:07 PM | edema | procedure are in the | | EXTREMITY BILAT COMP | | PDT | | results section. [...] + | Diagnosis | + + | Lower extremity edema Edema | + + documented in this encounter"
--- OUTSIDE RECORDS SUMMARY | ~2020-04-07 | XMS | Encounter Summary ---
Demographics + + + | Address | [address] | | | [place] [address] | + + + | Home Phone | | + + + | Preferred Language | Unknown | + + + | Marital Status | | + + + | Uatsdin Affiliation | Unknown | + + + | Race | Unknown | + + + | Ethnic Group | Unknown | + + + Author + + + | Author | [facility] | | | and [place] | + + + | Organization | [facility] | | | and [...] [place], | | | | | [place] [address] | | + + + + + Care Team Providers + +------+ + | Care 3D Modeler Name | Role | Phone | + +------+ + PCP | Unavailable | + +------+ + Encounter Details +--------+ + + + + | Date | Type | Department | Care Team | Description | +--------+ + + + + | 01/17/ | Hospital | [facility] | | | | 2009 - | Encounter | [facility] | | | | | | CENTER [address] | | | | 02/10/ | | [place] | | | | 2009 | | [address] | | | | | | [phone] | | | +--------+ + + + [...] 2020 | Visit | | [address] [facility] | | | | | | [address] [place] | | | | | | [address] | | | | | | | | +--------+---------+ + + + documented as of this encounter Visit Diagnoses Not on filedocumented in this encounter"
--- OUTSIDE RECORDS SUMMARY | ~2020-04-07 | XMS | Encounter Summary ---
Demographics + + + | Address | [address] | | | [place] [address] | + + + | Home Phone | | + + + | Preferred Language | Unknown | + + + | Marital Status | | + + + | Oriental Orthodox Affiliation | Unknown | + + + | Race | Unknown | + + + | Ethnic Group | Unknown | + + + Author + + + | Author | [facility] | | | and [place] | + + + | Organization | [facility] | | | [...] [place] | | | | | [place] [address] | | + + + + + Care Team Providers + +------+ + | Care Clinical Laboratory Assistant Name | Role | Phone | + +------+ + | Andrew Parar MD | PCP | | + +------+ + Encounter Details +--------+ + + + + | Date | Type | Department | Care Team | Description | +--------+ + + + + | 01/28/ | Orders Only | [facility] | Conversion | | | 2018 | | NEPHROLOGY [place] | Transaction, | | | | | [address] | Provider Unknown | | | | | [address] [place], [place] | | | | | | [address] | (Fax) | | | | | [phone] | | | +--------+ + + + [...] 2020 | Visit | | [address] [facility] | | | | | | [address] [place] | | | | | | [address] | | | | | | | | +--------+---------+ + + + documented as of this encounter Procedures + +--------+ + + + | Procedure Name | Priori | Date/Time | Associated Diagnosis | Comments | | | ty | | | | + +--------+ + + + | EXTERNAL LAB: [facility] | Routin | 01/28/2018 | | Results for this | | | e | 10:39 AM | | procedure are in the | | | | PDT | | results section. | + +--------+ + + + | COMPREHENSIVE | Routin | 01/28/2018 | | Results for this | | METABOLIC PANEL | e | 10:39 AM | | procedure are in the | | | | PDT | | results section. | + +--------+ + + + documented in this encounter Results External Lab: [facility] (01/28/2018 10:39 AM PDT) + + + + + + | Component | Value | Ref Range | Performed | Pathologist | | | | | At | Signature | + + + + + + | WBC | 6.1 | 4.5 - 11.0 10 | EXTERNAL | | | | | | LAB | | + + + + + + | Red Blood | 2.41 (A) | 4.3 - 5.7 10 | EXTERNAL | | | Cells | | | LAB | | | Counted | | | | | + + + + + + | Hemoglobin | 8.6 (A) | 13.5 - 18.0 | EXTERNAL | | | | | g/dL | LAB | | + + + + + + | Hematocrit, | 25.3 (A) | 41 - 50 % | EXTERNAL | | | POC | | | LAB | | + + + + + + | MCV | 105 (A) | 81 - 99 fL | [...] + + + + | Platelet | 161 | 140 - 440 K/ L | EXTERNAL | | | Count | | | LAB | | | Plasma | | | | | + + + + + + | RDW-CV | 16.6 (A) | 10.5 - 15.0 % | [...] + +---------+ + + Comprehensive Metabolic Panel (01/28/2018 10:39 AM PDT) + + + + + + | Component | Value | Ref Range | Performed | Pathologist | | | | | At | Signature | + + + + + + | Glucose, | 168 (A) | 70 - 100 mg/dL | EXTERNAL | | | Fasting | | | LAB | | + + + + + + | BUN | 58 (A) | 6 - 23 mg/dL | EXTERNAL | | | | | | LAB | | + + + + + + | Creatinine | 2.25 (A) | 0.7 - 1.18 | EXTERNAL | | | | | mg/dL | LAB | | + + + + + + | BUN/Creatin | 25.8 | 6.0 - 28.6 | EXTERNAL | | | ine Ratio | | | LAB | | + + + + + + | Calcium | 8.6 | 8.4 - 10.2 | EXTERNAL | | | | | mg/dL | LAB | | + + + + + + | Protein, | 6.0 | 6.0 - 8.0 g/dL | EXTERNAL | | | Total | | | LAB | | + + + + + + | Albumin | 3.5 | 3.5 - 5.0 | EXTERNAL | | | | | | LAB | | + + + + + + | Globulin | 2.5 | 1.8 - 3.5 | EXTERNAL | | | | | | LAB | | + + + + + + | A/G Ratio | 1.4 | 1.1 - 2.4 | EXTERNAL | | | | | | LAB | | + + + + + + | Bilirubin | 0.3 | 0.0 - 1.2 mg/dL | EXTERNAL | | | Total | | | LAB | | + + + + + + | ALP, | 74 | 31 - 120 | EXTERNAL | | | External | | | LAB | | + + + + + + | ALT | 10 | 7 - 52 U/L | EXTERNAL [...] + + + + | Cl | 108 | 5 - 112 mmol/L | EXTERNAL | | | | | | LAB | | + + + + + + | CO2 | 21 | 19 - 31 mmol/L | EXTERNAL | | | | | | LAB | | + + + + + + | Anion Gap | 17.7 | 7 - 21 mmol/L | EXTERNAL | | | | | | LAB | | + + + + + + | Estimated | 29 (A) | 60 mg/dL | EXTERNAL | [...]
--- OUTSIDE RECORDS SUMMARY | ~2020-04-07 | XMS | Encounter Summary ---
Demographics + + + | Address | [address] | | | [place] [address] | + + + | Home Phone | | + + + | Preferred Language | Unknown | + + + | Marital Status | | + + + | Mormon Affiliation | Unknown | + + + [...] [place] | | | | | [place] [address] | | + + + + + Care Team Providers + +------+ + | Care Pvc Loader Name | Role | Phone | + +------+ + | Andrew Parra MD | PCP | | + +------+ + Encounter Details +--------+ + + + + | Date | Type | Department | Care Team | Description | +--------+ + + + + | 10/21/ | Orders Only | [facility] | Arnold Sun MD | | | 2016 | | NEPRHOLOGY [place] | [address] | | | | | [address] | [address] [place], [place] | | | | | [address] [place], [place] | [address] | | | | | [address] | | | | | | [phone] | | | +--------+ + + + [...] [place] | | | | | | [address] | | | | | | (Fax) | | +--------+---------+ + + + documented as of this encounter Procedures + +--------+ + + + | Procedure Name | Priori | Date/Time | Associated Diagnosis | Comments | | | ty | | | | + +--------+ + + + | IRON AND IRON | Routin | 10/21/2015 | | Results for this | | BINDING CAPACITY | e | 12:00 AM | | procedure are in the | | | | PST | | results section. | + +--------+ + + + | URINALYSIS WITH | Routin | 10/21/2015 | | Results for this | | MICROSCOPIC IF | e | 12:00 AM | | procedure are in the | | INDICATED | | PST | | results section. | + +--------+ + + + | PARATHYROID HORMONE, | Routin | 10/21/2015 | | Results for this | | INTACT AND CALCIUM | e | 12:00 AM | | procedure are in the | | | | PST | | results section. | + +--------+ + + + | PROTEIN/CREATININE | Routin | 10/21/2015 | | Results for this | | RATIO, URINE | e | 12:00 AM | | procedure are in the | | | | PST | | results section. | + +--------+ + + + | URIC ACID | Routin | 10/21/2015 | | Results for this | | | e | 12:00 AM | | procedure are in the | | | | PST | | results section. | + +--------+ + + + | URIC ACID | Routin | 10/21/2015 | | Results for this | | | e | 12:00 AM | | procedure are in the | | | | PST | | results section. | + +--------+ + + + | MAGNESIUM | Routin | 10/21/2015 | | Results for this | | | e | 12:00 AM | | procedure are in the | | | | PST | | results section. | + +--------+ + + + | FERRITIN | Routin | 10/21/2015 | | Results for this | | | e | 12:00 AM | | procedure are in the | | | | PST | | results section. | + +--------+ + + + | RENAL FUNCTION PANEL | Routin | 10/21/2015 | | Results for this | | | e | 12:00 AM | | procedure are in the | | | | PST | | results section. | + +--------+ + + + documented in this encounter Results Iron and Iron Binding Capacity (10/21/2015 12:00 AM PST) + +-------+ + + + | Component | Value | Ref Range | Performed | Pathologist | | | | | At | Signature | + +-------+ + + + | Iron | 73.58 | 37 - 160 | EXTERNAL | | | | | | LAB | | + +-------+ + + + | Iron | 26.7 | 20 - 55 | EXTERNAL | | | Saturation | | | LAB | | + +-------+ + + + | TIBC | 276 | 245 - 400 | EXTERNAL | [...] + +---------+ + + Parathyroid Hormone, Intact and Calcium (10/21/2015 12:00 AM PST) + + + + + + | Component | Value | Ref Range | Performed | Pathologist | | | | | At | Signature | + + + + + + | PTH Intact | 251.2 (A) | 15 - 65 | EXTERNAL | | | | | | LAB | | + + + + + + | Calcium | 8.9 | 8.4 - 10.2 | EXTERNAL | [...] + +---------+ + + Protein/Creatinine Ratio, Urine (10/21/2015 12:00 AM PST) + +-------+ + + + | Component | Value | Ref Range | Performed | Pathologist | | | | | At | Signature | + +-------+ + + + | Protein/Cre | 103.9 | 0 - 150 | EXTERNAL | [...] + + Urinalysis with Microscopic if Indicated (10/21/2015 12:00 AM PST) + + + + + [...] + + + | Spec Grav, | 1.009 | 1.005 - 1.030 | [...] + + + + | Glucose, | 1+Comment: 50 | | EXTERNAL | | | Urine [...] | + +---------+ + + Uric Acid (10/21/2015 12:00 AM PST) + +-------+ + + + | Component | Value | Ref Range | Performed | Pathologist | | | | | At | Signature | + +-------+ + + + | Uric Acid | 7.0 | 4.4 - 7.6 | EXTERNAL | [...] | + +---------+ + + Uric Acid (10/21/2015 12:00 AM PST) + +-------+ + + + | Component | Value | Ref Range | Performed | Pathologist | | | | | At | Signature | + +-------+ + + + | Uric Acid | 7.0 | 4.4 - 7.6 | EXTERNAL | [...] | | + +---------+ + + Magnesium (10/21/2015 12:00 AM PST) + +-------+ + + + | Component | Value | Ref Range | Performed | Pathologist | | | | | At | Signature | + +-------+ + + + | Magnesium | 1.9 | 1.7 - 2.5 mg/dL | EXTERNAL [...] | | + +---------+ + + Ferritin (10/21/2015 12:00 AM PST) + +-------+ + + + | Component | Value | Ref Range | Performed | Pathologist | | | | | At | Signature | + +-------+ + + + | Ferritin, | 206.9 | 30 - 400 ng/mL | EXTERNAL [...] + +---------+ + + Renal Function Panel (10/21/2015 12:00 AM PST) + + + + + + | Component | Value | Ref Range | Performed | Pathologist | | | | | At | Signature | + + + + + + | Glucose, | 172 (A) | 70 - 100 mg/dL | EXTERNAL | | | Fasting | | | LAB | | + + + + + + | BUN | 45 (A) | 6 - 23 mg/dL | EXTERNAL | | | | | | LAB | | + + + + + + | Creatinine | 1.95 (A) | 0.70 - 1.18 | EXTERNAL | | | | | mg/dL | LAB | | + + + + + + | PHOSPHORUS | | mg/dL | EXTERNAL | | | | | | LAB | | + + + + + + | Albumin | 4.1 | 3.5 - 5.0 | EXTERNAL | | | | | | LAB | | + + + + + + | Na | 135 | 132 - 143 | EXTERNAL | | | | | mmol/L | LAB | | + + + + + + | K | 4.1 | 3.6 - 5.1 | EXTERNAL | | | | | mmol/L | LAB | | + + + + + + | Cl | 100 | 95 - 112 mmol/L | EXTERNAL | | | | | | LAB | | + + + + + + | CO2 | 24 | 19 - 31 mmol/L | EXTERNAL | | | | | | LAB | | + + + + + + | Anion Gap | 15.1 | 7 - 21 mmol/L | EXTERNAL | | | | | | LAB | | + + + + + + | eGFR if not | | | EXTERNAL | | | | | | LAB | | | ENGLISH | | | | | + + + + + + | Phosphorus, | 3.4 | 2.5 - 5.0 | EXTERNAL | | | Inorganic | | | LAB | | + + + + + + | BUN/Creatin | 23.1 | 6.0 - 28.6 | EXTERNAL | | | ine Ratio | | | LAB | | + + + + + + | Calcium | 8.9 | 8.4 - 10.2 | EXTERNAL | | | | | mg/dL | LAB | | + + + + + + | Estimated | 34 (A) | 60 - 140 mg/dL | [...]
--- OUTSIDE RECORDS SUMMARY | ~2020-04-07 | XMS | Encounter Summary ---
Demographics + + + | Address | [address] | | | [place] [address] | + + + | Home Phone | | + + + | Preferred Language | Unknown | + + + | Marital Status | Single | + + + | Roman Catholic Affiliation | Unknown | + + + | Race | Unknown | + + + | Ethnic Group | Other Race | + + + Author + + + | Author | [facility] | + + + | Organization | [facility] | + + + | Address | Unknown | + + + | Phone | Unavailable | + + + Care Team Providers + +------+ + | Care Threat Monitoring Analyst Name | Role | Phone | + +------+ + | Daniel Sofia MD | PCP | | + +------+ + Encounter Details +--------+ + + + + | Date | Type | Department | Care Team | Description | +--------+ + + + + | 04/25/ | Hospital | Dermatopathology | | | | 2016 | Encounter | [address] | | | | | | Mailcode: CH16D | | | | | | [facility] | | | | | | and Healing, | | | | | | Building [address], | | | | | | Floor [place], [place] | | | | | | [address] | | | | | | [phone] | | | +--------+ + + + [...] DERMATOPATH | | | MNT) | excision CLINICAL | | OLOGY | | | | DESCRIPTION:Compound | | [...] ellipse | | | | | | asyzf-cdi-vsukv-white | | | | | | skin, [id number]. The | | | | | | [...] | | | | | | orientedblood vessels. | | | | | | DIAGNOSIS:SCAR, | | | | | | WITH NO RESIDUUM | | | | | | IDENTIFIED. NOTE: | | | | | | No residual melanocytic | | | | | | nevus with unusual | | | | | | features is identified. | | | | | | My [...] Diagnostician: | | | | | | Licha Mcmillan | | | | | | [place] | | | | | | MDPathologistElectronica [...] + + + | [facility] | [address] [facility] | [place] [address] | | | DERMATOPATHOLOGY | [address] | | | + + + + + documented in this encounter Visit Diagnoses Not on filedocumented in this encounter
--- OUTSIDE RECORDS SUMMARY | ~2020-04-07 | XMS | Encounter Summary ---
Demographics + + + | Address | [address] | | | [place] [address] | + + + | Home Phone | | + + + | Preferred Language | Unknown | + + + | Marital Status | | + + + | Temple Affiliation | Unknown | + + + [...] [place] | | | | | [place] [address] | | + + + + + Care Team Providers + +------+ + | Care Steward/Stewardess Third Class Name | Role | Phone | + [...] pain | Bhupendra Altman MD | [address] | | | | | Procedures | [address] | [address] [facility] | | | | | MRI Knee | [address] [place] | [place], [place] | | | | | Left wo | [place] | [address] | | | | | Contrast | [address] | Phone: | | | | | | Phone: | | | | | | | [phone] | Fax: | | | | | | Fax: | | | | | | | [phone] | | +--------+--------+ + + + + Encounter Details +--------+ + + + + | Date | Type | Department | Care Team | Description | +--------+ + + + + | 11/10/ | Orders Only | [facility] | Bhupendra Jain | Left knee pain | | 2012 | | PHYSIATRY [address] | MD Agapito [address] | (Primary Dx); | | | | [address] | [address] [place] | Anxiety | | | | [place], [place] | [address] | | | | | [address] | | | | | | [phone] | | | +--------+ + + + [...] 2020 | Visit | | [address] [facility] | | | | | | [facility] | | | | | | [address] | | | | | | | | +--------+---------+ + + + documented as of this encounter Results MRI Knee Left wo Contrast (11/14/2012 11:41 AM PST) + + | Specimen | + + | | + + + + + | Narrative | Performed At | + + + | [facility] | [place] | | Department [address] [facility][1] | [facility] | | [ rep [address]] [ rep [facility] | | [facility]] Signed | - IMAGING | | | | | Patient Name: RENNY MARIANO W | | | Physician: MELISSA : 1945 Age: 67 Sex: M Unit | | | #: [id number] Exam Date: 11/14/12 Location: | | | [facility] [place] [place] Report #: [id number] Page: | | | %(RAD)RES..mtdd.print.filter("pg") of %(RAD) | | | RES..mtdd.print.filter("tpg") | | | | | | Accession Number: [id number] | | | UNENHANCED MRI LEFT KNEE, 11/14/2012 CLINICAL HISTORY: | | | KNEE PAIN. COMPARISON: None available. | | | TECHNIQUE: The following 3T MR sequences of the left knee were | | | obtained: 1. Coronal T1. 2. Axial and coronal proton | | | density with fat suppression and sagittal proton density without fat | | | suppression. 3. Sagittal T2 with fat suppression. | | | FINDINGS: Several of the sequences are somewhat degraded by motion | | | artifact. Marrow signal demonstrates no evidence of fracture. | | | The anterior and posterior cruciate ligaments and lateral | | | collateral ligamentous complex appear intact and unremarkable, along | | | with the patellar retinaculi and imaged quadriceps tendon. A | | | circumscribed fat signal ovoid structure measuring 1.4 cm in long axis | | | is positioned within the proximal, lateral aspect of the patellar | | | tendon and is consistent with an accessory ossicle. The patellar | | | tendon is otherwise unremarkable. A small volume of fluid is | | | suggested along the course of the medial collateral ligament, although | | | the ligament itself appears intact. There is localized | | | signal alteration involving the mid substance and free margin of the | | | body of the lateral meniscus, extending to the articular surfaces | | | and suspicious for meniscal tear. A complete tear of the posterior | | | horn of the medial meniscus near the meniscal root is suggested, and | | | there is some associated extrusion of the meniscal body. Near full | | | thickness denuding of articular cartilage is noted over the central | | | aspect of the medial femoral condyle, and there is moderate to severe | | | cartilage loss at the level of the medial tibial plateau. | | | Subchondral marrow edema is present on both sides of the medial | | | compartment. Mild to moderate, generalized cartilage loss is visible | | | in the lateral femoral tibial compartment. There is moderate | | | cartilage loss in the patellofemoral joint, with regions of at least | | | partial thickness fissuring. Localized subchondral marrow edema is | | | noted in the medial facet of the femoral trochlea. A moderate | | | joint effusion is present, with trace fluid extending into the | | | synovial recess arising between the medial head gastrocnemius and | | | semimembranosus tendons. There is generalized subcutaneous edema | | | surrounding the knee. IMPRESSION: 1. COMPLETE TEAR | | | OF THE POSTERIOR HORN OF THE MEDIAL MENISCUS NEAR THE MENISCAL ROOT | | | WITH EXTRUSION OF THE MEDIAL MENISCAL BODY. 2. TEAR | | | OF THE BODY OF THE LATERAL MENISCUS. 3. FLUID ALONG THE | | | COURSE OF THE MEDIAL COLLATERAL LIGAMENT, CONSISTENT WITH GRADE 1 | | | SPRAIN. 4. TRICOMPARTMENTAL CHONDROMALACIA, MOST SEVERELY | | | INVOLVING THE MEDIAL FEMOROTIBIAL COMPARTMENT, WITH SUBCHONDRAL | | | MARROW EDEMA AT THIS LEVEL AND ALSO WITHIN THE MEDIAL FACET OF THE | | | FEMORAL TROCHLEA. 5. MODERATE JOINT EFFUSION WITH EARLY | | | HARRIS'S CYST FORMATION AND GENERALIZED SUBCUTANEOUS EDEMA. | | | Dictated Date/Time: 11/14/2012 11:41 Transcribed Date/Time: | | | 11/14/2012 11:59 Area Field Manager: | | | <<Signature on File>> | | | Hai Douglas | | | MD Arsenio11/15/12 [id number] <Electronically signed by Hai Cesar MD> | | | Hai Cesar MD 11/14/12 1141 Area Field Manager: | | | EZBOBkenny Lwkdqaajlbfcn63/01/13 1159 Bhupendra Jain MD | | | | | + + + + + + + + | Performing | Address | City/State/Zipcode | Phone Number | | Organization | | | | + + + + + | [facility] | [address] | [place], [place] | [phone] | | [facility] | | [address] | | | - IMAGING | | | | + + + + + documented in this encounter Visit Diagnoses + + | Diagnosis | + + | Left knee pain - Primary Pain in joint, lower leg | + + | Anxiety Anxiety state, unspecified | + + documented in this encounter
--- OUTSIDE RECORDS SUMMARY | ~2020-04-07 | XMS | Encounter Summary ---
Demographics + + + | Address | [address] | | | [place] [address] | + + + | Home Phone | | + + + | Preferred Language | Unknown | + + + | Marital Status | Single | + + + | Rastafarian Affiliation | Unknown | + + + | Race | Unknown | + + + | Ethnic Group | Other Race | + + + Author + + + | Author | [facility] | + + + | Organization | [facility] | + + + | Address | Unknown | + + + | Phone | Unavailable | + + + Care Team Providers + +------+ + | Care Low Vision Therapist Name | Role | Phone | + [...] [facility] | | | | | | [facility] | | | | | | and Healing, | | | | | | Building [address], | | | | | | Floor [place], [place] | | | | | | [address] | | | | | | [phone] | | | +--------+ + + + [...] ellipse | | | | | | hupah-jrg-[id number]-white | | | | | | skin, [id number]. The | | | | | | [...] [facility] | [address] [facility] | [place] [address] | | | DERMATOPATHOLOGY | [address] | | | + + + + + documented in this encounter Visit Diagnoses Not on filedocumented in this encounter
--- OUTSIDE RECORDS SUMMARY | ~2020-04-07 | XMS | Encounter Summary ---
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 Name | Role | Phone | [...] | | | | Left knee | [place], | Imaging [address] | | | | | pain | Bhupendra Altman MD | [address] | | | | | Procedures | [address] | [address] [place] | | | | | MRI Knee | [address] [place] | [place], [place] | | | | | Left wo | [place] | [address] | | | | | Contrast | [address] | Phone: | | | | | | Phone: | | | | | | | [phone] | Fax: | | | | | | Fax: | | | | | | | [phone] | | +--------+--------+ + + + + Reason for Visit + + + | Reason | Comments | + + + | Leg Pain | Pain on the back side of the left knee | + + + Encounter Details +--------+---------+ + + + | Date | Type | Department | Care Team | Description | +--------+---------+ + + + | 10/23/ | Office | [facility] | Bhupendra Jain | Left knee pain | | 2012 | Visit | PHYSIATRY [address] | T[address] | (Primary Dx); Left | | | | [address] [place] | [address] [place] | knee pain - medial | | | | [place] | [address] | and posterior near | | | | [address] | | the insertion of the | | | | [phone] | | hamstring tendons; | | | | | | DDD (degenerative | | | | | | disc disease), | | | | | | lumbar; Diabetes | | | | | | mellitus (HCC); | | | | | | Obesity | +--------+---------+ + + + Social History [...] | Blood Pressure | 134/66 | 10/23/2012 8:58 AM | | | | | PST | | + + + + + | Pulse | 53 | 10/23/2012 8:58 AM | | | | | PST | | + + + + + [...] Weight | 159.2 kg (351 lb) | 10/23/2012 8:58 AM | | | | | PST | | + + + + + | Height | 193 cm (6' 4") | 10/23/2012 8:58 AM | | | | | PST | | + + + + + | Body Mass Index | 42.73 | 10/23/2012 8:58 AM | | | | | PST | | + + + + + documented in this encounter Progress Bhupendra Elise MD - 10/23/2012 9:06 AM PST Subjective: Patient ID: Renny Mariano is a 67 y.o. male. Chief Complaint Patient presents with Leg Pain Pain on the back side of the left knee HPI The patient is being seen today at the request of Dr. Hollis Huizar for complaints of pa in behind the left knee. The patient's symptoms began approximately two months ago with no i ncident. Patient did mention that the day this all started he had been moving a ladder. Ini eduardolly the pain was radiating down the entire leg, especially in the thigh and the pain was described as severe. It was so bad that he could hardly walk. He did go to the emergency r oom for evaluation. Now he has only one small focal area of pain on the medial and posterio r aspect of the knee, near the hamstring tendons or their insertion. He describes his sympt oms as aching. His symptoms have been constant. His symptoms worsen with walking. His sympto ms improve while sitting if he can find a neutral position for his knee. He denies numbness. He denies weakness. He denies having bowel and bladder dysfunction. He also denies having s addle anesthesia. Treatments for these complaints have included physical therapy.Prior injections have includ ed sacroiliac joint injections but this was on the right side for a different issue. Past Medical History Diagnosis Date Hypertension Stroke Kidney stones Diabetes mellitus Past Surgical History Procedure Date Toe amputation 2009 Dr. Villavicencio Family History Problem Relation Age of Onset Stroke Mother History Social History Marital Status: Spouse Name: N/A Number of Children: N/A Years of Education: N/A Social History Main Topics Smoking status: Never Smoker Smokeless tobacco: None Alcohol Use: None Drug Use: None Sexually Active: None Other Topics Concern None Social History Narrative None Current Outpatient Prescriptions Medication Sig Dispense Refill insulin glargine (LANTUS) 100 units/mL injection Inject 50 Units under the skin 2 times daily. insulin aspart (NOVOLOG) 100 units/mL injection Inject 10 Units under the skin as neede d. losartan-hydrochlorothiazide (HYZAAR) 100-25 MG per tablet Take 1 tablet by mouth Daily . amlodipine (NORVASC) 10 MG tablet Take 10 mg by mouth Daily. metoprolol tartrate (LOPRESSOR) 50 mg tablet Take 50 mg by mouth 2 times daily. furosemide (LASIX) 20 mg tablet Take 20 mg by mouth 2 times daily. venlafaxine (EFFEXOR) 75 MG tablet Take 75 mg by mouth 2 times daily. aspirin 81 mg chewable tablet Take 81 mg by mouth Daily. No Known Allergies Review of Systems Constitutional: Negative for fever, chills, activity change and unexpected weight change. HENT: Positive for hearing loss. Negative for trouble swallowing, neck pain and neck stiffn ess. Respiratory: Negative for cough, chest tightness, shortness of breath and wheezing. Cardiovascular: Negative for chest pain, palpitations and leg swelling. Gastrointestinal: Negative for nausea and vomiting. Genitourinary: Negative for difficulty urinating. Musculoskeletal: Positive for joint swelling (ankle swelling). Negative for back pain and a rthralgias. Neurological: Negative for dizziness, speech difficulty, weakness and numbness. Psychiatric/Behavioral: Negative for disturbed wake/sleep cycle and dysphoric mood. The pat ient is not nervous/anxious. All other systems reviewed and are negative. Objective: Physical Exam Nursing note and vitals reviewed. Constitutional: He is oriented to person, place, and time. He appears well-developed and we ll-nourished. HENT: Head: Normocephalic and atraumatic. Neck: No tracheal deviation present. Cardiovascular: Normal rate and regular rhythm. Pulmonary/Chest: Effort normal and breath sounds normal. No respiratory distress. Lymphadenopathy: He has no cervical adenopathy. Neurological: He is alert and oriented to person, place, and time. He has normal strength. No cranial nerve deficit or sensory deficit. He displays no Babinski's sign on the right morgan e. He displays no Babinski's sign on the left side. Reflex Scores: Patellar reflexes are 2+ on the right side and 2+ on the left side. Achilles reflexes are 0 on the right side and 0 on the left side. Skin: Skin is warm, dry and intact. No abrasion, no bruising, no ecchymosis, no laceration and no rash noted. Psychiatric: He has a normal mood and affect. His speech is normal and behavior is normal. Thought content normal. Cognition and memory are normal. Musculoskeletal: Straight leg raise and slump-sit are negative. Shon's maneuver and im pingement testing were negative for any groin pain. There was no tenderness to palpation o huan the greater trochanters or sacral sulci. The patient localized the majority of the pain to the medial knee, slightly posterior around the hamstring tendons and their insertion. Gi stephanie the patient's body habitus it is difficult to tell if there is an effusion. He does hav e severe bilateral lower extremity pitting edema. There is no redness or warmth in the knee . The knee had full extension and had flexion to 120 degrees. Alison's and posterior draw er tests were negative. There was no significant ligamentous laxity with varus and valgus t esting. There was no significant fullness or discomfort with palpation the the popliteal fo ssa. He did have pain with palpation in the medial knee and posteriorly in the region of th e hamstring tendons and their insertion. Resisted knee flexion did also give him pain in th at region. Strength testing throughout the lower extremities showed no focal weakness. Assessment: 1. Left knee pain - medial and posterior near the insertion of the hamstring tendons 2. Mild to moderate DDD lumbar - no obvious spinal source for his current symptoms is appr eciated. 3. Diabetes 4. Obesity Plan: 1. I personally feel that the patient's current symptoms are coming primarily from a local source in the knee. This appears to possibly be a hamstring tendonitis. I would like to o btain more advanced imaging of the left knee for further evaluation and an MRI was ordered. 2. It would seem strange to me that a lumbar radiculopathy or other spinal problem would r efer pain to such a precise location. The reproduction of his pain with local palpation and with resisted knee flexion also would suggest that this is not coming from his back. 3. I discussed trying anti-inflammatories. He is somewhat reluctant to take oral medicati ons but may try some Aleve. 4. He will follow-up with me for the results of the MRI and thereafter as needed. documented in this encounter Miscellaneous Notes Miscellaneous - MARLI BRIONES - 10/02/2012 12:00 AM PST documented in this encounter Plan of Treatment +--------+---------+ + + + | Date | Type | Specialty | Care Team | Description | +--------+---------+ + + + | 07/04/ | Office | Nephrology | Arnold Sun MD | | | 2020 | Visit | | [address] [facility] [place] | | | | | | [address] [place], [place] | | | | | | [address] | | | | | | | | +--------+---------+ + + + + +---------+--------+ + + | Name | Type | Priori | Associated Diagnoses | Order Schedule | | | | ty | | | + +---------+--------+ + + | MRI Knee Left wo | Imaging | Routin | Left knee pain | Expected: | | Contrast | | e | | 10/23/2012, Expires: | | | | | | 10/23/2013 | + +---------+--------+ + + documented as of this encounter Visit Diagnoses + + | Diagnosis | + + | Left knee pain - medial and posterior near the insertion of the hamstring tendons - | | Primary Pain in joint, lower leg | + + | DDD (degenerative disc disease), lumbar Degeneration of lumbar or lumbosacral | | intervertebral disc | + + | Diabetes mellitus (HCC) Type II or unspecified type diabetes mellitus without mention | | of complication, not stated as uncontrolled | + + | Obesity Obesity, unspecified | + + documented in this encounter
--- OUTSIDE RECORDS SUMMARY | ~2020-04-07 | XMS | Encounter Summary ---
Demographics + + + | Address | [address] | | | [place] [address] | + + + | Home Phone | | + + + | Preferred Language | Unknown | + + + | Marital Status | | + + + | Mormonism Affiliation | Unknown | + + + | Race | Unknown | + + + | Ethnic Group | Unknown | + + + Author + + + | Author | [facility] | | | and [place] | + + + | Organization | [facility] | | | [...] [place] | | | | | [place] [address] | | + + + + + Care Team Providers + +------+ + | Care Document Coordinator Name | Role | Phone | + +------+ + | Andrew Parra MD | PCP | | + +------+ + Encounter Details +--------+ + + + + | Date | Type | Department | Care Team | Description | +--------+ + + + + | 05/05/ | Orders Only | [facility] | Provider, | Chronic kidney | | 2018 | | [facility] | MD [address] | disease, stage III | | | | CONVERSION [address] | [address] | (moderate) (HCC); | | | | [address] [place], [place] | [place] [address] | Localized edema; | | | | [address] | | Essential (primary) | | | | [phone] | | hypertension; Type 1 | | | | | | diabetes mellitus | | | | | | without | | | | | | complications (HCC); | | | | | | Complete traumatic | | | | | | amputation of left | | | | | | great toe (HCC); | | | | | | Other benign | | | | | | neoplasm of skin of | | | | | | trunk; Other benign | | | | | | neoplasm of skin of | | | | | | unspecified upper | | | | | | limb, including | | | | | | shoulder; Chronic | | | | | | kidney disease, | | | | | | stage III (moderate) | | | | | | (HCC); Vitamin D | | | | | | deficiency; | | | | | | Essential (primary) | | | | | | hypertension; Mixed | | | | | | hyperlipidemia | +--------+ + + + + Social [...] 2019 | Visit | | [address] [facility] [place] | | | | | | [address] [place] | | | | | | [address] | | | | | | | | +--------+---------+ + + + + +------+--------+ + + | Name | Type | Priori | Associated Diagnoses | Order Schedule | | | | ty | | | + +------+--------+ + + | Magnesium | Lab | Routin | Chronic kidney | Expected: | | | | e | disease, stage III | 02/19/2019, Expires: | | | | | (moderate) (HCC) | 08/20/2020 | | | | | Localized edema | | | | | | Essential (primary) | | | | | | hypertension Type 1 | | | | | | diabetes mellitus | | | | | | without | | | | | | complications (HCC) | | | | | | Complete traumatic | | | | | | amputation of left | | | | | | great toe (HCC) | | | | | | Other benign | | | | | | neoplasm of skin of | | | | | | trunk Other benign | | | | | | neoplasm of skin of | | | | | | unspecified upper | | | | | | limb, including | | | | | | shoulder Chronic | | | | | | kidney disease, | | | | | | stage III (moderate) | | | | | | (HCC) Vitamin D | | | | | | deficiency | | | | | | Essential (primary) | | | | | | hypertension Mixed | | | | | | hyperlipidemia | | + +------+--------+ + + documented as of this encounter Results Protein/Creatinine Ratio, Urine (06/19/2019) + + + + + + | Component | Value | Ref Range | Performed | Pathologist | | | | | At | Signature | + + + + + + | Protein, | Comment: 10 | Negative | REFERENCE | | | Urine | | | LAB | | | | | | [facility] | | + + + + + + | Creatinine, | 76.25 | | REFERENCE | | | Urine | | | LAB | | | | | | [facility] | | + + + + + + | Protein/Cre | 131.1 | 0 - 150 | REFERENCE | | | at Ratio | | | LAB | | | | | | [facility] | | + + + + + + + + | Specimen | + + | Urine | + + + + + + + | Performing | Address | City/State/Zipcode | Phone Number | | Organization | | | | + + + + + | REFERENCE LAB | [address] | [place] | [phone] | | [facility] | | [address] | | + + + + + | REFERENCE LAB | [address] | [place] | [phone] | | [facility] | | [address] | | + + + + + Urinalysis with Microscopic if Indicated (06/19/2019) + + + + + + | Component | Value | Ref Range | Performed | Pathologist | | | | | At | Signature | + + + + + + | Color | yellow | | REFERENCE | | | | | | LAB | | | | | | [facility] | | + + + + + + | Clarity, UA | clear | | REFERENCE | | | | | | LAB | | | | | | [facility] | | + + + + + + | pH, Urine | 5.0 | 5.0 - 9.0 | REFERENCE | | | | | | LAB | | | | | | [facility] | | + + + + + + | Protein, | Negative | Negative | REFERENCE | | | Urine | | | LAB | | | | | | [facility] | | + + + + + + | Glucose, UA | normal | | REFERENCE | | | | | | LAB | | | | | | [facility] | | + + + + + + | Ketones, UA | neg | | REFERENCE | | | | | | LAB | | | | | | [facility] | | + + + + + + | Bilirubin, | neg | | REFERENCE | | | UA | | | LAB | | | | | | [facility] | | + + + + + + | CASTS | Comment: hyaline1+ | | REFERENCE | | | | | | LAB | | | | | | [facility] | | + + + + + + | WBC, UA | 2 | 0 - 4 | REFERENCE | | | | | | LAB | | | | | | [facility] | | + + + + + + | RBC UA | 0 | 0 - 4 /HPF | REFERENCE | | | | | | LAB | | | | | | [facility] | | + + + + + + | Specific | 1.009 | 1.005 - 1.030 | REFERENCE | | | [place], | | | LAB | | | Urine | | | [facility] | | + + + + + + | Blood, | Negative | Negative | REFERENCE | | | Urine | | | LAB | | | | | | [facility] | | + + + + + + | Nitrite, | Negative | Negative | REFERENCE | | | Urine | | | LAB | | | | | | [facility] | | + + + + + + | Urobilinoge | normal | | REFERENCE | | | n, Ur | | | LAB | | | | | | [facility] | | + + + + + + | Leukocyte | neg | | REFERENCE | | | esterase, | | | LAB | | | UA | | | [facility] | | + + + + + + | EPITHELIAL | Comment: saryanamous 1+ | /LPF | REFERENCE | | | [facility]STS UA | | | LAB | | | | | | [facility] | | + + + + + + | CRYSTAL UA | ne | | REFERENCE | | | | | | LAB | | | | | | [facility] | | + + + + + + | Bacteria, | neg | | REFERENCE | | | UA | | | LAB | | | | | | [facility] | | + + + + + + + + | Specimen | + + | Urine | + + + + + + + | Performing | Address | City/State/Zipcode | Phone Number | | Organization | | | | + + + + + | REFERENCE LAB | [address] [facility] | [place], [place] | [phone] | | [facility] | | [address] | | + + + + + | REFERENCE LAB | [address] [facility] | [place], [place] | [phone] | | [facility] | | [address] | | + + + + + Uric Acid (06/19/2019) + +---------+ + + + | Component | Value | Ref Range | Performed | Pathologist | | | | | At | Signature | + +---------+ + + + | Uric Acid | 8.0 (A) | 4.4 - 7.6 | REFERENCE | | | | | | LAB | | | | | | [facility] | | + +---------+ + + + + + | Specimen | + + | Blood | + + + + + + + | Performing | Address | City/State/Zipcode | Phone Number | | Organization | | | | + + + + + | REFERENCE LAB | [address] [facility] | [place] | [phone] | | [facility] | | [address] | | + + + + + | REFERENCE LAB | [address] [facility] | [place], [place] | [phone] | | [facility] | | [address] | | + + + + + Parathyroid Hormone, Intact (06/19/2019) + + + + + + | Component | Value | Ref Range | Performed | Pathologist | | | | | At | Signature | + + + + + + | PTH INTACT | 227.0 (A) | 15 - 65 pg/mL | REFERENCE | | | | | | LAB | | | | | | [facility] | | + + + + + + + + | Specimen | + + | Blood | + + + + + + + | Performing | Address | City/State/Zipcode | Phone Number | | Organization | | | | + + + + + | REFERENCE LAB | [address] | [place] | [phone] | | [facility] | | [address] | | + + + + + | REFERENCE LAB | [address] [facility] | [place], [place] | [phone] | | [facility] | | [address] | | + + + + + CBC with Differential (06/19/2019) + + + + + + | Component | Value | Ref Range | Performed | Pathologist | | | | | At | Signature | + + + + + + | WBC | 5.3 | 4.5 - 11.0 | REFERENCE | | | | | | LAB | | | | | | [facility] | | + + + + + + | RBC Count | 2.02 (A) | 4.3 - 5.7 | REFERENCE | | | | | | LAB | | | | | | [facility] | | + + + + + + | Hemoglobin | 6.8 (A) | 13.5 - 18.0 | REFERENCE | | | A | | | LAB | | | | | | [facility] | | + + + + + + | Hematocrit, | 20.6 (A) | 41 - 50 | REFERENCE | | | BF | | | LAB | | | | | | [facility] | | + + + + + + | Platelet | 131 (A) | 140 - 440 | REFERENCE | | | Estimate | | | LAB | | | | | | [facility] | | + + + + + + | MCV | 101.8 (A) | 81 - 99 | REFERENCE | | | | | | LAB | | | | | | [facility] | | + + + + + + | RDW | 24.2 (A) | 10.5 - 15.0 | REFERENCE | | | | | | LAB | | | | | | [facility] | | + + + + + + | MCH | 34 (A) | 27 - 33 | REFERENCE | | | | | | LAB | | | | | | [facility] | | + + + + + + | MCHC | 33 | 30 - 36 | REFERENCE | | | | | | LAB | | | | | | [facility] | | + + + + + + | BF % | 59 | 39 - 80 % | REFERENCE | | | Neutrophils | | | LAB | | | | | | [facility] | | + + + + + + | % | 21.4 (A) | 24 - 44 | REFERENCE | | | Lymphocytes | | | LAB | | | | | | [facility] | | + + + + + + | Monocyte % | 12.7 (A) | 0 - 12 | REFERENCE | | | | | | LAB | | | | | | [facility] | | + + + + + + | Eosinophils | 6.1 (A) | 0 - 6 | REFERENCE | | | % | | | LAB | | | | | | [facility] | | + + + + + + | Basophils % | 0.8 | 0 - 2 | REFERENCE | | | | | | LAB | | | | | | [facility] | | + + + + + + + + | Specimen | + + | Blood | + + + + + + + | Performing | Address | City/State/Zipcode | Phone Number | | Organization | | | | + + + + + | REFERENCE LAB | [address] [facility] | [place], [place] | [phone] | | [facility] | | [address] | | + + + + + | REFERENCE LAB | [address] [facility] | [place], [place] | [phone] | | [facility] | | [address] | | + + + + + Renal Function Panel (06/19/2019) + + + + + + | Component | Value | Ref Range | Performed | Pathologist | | | | | At | Signature | + + + + + + | Na | 136 | 132 - 143 | REFERENCE | | | | | mmol/L | LAB | | | | | | [facility] | | + + + + + + | K | 4.7 | 3.6 - 5.1 | REFERENCE | | | | | mmol/L | LAB | | | | | | [facility] | | + + + + + + | Cl | 107 | 95 - 112 mmol/L | REFERENCE | | | | | | LAB | | | | | | [facility] | | + + + + + + | Carbon | 19 | 19 - 31 | REFERENCE | | | Dioxide, WB | | | LAB | | | | | | [facility] | | + + + + + + | Anion Gap | 15 | 7 - 21 mmol/L | REFERENCE | | | | | | LAB | | | | | | [facility] | | + + + + + + | Glucose | 238 (A) | 70 - 100 mg/dL | REFERENCE | | | | | | LAB | | | | | | [facility] | | + + + + + + | BUN | 74 (A) | 6 - 23 mg/dL | REFERENCE | | | | | | LAB | | | | | | [facility] | | + + + + + + | Creatinine | 2.30 (A) | 0.70 - 1.18 | REFERENCE | | | | | | LAB | | | | | | [facility] | | + + + + + + | GFR | 28 | | REFERENCE | | | ESTIMATE | | | LAB | | | (REF) | | | [facility] | | + + + + + + | BUN/Creatin | 32.2 (A) | 6.0 - 28.8 | REFERENCE | | | ine Ratio | | | LAB | | | | | | [facility] | | + + + + + + | Albumin | 3.3 (A) | 3.5 - 5.0 g/dL | REFERENCE | | | | | | LAB | | | | | | [facility] | | + + + + + + | Calcium | 8.2 (A) | 8.5 - 10.3 | REFERENCE | | | | | | LAB | | | | | | [facility] | | + + + + + + | Phosphorus, | 4.0 | 2.5 - 5.0 | REFERENCE | | | Inorganic | | | LAB | | | | | | [facility] | | + + + + + + + + | Specimen | + + | Blood | + + + + + + + | Performing | Address | City/State/Zipcode | Phone Number | | Organization | | | | + + + + + | REFERENCE LAB | [address] [facility] | [place] | [phone] | | [facility] | | [address] | | + + + + + | REFERENCE LAB | [address] [facility] | [place] | [phone] | | [facility] | | [address] | | + + + + + documented in this encounter Visit Diagnoses + + | Diagnosis | + + | Chronic kidney disease, stage III (moderate) (HCC) Chronic kidney disease, Stage III | | (moderate) | + + | Localized edema Edema | + + | Essential (primary) hypertension Unspecified essential hypertension | + + | Type 1 diabetes mellitus without complications (HCC) Type I (juvenile type) diabetes | | mellitus without mention of complication, not stated as uncontrolled | + + | 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
--- OUTSIDE RECORDS SUMMARY | ~2020-04-07 | XMS | Encounter Summary ---
Demographics + + + | Address | [address] | | | [place] [address] | + + + | Home Phone | | + + + | Preferred Language | Unknown | + + + | Marital Status | | + + + | Orthodoxy Affiliation | Unknown | + + + | Race | Unknown | + + + | Ethnic Group | Unknown | + + + Author + + + | Author | [facility] | | | and [place] | + + + | Organization | [facility] | | | [...] [place] | | | | | [place] [address] | | + + + + + Care Team Providers + +------+ + | Care Biomass Boiler Operator Name | Role | Phone | + +------+ + | Andrew Parra MD | PCP | | + +------+ + Encounter Details +--------+ + + + + | Date | Type | Department | Care Team | Description | +--------+ + + + + | 06/22/ | Orders Only | [facility] | Ирина Hinson | Chronic kidney | | 2019 | | NEPRHOLOGY [place] | V, Medical | disease, stage III | | | | [address] | [employer] | (moderate) (HCC); | | | | [address] [place], [place] | | Essential (primary) | | | | [address] | | hypertension | | | | [phone] | | | +--------+ + + + [...] 2020 | Visit | | [address] [facility] [place] | | | | | | [address] [place], [place] | | | | | | [address] | | | | | | | | +--------+---------+ + + + documented as of this encounter Procedures + +--------+ + + + | Procedure Name | Priori | Date/Time | Associated Diagnosis | Comments | | | ty | | | | + +--------+ + + + | URINALYSIS WITH | Routin | 06/19/2019 | Chronic kidney | Results for this | | MICROSCOPIC IF | e | | disease, stage III | procedure are in the | | INDICATED | | | (moderate) (HCC) | results section. | | | | | Essential (primary) | | | | | | hypertension | | + +--------+ + + + | PROTEIN/CREATININE | Routin | 06/19/2019 | Chronic kidney | Results for this | | RATIO, URINE | e | | disease, stage III | procedure are in the | | | | | (moderate) ([facility]) | results section. | | | | | Essential (primary) | | | | | | hypertension | | + +--------+ + + + | CBC WITH | Routin | 06/19/2019 | Chronic kidney | Results for this | | DIFFERENTIAL | e | | disease, stage III | procedure are in the | | | | | (moderate) ([facility]) | results section. | | | | | Essential (primary) | | | | | | hypertension | | + +--------+ + + + | URIC ACID | Routin | 06/19/2019 | Chronic kidney | Results for this | | | e | | disease, stage III | procedure are in the | | | | | (moderate) ([facility]) | results section. | | | | | Essential (primary) | | | | | | hypertension | | + +--------+ + + + | PARATHYROID HORMONE, | Routin | 06/19/2019 | Chronic kidney | Results for this | | INTACT | e | | disease, stage III | procedure are in the | | | | | (moderate) ([facility]) | results section. | | | | | Essential (primary) | | | | | | hypertension | | + +--------+ + + + | RENAL FUNCTION PANEL | Routin | 06/19/2019 | Chronic kidney | Results for this | | | e | | disease, stage III | procedure are in the | | | | | (moderate) ([facility]) | results section. | | | | | Essential (primary) | | | | | | hypertension | | + +--------+ + + + documented in this encounter Results Protein/Creatinine Ratio, Urine (06/19/2019) [...] + + | REFERENCE LAB | [address] | [place], [place] | [phone] | | [facility] | | [address] | | + + + + + | REFERENCE LAB | [address] | [place] | [phone] | | [facility] | | [address] | | + + + + + [...] - 1.030 | REFERENCE | | | [place], | | | LAB | | | [...] + + + | EPITHELIAL | Comment: saquamous 1+ | /LPF | REFERENCE | | [...] + + | REFERENCE LAB | [address] [facility] | [place] | [phone] | | [facility] | | [address] | | + + + + + | REFERENCE LAB | [address] [facility] | [place] | [phone] | | [facility] | | [address] | | + + + + + [...] + + | REFERENCE LAB | [address] | [place] | [phone] | | [facility] | | [address] | | + + + + + | REFERENCE LAB | [address] | [place] | [phone] | | [facility] | | [address] | | + + + + + [...] + + | REFERENCE LAB | [address] [facility] | [place] | [phone] | | [facility] | | [address] | | + + + + + | REFERENCE LAB | [facility] | [place], [place] | [phone] | | [facility] | | [address] | | + + + + + [...] + + | REFERENCE LAB | [address] [facility] | [place], [place] | [phone] | | [facility] | | [address] | | + + + + + | REFERENCE LAB | [address] [facility] | [place], [place] | [phone] | | [facility] | | [address] | | + + + + + [...] + + | REFERENCE LAB | [address] | [place] | [phone] | | [facility] | | [address] | | + + + + + | REFERENCE LAB | [address] | [place] | [phone] | | [facility] | | [address] | | + + + + + documented in this encounter Visit Diagnoses + + | Diagnosis | + + | Chronic kidney disease, stage III (moderate) (HCC) Chronic kidney disease, Stage III | | (moderate) | + + | Essential (primary) hypertension Unspecified essential hypertension | + + documented in this encounter"
--- OUTSIDE RECORDS SUMMARY | ~2020-04-07 | XMS | Encounter Summary ---
Demographics + + + | Address | [address] | | | [place] [address] | + + + | Home Phone | | + + + | Preferred Language | Unknown | + + + | Marital Status | | + + + | Anabaptism Affiliation | Unknown | + + + | Race | Unknown | + + + | Ethnic Group | Unknown | + + + Author + + + | Author | [facility] | | | and [place] | + + + | Organization | [facility] | | [...] [place] | | | | | [place] [address] | | + + + + + Care Team Providers + +------+ + | Care Social Work Manager Name | Role | Phone | + +------+ + | Andrew Parra MD | PCP | | + +------+ + Encounter Details +--------+ + + + + | Date | Type | Department | Care Team | Description | +--------+ + + + + | 12/12/ | Orders Only | [facility] | Conversion | | | 2018 | | NEPHROLOGY [place] | Transaction, | | | | | [address] [place] | Provider Unknown | | | | | [address] [place], [place] | | | | | | [address] | (Fax) | | | | | [phone] | | | +--------+ + + + [...] 2020 | Visit | | [address] [facility] | | | | | | [address] [place] | | | | | | [address] | | | | | | | | +--------+---------+ + + + documented as of this encounter Procedures + +--------+ + + + | Procedure Name | Priori | Date/Time | Associated Diagnosis | Comments | | | ty | | | | + +--------+ + + + | TRANSFERRIN | Routin | 12/12/2017 | | Results for this | | | e | 1:41 PM | | procedure are in the | | | | PST | | results section. | + +--------+ + + + documented in this encounter Results Transferrin (12/12/2017 1:41 PM PST) + + + + + + | Component | Value | Ref Range | Performed | Pathologist | | | | | At | Signature | + + + + + + | TRANSFERRIN | 171.95 (A) | 180 - 329 | EXTERNAL [...]
--- OUTSIDE RECORDS SUMMARY | ~2020-04-07 | XMS | Encounter Summary ---
Demographics + + + | Address | [address] | | | [place] [address] | + + + | Home Phone | | + + + | Preferred Language | Unknown | + + + | Marital Status | | + + + | Mandaeism Affiliation | Unknown | + + + | Race | Unknown | + + + | Ethnic Group | Unknown | + + + Author + + + | Author | [facility] | | | and [place] | + + + | Organization | [facility] | | [...] [place], | | | | | [place] [address] | | + + + + + Care Team Providers + +------+ + | Care Outbound Sales Specialist Name | Role | Phone | + +------+ + | No, Physician | PCP | Unavailable | + +------+ + Encounter Details +--------+---------+ + + + | Date | Type | Department | Care Team | Description | +--------+---------+ + + + | 12/27/ | Office | [facility] | Arnold Sun MD | Chronic kidney | | 2020 | Visit | NEPHROLOGY [place] | [address] [place] | disease, stage III | | | | [address] | [address] [place], [place] | (moderate) (HCC) | | | | [address] [place] [address] | [address] | (Primary Dx); | | | | [place], [place] | | Bilateral edema of | | | | [address] | | lower extremity; | | | | [phone] | | Hyperuricemia; | | | | | | Vitamin D | | | | | | deficiency; | | | | | | Essential | | | | | | hypertension, | | | | | | benign; Type 2 | | | | | | diabetes mellitus | | | | | | with diabetic | | | | | | nephropathy, with | | | | | | long-term current | | | | | | use of insulin | | | | | | (HCC); Morbid | | | | | | obesity due to | | | | | | excess calories | | | | | | (HCC); Secondary | | | | | | hyperparathyroidism | | | | | | (HCC) | +--------+---------+ + + + Social History [...] + + + documented in this encounter Patient Instructions Patient Instructions Arnold Sun MD - 12/28/2019 2:00 PM PDTDiscussions/Recommendations : I discussed today with Mr. Mariano the meaning of his CKD and the interaction of that with his diabetes & hypertension. I stressed the importance of keeping his BG & BP controlled and avoiding getting dehydra delfin if we are to have a chance at helping preserve his renal function. He showed good under standing. I gave him instructions on how to chart his blood pressure in the appropriate manner at home. He is to call us if they fall outside of the optimal provided range. He will bring his sphygmomanometer for validation once a year. He will strictly abide by a low salt & low purine diet. He will avoid all kinds of NSAIDs for analgesia. Also: I will not change any of his vasoactive meds today. I asked him to elevate his legs for 1 hour twice a day. He knows that he still needs to be active and ambulatory carefully as possible. He will bring me back his home BP charts if they fall outside of the optimal provided ra nge. At that time, I will decide whether any changes to his vasoactive regimen are warranted . I increased his Calcitriol to 0.5 mcg every day. I advised him to exercise regularly but safely & to try to lose weight methodically; He voiced good understanding. Discussed to avoid alcohol and caffeine. Patient has expressed understanding of today's instructions, all questions have been ans wered to their satisfaction and written instructions have been provided. I asked him to call the Hematology team team to get guidance on whether he needs to have a blood transfusion ROMEL or not. I provided him with a copy of his lab results from 020 (labs done 6 days after he received 2 units of blood, he tells me). He will F/U with your office regularly. He will have RFP, CBC, uric acid, iPTH, Urine total [id number]-umchiwtrtl ratio done bef ore he comes back in 6 months. documented in this encounter Progress Notes Arnold Sun MD - 12/28/2019 2:00 PM PDT Patient Active Problem List Diagnosis Date Noted POA Macrocytic anemia 08/31/2016 Unknown Morbid obesity due to excess calories 04/30/2016 Unknown Bradycardia 01/16/2016 Unknown Hyperuricemia 07/18/2015 Unknown Amputated great toe of left foot 05/19/2015 Unknown Benign neoplasm of skin of other and unspecified parts of face 05/19/2015 Unknown Benign neoplasm of skin of trunk, except scrotum 05/19/2015 Unknown Benign neoplasm of skin of upper limb, including shoulder 05/19/2015 Unknown Bilateral edema of lower extremity 05/19/2015 Unknown Chronic kidney disease, stage III (moderate) 05/19/2015 Unknown Essential hypertension, benign 05/19/2015 Unknown Mixed hyperlipidemia 05/19/2015 Unknown Vitamin D deficiency 05/19/2015 Unknown Type 2 diabetes mellitus with diabetic nephropathy 05/19/2015 Unknown Left knee pain - medial and posterior near the insertion of the hamstring tendons 10/23 Unknown DDD (degenerative disc disease), lumbar 10/23/2012 Unknown Diabetes mellitus 10/23/2012 Unknown Obesity 10/23/2012 Unknown Dear Colleague : I saw your patient Mr. Mariano in the office today. He is here to F/U on his CKD & its associated complications. On 04/21/15, his SCr & eGFR were 2.6 & 25; on 05/11/15, 1.9 & 34. Of note, in 12/2014, they were 1.65 & 41. He reports he sees Hem/Onc now, from [facility] with Myelodysplastic syndrome. No radha rds for review of these visits. The patient has history of hypertension since the late 1969's, Diabetes Mellitus since the early . his BG and BP control has been reportedly inadequate; he denies any history of prolonged exposure to NSAIDs or recent exposure to known nephrotoxins; he denies any recurr ent or recent nephrolithiasis or pyelonephritis. He had a stone removed decades ago; no recu rrence; he tells me that he's had no history of urinary retention, gross hematuria or dysur ia. he has incontinence symptoms. No symptoms of UTI. For male patients: no history of freq uency, nocturia, weak urinary stream, hesitancy, intermittence, incomplete emptying or urgen cy; he has 2-4 nightly nocturia. No history of passing kidney stones. he has no foamy urin e either. his baseline Creatinine is 1.8-2.0. There is no family history of renal genetic di seases such as PKD. He says that he feels 'good ' today, reports arthritis pains in his knees that is chronic. he denies any blurred vision tinnitus, headache, fever, chills, or cough. No nausea, vomi ting, abdominal pain, diarrhea, melena, or hematochezia. No chest pain, palpitation, dizzin ess, loss of consciousness, orthopnea, paroxysmal nocturnal dyspnea; he has chronic leg laura a that has not changed much in years, he says. Not elevating much, does not follow low sodiu m diet. He reports he has a wound on his left foot, wearing a ortho sandal now. He reports his BP has been low, no log today. Reports he had a recent adjustment to his BP meds, he does not recall what medication this was. I have no records for review. Reports he had a colonoscopy in 2016 and was normal - per patient. The following portions of the patient's history were reviewed and updated as appropriate: a llergies, current medications, past medical history, past social history, past surgical hist ory, family history and problem list. ROS: As in History of Present Illness & in Assessment. All the pertinent systems were revi ewed and were otherwise negative. Current Outpatient Medications: allopurinol (ZYLOPRIM) 100 mg tablet, Take 2 tablets by mouth daily., Disp: , Rfl: amlodipine (NORVASC) 10 MG tablet, Take 10 mg by mouth Daily., Disp: , Rfl: aspirin 81 MG EC tablet, Take 81 mg by mouth daily with breakfast., Disp: , Rfl: calcitriol (ROCALTROL) 0.25 mcg capsule, Take 1 capsule by mouth Daily., Disp: 90 caps ule, Rfl: 3 cholecalciferol (CHOLECALCIFEROL) 1000 units TABS, Take 2,000 Units by mouth daily., D isp: , Rfl: dicyclomine (BENTYL) 10 mg capsule, Take 10 mg by mouth 4 (four) times daily before me als and nightly., Disp: , Rfl: diphenhydrAMINE-APAP, sleep, (TYLENOL PM EXTRA STRENGTH PO), Take by mouth as needed. , Disp: , Rfl: FLUoxetine (PROZAC) 20 mg capsule, Take 20 mg by mouth daily. Take two capsules at bed time., Disp: , Rfl: furosemide (LASIX) 20 mg tablet, Take 20 mg by mouth 2 times daily., Disp: , Rfl: insulin aspart (NOVOLOG) 100 units/mL injection, Inject 10 Units under the skin as nee ded., Disp: , Rfl: insulin glargine (TOUJEO SOLOSTAR) 300 units/mL concentrated injection (pen), Inject 5 0 Units into the skin daily., Disp: , Rfl: losartan-hydrochlorothiazide (HYZAAR) 100-25 MG per tablet, Take 1 tablet by mouth Brisa ly., Disp: , Rfl: metoprolol succinate (TOPROL-XL) 50 mg 24 hr tablet, Take 50 mg by mouth 2 (two) times daily. Patient takes 1.5 (75mg) tabs one daily., Disp: , Rfl: pravastatin (PRAVACHOL) 40 MG tablet, Take 40 mg by mouth nightly., Disp: , Rfl: Physical Exam: BP 142/48 | Pulse 64 | Ht 1.88 m (6' 2") | Wt (!) 152.3 kg (335 lb 11.2 oz) | SpO2 99% | BMI 43.10 kg/m General appearance: Pleasant, obese, not in acute distress. Uses 4ww. Neck: Supple without tracheal deviation or jugular venous distension. Head and ENT: Head is atraumatic. The oropharynx is without erythema or thrush. Eyes: Anicteric. The extraocular muscle movements are normal. Lungs: Clear to auscultation bilaterally. There are no wheezes. Heart: Regular rate and rhythm without any rub, gallop. No murmur heard. Abdominal exam: severely obese. Soft and nontender with normal bowel sounds. Musculoskeletal: No costovertebral angle tenderness bilaterally. Ortho sandal left foot. Extremities: Warm to touch with 2+ leg pitting edema to knees. There is no cyanosis. Skin: There are no rashes, petechiae, or ecchymosis. Neurological: Awake, alert, and oriented to time, place, and person. Normal gross motor po wer. There is no asterixis. Psychiatric: The patient s behavior is normal. Judgment and thought content are normal. Lab Results Component Value Date HGB 7.1 (A) 12/24/2019 HGB 9.0 (A) 04/06/2019 NA 139 12/24/2019 K 4.9 12/24/2019 CL 108 12/24/2019 CO2 19 12/24/2019 CO2 19 06/19/2019 BUN 74 (A) 12/24/2019 CREA 2.21 (A) 12/24/2019 CREA 2.30 (A) 06/19/2019 CALCIUM 8.4 (A) 12/24/2019 ALBUMIN 3.7 12/24/2019 EGFR 29.0 (A) 12/24/2019 PTH 227.0 (A) 06/19/2019 LABPROT 131.1 06/19/2019 [id number] 33 08/07/2017 Protein: 30 Range: 0-50 Albumin: 91.7 Alpha 1: 0 Alpha 2: 1.0 Beta Glob: 2.1 Gamma Glob: 5.2 Concentrated: 60 Volume: 2500 Interp: Protein electrophoresis on concentrated urine reveals an abnormal protein band of r estricted mobility in the gamma region. 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 Specimen Collected: 12/06/17 16:39 Last Resulted: 01/05/18 17:19 * U/S from 05/11/15: no evidence of any significant renal anatomic abnormalities. Assessment: Mr. Mariano is a 74 y.o. male patient with stage IIIb CKD on a background of longstanding diabetes & hypertension. The most likely pathology here is that of diabetic nephropathy +/- hypertensive nephrosclerosis/arteriolosclerosis. RENAL FUNCTION: Relatively stable for him BLOOD PRESSURE: Unknown control at home, his DBP's are low in the office BLOOD SUGAR: reports controlled ELECTROLYTES: Acceptable ANEMIA: Significant. Macrocytic. His anemia is out of proportion to his CKD. He sees hem atology/oncology now. VITAMIN D: Improved with replacement PARATHYROID HORMONE: Up URIC ACID: On allopurinol PROTEINURIA: Mild URINALYSIS: No UTI or hematuria VOLUME STATUS: Euvolumic. Discussions/Recommendations: I discussed today with Mr. Mariano the meaning of his CKD and the interaction of that with his diabetes & hypertension. I stressed the importance of keeping his BG & BP controlled and avoiding getting dehydra delfin if we are to have a chance at helping preserve his renal function. He showed good under standing. I gave him instructions on how to chart his blood pressure in the appropriate manner at home. He is to call us if they fall outside of the optimal provided range. He will bring his sphygmomanometer for validation once a year. He will strictly abide by a low salt & low purine diet. He will avoid all kinds of NSAIDs for analgesia. Also: I will not change any of his vasoactive meds today. I asked him to elevate his legs for 1 hour twice a day. He knows that he still needs to be active and ambulatory carefully as possible. He will bring me back his home BP charts if they fall outside of the optimal provided ra nge. At that time, I will decide whether any changes to his vasoactive regimen are warranted . I increased his Calcitriol to 0.5 mcg every day. I advised him to exercise regularly but safely & to try to lose weight methodically; He voiced good understanding. Discussed to avoid alcohol and caffeine. Patient has expressed understanding of today's instructions, all questions have been ans wered to their satisfaction and written instructions have been provided. I asked him to call the Hematology team team to get guidance on whether he needs to have a blood transfusion ROMEL or not. I provided him with a copy of his lab results from 020 (labs done 6 days after he received 2 units of PRBC's, he tells me). He will F/U with your office regularly. He will have RFP, CBC, uric acid, iPTH, Urine total [id number]-lr-[id number] ratio done bef ore he comes back in 6 months. Thank you Colleague for the opportunity to follow up with this patient and be part of the c are team. Please do not hesitate to call me at any time with questions or concerns. Truly yours, Arnold Sun MD documented in this enco unter Plan of Treatment +--------+---------+ + + + | Date | Type | Specialty | Care Team | Description | +--------+---------+ + + + | 07/04/ | Office | Nephrology | Arnold Sun MD | | | 2019 | Visit | | [address] [facility] | | | | | | [address] [place] | | | | | | [address] | | | | | | | | +--------+---------+ + + + documented as of this encounter Visit Diagnoses + + | Diagnosis | + + | Chronic kidney disease, stage III (moderate) (HCC) - Primary Chronic kidney disease, | | Stage III (moderate) | + + | Bilateral edema of lower extremity Edema | + + | Hyperuricemia Other abnormal blood chemistry | + + | Vitamin D deficiency Unspecified vitamin D deficiency | + + | Essential hypertension, benign | + + | Type 2 diabetes mellitus with diabetic nephropathy, with long-term current use of | | insulin (HCC) | + + | Morbid obesity due to excess calories (HCC) | + + | Secondary hyperparathyroidism (HCC) Secondary hyperparathyroidism (of renal origin) | + + documented in this encounter
--- OUTSIDE RECORDS SUMMARY | ~2020-04-07 | XMS | Encounter Summary ---
Demographics + + + | Address | [address] | | | [place] [address] | + + + | Home Phone | | + + + | Preferred Language | Unknown | + + + | Marital Status | Single | + + + | Synagogue Affiliation | Unknown | + + + [...] Team Providers + +------+ + | Care Supervisor Paper Coating Name | Role | Phone | + +------+ + PCP | Unavailable | + +------+ + Encounter Details +--------+ + + + + | Date | Type | Department | Care Team | Description | +--------+ + + + + | 10/18/ | Results | [facility] | [place], [place], | | | 2010 | Only | Department | [facility] | | | | | | [facility] | | | | | | [address] | | | | | | [place] | | | | | | [address] | | | | | | | [...] | DERMATOPATH | | | MNT) | [address] CLIN[facility] | | OLOGY | | | [...] + + | [facility] | [address] | [place] [address] | | | DERMATOPATHOLOGY | [address] | | | + + + + + documented in this encounter Visit Diagnoses Not on filedocumented in this encounter"
--- OUTSIDE RECORDS SUMMARY | ~2020-04-07 | XMS | Encounter Summary ---
Demographics + + + | Address | [address] | | | [place] [address] | + + + | Home Phone | | + + + | Preferred Language | Unknown | + + + | Marital Status | | + + + | Anglican Affiliation | Unknown | + + + | Race | Unknown | + + + | Ethnic Group | Unknown | + + + Author + + + | Author | [facility] | | | and [place] | + + + | Organization | [facility] | | | [...] [place] | | | | | [place] [address] | | + + + + + Care Team Providers + +------+ + | Care Kitchen Stewardess Name | Role | Phone | + +------+ + | Andrew Parra MD | PCP | | + +------+ + Encounter Details +--------+ + + + + | Date | Type | Department | Care Team | Description | +--------+ + + + + | 12/12/ | Orders Only | [facility] | Cameron Self, | | | 2017 | | NEPHROLOGY [place] | MARINE PROPULSION TECHNICIAN [address] | | | | | [address] [place] | [address] | | | | | [address] [place], [place] | [place] | | | | | [address] | [address] | | | | | [phone] | [phone] | | | | | | | [...] | Visit | | [address] [facility] | | | | | | [address] [place] | | | | | | [address] | | | | | | | | +--------+---------+ + + + documented as of this encounter Procedures + +--------+ + + + | Procedure Name | Priori | Date/Time | Associated Diagnosis | Comments | | | ty | | | | + +--------+ + + + | EXTERNAL LAB: CBC | Routin | 12/12/2017 | | Results for this | | | e | 1:41 PM | | procedure are in the | | | | PST | | results section. | + +--------+ + + + | IRON AND IRON | Routin | 12/12/2017 | | Results for this | | BINDING CAPACITY | e | 1:41 PM | | procedure are in the | | | | PST | | results section. | + +--------+ + + + | PROTEIN/CREATININE | Routin | 12/12/2017 | | Results for this | | RATIO, URINE | e | 1:41 PM | | procedure are in the | | | | PST | | results section. | + +--------+ + + + | URIC ACID | Routin | 12/12/2017 | | Results for this | | | e | 1:41 PM | | procedure are in the | | | | PST | | results section. | + +--------+ + + + | PARATHYROID HORMONE, | Routin | 12/12/2017 | | Results for this | | INTACT | e | 1:41 PM | | procedure are in the | | | | PST | | results section. | + +--------+ + + + | MAGNESIUM | Routin | 12/12/2017 | | Results for this | | | e | 1:41 PM | | procedure are in the | | | | PST | | results section. | + +--------+ + + + | FERRITIN | Routin | 12/12/2017 | | Results for this | | | e | 1:41 PM | | procedure are in the | | | | PST | | results section. | + +--------+ + + + | RENAL FUNCTION PANEL | Routin | 12/12/2017 | | Results for this | | | e | 1:41 PM | | procedure are in the | | | | PST | | results section. | + +--------+ + + + documented in this encounter Results Iron and Iron Binding Capacity (12/12/2017 1:41 PM PST) + +---------+ + + + | Component | Value | Ref Range | Performed | Pathologist | | | | | At | Signature | + +---------+ + + + | Iron | 92.68 | 37 - 160 | EXTERNAL | | | | | | LAB | | + +---------+ + + + | Iron | 38.5 | 20 - 55 | EXTERNAL | | | Saturation | | | LAB | | + +---------+ + + + | TIBC | 241 (A) | 245 - 400 | EXTERNAL | [...] + +---------+ + + Protein/Creatinine Ratio, Urine (12/12/2017 1:41 PM PST) + +---------+ + + + | Component | Value | Ref Range | Performed | Pathologist | | | | | At | Signature | + +---------+ + + + | Protein/Cre | 275 (A) | 0 - 150 | EXTERNAL [...] + +---------+ + + External Lab: CBC (12/12/2017 1:41 PM PST) + + + + + + | Component | Value | Ref Range | Performed | Pathologist | | | | | At | Signature | + + + + + + | WBC | 4.2 (A) | 4.5 - 11.0 10 | EXTERNAL | | | | | | LAB | | + + + + + + | Red Blood | 2.29 (A) | 4.3 - 5.7 10 | EXTERNAL | | | Cells | | | LAB | | | Counted | | | | | + + + + + + | Hemoglobin | 8.3 (A) | 13.5 - 18.0 | EXTERNAL | | | | | g/dL | LAB | | + + + + + + | Hematocrit, | 24.3 (A) | 41 - 50 % | EXTERNAL | | | POC | | | LAB | | + + + + + + | MCV | 106 (A) | 81 - 99 fL | [...] + + + + | Platelet | 153 | 140 - 440 K/ L | EXTERNAL | | | Count | | | LAB | | | Plasma | | | | | + + + + + + | RDW-CV | 16.5 (A) | 10.5 - 15.0 % | [...] | + +---------+ + + Uric Acid (12/12/2017 1:41 PM PST) + +-------+ + + + | Component | Value | Ref Range | Performed | Pathologist | | | | | At | Signature | + +-------+ + + + | Uric Acid | 6.9 | 4.4 - 7.6 | EXTERNAL | [...] + +---------+ + + Parathyroid Hormone, Intact (12/12/2017 1:41 PM PST) + +---------+ + + + | Component | Value | Ref Range | Performed | Pathologist | | | | | At | Signature | + +---------+ + + + | PTH INTACT | 236 (A) | 15 - 65 pg/mL | [...] | | + +---------+ + + Magnesium (12/12/2017 1:41 PM PST) + +-------+ + + + [...] | | + +---------+ + + Ferritin (12/12/2017 1:41 PM PST) + +-------+ + + + | Component | Value | Ref Range | Performed | Pathologist | | | | | At | Signature | + +-------+ + + + | Ferritin, | 354.8 | 30 - 400 ng/mL | EXTERNAL [...] + +---------+ + + Renal Function Panel (12/12/2017 1:41 PM PST) + + + + + + | Component | Value | Ref Range | Performed | Pathologist | | | | | At | Signature | + + + + + + | Glucose, | 143 (A) | 70 - 100 mg/dL | EXTERNAL | | | Fasting | | | LAB | | + + + + + + | BUN | 51 (A) | 6 - 23 mg/dL | EXTERNAL | | | | | | LAB | | + + + + + + | Creatinine | 1.78 (A) | 0.7 - 1.18 | EXTERNAL [...] + + + + | K | 4.0 | 3.6 - 5.1 | EXTERNAL | | | | | mmol/L | LAB | | + + + + + + | Cl | 108 | 95 - 112 mmol/L | EXTERNAL | | | | | | LAB | | + + + + + + | CO2 | 21 | 19 - 31 mmol/L | EXTERNAL | | | | | | LAB | | + + + + + + | Anion Gap | 16 | 7 - 21 mmol/L | EXTERNAL | | | | | | LAB | | + + + + + + | eGFR if not | | | EXTERNAL | | | | | | LAB | | | [place] | | | | | + + + + + + | Phosphorus, | 3.5 | 2.5 - 5.0 | EXTERNAL | | | Inorganic | | | LAB | | + + + + + + | BUN/Creatin | 28.7 (A) | 6.0 - 28.6 | EXTERNAL | | | ine Ratio | | | LAB | | + + + + + + | Calcium | 8.2 (A) | 8.4 - 10.2 | EXTERNAL | | | | | mg/dL | LAB | | + + + + + + | Estimated | 38 (A) | 60 mg/dL | EXTERNAL | [...]
--- OUTSIDE RECORDS SUMMARY | ~2020-04-07 | XMS | Encounter Summary ---
Demographics + + + | Address | [address] | | | [place] [address] | + + + | Home Phone | | + + + | Preferred Language | Unknown | + + + | Marital Status | | + + + | Pentecostal Affiliation | Unknown | + + + | Race | Unknown | + + + | Ethnic Group | Unknown | + + + Author + + + | Author | [facility] | | | and [place] | + + + | Organization | [facility] | | [...] [place] | | | | | [place] [address] | | + + + + + Care Team Providers + +------+ + | Care Junior Data Analyst Name | Role | Phone | + +------+ + | Andrew Parra MD | PCP | | + +------+ + Encounter Details +--------+ + + + + | Date | Type | Department | Care Team | Description | +--------+ + + + + | 03/20/ | Orders Only | [facility] | Conversion | | | 2019 | | NEPRHOLOGY [place] | Transaction, | | | | | [address] | Provider Unknown | | | | | [address] [place], [place] | [phone] | | | | | [address] | | | | | | [phone] | | | +--------+ + + + [...] 2020 | Visit | | [address] [facility] | | | | | | [address] [place] | | | | | | [address] | | | | | | | | +--------+---------+ + + + documented as of this encounter Procedures + +--------+ + + + | Procedure Name | Priori | Date/Time | Associated Diagnosis | Comments | | | ty | | | | + +--------+ + + + | MAGNESIUM | Routin | 03/20/2019 | | Results for this | | | e | 4:42 PM | | procedure are in the | | | | PDT | | results section. | + +--------+ + + + | IRON AND IRON | Routin | 03/20/2019 | | | | BINDING CAPACITY | e | 10:14 AM | | | | | | PDT | | | + +--------+ + + + | URINALYSIS, | Routin | 03/20/2019 | | | | MICROSCOPIC ONLY | e | 10:14 AM | | | | | | PDT | | | + +--------+ + + + | URIC ACID | Routin | 03/20/2019 | | Results for this | | | e | 10:14 AM | | procedure are in the | | | | PDT | | results section. | + +--------+ + + + | FERRITIN | Routin | 03/20/2019 | | | | | e | 10:14 AM | | | | | | PDT | | | + +--------+ + + + documented in this encounter Results Magnesium (03/20/2019 4:42 PM PDT) + +-------+ + + + [...] + + Iron and Iron Binding Capacity (03/20/2019 10:14 AM PDT) + +-------+ + + + | Component | Value | Ref Range | Performed | Pathologist | | | | | At | Signature | + +-------+ + + + | Iron | | | EXTERNAL | | | | | | LAB | | + +-------+ + + + | Iron | | | EXTERNAL | | | Saturation | | | LAB | | + +-------+ + + + | TIBC | | | EXTERNAL | | | [...] + +---------+ + + Urinalysis, Microscopic Only (03/20/2019 10:14 AM PDT) + +-------+ + + + | Component | Value | Ref Range | Performed | Pathologist | | | | | At | Signature | + +-------+ + + + | Color | | | EXTERNAL | | | | | | LAB | | + +-------+ + + + | Clarity | | | EXTERNAL | | | | | | LAB | | + +-------+ + + + | Specific | | | EXTERNAL | | | [place], | | | LAB | | | Urine | | | | | + +-------+ + + + | Leukocyte | | | EXTERNAL | | | Esterase, | | | LAB | | | Urine | | | | | + +-------+ + + + | Nitrite, | | | EXTERNAL | | | Urine | | | LAB | | + +-------+ + + + | Urobilinoge | | | EXTERNAL | | | n, Urine | | | LAB | | + +-------+ + + + | Protein, | | | EXTERNAL | | | Urine | | | LAB | | + +-------+ + + + | pH, Urine | | | EXTERNAL | | | | | | LAB | | + +-------+ + + + | Blood, | | | EXTERNAL | | | Urine | | | LAB | | + +-------+ + + + | Ketones | | | EXTERNAL | | | | | | LAB | | + +-------+ + + + | Bilirubin, | | | EXTERNAL | | | Urine | | | LAB | | + +-------+ + + + | Glucose, | | | EXTERNAL | | | [...] | + +---------+ + + Uric Acid (03/20/2019 10:14 AM PDT) + +---------+ + + + | Component | Value | Ref Range | Performed | Pathologist | | | | | At | Signature | + +---------+ + + + | Uric Acid | 9.3 (A) | 4.4 - 7.6 | EXTERNAL [...] | | + +---------+ + + Ferritin (03/20/2019 10:14 AM PDT) + +-------+ + + + | Component | Value | Ref Range | Performed | Pathologist | | | | | At | Signature | + +-------+ + + + | Ferritin, | | ng/mL | EXTERNAL | | | External [...]
--- OUTSIDE RECORDS SUMMARY | ~2020-04-07 | XMS | Encounter Summary ---
Demographics + + + | Address | [address] | | | [place] [address] | + + + | Home Phone | | + + + | Preferred Language | Unknown | + + + | Marital Status | | + + + | Restorationist Affiliation | Unknown | + + + | Race | Unknown | + + + | Ethnic Group | Unknown | + + + Author + + + | Author | [facility] | | | and [place] | + + + | Organization | [facility] | | | [...] [place] | | | | | [place] [address] | | + + + + + Care Team Providers + +------+ + | Care Quality Coordinator Name | Role | Phone | + +------+ + | Hollis Villavicencio MD | PCP | | + +------+ + Reason for Visit +--------+--------+ + | Reason | Onset | Comments | | | Date | | +--------+--------+ + | Other | 11/12/ | | | | 2012 | | +--------+--------+ + Encounter Details +--------+ + + + + | Date | Type | Department | Care Team | Description | +--------+ + + + + | 11/12/ | Telephone | [facility] | Bhupendra Jain | Other | | 2012 | | PHYSIATRY [address] | [address] | | | | | [address] [place] [address] | [place], [place] | | | | | [place], [place] | [address] | | | | | [address] | | | | | | [phone] | | | +--------+ + + + [...] this encounter Miscellaneous Notes Telephone Encounter - Lolis Leyva - 11/12/2012 11:51 AM PSTAtivan called into patient s pharmacy. elephone Monique Chance - 11/12/2012 9:02 AM PSTCall from patient's spouse Olga stating antonio ent needs a prescription prior to an MRI, as discussed with , and is requesting to have it called in today. Pat states she will only be in [place] to merchandise pickup/receiving associate meds today. Patient us amy [facility]. Please advise. documented in this encounter Plan of Treatment +--------+---------+ + + + | Date | Type | Specialty | Care Team | Description | +--------+---------+ + + + | 07/04/ | Office | Nephrology | Arnold Sun MD | | | 2020 | Visit | | [address] [facility] | | | | | | [address] [facility] | | | | | | [address] | | | | | | | | +--------+---------+ + + + documented as of this encounter Visit Diagnoses Not on filedocumented in this encounter"
--- OUTSIDE RECORDS SUMMARY | ~2020-04-07 | XMS | Encounter Summary ---
Demographics + + + | Address | [address] | | | [place] [address] | + + + | Home Phone | | + + + | Preferred Language | Unknown | + + + | Marital Status | Single | + + + | Restoration Affiliation | Unknown | + + + | Race | Unknown | + + + | Ethnic Group | Other Race | + + + Author + + + | Author | [facility] | + + + | Organization | [facility] | + + + | Address | Unknown | + + + | Phone | Unavailable | + + + Care Team Providers + +------+ + | Care Wash House Supervisor Name | Role | Phone | [...] 2020 | anned | [address] | [phone] | | | | | [address] | | | | | | Mailcode: [id number] | | | | | | [facility] | | | | | | [place], [place] | | | | | | [address] | | | | | | [phone] | | | +--------+ + + + [...]
--- OUTSIDE RECORDS SUMMARY | ~2020-04-07 | XMS | Encounter Summary ---
Demographics + + + | Address | [address] | | | [place] [address] | + + + | Home Phone | | + + + | Preferred Language | Unknown | + + + | Marital Status | | + + + | Cheondoism Affiliation | Unknown | + + + | Race | Unknown | + + + | Ethnic Group | Unknown | + + + Author + + + | Author | [facility] | | | and [place] | + + + | Organization | [facility] | | [...] [place] | | | | | [place] [address] | | + + + + + Care Team Providers + +------+ + | Care Sustainability Purchasing Agent Name | Role | Phone | + +------+ + | Hollis Villavicencio MD | PCP | | + +------+ + Reason for Visit +--------+--------+ + | Reason | Onset | Comments | | | Date | | +--------+--------+ + | Other | 11/04/ | Schedule MRI | | | 2012 | | +--------+--------+ + Encounter Details +--------+ + + + + | Date | Type | Department | Care Team | Description | +--------+ + + + + | 11/04/ | Telephone | [facility] | Bhupendra Jain | Other (Schedule MRI) | | 2012 | | PHYSIATRY [address] | [address] | | | | | [address] [place] [address] | [address] [place] | | | | | [place] | [address] | | | | | [address] | | | | | | [phone] | | | +--------+ + + + [...] Notes Telephone Encounter - Lolis Leyva - 11/04/2012 3:44 PM PSTPatient scheduled for MRI of his knee on Saturday11/07/2012 check in at 10:30am. documented in this encounter Plan of Treatment +--------+---------+ + + + | Date | Type | Specialty | Care Team | Description | +--------+---------+ + + + | 07/04/ | Office | Nephrology | Arnold Sun MD | | | 2020 | Visit | | [address] [facility] | | | | | | [address] [place] | | | | | | [address] | | | | | | | | +--------+---------+ + + + documented as of this encounter Visit Diagnoses Not on filedocumented in this encounter"
--- OUTSIDE RECORDS SUMMARY | ~2020-04-07 | XMS | Encounter Summary ---
Demographics + + + | Address | [address] | | | [place] [address] | + + + | Home Phone | | + + + | Preferred Language | Unknown | + + + | Marital Status | | + + + | Sabianist Affiliation | Unknown | + + + | Race | Unknown | + + + | Ethnic Group | Unknown | + + + Author + + + | Author | [facility] | | | and [place] | + + + | Organization | [facility] | | | [...] [place] | | | | | [place] [address] | | + + + + + Care Team Providers + +------+ + | Care Reduction Furnace Operator Helper Name | Role | Phone | + +------+ + | Daniel Sofia MD | PCP | | + +------+ + Reason for Visit +--------+--------+ + | Reason | Onset | Comments | | | Date | | +--------+--------+ + | Other | 03/27/ | | | | 2017 | | +--------+--------+ + Encounter Details +--------+ + + + + | Date | Type | Department | Care Team | Description | +--------+ + + + + | 03/27/ | Telephone | [facility] | Davey, | Rod[facility] | | 2018 | | [facility] | Gregory Jaime MD [address] | | | | | [facility] [address] | | | | | [address] [place] [place] | [place] [address] | | | | | [place] [address] | [phone] | | | | | [phone] | | | +--------+ + + + [...] this encounter Miscellaneous Notes Telephone Encounter - Mary Doss RN - 03/27/2018 11:33 AM PDTCall returned: tessa saldivar is a blood spec not bone marrow though marked such. Because of this Multiple My eloma panel was cancelled as well as comprehensive evaluation. Proceeding with other testin g and fax will sent explaining this. Electronically signed by Mary Doss RN at 11:49 AM PDTTelephone Encounter - Eloisemonico Farhan Coleen - 03/27/2018 10:07 AM PDTValeria wang from [facility], she was advised by the [place] office to call here. This is in regards to sample that was rec'd. They cannot do any testing at this time and ne ed to discuss this with him Please use reference # [id number] when calling And call # [phone] Anyone can help document ed in this encounter Plan of Treatment +--------+---------+ + + + | Date | Type | Specialty | Care Team | Description | +--------+---------+ + + + | 07/04/ | Office | Nephrology | Arnold Sun MD | | | 2020 | Visit | | [address] [facility] | | | | | | [address] [place] [address] | | | | | | [address] | | | | | | | | +--------+---------+ + + + documented as of this encounter Visit Diagnoses Not on filedocumented in this encounter"
--- OUTSIDE RECORDS SUMMARY | ~2020-04-07 | XMS | Encounter Summary ---
Demographics + + + | Address | [address] | | | [place] [address] | + + + | Home Phone | | + + + | Preferred Language | Unknown | + + + | Marital Status | | + + + | Anabaptist Affiliation | Unknown | + + + | Race | Unknown | + + + | Ethnic Group | Unknown | + + + Author + + + | Author | [facility] | | | and [place] | + + + | Organization | [facility] | | [...] [place], | | | | | [place] [address] | | + + + + + Care Team Providers + +------+ + | Care Waitress Name | Role | Phone | + +------+ + | No, Physician | PCP | Unavailable | + +------+ + Encounter Details +--------+ + + + + | Date | Type | Department | Care Team | Description | +--------+ + + + + | 12/28/ | Orders Only | [facility] | Arnold Sun MD | Essential | | 2020 | | NEPHROLOGY [place] | [address] [place] | hypertension, benign | | | | [address] | [address] [place], [place] | (Primary Dx); | | | | [address] [place] [address] | [address] | Chronic kidney | | | | [place], [place] | | disease, stage III | | | | [address] | | (moderate) (HCC) | | | | [phone] | | | +--------+ + + + [...] 2019 | Visit | | [address] [facility] [place] | | | | | | [address] [place], [place] | | | | | | [address] | | | | | | | | +--------+---------+ + + + + +------+--------+ + + | Name | Type | Priori | Associated Diagnoses | Order Schedule | | | | ty | | | + +------+--------+ + + | Renal Function Panel | Lab | Routin | Essential | Expected: | | | | e | hypertension, benign | 06/30/2020, Expires: | | | | | Chronic kidney | 12/28/2020 | | | | | disease, stage III | | | | | | (moderate) (HCC) | | + +------+--------+ + + | CBC with | Lab | Routin | Essential | Expected: | | Differential | | e | hypertension, benign | 06/30/2020, Expires: | | | | | Chronic kidney | 12/28/2020 | | | | | disease, stage III | | | | | | (moderate) (HCC) | | + +------+--------+ + + | Uric Acid | Lab | Routin | Essential | Expected: | | | | e | hypertension, benign | 06/30/2020, Expires: | | | | | Chronic kidney | 12/28/2020 | | | | | disease, stage III | | | | | | (moderate) (HCC) | | + +------+--------+ + + | Parathyroid Hormone, | Lab | Routin | Essential | Expected: | | Intact | | e | hypertension, benign | 06/30/2020, Expires: | | | | | Chronic kidney | 12/28/2020 | | | | | disease, stage III | | | | | | (moderate) (HCC) | | + +------+--------+ + + | Protein/Creatinine | Lab | Routin | Essential | Expected: | | Ratio, Urine | | e | hypertension, benign | 06/30/2020, Expires: | | | | | Chronic kidney | 12/28/2020 | | | | | disease, stage III | | | | | | (moderate) (HCC) | | + +------+--------+ + + documented as of this encounter Visit Diagnoses + + | Diagnosis | + + | Essential hypertension, benign - Primary | + + | Chronic kidney disease, stage III (moderate) (HCC) Chronic kidney disease, Stage III | | (moderate) | + + documented in this encounter"
--- OUTSIDE RECORDS SUMMARY | ~2020-04-07 | XMS | Clinical Summary ---
Demographics + + + | Address | [address] | | | [place] [address] | + + + | Home Phone [...] + + | Author | [facility] | + + + | Organization | [facility] | + + + | Address | Unknown | + + + | Phone | Unavailable | + + + Care Team Providers + +------+ + | Care Professor Of Social Work Name | Role | Phone | + +------+ + | Daniel Sofia MD | PCP | | + +------+ + Source Comments [facility] is fully live on both EpicCare Ambulatory and EpicCare InPatient.[facility] Allergies No Known Allergies Medications + [...] +---------+------+------+-------+ Active Problems No known active problems Encounters +--------+ + + + + | Date | Type | Specialty | Care Team | Description | +--------+ + + + + | 03/23/ | Document-Sc | | Other, Faculty | | | 2020 | anned | | | | +--------+ + + + + from Last 3 Months Social History + +-------+ +--------+------+ | Tobacco [...] + + + + + | Pneumococcal | | | | | vaccination (1 of 2 | 8 | | | | - PCV13) | | | | + + + + + | Influenza (Flu) | | | | | vaccination (Season | 0 | | | | Ended) | | [...] + + from Last 3 Months Results RADIOLOGY (02/16/2020 12:00 AM PDT) + + + | Narrative | Performed At | + + + | | | + + + from Last [...] MEDICARE | MEDICA | xxxxxxxxxx | | [phone] | [address] | [address] | | | [address] & | | [phone] | | | [address] | | [address] | | [place] | | | | | | | | [address] | | + +--------+ +--------+ + +--------+ [...] | | al/Luis | | 1945 | [phone] | [place] [address] | | | [address] | | | [address] (Home) | | + +--------+ +--------+ + +
--- OUTSIDE RECORDS SUMMARY | ~2020-04-07 | XMS | Encounter Summary ---
Demographics + + + | Address | [address] | | | [place] [address] | + + + | Home Phone | | + + + | Preferred Language | Unknown | + + + | Marital Status | | + + + | Worship Affiliation | Unknown | + + + | Race | Unknown | + + + | Ethnic Group | Unknown | + + + Author + + + | Author | [facility] | | | and [place] | + + + | Organization | [facility] | | | and [...] [place] | | | | | [place] [address] | | + + + + + Care Team Providers + +------+ + | Care Bow Tacker Name | Role | Phone | + +------+ + | Andrew Parra MD | PCP | | + +------+ + Encounter Details +--------+ + + + + | Date | Type | Department | Care Team | Description | +--------+ + + + + | 08/07/ | Orders Only | [facility] | Conversion | | | 2016 | | NEPHROLOGY [place] | Transaction, | | | | | [address] [place] | Provider Unknown | | | | | [address] [place], [place] | | | | | | [address] | (Fax) | | | | | [phone] | | | +--------+ + + + [...] 2020 | Visit | | [address] [facility] | | | | | | [address] [place] | | | | | | [address] | | | | | | | | +--------+---------+ + + + documented as of this encounter Procedures + +--------+ + + + | Procedure Name | Priori | Date/Time | Associated Diagnosis | Comments | | | ty | | | | + +--------+ + + + | EXTERNAL LAB: CBC | Routin | 08/07/2017 | | Results for this | | | e | 12:06 PM | | procedure are in the | | | | PDT | | results section. | + +--------+ + + + | LIPID PANEL | Routin | 08/07/2017 | | Results for this | | | e | 12:06 PM | | procedure are in the | | | | PDT | | results section. | + +--------+ + + + | VITAMIN D, | Routin | 08/07/2017 | | Results for this | | DEFICIENCY SCREEN | e | 12:06 PM | | procedure are in the | | (25-HYDROXY) | | PDT | | results section. | + +--------+ + + + | URINALYSIS, | Routin | 08/07/2017 | | Results for this | | MICROSCOPIC ONLY | e | 12:06 PM | | procedure are in the | | | | PDT | | results section. | + +--------+ + + + | SEDIMENTATION RATE, | Routin | 08/07/2017 | | Results for this | | AUTOMATED | e | 12:06 PM | | procedure are in the | | | | PDT | | results section. | + +--------+ + + + | URIC ACID | Routin | 08/07/2017 | | Results for this | | | e | 12:06 PM | | procedure are in the | | | | PDT | | results section. | + +--------+ + + + | TSH | Routin | 08/07/2017 | | Results for this | | | e | 12:06 PM | | procedure are in the | | | | PDT | | results section. | + +--------+ + + + | HEMOGLOBIN A1C | Routin | 08/07/2017 | | Results for this | | | e | 12:06 PM | | procedure are in the | | | | PDT | | results section. | + +--------+ + + + | COMPREHENSIVE | Routin | 08/07/2017 | | Results for this | | METABOLIC PANEL | e | 12:06 PM | | procedure are in the | | | | PDT | | results section. | + +--------+ + + + documented in this encounter Results Vitamin D, Deficiency Screen (25-Hydroxy) (08/07/2017 12:06 PM PDT) + +-------+ + + + | Component | Value | Ref Range | Performed | Pathologist | | | | | At | Signature | + +-------+ + + + | Vit D, | 33 | 30 - 100 | EXTERNAL | [...] + +---------+ + + Urinalysis, Microscopic Only (08/07/2017 12:06 PM PDT) + + + + + [...] + + + + | Specific | 1.010 | 1.005 - 1.030 | EXTERNAL | | | [place], | | | LAB | | | [...] | | | + +---------+ + + Sedimentation rate, automated (08/07/2017 12:06 PM PDT) + +--------+ + + + | Component | Value | Ref Range | Performed | Pathologist | | | | | At | Signature | + +--------+ + + + | Sed Rate | 51 (A) | 0 - 15 | EXTERNAL | | | [...] + +---------+ + + External Lab: CBC (08/07/2017 12:06 PM PDT) + + + + + + | Component | Value | Ref Range | Performed | Pathologist | | | | | At | Signature | + + + + + + | WBC | 6.0 | 4.5 - 11.0 10 | EXTERNAL | | | | | | LAB | | + + + + + + | Red Blood | 2.94 (A) | 4.3 - 5.7 10 | EXTERNAL | | | Cells | | | LAB | | | Counted | | | | | + + + + + + | Hemoglobin | 9.9 (A) | 13.5 - 18.0 | EXTERNAL | | | | | g/dL | LAB | | + + + + + + | Hematocrit, | 29.3 (A) | 41 - 50 % | EXTERNAL | | | POC | | | LAB | | + + + + + + | MCV | 99.8 (A) | 81 - 99 fL | [...] + + + + | Platelet | 149 | 140 - 440 K/ L | EXTERNAL | | | Count | | | LAB | | | Plasma | | | | | + + + + + + | RDW-CV | 17.0 (A) | 10.5 - 15.0 % | [...] | + +---------+ + + Uric Acid (08/07/2017 12:06 PM PDT) + +-------+ + + + | Component | Value | Ref Range | Performed | Pathologist | | | | | At | Signature | + +-------+ + + + | Uric Acid | 7.2 | 4.4 - 7.6 | EXTERNAL | [...] | | + +---------+ + + TSH (08/07/2017 12:06 PM PDT) + +-------+ + + + | Component | Value | Ref Range | Performed | Pathologist | | | | | At | Signature | + +-------+ + + + | TSH | 1.82 | 0.270 - 4.20 | EXTERNAL | [...] | | | + +---------+ + + Hemoglobin A1C (08/07/2017 12:06 PM PDT) + +-------+ + + + | Component | Value | Ref Range | Performed | Pathologist | | | | | At | Signature | + +-------+ + + + | Hemoglobin | 8.3 | % | EXTERNAL | | | A1c | | | LAB | | + [...] | + +---------+ + + Lipid Panel (08/07/2017 12:06 PM PDT) + +-------+ + + + | Component | Value | Ref Range | Performed | Pathologist | | | | | At | Signature | + +-------+ + + + | Cholesterol | 86 | mg/dL | EXTERNAL | | | | | | LAB | | + +-------+ + + + | Triglycerid | 79 | 30 - 150 mg/dL | EXTERNAL | | | es | | | LAB | | + +-------+ + + + | HDL | 23.1 | mg/dl | EXTERNAL | | | [...] +-------+ + + + | Chol/HDL | 3.7 | | EXTERNAL | | | Ratio | | | LAB | | + +-------+ + + + | VLDL | 16 | 4 - 40 mg/dL | EXTERNAL | | | | | | LAB | | + +-------+ + + + | Non HDL | 63 | | EXTERNAL | | | Chol. [...] + +---------+ + + Comprehensive Metabolic Panel (08/07/2017 12:06 PM PDT) + + + + + + | Component | Value | Ref Range | Performed | Pathologist | | | | | At | Signature | + + + + + + | Glucose, | 107 (A) | 70 - 100 mg/dL | EXTERNAL | | | Fasting | | | LAB | | + + + + + + | BUN | 49 (A) | 6 - 23 mg/dL | EXTERNAL | | | | | | LAB | | + + + + + + | Creatinine | 1.83 (A) | 0.70 - 1.18 | EXTERNAL | | | | | mg/dL | LAB | | + + + + + + | BUN/Creatin | 26.8 | 6.0 - 28.6 | EXTERNAL | | | ine Ratio | | | LAB | | + + + + + + | Calcium | 8.5 | 8.4 - 10.2 | EXTERNAL | | | | | mg/dL | LAB | | + + + + + + | Protein, | 6.1 | 6.0 - 8.0 g/dL | EXTERNAL | | | Total | | | LAB | | + + + + + + | Albumin | 3.7 | 3.5 - 5.0 | EXTERNAL | | | | | | LAB | | + + + + + + | Globulin | 2.4 | 1.8 - 3.5 | EXTERNAL | [...] + + + + | ALP, | 87 | 31 - 120 | EXTERNAL | | | External | | | LAB | | + + + + + + | ALT | 11 | 7 - 52 U/L | EXTERNAL | | | | | | LAB | | + + + + + + | AST | 12 (A) | 13 - 39 U/L | [...] | Estimated | 36 (A) | 60 mg/dL | EXTERNAL | [...]
--- OUTSIDE RECORDS SUMMARY | ~2020-04-07 | XMS | Encounter Summary ---
Demographics + + + | Address | [address] | | | [place] [address] | + + + | Home Phone [...] + + + | Author | [facility] | + + + | Organization | [facility] | + + + | Address | Unknown | + + + | Phone | Unavailable | + + + Care Team Providers + +------+ + | Care Direct Support Staff Name | Role | Phone | + [...]
--- OUTSIDE RECORDS SUMMARY | ~2020-04-07 | XMS | Encounter Summary ---
Demographics + + + | Address | [address] | | | [place] [address] | + + + | Home Phone | | + + + | Preferred Language | Unknown | + + + | Marital Status | | + + + | Denominational Affiliation | Unknown | + + + | Race | Unknown | + + + | Ethnic Group | Unknown | + + + Author + + + | Author | [facility] | | | and [place] | + + + | Organization | [facility] | | | [...] [place] | | | | | [place] [address] | | + + + + + Care Team Providers + +------+ + | Care Manager Of Health Name | Role | Phone | + +------+ + | Andrew Parra MD | PCP | | + +------+ + Encounter Details +--------+ + + + + | Date | Type | Department | Care Team | Description | +--------+ + + + + | 03/20/ | Orders Only | [facility] | Cameron Self, | | | 2018 | | NEPRHOLOGY [place] | DRIVER SALES [address] | | | | | [address] | [address] | | | | | [address] [place], [place] | [place] | | | | | [address] | [address] | | | | | [phone] | [phone] | | | | | | | [...] 2020 | Visit | | [address] [facility] | | | | | | [address] [place] | | | | | | [address] | | | | | | | | +--------+---------+ + + + documented as of this encounter Procedures + +--------+ + + + | Procedure Name | Priori | Date/Time | Associated Diagnosis | Comments | | | ty | | | | + +--------+ + + + | EXTERNAL LAB: CBC | Routin | 03/20/2019 | | Results for this | | | e | 10:14 AM | | procedure are in the | | | | PDT | | results section. | + +--------+ + + + | PROTEIN/CREATININE | Routin | 03/20/2019 | | Results for this | | RATIO, URINE | e | 10:14 AM | | procedure are in the | | | | PDT | | results section. | + +--------+ + + + | RENAL FUNCTION PANEL | Routin | 03/20/2019 | | Results for this | | | e | 10:14 AM | | procedure are in the | | | | PDT | | results section. | + +--------+ + + + documented in this encounter Results Protein/Creatinine Ratio, Urine (03/20/2019 10:14 AM PDT) + +-------+ + + + | Component | Value | Ref Range | Performed | Pathologist | | | | | At | Signature | + +-------+ + + + | Protein/Cre | 92.5 | 0 - 150 | EXTERNAL | [...] + +---------+ + + External Lab: CBC (03/20/2019 10:14 AM PDT) + + + + + + | Component | Value | Ref Range | Performed | Pathologist | | | | | At | Signature | + + + + + + | WBC | 5.7 | 4.5 - 11.0 10 | EXTERNAL | | | | | | LAB | | + + + + + + | Red Blood | 2.49 (A) | 3.8 - 5.1 10 | EXTERNAL | | | Cells | | | LAB | | | Counted | | | | | + + + + + + | Hemoglobin | 8.2 (A) | 12.0 - 16.0 | EXTERNAL | | | | | g/dL | LAB | | + + + + + + | Hematocrit, | 24.1 (A) | 35 - 45 % | EXTERNAL | | | POC | | | LAB | | + + + + + + | MCV | 96.8 | 81 - 99 fL | EXTERNAL | | | | | | LAB | | + + + + + + | MCH | 33 | 27 - 33 pg | EXTERNAL | | | | | | LAB | | + + + + + + | MCHC | 34 | 30 - 36 g/dL | EXTERNAL | | | | | | LAB | | + + + + + + | Platelet | 204 | 140 - 440 K/ L | EXTERNAL | | | Count | | | LAB | | | Plasma | | | | | + + + + + + | RDW-CV | 24.0 (A) | 10.5 - 15.0 % | [...] + + + | % Segmented | 55.2 | 39 - 80 % | EXTERNAL | | | | | | LAB | | | Neutrophils | | | | | + + + + + + | % | 24.7 | 24 - 44 % | EXTERNAL | | | Lymphocytes | | | LAB | | + + + + + + | % Monocytes | 14.6 (A) | 0 - 12 % | EXTERNAL | | | | | | LAB | | + + + + + + | % | 7.5 (A) | 0 - 6 % | EXTERNAL | | | Eosinophils | | | LAB | | + + + + + + | % Basophils | 1.0 | 0 - 2 % | EXTERNAL [...] + +---------+ + + Renal Function Panel (03/20/2019 10:14 AM PDT) + + + + + + | Component | Value | Ref Range | Performed | Pathologist | | | | | At | Signature | + + + + + + | Glucose, | 153 (A) | 70 - 100 mg/dL | EXTERNAL | | | Fasting | | | LAB | | + + + + + + | BUN | 87 (A) | 6 - 23 mg/dL | EXTERNAL | | | | | | LAB | | + + + + + + | Creatinine | 2.52 (A) | 0.70 - 1.18 | EXTERNAL | | | | | mg/dL | LAB | | + + + + + + | PHOSPHORUS | 4.9 | 2.5 - 5.0 mg/dL | EXTERNAL [...] + + + + | Cl | 101 | 95 - 112 mmol/L | EXTERNAL | | | | | | LAB | | + + + + + + | CO2 | 22 | 19 - 31 mmol/L | EXTERNAL | | | | | | LAB | | + + + + + + | Anion Gap | 20.1 | 7 - 21 mmol/L | EXTERNAL | | | | | | LAB | | + + + + + + | eGFR if not | | | EXTERNAL | | | | | | LAB | | | [place] | | | | | + + + + + + | Phosphorus, | | | EXTERNAL | | | Inorganic | | | LAB | | + + + + + + | BUN/Creatin | 34.5 (A) | 6.0 - 28.6 | EXTERNAL | | | ine Ratio | | | LAB | | + + + + + + | Calcium | 8.2 (A) | 8.5 - 10.3 | EXTERNAL | | | | | mg/dL | LAB | | + + + + + + | Estimated | 25 (A) | 60 - 140 mg/dL | [...]
--- OUTSIDE RECORDS SUMMARY | ~2020-04-07 | XMS | Encounter Summary ---
Demographics + + + | Address | [address] | | | [place] [address] | + + + | Home Phone [...] Team Providers + +------+ + | Care Push Bench Operator Helper Name | Role | Phone [...] | Radiology | Diagnoses | Tommy | [facility] | | | | | Lymphedema | [place], | [facility] [address] | | | | | Procedures | MD James | [facility] | | | | | VASC LAB | [address] | [address] | | | | | ARTER DUPLEX | [address] | Mailcode: | | | | | LOWER | [address] | [address] | | | | | EXTREMITY | [facility] [place] | Physician's | | | | | BILATERAL | [address] | Pavilion | | | | | COMPLETE | Phone: | [place], [place] | | | | | | [phone] | [address] | | | | | | Fax: | Phone: | | | | | | [phone] | [phone] | | | | | | | Fax: | | | | | | | [phone] | +--------+--------+ + + + + Reason [...] | | Procedures | [address] | [address] | | | | | CONSULT TO | [address] | Kaia [facility] | | | | | SURGERY - | Jean | Physicians | | | | | VASCULAR | [place], [place] | [address] | | | | | SURGERY | [address] | Floor | | | | | DIVISION | | [place], [place] | | | | | | | [address] | | | | | | | Phone: | | | | | | | [phone] | | | | | | | Fax: | | | | | | | [phone] | + +--------+ + + + + Encounter Details +--------+---------+ + + + | Date | Type | Department | Care Team | Description | +--------+---------+ + + + | 05/06/ | Office | Vascular Surgery | Juve Shaw, | Lymphedema (Primary | | 2012 | Visit | at [address] | MD [address] | Dx); Other | | | | [address] | [address] | lymphedema; Other | | | | [facility], | [place], [place] | noninfectious | | | | 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 JUVE SHAW MD VASCULAR SURGERY [address] [place] [address] Mailcode: [address] [place] [address] James Contreras MD - 05/06/2013 11:55 AM PDT VASCULAR [...] he is being managed at home near [place], [place] by a window assembler and a lymphedema t herapist and it appears that all the recommendations he has received from them are appropria te and will also help him for the management of his lymphedema. We answered all his questions. The patient was discussed with Dr. Valeria ORTEGA MD Resident, PGY-4 [facility], Dept. of Surgery Pager [phone] ndres Oseguera - 05/06/2013 10:42 AM PDT Reason for [...] | | | | ARTERY | EXAMINATION: | | | | | DUPLEX | 05/06/2013 Dictated | | | | | LOWER | 05/06/2013 INDICATION: | | | | | EXTREMITY | Peripheral vascular | | | | | BILATERAL | disease. The | | | | | [...] | | | | | waveform. The profunda | | | | | | femoris artery has a | | | | | | flowvelocity of 63 cm/s | | | | | | with a triphasic | | | | | | waveform. Flow | | | | | | velocities in | | | | | | thesuperficial femoral | | | | | | artery vary from 106 to | | | | | | 162 cm/s, all with | | | | | | triphasicwaveforms. | | | | | | The popliteal artery | | | | | | has flow velocities | | | | | | between 117 and 130 | | | | | | cm/swith triphasic | | | | | | [...] | | | | | | triphasicwaveforms. | | | | | | The tibial vessels are | | | | | | highly calcified. The | | | | | | mid portions of | | | | | | theperoneal and anterior | | | | | | tibial arteries could | | | | | | not be identified. | | | | | | Proximally | | | | | | anddistally, the | | | | | | anterior tibial and | | | | | | peroneal arteries have | | | | | | normal flowvelocities. | | | | | | The posterior tibial | | | | | | artery appears | | | | | | continuously patent from | | | | | | thepopliteal | | | | | | [...] | | | | | | ,Author: JUVE | | | | | | MD VALERIA I have | | | | | [...] | | | | | VALERIA Preliminary / | | | | | | Yomaira Clay | | | | + + + + + + + + | Specimen | + + | | + + + +---------+ + + | Performing | Address | City/State/Zipcode | Phone Number | | Organization | | | | + +---------+ + + | [facility] DEPARTMENT OF | | | | [...]
--- OUTSIDE RECORDS SUMMARY | ~2020-04-07 | XMS | Encounter Summary ---
Demographics + + + | Address | [address] | | | [place] [address] | + + + | Home Phone | | + + + | Preferred Language | Unknown | + + + | Marital Status | | + + + | Tenriism Affiliation | Unknown | + + + | Race | Unknown | + + + | Ethnic Group | Unknown | + + + Author + + + | Author | [facility] | | | and [place] | + + + | Organization | [facility] | | | and [...] [place] | | | | | [place] [address] | | + + + + + Care Team Providers + +------+ + | Care Mud Mixer Operator Name | Role | Phone | + +------+ + | Andrew Parra MD | PCP | | + +------+ + Encounter Details +--------+ + + + + | Date | Type | Department | Care Team | Description | +--------+ + + + + | 03/22/ | Orders Only | [facility] | Cameron Self, | | | 2017 | | NEPHROLOGY [place] | CANAL TENDER [address] | | | | | [address] [place] | [address] | | | | | [address] [place], [place] | [place] | | | | | [address] | [address] | | | | | [phone] | | | | | | | [...] Visit | | [address] [facility] | | | | | | [address] [place] | | | | | | [address] | | | | | | | | +--------+---------+ + + + documented as of this encounter Procedures + +--------+ + + + | Procedure Name | Priori | Date/Time | Associated Diagnosis | Comments | | | ty | | | | + +--------+ + + + | URINALYSIS, | Routin | 03/22/2017 | | Results for this | | MICROSCOPIC ONLY | e | 11:46 AM | | procedure are in the | | | | PDT | | results section. | + +--------+ + + + | EXTERNAL LAB: CBC | Routin | 03/22/2017 | | Results for this | | | e | 11:45 AM | | procedure are in the | | | | PDT | | results section. | + +--------+ + + + | PROTEIN/CREATININE | Routin | 03/22/2017 | | Results for this | | RATIO, URINE | e | 11:45 AM | | procedure are in the | | | | PDT | | results section. | + +--------+ + + + | URIC ACID | Routin | 03/22/2017 | | Results for this | | | e | 11:45 AM | | procedure are in the | | | | PDT | | results section. | + +--------+ + + + | PARATHYROID HORMONE, | Routin | 03/22/2017 | | Results for this | | INTACT | e | 11:45 AM | | procedure are in the | | | | PDT | | results section. | + +--------+ + + + | MAGNESIUM | Routin | 03/22/2017 | | Results for this | | | e | 11:45 AM | | procedure are in the | | | | PDT | | results section. | + +--------+ + + + | RENAL FUNCTION PANEL | Routin | 03/22/2017 | | Results for this | | | e | 11:45 AM | | procedure are in the | | | | PDT | | results section. | + +--------+ + + + documented in this encounter Results Urinalysis, Microscopic Only (03/22/2017 11:46 AM PDT) + + + + + [...] - 1.030 | EXTERNAL | | | [place], | | | LAB | | | [...] + +---------+ + + Protein/Creatinine Ratio, Urine (03/22/2017 11:45 AM PDT) + +-------+ + + + | Component | Value | Ref Range | Performed | Pathologist | | | | | At | Signature | + +-------+ + + + | Protein/Cre | 104.8 | 0 - 150 | EXTERNAL | [...] + +---------+ + + External Lab: CBC (03/22/2017 11:45 AM PDT) + + + + + + | Component | Value | Ref Range | Performed | Pathologist | | | | | At | Signature | + + + + + + | WBC | 6.8 | 4.5 - 11.0 10 | EXTERNAL | | | | | | LAB | | + + + + + + | Red Blood | 3.11 (A) | 4.3 - 5.7 10 | EXTERNAL | | | Cells | | | LAB | | | Counted | | | | | + + + + + + | Hemoglobin | 10.4 (A) | 13.5 - 18.0 | EXTERNAL | | | | | g/dL | LAB | | + + + + + + | Hematocrit, | 30.5 (A) | 41 - 50 % | EXTERNAL | | | POC | | | LAB | | + + + + + + | MCV | 98.1 | 81 - 99 fL | EXTERNAL [...] + + + + | Platelet | 166 | 140 - 440 K/ L | EXTERNAL | | | Count | | | LAB | | | Plasma | | | | | + + + + + + | RDW-CV | 15.8 (A) | 10.5 - 15.0 % | [...] | + +---------+ + + Uric Acid (03/22/2017 11:45 AM PDT) + +-------+ + + + | Component | Value | Ref Range | Performed | Pathologist | | | | | At | Signature | + +-------+ + + + | Uric Acid | 6.3 | 4.4 - 7.6 | EXTERNAL | [...] + +---------+ + + Parathyroid Hormone, Intact (03/22/2017 11:45 AM PDT) + + + + + + | Component | Value | Ref Range | Performed | Pathologist | | | | | At | Signature | + + + + + + | PTH INTACT | 317.2 (A) | 15 - 65 pg/mL | [...] | | + +---------+ + + Magnesium (03/22/2017 11:45 AM PDT) + +-------+ + + + [...] + +---------+ + + Renal Function Panel (03/22/2017 11:45 AM PDT) + + + + + + | Component | Value | Ref Range | Performed | Pathologist | | | | | At | Signature | + + + + + + | Glucose, | 190 (A) | 70 - 100 mg/dL | EXTERNAL | | | Fasting | | | LAB | | + + + + + + | BUN | 45 (A) | 6 - 23 mg/dL | EXTERNAL | | | | | | LAB | | + + + + + + | Creatinine | 2.03 (A) | 0.70 - 1.18 | EXTERNAL [...] | | | LAB | | | [facility] | | | | | + + + + + + | Phosphorus, | 4.1 | 2.5 - 5.0 | EXTERNAL | | | Inorganic | | | LAB | | + + + + + + | BUN/Creatin | 22.2 | 6.0 - 28.6 | EXTERNAL | | | ine Ratio | | | LAB | | + + + + + + | Calcium | 8.1 (A) | 8.4 - 10.2 | EXTERNAL | | | | | mg/dL | LAB | | + + + + + + | Estimated | 32 | mg/dL | EXTERNAL | | | [...]
--- OUTSIDE RECORDS SUMMARY | ~2020-04-07 | XMS | Encounter Summary ---
Demographics + + + | Address | [address] | | | [place] [address] | + + + | Home Phone | | + + + | Preferred Language | Unknown | + + + | Marital Status | Single | + + + | Muslim Affiliation | Unknown | + + + | Race | Unknown | + + + | Ethnic Group | Other Race | + + + Author + + + | Author | [facility] | + + + | Organization | [facility] | + + + | Address | Unknown | + + + | Phone | Unavailable | + + + Care Team Providers + +------+ + | Care Gas Engine Repairer Name | Role | Phone | + +------+ + PCP | Unavailable | + +------+ + Encounter Details +--------+ + + + + | Date | Type | Department | Care Team | Description | +--------+ + + + + | 10/18/ | Document-Sc | UNKNOWN DEPARTMENT | Other, Faculty | | | 2010 | anned | [address] [facility] | [phone] | | | | | [address] | | | | | | [place], [place] | | | | | | [address] | | | +--------+ + + + [...]
--- OUTSIDE RECORDS SUMMARY | ~2020-04-07 | XMS | Encounter Summary ---
Demographics + + + | Address | [address] | | | [place] [address] | + + + | Home Phone | | + + + | Preferred Language | Unknown | + + + | Marital Status | | + + + | Adventist Affiliation | Unknown | + + + | Race | Unknown | + + + | Ethnic Group | Unknown | + + + Author + + + | Author | [facility] | | | and [place] | + + + | Organization | [facility] | | [...] [place] | | | | | [place] [address] | | + + + + + Care Team Providers + +------+ + | Care Mechanical Systems Control Engineer Name | Role | Phone | + +------+ + | Andrew Parra MD | PCP | | + +------+ + Encounter Details +--------+---------+ + + + | Date | Type | Department | Care Team | Description | +--------+---------+ + + + | 06/22/ | Office | [facility] | Arnold Sun MD | Chronic kidney | | 2019 | Visit | NEPHROLOGY [place] | [address] [place] | disease, stage III | | | | [address] | [address] [place], [place] | (moderate) (HCC) | | | | [address] [place] [address] | [address] | (Primary Dx); | | | | [place], [place] | | Macrocytic anemia; | | | | [address] | | Hyperuricemia; | | | | [phone] | | Vitamin D | | | [...] | | | | use of insulin (HCC) | +--------+---------+ + + + Social [...] + + + | Blood Pressure | 142/60 | 06/22/2019 4:13 PM | | | | | PDT | | + + + + + | Pulse | 62 | 06/22/2019 4:13 PM | | | | | PDT [...] + + + + | Weight | 139.5 kg (307 lb 9.6 | 06/22/2019 4:13 PM | | | | oz) | PDT | | + + + + + | Height | 188 cm (6' 2") | 06/22/2019 4:13 PM | | | | | PDT | | + + + + + | Body Mass Index | 39.49 | 06/22/2019 4:13 PM | | | | | PDT | | + + + + + documented in this encounter Patient Instructions Patient Instructions Arnold Sun MD - 06/22/2019 4:00 PM PDTDiscussions/Recommendations : I discussed today with [...] his vasoactive regimen are warranted . I renewed his Calcitriol 0.25 mcg every day. I advised him to exercise regularly but safely & to try to lose weight methodically; He voiced good understanding. Discussed to avoid alcohol and caffeine. Patient has expressed understanding of today's instructions, all questions have been ans wered to their satisfaction and written instructions have been provided. He will F/U with your office regularly. He will have RFP, CBC, uric acid, iPTH, Urine total rzxlgip-xh-pzzrsuexpf ratio done bef ore he comes back in 6 months. documented in this encounter Progress Notes Arnold Sun MD - 06/22/2019 4:00 PM PDT Patient Active Problem List Diagnosis Date Noted POA Anemia 08/31/2016 Unknown Morbid obesity due to excess calories 04/30/2016 Unknown Bradycardia 01/16/2016 Unknown Hyperparathyroidism 10/24/2015 Unknown Hyperuricemia 07/18/2015 Unknown Amputated great toe [...] patient Mr. Mariano in the office today. he is here to F/U on his CKD & its associated complications. On 04/21/15, his SCr & eGFR were 2.6 & 25; on 05/11/15, 1.9 & 34. Of note, in 12/2014, they were 1.65 & 41. He reports he sees Hem/Onc now, from [place], with Myelodysplastic syndrome. No radha rds for review of these visits. The patient has history of hypertension since the late 1970's, Diabetes Mellitus since the early s. his BG and BP control has been [...] renal genetic di seases such as PKD. he says that he feels 'good ' today, [...] hist ory, family history and problem list. *U/S from 05/11/15: no evidence of any significant renal anatomic abnormalities. ROS: As in History of Present Illness [...] mcg capsule, Take 1 capsule by mouth daily., Disp: , Rfl: cholecalciferol (CHOLECALCIFEROL) 1000 units TABS, Take 2,000 [...] into the skin daily., Disp: , Rfl: insulin lispro (HUMALOG) 100 units/mL injection (vial), Inject into the skin 2 (two) times daily. Sliding scale, Disp: , Rfl: losartan-hydrochlorothiazide (HYZAAR) 100-25 MG per tablet, Take 1 tablet by mouth Brisa ly., Disp: , Rfl: metoprolol succinate (TOPROL-XL) 50 mg 24 hr tablet, Take 50 mg by mouth 2 (two) times daily. Patient takes 1.5 (75mg) tabs one daily., Disp: , Rfl: pravastatin (PRAVACHOL) 40 MG tablet, Take 40 mg by mouth nightly., Disp: , Rfl: Physical Exam: BP 142/60 | Pulse 62 | Ht 1.88 m (6' 2") | Wt (!) 139.5 kg (307 lb 9.6 oz) | BMI 39.49 kg/m General appearance: Pleasant, obese, not in [...] normal. Judgment and thought content are normal. *I also reviewed with him the labs from 06/19/19. Lab Results Component Value Date BUN 67 (A) 08/14/2018 CREATININE 1.98 (A) 08/14/2018 EGFR 33 08/14/2018 NA 139 08/14/2018 K 4.3 08/14/2018 CL 109 08/14/2018 CO2 23 08/14/2018 CA 8.4 (A) 08/14/2018 PHOS 4.0 04/21/2018 MG 2.1 04/21/2018 ALB 3.7 08/14/2018 HGB 9.4 (A) 08/13/2018 URICACID 10.6 (A) 04/21/2018 WBC 4.8 08/13/2018 HCT 28.1 (A) 08/13/2018 FERRITIN 420.1 (A) 12/26/2017 LABIRON 32.8 12/26/2017 LABPROT 433.3 (A) 04/21/2018 [id number] 33 08/07/2017 Protein: 30 Range: 0-50 Albumin: 91.7 Alpha 1: 0 Alpha 2: 1.0 Beta Glob: 2.1 Gamma Glob: 5.2 Concentrated: 60 Volume: 2500 Interp: Protein electrophoresis on concentrated urine reveals an abnormal protein band of r estricted mobility in the gamma region. 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 Specimen Collected: 12/06/17 16:39 Last Resulted: 01/05/18 17:19 Assessment: Mr. Mariano is a 73 y.o. male patient with stage IIIb CKD [...] HORMONE: Up URIC ACID: On allopurinol PROTEINURIA: Up, needs recheck URINALYSIS: No UTI or hematuria VOLUME STATUS: [...] his vasoactive regimen are warranted . I renewed his Calcitriol 0.25 mcg every day. I advised him to exercise regularly but safely & to try to lose weight methodically; He voiced good understanding. Discussed to avoid alcohol and caffeine. Patient has expressed understanding of today's instructions, all questions have been ans wered to their satisfaction and written instructions have been provided. He will F/U with your office regularly. He will have RFP, CBC, uric acid, iPTH, Urine total aaaobmc-rx-qumiekiocm ratio done bef ore he comes back in 6 months. I spent 15 minutes of this 25-minute visit in education, counseling and answering all of hi s questions to his satisfaction. Thank you Colleague for the opportunity to [...] 2019 | Visit | | [address] [facility] | | | | | | [address] [place], [place] | | | | | | [address] | | | | | | | | +--------+---------+ + + + documented as of this encounter Procedures + +--------+ + + + | Procedure Name | Priori | Date/Time | Associated Diagnosis | Comments | | | ty | | | | + +--------+ + + + | LABS - EXTERNAL SCAN | | 06/19/2019 | | Results for this | | | | 12:00 AM | | procedure are in the | | | | PDT | | results section. | + +--------+ + + + documented in this encounter Results LABS - EXTERNAL SCAN (06/19/2019 12:00 AM PDT) + + + | Narrative | Performed At | + + + | Ordered by an | | | unspecified provider. | | + + + documented in this encounter Visit Diagnoses + + | Diagnosis | + + | Chronic kidney disease, stage III (moderate) (HCC) - Primary Chronic kidney disease, | | Stage III (moderate) | + + | Macrocytic anemia Unspecified deficiency anemia | + + | Hyperuricemia Other abnormal blood chemistry | + + | Vitamin D deficiency Unspecified vitamin D deficiency | + + | Essential hypertension, benign | + + | Type 2 diabetes mellitus with diabetic nephropathy, with long-term current use of | | insulin (HCC) | + + documented in this encounter
--- OUTSIDE RECORDS SUMMARY | ~2020-04-07 | XMS | Encounter Summary ---
Demographics + + + | Address | [address] | | | [place] [address] | + + + | Home Phone [...] Author + + + | Author | [facility] | + + + | Organization | [facility] | + + + | Address | Unknown | + + + | Phone | Unavailable | + + + Care Team Providers + +------+ + | Care Stump Shooter Name | Role | Phone | + +------+ + PCP | Unavailable | + +------+ + Encounter Details +--------+ + + + + | Date | Type | Department | Care Team | Description | +--------+ + + + + | 12/15/ | Document-Sc | UNKNOWN DEPARTMENT | Unknown . | | | 2012 | anned | [address] | | | | | | [address] | | | | | | [place], [place] | | | | | | [address] | | | +--------+ + + + [...]
--- OUTSIDE RECORDS SUMMARY | ~2020-04-07 | XMS | Encounter Summary ---
Demographics + + + | Address | [address] | | | [place] [address] | + + + | Home Phone | | + + + | Preferred Language | Unknown | + + + | Marital Status | | + + + | Samaritan Affiliation | Unknown | + + + | Race | Unknown | + + + | Ethnic Group | Unknown | + + + Author + + + | Author | [facility] | | | and [place] | + + + | Organization | [facility] | | [...] [place] | | | | | [place] [address] | | + + + + + Care Team Providers + +------+ + | Care Machine Stapler Name | Role | Phone | + [...] pain | Bhupendra Altman MD | [address] [place] | | | | | Procedures | [address] | [address] [facility] | | | | | MRI Knee | [place] | [place] | | | | | Left wo | [place] | [address] | | | | | Contrast | [address] | Phone: | | | | | | Phone: | | | | | | | [phone] | Fax: | | | | | | Fax: | | | | | | | [phone] | | +--------+--------+ + + + + Encounter Details +--------+ + + + + | Date | Type | Department | Care Team | Description | +--------+ + + + + | 11/14/ | Hospital | [facility] | Bhupendra Jain | Left knee pain | | 2012 - | Encounter | MED CTR XRAY [address] Altman MD [address] | | | | | [place] | [address] [place] [address] | | | 11/16/ | | [place] [address] | [address] | | | 2012 | | [phone] | | | +--------+ + + + [...] 2019 | Visit | | [address] [facility] | | | | | | [address] [place] | | | | | | [address] | | | | | | | | +--------+---------+ + + + documented as of this encounter Procedures + +--------+ + + + | Procedure Name | Priori | Date/Time | Associated Diagnosis | Comments | | | ty | | | | + +--------+ + + + | MRI KNEE LEFT WO | Routin | 11/14/2012 | Left knee pain | Results for this | | CONTRAST | e | 11:41 AM | | procedure are in the | | | | PST | | results section. | + +--------+ + + + documented in this encounter Results MRI Knee Left wo Contrast (11/14/2012 11:41 AM PST) + + | Specimen | + + | | + + + + + | Narrative | Performed At | + + + | [facility] | [place] | | Department [address] [facility] | [facility] | | [ rep ct [address]] [ rep ct [facility] | | st zip] Signed | - IMAGING | | | | | Patient Name: RENNY MARIANO Rosey | | | Physician: MELISSA : 1945 Age: 67 Sex: M Unit | | | #: [id number] Exam Date: 11/14/12 Location: | | | [facility] [place] #: [id number] Page: | | | %(RAD)RES..mtdd.print.filter("pg") of %(RAD) | | | RES..mtdd.print.filter("tpg") | | | | | | Accession Number: [id number] | | | UNENHANCED MRI LEFT KNEE, [...] Transcribed Date/Time: | | | 11/14/2012 11:59 Journeyman Mechanic: | | | <<Signature on File>> | | | Hai Douglas | | | MD Arsenio11/15/12 0063 <Electronically signed by Hai Cesar MD> | | | Hai Cesar MD 11/14/12 1141 Journeyman Mechanic: | | | Senior Living Visxnmwlgpvme92/01/13 9929 Bhupendra Jain MD | | | | | + + + + + + + + | Performing | Address | City/State/Zipcode | Phone Number | | Organization | | | | + + + + + | [facility] | [address] | [place] | [phone] | | [facility] | | [address] | | | - IMAGING | | | | + + + + + documented in this encounter Visit Diagnoses + + | Diagnosis | + + | Left knee pain Pain in joint, lower leg | + + documented in this encounter
--- OUTSIDE RECORDS SUMMARY | ~2020-04-07 | XMS | Encounter Summary ---
Demographics + + + | Address | [address] | | | [place] [address] | + + + | Home Phone [...] [place] | | | | | [place] [address] | | + + + + + Care Team Providers + +------+ + | Care Pot Room Tapper Name | Role | Phone | + +------+ + | Hollis Villavicencio MD | PCP | | + +------+ + Encounter Details +--------+ + + + + | Date | Type | Department | Care Team | Description | +--------+ + + + + | 07/09/ | Hospital | [facility] | [place], | | | 2013 - | Encounter | MED CTR OP REHAB | DPM [address] | | | | | [address] [place] | [place] | | | 07/13/ | | [place] [address] | [address] | | | 2012 | | [phone] | [phone] | | | | | | | [...] 2019 | Visit | | [address] [facility] | | | | | | [address] [place] | | | | | | [address] | | | | | | | | +--------+---------+ + + + documented as of this encounter Visit Diagnoses Not on filedocumented in this encounter"
--- OUTSIDE RECORDS SUMMARY | ~2020-04-07 | XMS | Encounter Summary ---
Demographics + + + | Address | [address] | | | [place] [address] | + + + | Home Phone [...] Author + + + | Author | [facility] | + + + | Organization | [facility] | + + + | Address | Unknown | + + + | Phone | Unavailable | + + + Care Team Providers + +------+ + | Care Captain Of Guards Name | Role | Phone | + [...]
--- OUTSIDE RECORDS SUMMARY | ~2020-04-07 | XMS | Encounter Summary ---
Demographics + + + | Address | [address] | | | [place] [address] | + + + | Home Phone | | + + + | Preferred Language | Unknown | + + + | Marital Status | | + + + | Anabaptist Affiliation | Unknown | + + + | Race | Unknown | + + + | Ethnic Group | Unknown | + + + Author + + + | Author | [facility] | | | and [place] | + + + | Organization | [facility] | | | [...] [place] | | | | | [place] [address] | | + + + + + Care Team Providers + +------+ + | Care Dental Laboratory Technician Apprentice Name | Role | Phone | + +------+ + | Andrew Parra MD | PCP | | + +------+ + Reason for Visit +--------+--------+ + | Reason | Onset | Comments | | | Date | | +--------+--------+ + | Other | 06/16/ | Appoinment reminder call | | | 2019 | | +--------+--------+ + Encounter Details +--------+ + + + + | Date | Type | Department | Care Team | Description | +--------+ + + + + | 06/16/ | Telephone | [facility] | Arnold Sun MD | Other (Appoinment | | 2019 | | NEPHROLOGY [place] | [address] [place] | reminder call) | | | | [address] [place] | [address] [place], [place] | | | | | [address] [place], [place] | [id number] | | | | | [address] | | | | | | [phone] | | | +--------+ + + + [...] this encounter Miscellaneous Notes Telephone Encounter - Diane Owens School Librarian - 06/16/2019 8:42 AM PDTThis call is to remind patient of upcoming appointment and lab work needed. Left message with nam e and number of clinic for him to call back with any questions. documented in this encounter Plan of Treatment +--------+---------+ + + + | Date | Type | Specialty | Care Team | Description | +--------+---------+ + + + | 07/04/ | Office | Nephrology | Arnold Sun MD | | | 2020 | Visit | | [address] [facility] | | | | | | [address] [place] | | | | | | [address] | | | | | | | | +--------+---------+ + + + documented as of this encounter Visit Diagnoses Not on filedocumented in this encounter"
--- OUTSIDE RECORDS SUMMARY | ~2020-04-07 | XMS | Clinical Summary ---
Demographics + + + | Address | [address] | | | [place] [address] | + + + | Home Phone [...] Team Providers + +------+ + | Care Cardiologist Name | Role | Phone | + +------+ + | Daniel Sofia MD | PCP | | + +------+ + Source Comments [facility] is fully live on both EpicCare Ambulatory and EpicCare InPatient.[facility] Allergies No Known Allergies Medications + [...] MEDICARE | MEDICA | xxxxxxxxxx | | [phone] | [address] | Med[address] | | | RE A & | | [address] | [address] | | | [address] | | [place] | | [place] | | | | | | | | [address] | | + +--------+ +--------+ + +--------+ [...] | | al/Luis | | 1945 | [phone] | [place] [address] | | | walt | | | 6 (Home) | | + +--------+ +--------+ + +
--- OUTSIDE RECORDS SUMMARY | ~2020-04-07 | XMS | Encounter Summary ---
Demographics + + + | Address | [address] | | | [place] [address] | + + + | Home Phone | | + + + | Preferred Language | Unknown | + + + | Marital Status | Single | + + + | Temple Affiliation | Unknown | + + + | Race | Unknown | + + + | Ethnic Group | Other Race | + + + Author + + + | Author | [facility] | + + + | Organization | [facility] | + + + | Address | Unknown | + + + | Phone | Unavailable | + + + Care Team Providers + +------+ + | Care Mill Stenciler Name | Role | Phone | + [...] | | | | VASC LAB | [place], [place] | [address] | | | | | VENOUS | [address] | Physician's | | | | | DUPLEX LOWER | | Pavilion | | | | | EXTREMITY | | [place], [place] | | | | | [place]IL[place] | | [address] | | | | | | | Phone: | | | | | | | [phone] | | | | | | | Fax: | | | | | | | [phone] | +--------+--------+ + + + + Reason [...] | | | | VASC LAB | [place], [place] | [address] | | | | | VENOUS | [address] | Physician's | | | | | DUPLEX LOWER | | Pavilion | | | | | EXTREMITY | | [place], [place] | | | | | BIL[place] | | [address] | | | | | | | Phone: | | | | | | | [phone] | | | | | | | Fax: | | | | | | | [phone] | +--------+--------+ + + + + Encounter Details +--------+ + + + + | Date | Type | Department | Care Team | Description | +--------+ + + + + | 04/03/ | Hospital | Radiology/Imaging | | | | 2012 | Encounter | Lab at [facility] [address] | | | | | | [address] Mailcode: | | | | | | [facility] | | | | | | Health and Healing, | | | | | | [place] [address], [facility] | | | | | | Floor [place], [place] | | | | | | [address] | | | | | | [phone] | | | +--------+ + + + [...]
--- OUTSIDE RECORDS SUMMARY | ~2020-04-07 | XMS | Encounter Summary ---
Demographics + + + | Address | [address] | | | [place] [address] | + + + | Home Phone | | + + + | Preferred Language | Unknown | + + + | Marital Status | | + + + | Sabianist Affiliation | Unknown | + + + | Race | Unknown | + + + | Ethnic Group | Unknown | + + + Author + + + | Author | [facility] | | | and [place] | + + + | Organization | [facility] | | [...] [place] | | | | | [place] [address] | | + + + + + Care Team Providers + +------+ + | Care Coat Repair Inspector Name | Role | Phone | + +------+ + | Hollis Villavicencio MD | PCP | | + +------+ + Encounter Details +--------+ + + + + | Date | Type | Department | Care Team | Description | +--------+ + + + + | 06/11/ | Hospital | [facility] | Jean ClaudeAlex mercedes, | | | 2013 - | Encounter | MED CTR OP REHAB | DPM [address] | | | | | [address] [place] | [place] | | | 06/13/ | | [place] [address] | [address] | | | 2012 | | [phone] | [phone] | | | | | | | [...] 2019 | Visit | | [address] [facility] | | | | | | [address] [place] | | | | | | [address] | | | | | | | | +--------+---------+ + + + documented as of this encounter Visit Diagnoses Not on filedocumented in this encounter"
--- OUTSIDE RECORDS SUMMARY | ~2020-04-07 | XMS | Encounter Summary ---
Demographics + + + | Address | [address] | | | [place] [address] | + + + | Home Phone | | + + + | Preferred Language | Unknown | + + + | Marital Status | Single | + + + | Druze Affiliation | Unknown | + + + | Race | Unknown | + + + | Ethnic Group | Other Race | + + + Author + + + | Author | [facility] | + + + | Organization | [facility] | + + + | Address | Unknown | + + + | Phone | Unavailable | + + + Care Team Providers + +------+ + | Care Assurance Sourcing Manager Name | Role | Phone | [...] | | | | | VASCULAR | [place], [place] | [facility], [facility] | | | | | SURGERY | [address] | Floor | | | | | DIVISION | | [place], [place] | | | | | | | [address] | | | | | | | Phone: | | | | | | | [phone] | | | | | | | Fax: | | | | | | | [phone] | + +--------+ + + + + [...] | | | | VASC LAB | [facility] [place] | [address] | | | | | VENOUS | [address] | Physician's | | | | | DUPLEX LOWER | | Pavilion | | | | | EXTREMITY | | [place], [place] | | | | | [place] | | [address] | | | | | | | Phone: | | | | | | | [phone] | | | | | | | Fax: | | | | | | | [phone] | +--------+--------+ + + + + Reason [...] | | | | MD Bui | [address] | | | | | | [facility] | [place] | | | | | | & Keegan | [place] | | | | | | [address] | [place] | | | | | | Cheryl Esc[place] | [address] | | | | | | [place] | Phone: | | | | | | [place] [address] | [phone] | | | | | | Phone: | Fax: | | | | | | [phone] | [phone] | | | | | | Fax: | | | | | | | [phone] | | +--------+--------+ + + + + Encounter Details +--------+---------+ + + + | Date | Type | Department | Care Team | Description | +--------+---------+ + + + | 04/03/ | Office | Orthopaedic Spine | Dane Paez MD | Lymphedema (Primary | | 2012 | Visit | Center at [facility] [address] | [address] | Dx); Back pain; | | | | [address] | [address] [place], | Lower extremity | | | | Mailcode: [address] | [place] [address] | edema | | | | [facility] | [phone] | | | | | and Healing, | | | | | | [facility] | | | | | | Floor [place], [place] | | | | | | [address] | | | | | | [phone] | | | +--------+---------+ + + + [...] to improve as anticipated. Dane Paez M.D. Destination Coordinator Physical Medicine and Rehabilitation arDane saxena MD [...] to improve as anticipated. Dane Paez M.D. Destination Coordinator Physical Medicine and Rehabilitation ox, Jack Vazquez MD - 04/03 12:56 PM PDT [facility] DEPARTMENT OF ORTHOPAEDICS & REHABILITATION Physical Medicine [...] Record Review: I have reviewed notes from [facility]. In brief, these show bilateral knee arthritis s/p steroid injection with good relief. Negat ivanna DVT scan. Reports/records sent to be scanned into [employer] system. DIAGNOSTIC STUDIES: CT lumbar spine at [...] and Rehabilitation Department of Orthopaedics and Rehabilitation. [facility] Department of Orthopaedics & Rehabilitation [address] [facility] Mail Code: [id number] [facility] [address] documented in this encoun ter Plan of [...] | | + +---------+ + + | [facility] DEPARTMENT OF | | | [...]
--- OUTSIDE RECORDS SUMMARY | ~2020-04-07 | XMS | Encounter Summary ---
Demographics + + + | Address | [address] | | | [place] [address] | + + + | Home Phone [...] Author + + + | Author | [facility] | + + + | Organization | [facility] | + + + | Address | Unknown | + + + | Phone | Unavailable | + + + Care Team Providers + +------+ + | Care Electroplater Automatic Name | Role | Phone | + [...] | | | | | EXTREMITY | [facility] [place] | Physician's | | | | | BILATERAL | [address] | Pavilion | | | | | COMPLETE | Phone: | [place], [place] | | | | | | [phone] | [address] | | | | | | Fax: | Phone: | | | | | | [phone] | [phone] | | | | | | | Fax: | | | | | | | [phone] | +--------+--------+ + + + + Reason [...] | | Vascular | Diagnoses | Jack Burrouhgs | Vas Vasc | | | | Surgery | Lymphedema | MD [address] | Surg Ppv | | | | | Procedures | [address] | [address] | | | | | CONSULT TO | Jean Woodruff | Kaia Judge | | | | | SURGERY - | Jean | Physicians | | | | | VASCULAR | [place], [place] | [address]nd [address] | | | | | SURGERY | [address] | Floor | | | | | DIVISION | | [place], [place] | | | | | | | [address] | | | | | | | Phone: | | | | | | | [phone] | | | | | | | Fax: | | | | | | | [phone] | + +--------+ + + + + [...] | | | | Physicians Pavilion, | [place], [place] | noninfectious | | | | 2nd Floor | [address] | disorders of | | | | [place], [place] | [phone] | lymphatic channels; | | | | [address] | | Type II or | | | | [phone] | | unspecified type | | | [...] s note. JUVE SHAW MD VASCULAR SURGERY [address] [place] [address] Mailcode: Op11 [place] [address] James Contreras MD - 05/06/2013 [...] he is being managed at home near [place], [place] by a car escort and a lymphedema t herapist and it appears that all the recommendations he has received from them are appropria te and will also help him for the management of his lymphedema. We answered all his questions. The patient was discussed with Dr. Valeria ORTEGA MD Resident, PGY-4 [facility], Dept. of Surgery Pager [phone] ndres Oseguera - 05/06/2013 10:42 AM PDT [...] | | + +---------+ + + | [facility] DEPARTMENT OF | | | [...]
--- OUTSIDE RECORDS SUMMARY | ~2020-04-07 | XMS | Encounter Summary ---
Demographics + + + | Address | [address] | | | [place] [address] | + + + | Home Phone | | + + + | Preferred Language | Unknown | + + + | Marital Status | | + + + | Lutheran Affiliation | Unknown | + + + [...] [place] | | | | | [place] [address] | | + + + + + Care Team Providers + +------+ + | Care Gig Tender Name | Role | Phone | + +------+ + | Hollis Villavicencio MD | PCP | | + +------+ + Reason for Visit +--------+--------+ + | Reason | Onset | Comments | | | Date | | +--------+--------+ + | Other | 11/18/ | Discuss MRI | | | 2012 | | +--------+--------+ + Encounter Details +--------+ + + + + | Date | Type | Department | Care Team | Description | +--------+ + + + + | 11/18/ | Telephone | [facility] | Bhupendra Lorenzo | Other (Discuss MRI) | | 2012 | | PHYSIATRY [address] | [address] | | | | [address] [place] [address] | [address] [place] | | | | | [place] | [address] | | | | | [address] | | | | | | [phone] | | | +--------+ + + + [...] this encounter Miscellaneous Notes Telephone Encounter - Zhou Leyva - 11/18/2012 1:34 PM PSTPatient given MRI results, states his pain is all coming from one spot on his knee. Patient states he will call Dr. Amado sanchez office to make an appointment with him.Electronically signed by Zhou Leyva at 02/2013 1:34 PM PSTTelephone Encounter - Zhou Leyva - 11/18/2012 1:29 PM PSTMessage copied by ZHOU LEYVA on SatNov 18, 2012 5609 ------ Message from: BHUPENDRA LORENZO Created: Josué Nov 18, 2012 0947 The patient previously had mostly medial and posterior knee pain. He does have eviden ce of a significant medial meniscus tear which may be causing the symptoms. There is some fl uid in the medial collateral ligament suggesting a possible spran. There are also degenerati ve changes in the cartilage, especially in the medial compartment. He also has a small tear in the lateral meniscus. If the pain is still almost exclusively in the knee then I sugges t we forward the MRI to Dr. Villavicencio and have him follow-up there to discuss additional treatme nt options. If he develops pain radiating down the whole leg again I would be happy to see him for reevaluation. [facility] ummary jo in this encounter Plan of Treatment +--------+---------+ + + + | Date | Type | Specialty | Care Team | Description | +--------+---------+ + + + | 07/04/ | Office | Nephrology | Arnold Sun MD | | | 2020 | Visit | | [address] [facility] | | | | | | [address] [place], [place] | | | | | | [address] | | | | | | | | +--------+---------+ + + + documented as of this encounter Visit Diagnoses Not on filedocumented in this encounter"
--- OUTSIDE RECORDS SUMMARY | ~2020-04-07 | XMS | Encounter Summary ---
Demographics + + + | Address | [address] | | | [place] [address] | + + + | Home Phone | | + + + | Preferred Language | Unknown | + + + | Marital Status | Single | + + + | Lutheran Affiliation | Unknown | + + + | Race | Unknown | + + + | Ethnic Group | Other Race | + + + Author + + + | Author | [facility] | + + + | Organization | [facility] | + + + | Address | Unknown | + + + | Phone | Unavailable | + + + Care Team Providers + +------+ + | Care Feed Research Technician Name | Role | Phone | [...] [id number] | | | | | | [facility] | | | | | | and Healing, | | | | | | Building [address], | | | | | | Floor [place], [place] | | | | | | [address] | | | | | | [phone] | | | +--------+ + + + [...] | | | | | | patchy [id number] | | | | | | skin, [id number]. The | | | | | | surgical margin isinked | | | | | | black; the tissue is | | | | | | serially sectioned, and | | | | | | entirely submitted | | | | | | incjiaette A1. | | | | | | [...] | | | | | cytoplasm with melanin. 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 | | | | | | NOTE: Increased | | | | | | single junctional | | | | | | melanocytes with focal | | | | | [...] | | | | | be considered prudent. | | | | | | My [...] + + + | [facility] | [address] | [place] [address] | | | DERMATOPATHOLOGY | [address] | | | + + + + + documented in this encounter Visit Diagnoses Not on filedocumented in this encounter
--- OUTSIDE RECORDS SUMMARY | ~2020-04-07 | XMS | Encounter Summary ---
Demographics + + + | Address | [address] | | | [place] [address] | + + + | Home Phone | | + + + | Preferred Language | Unknown | + + + | Marital Status | | + + + | Druze Affiliation | Unknown | + + + | Race | Unknown | + + + | Ethnic Group | Unknown | + + + Author + + + | Author | [facility] | | | and [place] | + + + | Organization | [facility] | | | [...] [place] | | | | | [place] [address] | | + + + + + Care Team Providers + +------+ + | Care Systems Administrator Name | Role | Phone | + +------+ + | Andrew Parra MD | PCP | | + +------+ + Encounter Details +--------+ + + + + | Date | Type | Department | Care Team | Description | +--------+ + + + + | 12/26/ | Orders Only | [facility] | Conversion | | | 2018 | | NEPHROLOGY [place] | Transaction, | | | | | [address] [place] | Provider Unknown | | | | | [address] [place], [place] | | | | | | [address] | (Fax) | | | | | [phone] | | | +--------+ + + + [...] 2020 | Visit | | [address] [facility] | | | | | | [address] [place] | | | | | | [address] | | | | | | | | +--------+---------+ + + + documented as of this encounter Procedures + +--------+ + + + | Procedure Name | Priori | Date/Time | Associated Diagnosis | Comments | | | ty | | | | + +--------+ + + + | EXTERNAL LAB: CBC | Routin | 12/26/2017 | | Results for this | | | e | 1:52 PM | | procedure are in the | | | | PDT | | results section. | + +--------+ + + + | IRON AND IRON | Routin | 12/26/2017 | | Results for this | | BINDING CAPACITY | e | 1:52 PM | | procedure are in the | | | | PDT | | results section. | + +--------+ + + + | VITAMIN B-12 | Routin | 12/26/2017 | | Results for this | | | e | 1:52 PM | | procedure are in the | | | | PDT | | results section. | + +--------+ + + + | TRANSFERRIN | Routin | 12/26/2017 | | Results for this | | | e | 1:52 PM | | procedure are in the | | | | PDT | | results section. | + +--------+ + + + | FERRITIN | Routin | 12/26/2017 | | Results for this | | | e | 1:52 PM | | procedure are in the | | | | PDT | | results section. | + +--------+ + + + | COMPREHENSIVE | Routin | 12/26/2017 | | Results for this | | METABOLIC PANEL | e | 1:52 PM | | procedure are in the | | | | PDT | | results section. | + +--------+ + + + documented in this encounter Results Iron and Iron Binding Capacity (12/26/2017 1:52 PM PDT) + +-------+ + + + | Component | Value | Ref Range | Performed | Pathologist | | | | | At | Signature | + +-------+ + + + | Iron | 88.32 | 37 - 160 | EXTERNAL | | | | | | LAB | | + +-------+ + + + | Iron | 32.8 | 20 - 55 | EXTERNAL | | | Saturation | | | LAB | | + +-------+ + + + | TIBC | 269 | 245 - 400 | EXTERNAL | [...] + +---------+ + + External Lab: CBC (12/26/2017 1:52 PM PDT) + + + + + + | Component | Value | Ref Range | Performed | Pathologist | | | | | At | Signature | + + + + + + | WBC | 4.6 | 4.5 - 11.0 10 | EXTERNAL | | | | | | LAB | | + + + + + + | Red Blood | 2.4 (A) | 4.3 - 5.7 10 | EXTERNAL | | | Cells | | | LAB | | | Counted | | | | | + + + + + + | Hemoglobin | 8.5 (A) | 13.5 - 18.0 | EXTERNAL | | | | | g/dL | LAB | | + + + + + + | Hematocrit, | 25.5 (A) | 41 - 50 % | EXTERNAL | | | POC | | | LAB | | + + + + + + | MCV | 106.9 (A) | 81 - 99 fL | EXTERNAL | | | | | | LAB | | + + + + + + | MCH | 35 (A) | 27 - 33 pg | EXTERNAL | | | | | | LAB | | + + + + + + | MCHC | 33 | 30 - 36 g/dL | EXTERNAL | | | | | | LAB | | + + + + + + | Platelet | 172 | 140 - 440 K/ L | EXTERNAL | | | Count | | | LAB | | | Plasma | | | | | + + + + + + | RDW-CV | 17.2 (A) | 10.5 - 15.0 % | [...] | | + +---------+ + + Transferrin (12/26/2017 1:52 PM PDT) + +--------+ + + + | Component | Value | Ref Range | Performed | Pathologist | | | | | At | Signature | + +--------+ + + + | TRANSFERRIN | 192.02 | 180 - 329 | EXTERNAL | [...] | | + +---------+ + + Ferritin (12/26/2017 1:52 PM PDT) + + + + + + | Component | Value | Ref Range | Performed | Pathologist | | | | | At | Signature | + + + + + + | Ferritin, | 420.1 (A) | 30 - 400 ng/mL | EXTERNAL [...] | + +---------+ + + Vitamin B-12 (12/26/2017 1:52 PM PDT) + +-------+ + + + | Component | Value | Ref Range | Performed | Pathologist | | | | | At | Signature | + +-------+ + + + | VITAMIN | 354.7 | 232 - 1,245 | EXTERNAL | | | B-12 | [...] + +---------+ + + Comprehensive Metabolic Panel (12/26/2017 1:52 PM PDT) + + + + + + | Component | Value | Ref Range | Performed | Pathologist | | | | | At | Signature | + + + + + + | Glucose, | 105 (A) | 70 - 100 mg/dL | EXTERNAL | | | Fasting | | | LAB | | + + + + + + | BUN | 44 (A) | 6 - 23 mg/dL | EXTERNAL | | | | | | LAB | | + + + + + + | Creatinine | 1.91 (A) | 0.7 - 1.18 | EXTERNAL | | | | | mg/dL | LAB | | + + + + + + | BUN/Creatin | 23 | 6.0 - 28.6 | EXTERNAL | | | ine Ratio | | | LAB | | + + + + + + | Calcium | 8.4 | 8.4 - 10.2 | EXTERNAL | | | | | mg/dL | LAB | | + + + + + + | Protein, | 6.4 | 6.0 - 8.0 g/dL | EXTERNAL | | | Total | | | LAB | | + + + + + + | Albumin | 3.8 | 3.5 - 5.0 | EXTERNAL | [...] + + + + | ALP, | 82 | 31 - 120 | EXTERNAL | | | External | | | LAB | | + + + + + + | ALT | 9 | 7 - 52 U/L | EXTERNAL | | | | | | LAB | | + + + + + + | AST | 11 (A) | 13 - 39 U/L | [...] + + + | Anion Gap | 17.1 | 7 - 21 mmol/L | EXTERNAL | | | | | | LAB | | + + + + + + | Estimated | 35 (A) | 60 mg/dL | EXTERNAL | [...]
--- OUTSIDE RECORDS SUMMARY | ~2020-04-07 | XMS | Encounter Summary ---
Demographics + + + | Address | [address] | | | [place] [address] | + + + | Home Phone [...] Author + + + | Author | [facility] | + + + | Organization | [facility] | + + + | Address | Unknown | + + + | Phone | Unavailable | + + + Care Team Providers + +------+ + | Care Marketing Support Coordinator Name | Role | Phone | [...] | | | | | EXTREMITY | [facility] [place] | Physician's | | | | | BILATERAL | [address] | Pavilion | | | | | COMPLETE | Phone: | [place], [place] | | | | | | [phone] | [address] | | | | | | Fax: | Phone: | | | | | | [phone] | [phone] | | | | | | | Fax: | | | | | | | [phone] | +--------+--------+ + + + + Reason for Visit Diagnostic Testing (Routine) +--------+--------+ + + + + | Status | Reason | Specialty | Diagnoses / | Referred By | Referred To | | | | | Procedures | Contact | Contact | +--------+--------+ + + + + | Closed | | Radiology | Diagnoses | [address] | [facility] | | | | | Lymphedema | [place], | [facility] [address] | | | | | Procedures | MD James | [address] | | | | | VASC LAB | [address] | [address] | | | | | [address] | [address] | Mailcode: | | | | | [address] | [address] | [address] | | | | | EXTREMITY | [place], [place] | Physician's | | | | | BILATERAL | [address] | Pavilion | | | | | COMPLETE | Phone: | [place], [place] | | | | | | [phone] | [address] | | | | | | Fax: | Phone: | | | | | | [phone] | [phone] | | | | | | | Fax: | | | | | | | [phone] | +--------+--------+ + + + + Encounter Details +--------+ + + + + | Date | Type | Department | Care Team | Description | +--------+ + + + + | 05/06/ | Hospital | Diagnostic | | | | 2012 | Encounter | Radiology at [facility] | | | | | | [address] | | | | | | Loop Mailcode: | | | | | | [address] Physician's | | | | | | Pav[place], | | | | | | [place] [address] | | | | | | [phone] | | | +--------+ + + + [...] documented in this encounter Results VASC LAB ARTER DUPLEX [...] | | + +---------+ + + | [facility] DEPARTMENT OF | | | | | RADIOLOGY | | | | + +---------+ + + documented in this encounter Visit Diagnoses + + | Diagnosis | + + | Lymphedema Other lymphedema | + + documented in this encounter"
--- OUTSIDE RECORDS SUMMARY | ~2020-04-07 | XMS | Encounter Summary ---
Demographics + + + | Address | [address] | | | [place] [address] | + + + | Home Phone | | + + + | Preferred Language | Unknown | + + + | Marital Status | | + + + | Islam Affiliation | Unknown | + + + | Race | Unknown | + + + | Ethnic Group | Unknown | + + + Author + + + | Author | [facility] | | | and [place] | + + + | Organization | [facility] | | | and [...] [place], | | | | | [place] [address] | | + + + + + Care Team Providers + +------+ + | Care Stucco Plasterer Name | Role | Phone | + +------+ + | No, Physician | PCP | Unavailable | + +------+ + Reason for Visit +---------+ + | Reason | Comments | +---------+ + | Results | 12/24/19 | +---------+ + Encounter Details +--------+ + + + + | Date | Type | Department | Care Team | Description | +--------+ + + + + | 12/24/ | Documentati | [facility] | Roman, | Results (12/24/19) | | 2020 | on | NEPHROLOGY [place] | [facility] | | | | | [address] | [address] Auditor | | | | | [address] | | | | | | [place], [place] | | | | | | [address] | | | | | | [phone] | | | +--------+ + + + [...] 2019 | Visit | | [address] [facility] | | | | | | [address] [place], [place] | | | | | | [address] | | | | | | | | +--------+---------+ + + + documented as of this encounter Procedures + +--------+ + + + | Procedure Name | Priori | Date/Time | Associated Diagnosis | Comments | | | ty | | | | + +--------+ + + + | CBC NO DIFFERENTIAL | Routin | 12/24/2019 | | Results for this | | | e | | | procedure are in the | | | | | | results section. | + +--------+ + + + | RENAL FUNCTION PANEL | Routin | 12/24/2019 | | Results for this | | | e | | | procedure are in the | | | | | | results section. | + +--------+ + + + documented in this encounter Results CBC with Manual Differential (12/24/2019) + + + + + + | Component | Value | Ref Range | Performed | Pathologist | | | | | At | Signature | + + + + + + | WBC | 3.4 (A) | 4.5 - 11.0 | | | + + + + + + | RBC | 2.01 (A) | 4.30 - 5.70 | | | | | | M/uL | | | + + + + + + | Hemoglobin | 7.1 (A) | 13.5 - 18.0 | | | + + + + + + | Hematocrit, | 21.0 (A) | 41.0 - 50.0 % | | | | POC | | | | | + + + + + + | MCV | 104.5 (A) | 81.0 - 99.0 fL | | | + + + + + + | MCHC | 34.0 | 30.0 - 36.0 | | | | | | g/dL | | | + + + + + + | MCH | 35.0 (A) | 27.0 - 33.0 pg | | | + + + + + + | Platelet | 39 (A) | 140 - 440 | | | | Count | | | | | | Plasma | | | | | + + + + + + | RDW | 22.7 (A) | 10.5 - 15.0 | | | + + + + + + | BAL | 46 | 39 - 80 % | | | | Neutrophils | | | | | | % | | | | | + + + + + + | % | 28.8 | 24 - 44 | | | | Lymphocytes | | | | | + + + + + + | Monocyte % | 14 (A) | 0 - 12 | | | + + + + + + | BAL | 10 (A) | 0 - 6 % | | | | Eosinophils | | | | | | % | | | | | + + + + + + | BF % | 1 | 0 - 2 % | | | | Basophils | | | | | + + + + + + + + | Specimen | + + | Blood | + + Renal Function Panel (12/24/2019) + + + + + + | Component | Value | Ref Range | Performed | Pathologist | | | | | At | Signature | + + + + + + | Na | 139 | 132 - 143 | | | | | | mmol/L | | | + + + + + + | K | 4.9 | 3.6 - 5.1 | | | | | | mmol/L | | | + + + + + + | Cl | 108 | 95 - 112 mmol/L | | | + + + + + + | CO2 | 19 | 19 - 31 mmol/L | | | + + + + + + | Anion Gap | 17 | 7 - 21 mmol/L | | | + + + + + + | Glucose | 76 | 70 - 100 mg/dL | | | + + + + + + | BUN | 74 (A) | 6 - 23 mg/dL | | | + + + + + + | Creatinine | 2.21 (A) | 0.70 - 1.18 | | | | | | mg/dL | | | + + + + + + | Estimated | 29.0 (A) | 60.0 - 140.0 | | | | GFR | | mL/min/1.73m2 | | | + + + + + + | BUN/Creatin | 33.5 (A) | 6.0 - 28.6 | | | | ine Ratio | | | | | + + + + + + | Albumin | 3.7 | 3.5 - 5.0 g/dL | | | + + + + + + | Calcium | 8.4 (A) | 8.5 - 10.3 | | | + + + + + + | PHOSPHORUS | 4.4 | 2.5 - 5.0 | | | + + + + + + + + | Specimen | + + | Blood | + + documented in this encounter Visit Diagnoses Not on filedocumented in this encounter"
--- OUTSIDE RECORDS SUMMARY | ~2020-04-07 | XMS | Encounter Summary ---
Demographics + + + | Address | [address] | | | [place] [address] | + + + | Home Phone [...] + + + | Author | [facility] | + + + | Organization | [facility] | + + + | Address | Unknown | + + + | Phone | Unavailable | + + + Care Team Providers + +------+ + | Care Battery Plate Assembler Name | Role | Phone | [...] [id number] | | | | | | [facility] | | | | | | and Healing, | | | | | | Building [address], | | | | | | Floor [place], [place] | | | | | | [address] | | | | | | [phone] | | | +--------+ + + + [...] | | | | | | patchy [id number] | | | | | | skin, [id number]. The | | | | | | [...] + + | [facility] | [id number] | [place] [address] | | | DERMATOPATHOLOGY | [address] | | | + + + + + documented in this encounter Visit Diagnoses Not on filedocumented in this encounter
--- OUTSIDE RECORDS SUMMARY | ~2020-04-07 | XMS | Encounter Summary ---
Demographics + + + | Address | [address] | | | [place] [address] | + + + | Home Phone | | + + + | Preferred Language | Unknown | + + + | Marital Status | Single | + + + | Voodoo Affiliation | Unknown | + + + [...] Team Providers + +------+ + | Care Free Lance Model Name | Role | Phone | + [...] [address] | | | | | | [place], [place] | | | | | | [address] | | | +--------+ + + + [...]
--- OUTSIDE RECORDS SUMMARY | ~2020-04-07 | XMS | Encounter Summary ---
Demographics + + + | Address | [address] | | | [place] [address] | + + + | Home Phone | | + + + | Preferred Language | Unknown | + + + | Marital Status | | + + + | Sabianism Affiliation | Unknown | + + + | Race | Unknown | + + + | Ethnic Group | Unknown | + + + Author + + + | Author | [facility] | | | and [place] | + + + | Organization | [facility] | | | [...] [place] | | | | | [place] [address] | | + + + + + Care Team Providers + +------+ + | Care Skiver Counter Name | Role | Phone | + +------+ + | Andrew Parra MD | PCP | | + +------+ + Encounter Details +--------+ + + + + | Date | Type | Department | Care Team | Description | +--------+ + + + + | 05/11/ | Orders Only | [facility] | Arnold Sun MD | | | 2014 | | NEPHROLOGY [place] | [address] [place] | | | | | [address] [place] | [address] [place], [place] | | | | | [address] [place], [place] | [address] | | | | | [address] | | | | | | [phone] | | | +--------+ + + + [...] [place] | | | | | | [address] | | | | | | | | +--------+---------+ + + + documented as of this encounter Procedures + +--------+ + + + | Procedure Name | Priori | Date/Time | Associated Diagnosis | Comments | | | ty | | | | + +--------+ + + + | BASIC METABOLIC | Routin | 05/11/2015 | | Results for this | | PANEL | e | 12:00 AM | | procedure are in the | | | | PDT | | results section. | + +--------+ + + + | VITAMIN D, | Routin | 04/21/2015 | | Results for this | | DEFICIENCY SCREEN | e | 12:00 AM | | procedure are in the | | (25-HYDROXY) | | PDT | | results section. | + +--------+ + + + | MICROALBUMIN/CREATIN | Routin | 04/21/2015 | | Results for this | | INE RATIO, URINE | e | 12:00 AM | | procedure are in the | | TEST | | PDT | | results section. | + +--------+ + + + | COMPREHENSIVE | Routin | 04/21/2015 | | Results for this | | METABOLIC PANEL | e | 12:00 AM | | procedure are in the | | | | PDT | | results section. | + +--------+ + + + | HEMOGLOBIN A1C | Routin | 12/15/2014 | | Results for this | | | e | 12:00 AM | | procedure are in the | | | | PST | | results section. | + +--------+ + + + | BASIC METABOLIC | Routin | 12/15/2014 | | Results for this | | PANEL | e | 12:00 AM | | procedure are in the | | | | PST | | results section. | + +--------+ + + + documented in this encounter Results Basic Metabolic Panel (05/11/2015 12:00 AM PDT) + +---------+ + + + | Component | Value | Ref Range | Performed | Pathologist | | | | | At | Signature | + +---------+ + + + | Glucose, | 60 (A) | 70 - 100 mg/dL | EXTERNAL | | | Fasting | | | LAB | | + +---------+ + + + | BUN | 39 (A) | 7 - 18 mg/dL | EXTERNAL | | | | | | LAB | | + +---------+ + + + | Creatinine | 1.9 (A) | 0.60 - 1.30 | EXTERNAL | | | | | mg/dL | LAB | | + +---------+ + + + | BUN/Creatin | 19.90 | | EXTERNAL | | | ine Ratio | | | LAB | | + +---------+ + + + | Calcium | 8.6 | 8.4 - 10.5 | EXTERNAL | | | | | mg/dL | LAB | | + +---------+ + + + | Na | 141 | 135 - 145 | EXTERNAL | | | | | mmol/L | LAB | | + +---------+ + + + | K | 3.7 | 3.6 - 5.0 | EXTERNAL | | | | | mmol/L | LAB | | + +---------+ + + + | Cl | 106 | 98 - 107 mmol/L | EXTERNAL | | | | | | LAB | | + +---------+ + + + | CO2 | 26 | 21 - 31 mmol/L | EXTERNAL | | | | | | LAB | | + +---------+ + + + | Anion Gap | 9 | 3 - 12 mmol/L | EXTERNAL | | | | | | LAB | | + +---------+ + + + | Estimated | 34 (A) | 60 - 120 mg/dL | EXTERNAL | | | GFR [...] | | | + +---------+ + + Microalbumin/Creatinine Ratio, Urine (04/21/2015 12:00 AM PDT) + +-------+ + + + | Component | Value | Ref Range | Performed | Pathologist | | | | | At | Signature | + +-------+ + + + | ALBUMIN/CRE | 6.9 | 0.0 - 29.9 | EXTERNAL | | | ATININE | | | LAB | | | RATIO.URINE | | | | | | .ORD.MG/G | | | | | | (LAVELLE) | | | | | | | | | | | | | | | | | + +-------+ [...] + + Vitamin D, Deficiency Screen (25-Hydroxy) (04/21/2015 12:00 AM PDT) + + + + + + | Component | Value | Ref Range | Performed | Pathologist | | | | | At | Signature | + + + + + + | Vit D, | 20.4 (A) | 30 - 100 | EXTERNAL [...] + +---------+ + + Comprehensive Metabolic Panel (04/21/2015 12:00 AM PDT) + +---------+ + + + | Component | Value | Ref Range | Performed | Pathologist | | | | | At | Signature | + +---------+ + + + | Glucose, | 56 (A) | 70 - 100 mg/dL | EXTERNAL | | | Fasting | | | LAB | | + +---------+ + + + | BUN | 53 (A) | 7 - 18 mg/dL | EXTERNAL | | | | | | LAB | | + +---------+ + + + | Creatinine | 2.6 (A) | 0.6 - 1.3 mg/dL | EXTERNAL | | | | | | LAB | | + +---------+ + + + | BUN/Creatin | 20.66 | | EXTERNAL | | | ine Ratio | | | LAB | | + +---------+ + + + | Calcium | 8.8 | 8.4 - 10.5 | EXTERNAL | | | | | mg/dL | LAB | | + +---------+ + + + | Protein, | 6.0 | 6.0 - 8.1 g/dL | EXTERNAL | | | Total | | | LAB | | + +---------+ + + + | Albumin | 3.6 | 3.5 - 5.0 | EXTERNAL | | | | | | LAB | | + +---------+ + + + | Globulin | 0.7 | 0.2 - 1.2 | EXTERNAL | | | | | | LAB | | + +---------+ + + + | A/G Ratio | | | EXTERNAL | | | | | | LAB | | + +---------+ + + + | Bilirubin | 0.7 | 0.2 - 1.2 mg/dL | EXTERNAL | | | Total | | | LAB | | + +---------+ + + + | ALP, | 89 | 32 - 92 | EXTERNAL | | | External | | | LAB | | + +---------+ + + + | ALT | 13 | 10 - 48 U/L | EXTERNAL | | | | | | LAB | | + +---------+ + + + | AST | 18 | 10 - 42 U/L | EXTERNAL | | | | | | LAB | | + +---------+ + + + | Na | 140 | 135 - 145 | EXTERNAL | | | | | mmol/L | LAB | | + +---------+ + + + | K | 4.2 | 3.6 - 5.0 | EXTERNAL | | | | | mmol/L | LAB | | + +---------+ + + + | Cl | 106 | 98 - 107 mmol/L | EXTERNAL | | | | | | LAB | | + +---------+ + + + | CO2 | 24 | 21 - 31 mmol/L | EXTERNAL | | | | | | LAB | | + +---------+ + + + | Anion Gap | 10 | 3 - 12 mmol/L | EXTERNAL | | | | | | LAB | | + +---------+ + + + | Estimated | 25 (A) | 60 - 120 mg/dL | EXTERNAL | | | GFR [...] | + +---------+ + + Hemoglobin A1C (12/15/2014 12:00 AM PST) + +---------+ + + + | Component | Value | Ref Range | Performed | Pathologist | | | | | At | Signature | + +---------+ + + + | Hemoglobin | 8.8 (A) | 5.7 % | EXTERNAL | | | A1c [...] + +---------+ + + Basic Metabolic Panel (12/15/2014 12:00 AM PST) + + + + + + | Component | Value | Ref Range | Performed | Pathologist | | | | | At | Signature | + + + + + + | Glucose, | 51 (A) | 70 - 100 mg/dL | EXTERNAL | | | Fasting | | | LAB | | + + + + + + | BUN | 36 (A) | 6 - 23 mg/dL | EXTERNAL | | | | | | LAB | | + + + + + + | Creatinine | 1.65 (A) | 0.70 - 1.18 | EXTERNAL | | | | | mg/dL | LAB | | + + + + + + | BUN/Creatin | 21.8 | 6.0 - 28.6 | EXTERNAL | | | ine Ratio | | | LAB | | + + + + + + | Calcium | 9.0 | 8.4 - 10.2 | EXTERNAL | [...] + + + + | Cl | 104 | 95 - 112 mmol/L | EXTERNAL | | | | | | LAB | | + + + + + + | CO2 | 25 | 19 - 31 mmol/L | EXTERNAL | | | | | | LAB | | + + + + + + | Anion Gap | 14.2 | 7 - 21 mmol/L | EXTERNAL | | | | | | LAB | | + + + + + + | Estimated | 41 (A) | 60 - 140 mg/dL | [...]
--- OUTSIDE RECORDS SUMMARY | ~2020-04-07 | XMS | Encounter Summary ---
Demographics + + + | Address | [address] | | | [place] [address] | + + + | Home Phone [...] + + | Author | [facility] | | | and [place] | + + + | Organization | [facility] | | [...] [place], | | | | | [place] [address] | | + + + + + Care Team Providers + +------+ + | Care Plumbing Engineering Draftsperson Name | Role | Phone | + +------+ + | No, Physician | PCP | Unavailable | + +------+ + Encounter Details +--------+ + + + + | Date | Type | Department | Care Team | Description | +--------+ + + + + | 12/16/ | Orders Only | [facility] | Arnold Sun MD | Bradycardia (Primary | | 2020 | | NEPHROLOGY [place] | [address] [place] | Dx); Essential | | | | [address] [place] | [address] [place], [place] | hypertension, | | | | [address] [place], [place] | [address] | benign; Chronic | | | | [address] | | kidney disease, | | | | [phone] | | stage III (moderate) | | | | | | (HCC) | +--------+ + + + + Social [...] 2019 | Visit | | [address] [facility] [place] | | | | | | [address] [place], [place] | | | | | | [address] | | | | | | | | +--------+---------+ + + + + +------+--------+ + + | Name | Type | Priori | Associated Diagnoses | Order Schedule | | | | ty | | | + +------+--------+ + + | Renal Function Panel | Lab | Routin | Essential | Expected: | | | | e | hypertension, benign | 12/21/2019, Expires: | | | | | Chronic kidney | 12/16/2020 | | | | | disease, stage III | | | | | | (moderate) (HCC) | | + +------+--------+ + + | CBC with | Lab | Routin | Essential | Expected: | | Differential | | e | hypertension, benign | 12/21/2019, Expires: | | | | | Chronic kidney | 12/16/2020 | | | | | disease, stage III | | | | | | (moderate) (HCC) | | + +------+--------+ + + | Uric Acid | Lab | Routin | Essential | Expected: | | | | e | hypertension, benign | 12/21/2019, Expires: | | | | | Chronic kidney | 12/16/2020 | | | | | disease, stage III | | | | | | (moderate) (HCC) | | + +------+--------+ + + | Parathyroid Hormone, | Lab | Routin | Essential | Expected: | | Intact | | e | hypertension, benign | 12/21/2019, Expires: | | | | | Chronic kidney | 12/16/2020 | | | | | disease, stage III | | | | | | (moderate) (HCC) | | + +------+--------+ + + | Protein/Creatinine | Lab | Routin | Essential | Expected: | | Ratio, Urine | | e | hypertension, benign | 12/21/2019, Expires: | | | | | Chronic kidney | 12/16/2020 | | | | | disease, stage III | | | | | | (moderate) (HCC) | | + +------+--------+ + + documented as of this encounter Visit Diagnoses + + | Diagnosis | + + | Bradycardia - Primary Other specified cardiac dysrhythmias | + + | Essential hypertension, benign | + + | Chronic kidney disease, stage III (moderate) (HCC) Chronic kidney disease, Stage III | | (moderate) | + + documented in this encounter"
--- OUTSIDE RECORDS SUMMARY | ~2020-04-07 | XMS | Encounter Summary ---
Demographics + + + | Address | [address] | | | [place] [address] | + + + | Home Phone [...] Author + + + | Author | [facility] | + + + | Organization | [facility] | + + + | Address | Unknown | + + + | Phone | Unavailable | + + + Care Team Providers + +------+ + | Care Manager Recovery Name | Role | Phone | + +------+ + PCP | Unavailable | + +------+ + Encounter Details +--------+ + + + + | Date | Type | Department | Care Team | Description | +--------+ + + + + | 10/18/ | Document-Sc | UNKNOWN DEPARTMENT | Other, Faculty | | | 2010 | anned | [address] [facility] | [phone] | | | | | [address] | | | | | | [place], [place] | | | | | | [address] | | | +--------+ + + + [...]
--- OUTSIDE RECORDS SUMMARY | ~2020-04-07 | XMS | Encounter Summary ---
Demographics + + + | Address | [address] | | | [place] [address] | + + + | Home Phone | | + + + | Preferred Language | Unknown | + + + | Marital Status | Single | + + + | Judaism Affiliation | Unknown | + + + [...] Team Providers + +------+ + | Care Campus Monitor Name | Role | Phone | + [...] | | | | | EXTREMITY | [facility] [place] | Physician's | | | | | BILATERAL | [address] | Pavilion | | | | | COMPLETE | Phone: | [place], [place] | | | | | | [phone] | [address] | | | | | | Fax: | Phone: | | | | | | [phone] | [phone] | | | | | | | Fax: | | | | | | | [phone] | +--------+--------+ + + + + Reason for Visit Diagnostic Testing (Routine) +--------+--------+ + + + + | Status | Reason | Specialty | Diagnoses / | Referred By | Referred To | | | | | Procedures | Contact | Contact | +--------+--------+ + + + + | Closed | | Radiology | Diagnoses | Joyce | Valrad Vasc | | | | [...] | | | | | EXTREMITY | [place] | Physician's | | | | | BILATERAL | [address] | Pavilion | | | | | COMPLETE | Phone: | [place], [place] | | | | | | [phone] | [address] | | | | | | Fax: | Phone: | | | | | | [phone] | [phone] | | | | | | | Fax: | | | | | | | [phone] | +--------+--------+ + + + + Encounter [...] | | | | | | Pav[place], | | | | | | [place] [address] | | | | | | [phone] | | | +--------+ + + + [...]
[~2020-04-07 18:19] MED LIST changes: +CALCITRIOL0.25 MCG PO; +CALCITRIOL0.5 MCG PO; +DICYCLOMINE HCL10 MG PO; +FUROSEMIDE80 MG PO; +METAMUCIL0.52 GM PO; +METOPROLOL SUCC25 MG PO; +SERTRALINE HCL50 MG PO
[2020-04-07] MEDS ORDERED: PERCOCET 5-3251 EACH PO (20:31)
== END 2020-04-07 21:03 | disposition home or self-care (01) ==
LOC: ED 18:19
DX: S30.0XXA Contusion of lower back and pelvis, initial encounter (principal); S20.221A Contusion of right back wall of thorax, initial encounter; I10 Essential (primary) hypertension; E11.9 Type 2 diabetes mellitus without complications; Z79.899 Other long term (current) drug therapy; Z79.4 Long term (current) use of insulin; Z79.82 Long term (current) use of aspirin; X58.XXXA Exposure to other specified factors, initial encounter
CPT/HCPCS: 71045; 72128; 72131; 72170; 99284-25

== ENCOUNTER 2020-12-02 18:11 | Emergency (ER) | payer MEDICARE, OTHER ==
[~2020-12-02] VITALS: Ht 193 cm; Wt 160.6 kg
[~2020-12-02 18:11] MED LIST changes: +FUROSEMIDE20 MG PO; +MEN 50 PLUS MU1 EACH PO; -NORVASC10 MG PO; +NORVASC5 MG PO; +REBLOZYL75 MG
[2020-12-02] MEDS ORDERED: INSULIN AS100 UNIT/3 SQ (18:37)
== END 2020-12-02 19:33 | disposition home or self-care (01) ==
LOC: ED 18:11
DX: D46.9 Myelodysplastic syndrome, unspecified (principal); E11.9 Type 2 diabetes mellitus without complications; I10 Essential (primary) hypertension; Z88.1 Allergy status to other antibiotic agents; Z79.899 Other long term (current) drug therapy; Z79.4 Long term (current) use of insulin; Z79.82 Long term (current) use of aspirin
CPT/HCPCS: 85025; 86644; 86850; 86900; 86901; 86920; 99284; P9040

== ENCOUNTER 2021-01-14 10:56 | Emergency (ER) | payer MEDICARE, OTHER ==
[~2021-01-14] VITALS: Ht 193 cm; Wt 160.6 kg
[~2021-01-14 10:56] MED LIST changes: +INSULIN AS100 UNIT/3 SQ
--- NOTE | 2021-01-14 16:18 | EKG ---
[facility] [address] [facility] [place], [place] [address] Signed Sinus rhythm with 1st degree AV block with premature atrial complexes with aberrant conduction Left bundle branch block Abnormal ECG No previous ECGs available Confirmed by PITO CASTRO DO ([id number]) on 01/14/2021 4:17:52 PM Electronically Signed By: PITO CASTRO DO 01/14/21 1618 PATIENT NAME: JUDY PINKRICHELLE Currie Electrocardiogram DATE OF : 41 PHYSICIAN: PITO CASTRO DO REPORT #: [id number] REPORT IS CONFIDENTIAL AND NOT TO BE RELEASED WITHOUT AUTHORIZATION
== END 2021-01-14 16:30 | disposition short-term general hospital (02) ==
LOC: ED 10:56
DX: I21.4 Non-ST elevation (NSTEMI) myocardial infarction (principal); E11.22 Type 2 diabetes mellitus with diabetic chronic kidney disease; I13.0 Hypertensive heart and chronic kidney disease with heart failure and stage 1 through stage 4 chronic kidney disease, or unspecified chronic kidney disease; I50.9 Heart failure, unspecified; N18.9 Chronic kidney disease, unspecified; D46.9 Myelodysplastic syndrome, unspecified; Z20.822 Contact with and (suspected) exposure to COVID-19; Z86.73 Personal history of transient ischemic attack (TIA), and cerebral infarction without residual deficits; Z88.1 Allergy status to other antibiotic agents; Z79.4 Long term (current) use of insulin; Z79.899 Other long term (current) drug therapy; Z79.82 Long term (current) use of aspirin
CPT/HCPCS: 71045; 80053; 81001; 83735; 83880; 84484; 85025; 85610; 85730; 93005; 93010; 96374; 96375; 99285-25; C9803; J1644; J1940; U0003

== ENCOUNTER 2021-02-06 06:06 | Emergency (ER) | payer MEDICARE, OTHER ==
[~2021-02-06] VITALS: Ht 193 cm; Wt 145.2 kg
--- OUTSIDE RECORDS SUMMARY | 2021-02-06 06:12 | XMS ---
PreManage Notification: MARY ALICE PINK Security Tool Repair Technician Events No recent Security Events currently on file CRITERIA MET - [facility] - 2 Visits in 30 Days CARE PROVIDERS There are no care providers on record at this time. [facility] has no Care Guidelines for this patient. Rosa VISIT COUNT (12 MO.) 4 [facility] [place] [place] TOTAL 4 NOTE: Visits indicate total known visits. ED/C VISIT TRACKING (12 MO.) 02/06/2021 06:[address] [facility] [place] TYPE: Emergency COMPLAINT: - LEG PAIN 01/14/2021 10:56 [facility] [place] TYPE: Emergency COMPLAINT: - LEG SWELLING,SOB DIAGNOSES: - Type 2 diabetes mellitus with diabetic chronic kidney disease - Allergy status to other antibiotic agents - Shortness of breath - Heart failure, unspecified - Myelodysplastic syndrome, unspecified - terminal block assembler (current) use of insulin - Personal history of transient ischemic attack (TIA), and cerebral infarction without residual deficits - Chronic kidney disease, unspecified - Other prison (current) drug therapy - Non-ST elevation (NSTEMI) myocardial infarction - Hypertensive heart and chronic kidney disease with heart failure and stage 1 through stage 4 chronic kidney disease, or unspecified chronic kidney disease - terminal block assembler (current) use of aspirin 12/02/2020 18:12 [facility] [place] TYPE: Emergency COMPLAINT: - ABNORMAL LABS DIAGNOSES: - Type 2 diabetes mellitus without complications - Anemia, unspecified - terminal block assembler (current) use of insulin - terminal block assembler (current) use of aspirin - Essential (primary) hypertension - Other terminal clerk (current) drug therapy - Allergy status to other antibiotic agents - Myelodysplastic syndrome, unspecified 04/07/2020 18:19 [facility] [place] TYPE: Emergency COMPLAINT: - BACK PAIN/INJ DIAGNOSES: - Dorsalgia, unspecified - Other terminal clerk (current) drug therapy - Essential (primary) hypertension - Contusion of lower back and pelvis, initial encounter - Type 2 diabetes mellitus without complications - terminal block assembler (current) use of aspirin - [facility] (current) use of insulin - Exposure to other specified factors, initial encounter - Contusion of right back wall of thorax, initial encounter INPATIENT VISIT TRACKING (12 MO.) 01/14/2021 17:[address] [facility] TYPE: Medical Surgical COMPLAINT: - NSTEMI; CHF EXAC; OSCAR DIAGNOSES: 0. Shortness of breath 1. Hypertensive heart and chronic kidney disease with heart failure and stage 1 through stage 4 chronic kidney disease, or unspecified chronic kidney disease 2. Acute on chronic systolic (congestive) heart failure 3. Myocardial infarction type 2 4. Chronic venous hypertension (idiopathic) with ulcer of left lower extremity 5. Chronic venous hypertension (idiopathic) with ulcer of right lower extremity 6. Acute kidney failure, unspecified 7. Chronic kidney disease, stage 4 (severe) 8. Other pancytopenia 9. Body mass index [BMI] 45.0-49.9, adult 10. Major depressive disorder, recurrent, unspecified 10. Major depressive disorder, single episode, unspecified 11. Type 2 diabetes mellitus with hypoglycemia without coma 12. Morbid (severe) obesity due to excess calories 13. Hyperlipidemia, unspecified 14. Myelodysplastic syndrome, unspecified 15. Gout, unspecified 16. CONTACT W \E\T\E\ (SUSP) EXPOS COVID-19 17. Left bundle-branch block, unspecified 18. Anemia in chronic kidney disease 19. Renal osteodystrophy 20. Hyperkalemia 21. Atrioventricular block, first degree 22. Abnormal electrocardiogram [ECG] [EKG] 23. Personal history of transient ischemic attack (TIA), and cerebral infarction without residual deficits 24. Acquired absence of left great toe 25. Allergy status to other antibiotic agents 26. Other terminal clerk (current) drug therapy 27. [facility] (current) use of aspirin 28. [facility] (current) use of insulin [email or web address]
[2021-02-06] MEDS ORDERED: TOUJEO SOL300 UNIT/1 SUB-Q (06:24)
[2021-02-06] MEDS ORDERED: DANAZOL200 MG PO (06:25)
[2021-02-06] MEDS ORDERED: CLOPIDOGREL75 MG PO (06:25)
[2021-02-06] MEDS ORDERED: HYDRALAZINE HC100 MG PO (06:27)
[2021-02-06] MEDS ORDERED: HYDRALAZINE HCL50 MG PO (06:28)
[2021-02-06] MEDS ORDERED: SPIRONOLACTONE25 MG PO (06:28)
[2021-02-06] MEDS ORDERED: METOPROLOL TA37.5 MG PO (06:28)
== END 2021-02-06 17:34 | disposition short-term general hospital (02) ==
LOC: ED 06:06
DX: A41.9 Sepsis, unspecified organism (principal); N17.9 Acute kidney failure, unspecified; L03.116 Cellulitis of left lower limb; D46.9 Myelodysplastic syndrome, unspecified; Z20.822 Contact with and (suspected) exposure to COVID-19; E11.9 Type 2 diabetes mellitus without complications; I11.0 Hypertensive heart disease with heart failure; I50.9 Heart failure, unspecified; Z88.1 Allergy status to other antibiotic agents; Z79.4 Long term (current) use of insulin; Z79.899 Other long term (current) drug therapy; Z79.82 Long term (current) use of aspirin
CPT/HCPCS: 51702; 71045; 80053; 81001; 83605; 83735; 83880; 85025; 99285-25; C9803; J0692; J1170; J3370; J7040; J7060; J7121; U0003

== ENCOUNTER 2021-06-30 17:52 | Emergency (ER) | payer MEDICARE, OTHER ==
[~2021-06-30] VITALS: Ht 193 cm; Wt 128.7 kg
[~2021-06-30 17:52] MED LIST changes: +CLOPIDOGREL75 MG PO; +DANAZOL200 MG PO; +HYDRALAZINE HC100 MG PO; +HYDRALAZINE HCL50 MG PO; +LIPITOR20 MG; +METOPROLOL TA37.5 MG PO; +SPIRONOLACTONE25 MG PO
--- OUTSIDE RECORDS SUMMARY | 2021-06-30 17:54 | XMS ---
PreManage Notification: MARY ALICE PINK Security Fish Butcher Events No recent Security Events currently on file CRITERIA MET - [facility] - 2 Visits in 30 Days - PDMP CARE PROVIDERS KRISH JUÁREZ Cardiac Nurse Practitionerravi Seals PHONE: [phone] [place] LUBIN Internal Medicine Current PHONE: [phone] RHIANNA PHIPPS Nurse Practitioner Current PHONE: [phone] [place] MELO Internal Medicine 02/07/2021-Current PHONE: [phone] SHELIA CASTELAN Nurse Practitioner: Family Current PHONE: Unknown BRE Nurse Practitioner Kacey CHANSSLYLE ENGLISH PHONE: [phone] KARIS [facility] Current PHONE: [phone] [facility] PHONE: [phone] [facility] has no Care Guidelines for this patient. Care History Medical/Surgical 02/07/2021 [facility] - Patient is currently established with [facility]. If patient is seen in the ED during business hours. Please contact [facility] at [facility]. Care Recommendation: If this patient has had 5 or more Emergency Department visits in the last 12 months.\T\nbsp; Patient will require education on the scope and purpose of the ED as an acute care provider not a Primary Care Provider and should not be utilized for chronic conditions.\T\nbsp; These are guidelines and the provider should exercise clinical judgment when providing care. E.D. VISIT COUNT (12 MO.) 5 [facility] TOTAL 5 NOTE: Visits indicate total known visits. ED/UCC VISIT TRACKING (12 MO.) 06/30/2021 17:53 [facility] [place] TYPE: Emergency 06/16/2021 14:43 [facility] [place] TYPE: Emergency COMPLAINT: - SOB,WEAKNESS DIAGNOSES: - Other [facility]p (current) drug therapy - long-term (current) use of insulin - Shortness of breath - Other specified abnormalities of plasma proteins - Hypoxemia - Hypertensive heart disease with heart failure - Anemia, unspecified - COVID-19 - Allergy status to other antibiotic agents - Type 2 diabetes mellitus without complications - Heart failure, unspecified 02/06/2021 06:07 [facility] [place] TYPE: Emergency COMPLAINT: - LEG PAIN DIAGNOSES: - Cellulitis of left lower limb - Type 2 diabetes mellitus without complications - Allergy status to other antibiotic agents - Localized edema - Other mcfp (current) drug therapy - Heart failure, unspecified - long-term (current) use of aspirin - Hypertensive heart disease with heart failure - Sepsis, unspecified organism - Myelodysplastic syndrome, unspecified - Acute kidney failure, unspecified - long-term (current) use of insulin 01/14/2021 10:56 [facility] [place] TYPE: Emergency COMPLAINT: - LEG SWELLING,SOB DIAGNOSES: - Type 2 diabetes mellitus with diabetic chronic kidney disease - Allergy status to other antibiotic agents - Shortness of breath - Heart failure, unspecified - Myelodysplastic syndrome, unspecified - termite exterminator (current) use of insulin - Personal history of transient ischemic attack (TIA), and cerebral infarction without residual deficits - Chronic kidney disease, unspecified - Other long term care social worker (current) drug therapy - Non-ST elevation (NSTEMI) myocardial infarction - Hypertensive heart and chronic kidney disease with heart failure and stage 1 through stage 4 chronic kidney disease, or unspecified chronic kidney disease - long-term (current) use of aspirin 12/02/2020 18:12 [facility] [place] TYPE: Emergency COMPLAINT: - ABNORMAL LABS DIAGNOSES: - Type 2 diabetes mellitus without complications - Anemia, unspecified - long-term (current) use of insulin - termite exterminator (current) use of aspirin - Essential (primary) hypertension - Other mcfp (current) drug therapy - Allergy status to other antibiotic agents - Myelodysplastic syndrome, unspecified INPATIENT VISIT TRACKING (12 MO.) 06/16/2021 23:33 [facility] [place] TYPE: General Medicine DIAGNOSES: - Pneumonia due to coronavirus disease 2019 - Dependence on renal dialysis - COVID, NSTEMI - End stage renal disease - COVID-19 - Heart failure, unspecified - Acute respiratory failure with hypoxia - Non-ST elevation (NSTEMI) myocardial infarction 02/06/2021 18:45 [facility] TYPE: Internal Medicine DIAGNOSES: - Non-pressure chronic ulcer of left heel and midfoot with unspecified severity - Essential (primary) hypertension - Candidiasis of skin and nail - Dependence on renal dialysis - Anemia, unspecified - Other disorders of phosphorus metabolism - Left bundle-branch block, unspecified - Chronic kidney disease, stage 3b - Type 2 diabetes mellitus with diabetic nephropathy - Acute kidney failure with tubular necrosis - 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, initial encounter - Fluid overload, unspecified - Pseudomonas (aeruginosa) (mallei) (pseudomallei) as the cause of diseases classified elsewhere - Chronic kidney disease, stage 4 (severe) - Cellulitis of unspecified part of limb - Bacteremia - Sepsis - Cellulitis of left lower limb - Elevated white blood cell count, unspecified - Atrioventricular block, first degree - Chronic kidney disease, unspecified - Sepsis, unspecified organism - Type 2 diabetes mellitus with foot ulcer - Pulmonary hypertension, unspecified - Supraventricular tachycardia - Acute kidney failure, unspecified - long-term (current) use of insulin 01/14/2021 17:53 [facility] TYPE: Medical Surgical COMPLAINT: - NSTEMI; CHF [...] status to other antibiotic agents 26. Other mcfp (current) drug therapy 27. long-term (current) use of aspirin 28. long-term (current) use of insulin [email or web address]
--- NOTE | 2021-07-02 18:08 | EKG ---
[facility] [address] [facility] [place] [address] Signed Sinus rhythm with 1st degree AV block with premature atrial complexes with aberrant conduction Nonspecific T wave abnormality Prolonged QT Abnormal ECG When compared with ECG of 16-JUN-2021 14:47, aberrant conduction is now present Vent. rate has decreased BY 43 BPM Left bundle branch block is no longer present Confirmed by DARIEN WARE MD ([id number]) on 07/02/2021 6:08:46 PM Electronically Signed By: DARIEN WARE MD 07/02/21 1808 PATIENT NAME: MARY ALICE PINK Electrocardiogram DATE OF : 41 PHYSICIAN: DARIEN WARE MD REPORT #: [id number] REPORT IS CONFIDENTIAL AND NOT TO BE RELEASED WITHOUT AUTHORIZATION
== END 2021-07-01 07:37 ==
LOC: ED 17:52
DX: L89.899 Pressure ulcer of other site, unspecified stage (principal); D64.9 Anemia, unspecified; I44.0 Atrioventricular block, first degree; E11.9 Type 2 diabetes mellitus without complications; I11.0 Hypertensive heart disease with heart failure; I50.9 Heart failure, unspecified; Z86.73 Personal history of transient ischemic attack (TIA), and cerebral infarction without residual deficits; Z89.429 Acquired absence of other toe(s), unspecified side; Z87.442 Personal history of urinary calculi; Z88.1 Allergy status to other antibiotic agents; Z79.4 Long term (current) use of insulin; Z79.82 Long term (current) use of aspirin; Z99.2 Dependence on renal dialysis; Z79.899 Other long term (current) drug therapy
CPT/HCPCS: 36430; 80053; 80500; 85025; 86850; 86900; 86901; 86922; 93005; 93010; 99284-25; P9040

== ENCOUNTER 2021-07-28 16:18 | Emergency (ER) | payer MEDICARE, OTHER ==
[~2021-07-28] VITALS: Ht 193 cm; Wt 115.5 kg
--- OUTSIDE RECORDS SUMMARY | 2021-07-28 16:22 | XMS ---
PreManage Notification: MARY ALICE PINK Security Brick Burner Events No recent Security Events currently on file CRITERIA MET - PDMP - COVID-19 Positive Lab Results - [facility] - 2 Visits in 30 Days CARE PROVIDERS KRISH JUÁREZiatrravi Seals PHONE: [phone] KO LUBIN Internal Medicine Current PHONE: [phone] Ashwini Shin Timekeeping Supervisor/Electronics Supervisor 06/14/2021-Current PHONE: [phone] RHIANNA PHIPPS Nurse Practitioner Current PHONE: [phone] HI MELO Internal Medicine 02/07/2021-Current PHONE: [phone] SHELIA CASTELAN Nurse Practitioner: Current PHONE: Unknown CLARI ROMO Nurse Practitioner Current PHONE: [phone] BETHANY THEODORE I. Physician Corporate Strategy Analyst Current PHONE: Unknown BRE Nurse Practitioner Current WILD ENGLISH PHONE: [phone] KARIS [facility] Current [facility]: [phone] [facility]ONE: [phone] [facility] has no Care Guidelines for this patient. Care History Medical/Surgical 02/07/2021 [facility] - Patient is currently established with [facility]. If patient is seen in the ED during business hours. Please contact CHWs at [facility]. Care Recommendation: If this patient has had [...] providing care. E.D. VISIT COUNT (12 MO.) [address] [facility] [place] [address] [facility] [place] TOTAL 7 NOTE: Visits indicate total known visits. ED/UCC VISIT TRACKING (12 MO.) 07/28/2021 16:19 [facility] [place] TYPE: Emergency COMPLAINT: - ANEMIA [facility] DIAGNOSES: - Pain All Over - Generalized Body Aches - Anemia, unspecified - End stage renal disease 06/30/2021 17:53 [facility] [place] TYPE: Emergency COMPLAINT: - MULTIPLE COMPLAINTS DIAGNOSES: - Dependence on renal dialysis - Acquired absence of other toe(s), unspecified side - Pressure ulcer of other site, unspecified stage - Other intermediate frame tender (current) drug therapy - Hypertensive heart disease with heart failure - Personal history of transient ischemic attack (TIA), and cerebral infarction without residual deficits - Anemia, unspecified - retirement (current) use of aspirin - Allergy status to other antibiotic agents - Heart failure, unspecified - terminal make up operator (current) use of insulin - Hypotension, unspecified - Personal history of urinary calculi - Type 2 diabetes mellitus without complications - Atrioventricular block, first degree 06/16/2021 14:43 [facility] [place] TYPE: Emergency COMPLAINT: - SOB,WEAKNESS DIAGNOSES: - Other intermediate (current) drug therapy - terminal make up operator (current) use of insulin - Shortness of [...] antibiotic agents - Localized edema - Other intermediate frame tender (current) drug therapy - Heart failure, unspecified - retirement (current) use of aspirin - Hypertensive heart disease with heart failure - Sepsis, unspecified organism - Myelodysplastic syndrome, unspecified - Acute kidney failure, unspecified - terminal make up operator (current) use of insulin 01/14/2021 10:56 [facility] [place] TYPE: Emergency COMPLAINT: - LEG SWELLING,SOB DIAGNOSES: - Type 2 diabetes mellitus with diabetic chronic kidney disease - Allergy status to other antibiotic agents - Shortness of breath - Heart failure, unspecified - Myelodysplastic syndrome, unspecified - retirement (current) use of insulin - Personal history of transient ischemic attack (TIA), and cerebral infarction without residual deficits - Chronic kidney disease, unspecified - Other intermediate (current) drug therapy - Non-ST elevation (NSTEMI) myocardial infarction - Hypertensive heart and chronic kidney disease with heart failure and stage 1 through stage 4 chronic kidney disease, or unspecified chronic kidney disease - retirement (current) use of aspirin 12/02/2020 18:12 [facility] [place] TYPE: Emergency COMPLAINT: - ABNORMAL LABS DIAGNOSES: - Type 2 diabetes mellitus without complications - Anemia, unspecified - terminal make up operator (current) use of insulin - retirement (current) use of aspirin - Essential (primary) hypertension - Other intermediate (current) drug therapy - Allergy status to other antibiotic agents - Myelodysplastic syndrome, unspecified INPATIENT VISIT TRACKING (12 MO.) 06/16/2021 23:33 [facility] [place] TYPE: General Medicine DIAGNOSES: - Pneumonia due to coronavirus disease 2018 - Dependence on renal dialysis - COVID, NSTEMI - End stage renal disease - COVID-19 - Heart failure, unspecified - Acute respiratory failure with hypoxia - Non-ST elevation (NSTEMI) myocardial infarction 02/06/2021 18:45 [facility] TYPE: Internal Medicine DIAGNOSES: - Non-pressure chronic [...] tachycardia - Acute kidney failure, unspecified - retirement (current) use of insulin 01/14/2021 17:53 [facility] [place] TYPE: Medical Surgical COMPLAINT: - NSTEMI; CHF [...] status to other antibiotic agents 26. Other intermediate frame tender (current) drug therapy 27. terminal make up operator (current) use of aspirin 28. terminal make up operator (current) use of insulin [email or web address]
== END 2021-07-29 03:24 | disposition home or self-care (01) ==
LOC: ED 16:18
DX: D61.9 Aplastic anemia, unspecified (principal); E11.22 Type 2 diabetes mellitus with diabetic chronic kidney disease; I13.0 Hypertensive heart and chronic kidney disease with heart failure and stage 1 through stage 4 chronic kidney disease, or unspecified chronic kidney disease; I50.9 Heart failure, unspecified; N18.9 Chronic kidney disease, unspecified; D63.1 Anemia in chronic kidney disease; Z88.1 Allergy status to other antibiotic agents; Z79.4 Long term (current) use of insulin; Z79.899 Other long term (current) drug therapy; Z79.82 Long term (current) use of aspirin
CPT/HCPCS: 36430; 80053; 85007; 85025; 86850; 86900; 86901; 86922; 99284-25

== ENCOUNTER 2021-09-13 11:18 | Emergency (ER) | payer MEDICARE, OTHER ==
[~2021-09-13] VITALS: Ht 193 cm; Wt 126.3 kg
[2021-09-13] MEDS ORDERED: VENTOLIN HFA18 GM INH (13:40)
[2021-09-13] MEDS ORDERED: ZESTRIL5 MG PO (13:43)
[2021-09-13] MEDS ORDERED: NEPHRO-VITE RX1 EACH PO (13:45)
[2021-09-13] MEDS ORDERED: HYDROCODON-ACE1 EA10 PO (13:46)
[2021-09-13] MEDS ORDERED: DIABETIC T100 MG/51 PO (13:47)
[2021-09-13] MEDS ORDERED: MIRALAX17 GM PO (13:49)
[2021-09-13] MEDS ORDERED: CEPHALEXIN500 M1 PO (19:23)
== END 2021-09-14 02:40 | disposition home or self-care (01) ==
LOC: ED 11:18
DX: D64.9 Anemia, unspecified (principal); N39.0 Urinary tract infection, site not specified; Z20.822 Contact with and (suspected) exposure to COVID-19; E11.9 Type 2 diabetes mellitus without complications; I50.9 Heart failure, unspecified; I11.0 Hypertensive heart disease with heart failure; Z88.1 Allergy status to other antibiotic agents; Z79.899 Other long term (current) drug therapy; Z79.4 Long term (current) use of insulin; Z79.82 Long term (current) use of aspirin
CPT/HCPCS: 36430; 51701; 71045; 74176; 80053; 81001; 83605; 85025; 86850; 86900; 86901; 86922; 87040; 87088; 99285-25; C9803; J0696; J1940; P9040; U0003

== ENCOUNTER 2021-09-14 09:47 | Emergency (ER) | payer MEDICARE, OTHER ==
[~2021-09-14] VITALS: Ht 193 cm; Wt 126.1 kg
[~2021-09-14 09:47] MED LIST changes: +CEPHALEXIN500 M1 PO; +DIABETIC T100 MG/51 PO; +HYDROCODON-ACE1 EA10 PO; +MIRALAX17 GM PO; +NEPHRO-VITE RX1 EACH PO; +VENTOLIN HFA18 GM INH; +ZESTRIL5 MG PO
--- OUTSIDE RECORDS SUMMARY | 2021-09-14 09:56 | XMS ---
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 Events No recent Security Events currently on file CRITERIA MET - 6 ED Visits in 6 Months - [facility] - 2 Visits in 30 Days CARE PROVIDERS KRISH JUÁREZ Election Assistantravi Seals PHONE: [phone] [place] LUBIN Internal Medicine Current PHONE: [phone] Ashwini Shin Health Care Assistant/Card Assembler 06/14/2021-Current PHONE: [phone] RHIANNA PHIPPS Nurse Practitioner Current PHONE: [phone] HI MELO Internal Medicine 02/07/2021-Current PHONE: [phone] SHELIA CASTELAN Nurse Practitioner: Family Current PHONE: Unknown KEMAR CAAL Internal Medicine Current PHONE: [phone] CLARI ROMO Nurse Practitioner Current PHONE: [phone] BETHANY THEODORE I. Physician Manufacturing Engineer Chief Current PHONE: Unknown BRE Nurse Joanie Erazo WILD ANN PHONE: [phone] KARIS [facility] Current PHONE: [phone] ROB [facility] Current PHONE: [phone] [facility] has no Care Guidelines for this patient. Care History Medical/Surgical 02/07/2021 [facility] - Patient is currently established with [facility]. If patient is seen in the ED during business hours. Please contact CHWs at [facility]. Care Recommendation: If this patient has had 5 or more Emergency Department visits in the last 12 months.\T\nbsp; Patient will require education on the scope and purpose of the ED as an acute care provider not a Primary Care Provider and should not be utilized for chronic conditions.\T\nbsp; These are guidelines and the provider should exercise clinical judgment when providing care. [place] VISIT COUNT (12 MO.) 1 [place] 8 EVIN [place] TOTAL 9 NOTE: Visits indicate total known visits. ED/UCC VISIT TRACKING (12 MO.) 09/14/2021 09:48 [facility] [place] TYPE: Emergency COMPLAINT: - MULTIPLE COMPLAINS 09/13/2021 11:19 [facility] [place] TYPE: Emergency COMPLAINT: - POSSIBLE STROKE 07/28/2021 16:19 [facility] [place] TYPE: Emergency COMPLAINT: - ANEMIA DIAGNOSES: - Heart failure, unspecified - Other termite treater helper (current) drug therapy - Aplastic anemia, unspecified - Chronic kidney disease, unspecified - Type 2 diabetes mellitus with diabetic chronic kidney disease - Allergy status to other antibiotic agents - Anemia in chronic kidney disease - director long term care (current) use of insulin - half-way (current) use of aspirin - Hypertensive heart and chronic kidney disease with heart failure and stage 1 through stage 4 chronic kidney disease, or unspecified chronic kidney disease 07/20/2021 10:21 [facility] [place] TYPE: Emergency DIAGNOSES: - Pain All Over - Generalized Body Aches - Anemia, unspecified - End stage renal disease 06/30/2021 17:53 [facility] [place] TYPE: Emergency COMPLAINT: - MULTIPLE COMPLAINTS DIAGNOSES: - Dependence on renal dialysis - Acquired absence of other toe(s), unspecified side - Pressure ulcer of other site, unspecified stage - Other mcfp (current) drug therapy - Hypertensive heart disease with heart failure - Personal history of transient ischemic attack (TIA), and cerebral infarction without residual deficits - Anemia, unspecified - half-way (current) use of aspirin - Allergy status to other antibiotic agents - Heart failure, unspecified - director long term care (current) use of insulin - Hypotension, unspecified - Personal history of urinary calculi - Type 2 diabetes mellitus without complications - Atrioventricular block, first degree 06/16/2021 14:43 [facility] [place] TYPE: Emergency COMPLAINT: - SOB,WEAKNESS DIAGNOSES: - Other mcfp (current) drug therapy - half-way (current) use of insulin - Shortness of [...] antibiotic agents - Localized edema - Other termite treater helper (current) drug therapy - Heart failure, unspecified - director long term care (current) use of aspirin - Hypertensive heart disease with heart failure - Sepsis, unspecified organism - Myelodysplastic syndrome, unspecified - Acute kidney failure, unspecified - director long term care (current) use of insulin 01/14/2021 10:56 [facility] [place] TYPE: Emergency COMPLAINT: - LEG SWELLING,SOB DIAGNOSES: - Type 2 diabetes mellitus with diabetic chronic kidney disease - Allergy status to other antibiotic agents - Shortness of breath - Heart failure, unspecified - Myelodysplastic syndrome, unspecified - half-way (current) use of insulin - Personal history of transient ischemic attack (TIA), and cerebral infarction without residual deficits - Chronic kidney disease, unspecified - Other mcfp (current) drug therapy - Non-ST elevation (NSTEMI) myocardial infarction - Hypertensive heart and chronic kidney disease with heart failure and stage 1 through stage 4 chronic kidney disease, or unspecified chronic kidney disease - half-way (current) use of aspirin 12/02/2020 18:12 [facility] [place] TYPE: Emergency COMPLAINT: - ABNORMAL LABS DIAGNOSES: - Type 2 diabetes mellitus without complications - Anemia, unspecified - half-way (current) use of insulin - director long term care (current) use of aspirin - Essential (primary) hypertension - Other termite treater helper (current) drug therapy - Allergy status to other antibiotic agents - Myelodysplastic syndrome, unspecified INPATIENT VISIT TRACKING (12 MO.) 06/16/2021 23:33 [facility] [place] ID TYPE: General Medicine DIAGNOSES: - Pneumonia due to coronavirus disease 2018 - Dependence on renal dialysis - COVID, NSTEMI - End stage renal disease - COVID-19 - Heart failure, unspecified - Acute respiratory failure with hypoxia - Non-ST elevation (NSTEMI) myocardial infarction 02/06/2021 18:45 [facility] TYPE: Internal Medicine DIAGNOSES: - Non-pressure chronic [...] tachycardia - Acute kidney failure, unspecified - half-way (current) use of insulin 01/14/2021 17:53 [facility] TYPE: Medical Surgical COMPLAINT: - NSTEMI; CHF [...] 26. Other mcfp (current) drug therapy 27. half-way (current) use of aspirin 28. half-way (current) use of insulin [email or web address]
== END 2021-09-14 16:15 | disposition short-term general hospital (02) ==
LOC: ED 09:47
DX: N39.0 Urinary tract infection, site not specified (principal); D63.1 Anemia in chronic kidney disease; N18.9 Chronic kidney disease, unspecified; R78.81 Bacteremia; I13.0 Hypertensive heart and chronic kidney disease with heart failure and stage 1 through stage 4 chronic kidney disease, or unspecified chronic kidney disease; I50.9 Heart failure, unspecified; Z88.1 Allergy status to other antibiotic agents; Z79.899 Other long term (current) drug therapy; Z79.4 Long term (current) use of insulin; Z79.82 Long term (current) use of aspirin; E11.22 Type 2 diabetes mellitus with diabetic chronic kidney disease
CPT/HCPCS: 71045; 80053; 83605; 83880; 84484; 85025; 99285-25; C9803; U0003

== ENCOUNTER 2021-10-09 16:41 | Emergency (ER) | payer MEDICARE, OTHER ==
[~2021-10-09] VITALS: Ht 193 cm; Wt 108.6 kg
--- OUTSIDE RECORDS SUMMARY | 2021-10-09 16:44 | XMS ---
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 Events No recent Security Events currently on file CRITERIA MET - PDMP - [facility] - Has Care Guidelines - 6 ED Visits in 6 Months - [facility] - 2 Visits in 30 Days CARE PROVIDERS KRISH JUÁREZ DPM PHONE: [phone] [place] LUBIN Internal Medicine Current PHONE: Unknown Ashwini Shin Inspector Barrel/Switch Engineer 09/13/2021-Current PHONE: [phone] RHIANNA PHIPPS Nurse Practitioner Current PHONE: [phone] HI MELO Internal Medicine 02/07/2021-Current PHONE: Unknown SHELIA CASTELAN Nurse Practitioner: Family Current PHONE: Unknown KEMAR CAAL Internal Medicine Current PHONE: [phone] CLARI ROMO Nurse Practitioner Current PHONE: [phone] BETHANY THEODORE I. Physician Fire Prevention Engineer Current PHONE: Unknown BRE Nurse Joanie Erazo WILD TAMEKA PHONE: [phone] [facility] Current PHONE: Unknown [facility] Current PHONE: [phone] CHRISTINA MANJARREZ Physician Fire Prevention Engineer Current PHONE: Unknown [facility] has no Care Guidelines for this patient. Care History Medical/Surgical 09/18/2021 [facility] No follow up with dr. Melo at this time. No medical records in [facility] for [facility] on 02/07/2021 [facility] - Patient is currently established with [...] care. E.D. VISIT COUNT (12 MO.) [address] [facility] [place] 9 [facility] H. TOTAL 10 NOTE: Visits indicate total known visits. ED/UCC VISIT TRACKING (12 MO.) 10/09/2021 16:42 [facility] [place] TYPE: Emergency COMPLAINT: - CHEST PAIN 09/14/2021 09:48 [facility] [place] TYPE: Emergency COMPLAINT: - MULTIPLE COMPLAINS DIAGNOSES: - Fever, unspecified - Allergy status to other antibiotic agents - Anemia in chronic kidney disease - Other intermodal truck driver (current) drug therapy - Type 2 diabetes mellitus with diabetic chronic kidney disease - Hypertensive heart and chronic kidney disease with heart failure and stage 1 through stage 4 chronic kidney disease, or unspecified chronic kidney disease - Bacteremia - Urinary tract infection, site not specified - long-term (current) use of aspirin - long-term (current) use of insulin - Chronic kidney disease, unspecified - Heart failure, unspecified 09/13/2021 11:19 [facility] [place] TYPE: Emergency COMPLAINT: - POSSIBLE STROKE DIAGNOSES: - Urinary tract infection, site not specified - Other mcc (current) drug therapy - Allergy status to other antibiotic agents - manager intermediate (current) use of aspirin - Anemia, unspecified - Hypertensive heart disease with heart failure - Heart failure, unspecified - Type 2 diabetes mellitus without complications - Fever, unspecified - long-term (current) use of insulin 07/28/2021 16:19 [facility] [place] TYPE: Emergency COMPLAINT: - ANEMIA DIAGNOSES: - Heart failure, unspecified - Other intermodal truck driver (current) drug therapy - Aplastic anemia, unspecified - Chronic kidney disease, unspecified - Type 2 diabetes mellitus with diabetic chronic kidney disease - Allergy status to other antibiotic agents - Anemia in chronic kidney disease - long-term (current) use of insulin - manager intermediate (current) use of aspirin - Hypertensive heart and chronic kidney disease with heart failure and stage 1 through stage 4 chronic kidney disease, or unspecified chronic kidney disease 07/20/2021 10:21 [facility] [place]AN TYPE: Emergency DIAGNOSES: - Pain All Over - Generalized Body Aches - Anemia, unspecified - End stage renal disease 06/30/2021 17:53 [facility] [place] TYPE: Emergency COMPLAINT: - MULTIPLE COMPLAINTS DIAGNOSES: - Dependence on renal dialysis - Acquired absence of other toe(s), unspecified side - Pressure ulcer of other site, unspecified stage - Other mcc (current) drug therapy - Hypertensive heart disease with heart failure - Personal history of transient ischemic attack (TIA), and cerebral infarction without residual deficits - Anemia, unspecified - manager intermediate (current) use of aspirin - Allergy status to other antibiotic agents - Heart failure, unspecified - manager intermediate (current) use of insulin - Hypotension, unspecified - Personal history of urinary calculi - Type 2 diabetes mellitus without complications - Atrioventricular block, first degree 06/16/2021 14:43 [facility] [place] TYPE: Emergency COMPLAINT: - SOB,WEAKNESS DIAGNOSES: - Other mcc (current) drug therapy - long-term (current) use [...] antibiotic agents - Localized edema - Other mcc (current) drug therapy - Heart failure, unspecified [...] failure, unspecified - Myelodysplastic syndrome, unspecified - long-term (current) use of insulin - Personal history of transient ischemic attack (TIA), and cerebral infarction without residual deficits - Chronic kidney disease, unspecified - Other mcc (current) drug therapy - Non-ST elevation (NSTEMI) myocardial infarction - Hypertensive heart and chronic kidney disease with heart failure and stage 1 through stage 4 chronic kidney disease, or unspecified chronic kidney disease - long-term (current) use of aspirin 12/02/2020 18:12 [facility] [place] TYPE: Emergency COMPLAINT: - ABNORMAL LABS DIAGNOSES: - Type 2 diabetes mellitus without complications - Anemia, unspecified - long-term (current) use of insulin - long-term (current) use of aspirin - Essential (primary) hypertension - Other intermodal truck driver (current) drug therapy - Allergy status to other antibiotic agents - Myelodysplastic syndrome, unspecified INPATIENT VISIT TRACKING (12 MO.) 09/14/2021 19:00 [facility] [place] TYPE: Family Practice DIAGNOSES: 0. BACTEREMIA 06/16/2021 23:33 [facility] [place] TYPE: General Medicine DIAGNOSES: - Pneumonia due to coronavirus disease 2018 - Dependence on renal dialysis - COVID, NSTEMI - End stage renal disease - COVID-19 - Heart failure, unspecified - Acute respiratory failure with hypoxia - Non-ST elevation (NSTEMI) myocardial infarction [facility]06[facility]2021 [facility] Internal [facility] DIAGNOSES: - Non-pressure [...] tachycardia - Acute kidney failure, unspecified - manager intermediate (current) use of insulin 01/14/2021 17:53 [facility] [place] TYPE: Medical Surgical COMPLAINT: - NSTEMI; CHF [...] status to other antibiotic agents 26. Other mcc (current) drug therapy 27. manager intermediate (current) use of aspirin 28. long-term (current) use of insulin [email or web address]
--- NOTE | 2021-10-09 18:00 | EKG ---
[facility] [address] [facility] [place], [place] [address] Signed Wide QRS rhythm Left bundle branch block Abnormal ECG No previous ECGs available Confirmed by PITO CASTRO DO ([id number]) on 10/09/2021 6:00:25 PM Electronically Signed By: PITO CASTRO DO 10/09/21 1800 PATIENT NAME: MARY ALICE PINK Rosey Electrocardiogram DATE OF : 41 PHYSICIAN: PITO CASTRO DO REPORT #: [id number] REPORT IS CONFIDENTIAL AND NOT TO BE RELEASED WITHOUT AUTHORIZATION
[2021-10-09] MEDS ORDERED: ACIDOPHILUS1 EACH PO (21:25)
[2021-10-09] MEDS ORDERED: CALCIUM CARBON400 MG PO (21:27)
[2021-10-09] MEDS ORDERED: DOCUSATE SODIU100 MG PO (21:28)
[2021-10-09] MEDS ORDERED: NEPHRO-VITE RX1 EACH PO (21:33)
[2021-10-09] MEDS ORDERED: ONDANSETRON ODT8 MG PO (21:35)
[2021-10-09] MEDS ORDERED: SIMETHICONE80 MG PO (21:40)
[2021-10-09] MEDS ORDERED: BACTRIM DS TAB1 EACH PO (21:41)
== END 2021-10-11 04:25 | disposition home or self-care (01) ==
LOC: ED 16:41
DX: R07.9 Chest pain, unspecified (principal); D46.9 Myelodysplastic syndrome, unspecified; E11.22 Type 2 diabetes mellitus with diabetic chronic kidney disease; I13.0 Hypertensive heart and chronic kidney disease with heart failure and stage 1 through stage 4 chronic kidney disease, or unspecified chronic kidney disease; I50.9 Heart failure, unspecified; Z88.1 Allergy status to other antibiotic agents; Z79.899 Other long term (current) drug therapy; Z79.4 Long term (current) use of insulin; N18.9 Chronic kidney disease, unspecified; Z99.2 Dependence on renal dialysis
CPT/HCPCS: 36430; 80048; 84484; 85025; 86850; 86900; 86901; 86922; 93005; 93010; 99285-25; A9270; J1940; P9016

== ENCOUNTER 2021-10-17 09:54 | Emergency (ER) | payer MEDICARE, OTHER ==
[~2021-10-17] VITALS: Ht 193 cm; Wt 108.4 kg
[~2021-10-17 09:54] MED LIST changes: +ACIDOPHILUS1 EACH PO; +BACTRIM DS TAB1 EACH PO; +CALCIUM CARBON400 MG PO; +DOCUSATE SODIU100 MG PO; +ONDANSETRON ODT8 MG PO; +SIMETHICONE80 MG PO
--- OUTSIDE RECORDS SUMMARY | 2021-10-17 09:58 | XMS ---
PreManage Notification: MARY ALICE PINK Security Senior Quality Manager Events No recent Security Events currently on file CRITERIA MET - [facility] - 2 Visits in 30 Days - PDMP - 6 ED Visits in 6 Months - [facility] - Has Care Guidelines CARE PROVIDERS KRISH JUÁREZ DPM PHONE: [phone] OK LUBIN Internal Medicine Current PHONE: Unknown Ashwini Shin Seam Taper Machine/Hospital Personnel Director 09/13/2021-Current PHONE: [phone] RHIANNA PHIPPS Nurse Practitioner Current PHONE: [phone] HI MELO Internal Medicine 02/07/2021-Current PHONE: Unknown SHELIA CASTELAN Nurse Practitioner: Family Current PHONE: Unknown KEMAR CAAL Internal Medicine Current PHONE: [phone] CLARI ROMO Nurse Practitioner Current PHONE: [phone] BETHANY THEODORE I. Physician Respiratory Practitioner Current PHONE: Unknown BRE Nurse Joanie Erazo WILD TAMEKA PHONE: [phone] [facility] Current PHONE: Unknown [facility] Current PHONE: [phone] CHRISTINA MANJARREZ Physician Respiratory Practitioner Current PHONE: Unknown [facility] has no Care Guidelines for this patient. Care History Medical/Surgical 10/11/2021 [facility] Left voicemail and advised patient to follow up with PCP. 09/18/2021 [facility] No follow up with dr. Melo at this time. No medical records in [employer] for [facility] or [facility] on 02/07/2021 [facility] - Patient is currently established with [facility]. If patient is seen in the ED during business hours. Please contact CHWs at [facility]. Care Recommendation: If this patient has had [...] care. E.D. VISIT COUNT (12 MO.) 1 [facility] 10 [facility]. TOTAL 11 NOTE: Visits indicate total known visits. ED/UCC VISIT TRACKING (12 MO.) 10/17/2021 09:55 [facility] [place] TYPE: Emergency COMPLAINT: - ABNORMAL LABS 10/09/2021 16:42 [facility] [place] TYPE: Emergency COMPLAINT: - CHEST PAIN DIAGNOSES: - Dependence on renal dialysis - roasterman (current) use of insulin - Allergy status to other antibiotic agents - Myelodysplastic syndrome, unspecified - Type 2 diabetes mellitus with diabetic chronic kidney disease - Chest pain, unspecified - Heart failure, unspecified - Hypertensive heart and chronic kidney disease with heart failure and stage 1 through stage 4 chronic kidney disease, or unspecified chronic kidney disease - Other termite inspector (current) drug therapy - Chronic kidney disease, unspecified 09/14/2021 09:48 [facility] [place] TYPE: Emergency COMPLAINT: - MULTIPLE COMPLAINS DIAGNOSES: - Fever, unspecified - Allergy status to other antibiotic agents - Anemia in chronic kidney disease - Other mcc (current) drug therapy - Type 2 diabetes mellitus with diabetic chronic kidney disease - Hypertensive heart and chronic kidney disease with heart failure and stage 1 through stage 4 chronic kidney disease, or unspecified chronic kidney disease - Bacteremia - Urinary tract infection, site not specified - roasterman (current) use of aspirin - roasterman (current) use of insulin - Chronic kidney disease, unspecified - Heart failure, unspecified 09/13/2021 11:19 [facility] [place] TYPE: Emergency COMPLAINT: - POSSIBLE STROKE DIAGNOSES: - Urinary tract infection, site not specified - Other termite inspector (current) drug therapy - Allergy status to other antibiotic agents - long-term (current) use of aspirin - Anemia, unspecified - Hypertensive heart disease with heart failure - Heart failure, unspecified - Type 2 diabetes mellitus without complications - Fever, unspecified - roasterman (current) use of insulin 07/28/2021 16:19 [facility] [place] TYPE: Emergency COMPLAINT: - ANEMIA DIAGNOSES: - Heart failure, unspecified - Other termite inspector (current) drug therapy - Aplastic anemia, unspecified - Chronic kidney disease, unspecified - Type 2 diabetes mellitus with diabetic chronic kidney disease - Allergy status to other antibiotic agents - Anemia in chronic kidney disease - roasterman (current) use of insulin - roasterman (current) use of aspirin - Hypertensive heart and chronic kidney disease with heart failure and stage 1 through stage 4 chronic kidney disease, or unspecified chronic kidney disease [facility] DIAGNOSES: - Pain All [...] without residual deficits - Anemia, unspecified - roasterman (current) use of aspirin - Allergy status to other antibiotic agents - Heart failure, unspecified - roasterman (current) use of insulin - Hypotension, unspecified [...] agents - Localized edema - Other termite inspector (current) drug therapy - Heart failure, unspecified - long-term (current) use of aspirin - Hypertensive heart disease with heart failure - Sepsis, unspecified organism - Myelodysplastic syndrome, unspecified - Acute kidney failure, unspecified - roasterman (current) use of insulin 01/14/2021 10:56 EVIN [...] - Chronic kidney disease, unspecified - Other termite inspector (current) drug therapy - Non-ST elevation (NSTEMI) myocardial infarction - Hypertensive heart and chronic kidney disease with heart failure and stage 1 through stage 4 chronic kidney disease, or unspecified chronic kidney disease - long-term (current) use of aspirin 12/02/2020 18:12 [facility] TYPE: Emergency COMPLAINT: - ABNORMAL LABS DIAGNOSES: - Type 2 diabetes mellitus without complications - Anemia, unspecified - long-term (current) use of insulin - roasterman (current) use of aspirin - Essential (primary) hypertension - Other mcc (current) drug therapy - Allergy status to other antibiotic agents - Myelodysplastic syndrome, unspecified INPATIENT VISIT TRACKING (12 MO.) 09/14/2021 19:00 [facility] TYPE: Family Practice DIAGNOSES: 0. BACTEREMIA 06/16/2021 23:33 [facility] [place] TYPE: General Medicine DIAGNOSES: - Pneumonia due to coronavirus disease 2019 - Dependence on renal dialysis - COVID, NSTEMI - End stage renal disease - COVID-19 - Heart failure, unspecified - Acute respiratory failure with hypoxia - Non-ST elevation (NSTEMI) myocardial infarction 02/06/2021 18:45 [facility] TYPE: Internal Medicine DIAGNOSES: - Non-pressure chronic [...] tachycardia - Acute kidney failure, unspecified - roasterman (current) use of insulin 01/14/2021 17:53 Bharathi Lyon [place] TYPE: Medical Surgical COMPLAINT: - NSTEMI; CHF [...] 26. Other mcc (current) drug therapy 27. long-term (current) use of aspirin 28. long-term (current) use of insulin [email or web address]
[2021-10-17] MEDS ORDERED: ALLOPURINOL100 MG PO (10:29)
[2021-10-17] MEDS ORDERED: ASPIRIN81 MG PO (10:30)
[2021-10-17] MEDS ORDERED: LIPITOR20 MG PO (10:32)
[2021-10-17] MEDS ORDERED: LASIX80 MG PO (10:33)
[2021-10-17] MEDS ORDERED: NEPHRO-VITE RX1 EACH PO (10:34)
== END 2021-10-17 15:49 | disposition home or self-care (01) ==
LOC: ED 09:54
DX: I13.0 Hypertensive heart and chronic kidney disease with heart failure and stage 1 through stage 4 chronic kidney disease, or unspecified chronic kidney disease (principal); E11.22 Type 2 diabetes mellitus with diabetic chronic kidney disease; N18.9 Chronic kidney disease, unspecified; D63.1 Anemia in chronic kidney disease; I50.9 Heart failure, unspecified; Z88.1 Allergy status to other antibiotic agents; Z79.4 Long term (current) use of insulin; Z79.82 Long term (current) use of aspirin; Z79.899 Other long term (current) drug therapy
CPT/HCPCS: 86850; 86900; 86901; 86922; 99284

== ENCOUNTER 2021-11-15 17:05 | Emergency (ER) | payer MEDICARE, OTHER ==
[~2021-11-15] VITALS: Ht 193 cm; Wt 108.4 kg
[~2021-11-15 17:05] MED LIST changes: +ASPIRIN81 MG PO; +LASIX80 MG PO; +LIPITOR20 MG PO
--- OUTSIDE RECORDS SUMMARY | 2021-11-15 17:08 | XMS ---
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 Events No recent Security Events currently on file CRITERIA MET - [facility] - 2 Visits in 30 Days - PDMP - [facility] - Has Care Guidelines - 6 ED Visits in 6 Months CARE PROVIDERS KRISH JUÁREZ DPM PHONE: [phone] [place] LUBIN Internal Medicine Current PHONE: Unknown Ashwini Shin Dehydrogenation Operator Head/Mailroom Supervisor 09/13/2021-Current PHONE: [phone] RHIANNA PHIPPS Nurse Practitioner Current PHONE: [phone] HI MELO Internal Medicine 02/07/2021-Current PHONE: Unknown SHELIA CASTELAN Nurse Practitioner: Family Current PHONE: Unknown KEMAR CAAL Internal Medicine Current PHONE: [phone] CLARI ROMO Nurse Practitioner Current PHONE: [phone] BETHANY THEODORE I. Physician Infant And Toddler Teacher Current PHONE: Unknown BRE Nurse Joanie Erazo WILD ANN PHONE: [phone] [facility] Current PHONE: Unknown [facility] Current PHONE: [phone] CHRISTINA MANJARREZ Physician Infant And Toddler Teacher Current PHONE: Unknown [facility] has no Care Guidelines for this patient. Care History Medical/Surgical 10/18/2021 [facility] Patient resides at [place] and sees Dr. Peres there. Sees Dr. Palma for oncology in [place] 10/11/2021 [facility] Left voicemail and advised patient to follow up with PCP. 09/18/2021 [facility] No follow up with dr. Melo at this time. No medical records in [employer] for [place] or [facility] on [place] VISIT COUNT ([address] [facility] [place] 11 [facility] H. TOTAL 12 NOTE: Visits indicate total known visits. ED/UCC VISIT TRACKING (12 MO.) 11/15/2021 17:06 [facility] [place] TYPE: Emergency COMPLAINT: - SEIZURE 10/17/2021 09:55 [facility] [place] TYPE: Emergency COMPLAINT: - ABNORMAL LABS DIAGNOSES: - Type 2 diabetes mellitus with diabetic chronic kidney disease - Other superintendent marine oil terminal (current) drug therapy - Hypertensive heart and chronic kidney disease with heart failure and with stage 5 chronic kidney disease, or end stage renal disease - Hypertensive heart and chronic kidney disease with heart failure and stage 1 through stage 4 chronic kidney disease, or unspecified chronic kidney disease - Abnormal finding of blood chemistry, unspecified - End stage renal disease - adjunct faculty for medical terminology (current) use of aspirin - Allergy status to other antibiotic agents - penitentiary (current) use of insulin - Heart failure, unspecified - Anemia in chronic kidney disease - Chronic kidney disease, unspecified 10/09/2021 16:42 [facility] [place] TYPE: Emergency COMPLAINT: - CHEST PAIN DIAGNOSES: - Dependence on renal dialysis - penitentiary (current) use of insulin - Allergy status to other antibiotic agents - Myelodysplastic syndrome, unspecified - Type 2 diabetes mellitus with diabetic chronic kidney disease - Chest pain, unspecified - Heart failure, unspecified - Hypertensive heart and chronic kidney disease with heart failure and stage 1 through stage 4 chronic kidney disease, or unspecified chronic kidney disease - Other superintendent marine oil terminal (current) drug therapy - Chronic kidney disease, unspecified 09/14/2021 09:48 [facility] [place] TYPE: Emergency COMPLAINT: - MULTIPLE COMPLAINS DIAGNOSES: - Fever, unspecified - Allergy status to other antibiotic agents - Anemia in chronic kidney disease - Other chcf (current) drug therapy - Type 2 diabetes mellitus with diabetic chronic kidney disease - Hypertensive heart and chronic kidney disease with heart failure and stage 1 through stage 4 chronic kidney disease, or unspecified chronic kidney disease - Bacteremia - Urinary tract infection, site not specified - penitentiary (current) use of aspirin - adjunct faculty for medical terminology (current) use of insulin - Chronic kidney disease, unspecified - Heart failure, unspecified 09/13/2021 11:19 [facility] [place] TYPE: Emergency COMPLAINT: - POSSIBLE STROKE DIAGNOSES: - Urinary tract infection, site not specified - Other superintendent marine oil terminal (current) drug therapy - Allergy status to other antibiotic agents - adjunct faculty for medical terminology (current) use of aspirin - Anemia, unspecified - Hypertensive heart disease with heart failure - Heart failure, unspecified - Type 2 diabetes mellitus without complications - Fever, unspecified - adjunct faculty for medical terminology (current) use of insulin 07/28/2021 16:19 [facility] [place] TYPE: Emergency COMPLAINT: - ANEMIA DIAGNOSES: - Heart failure, unspecified - Other chcf (current) drug therapy - Aplastic anemia, unspecified - Chronic kidney disease, unspecified - Type 2 diabetes mellitus with diabetic chronic kidney disease - Allergy status to other antibiotic agents - Anemia in chronic kidney disease - adjunct faculty for medical terminology (current) use of insulin - adjunct faculty for medical terminology (current) use of aspirin - Hypertensive heart and chronic kidney disease with heart failure and stage 1 through stage 4 chronic kidney disease, or unspecified chronic kidney disease 07/20/2021 10:21 [facility] [place] [facility] TYPE: Emergency DIAGNOSES: - Pain All Over - Generalized Body Aches - Anemia, unspecified - End stage renal disease 06/30/2021 17:53 EV[facility] TYPE: Emergency COMPLAINT: - MULTIPLE COMPLAINTS DIAGNOSES: - Dependence on renal dialysis - Acquired absence of other toe(s), unspecified side - Pressure ulcer of other site, unspecified stage - Other chcf (current) drug therapy - Hypertensive heart disease with heart failure - Personal history of transient ischemic attack (TIA), and cerebral infarction without residual deficits - Anemia, unspecified - penitentiary (current) use of aspirin - Allergy status to other antibiotic agents - Heart failure, unspecified - penitentiary (current) use of insulin - Hypotension, unspecified - Personal history of urinary calculi - Type 2 diabetes mellitus without complications - Atrioventricular block, first degree 06/16/2021 14:43 [facility] [place] TYPE: Emergency COMPLAINT: - SOB,WEAKNESS DIAGNOSES: - Other chcf (current) drug therapy - penitentiary (current) use of insulin - Shortness of [...] antibiotic agents - Localized edema - Other chcf (current) drug therapy - Heart failure, unspecified - penitentiary (current) use of aspirin - Hypertensive heart disease with heart failure - Sepsis, unspecified organism - Myelodysplastic syndrome, unspecified - Acute kidney failure, unspecified - adjunct faculty for medical terminology (current) use of insulin 01/14/2021 10:56 [facility] [place] TYPE: Emergency COMPLAINT: - LEG SWELLING,SOB DIAGNOSES: - Type 2 diabetes mellitus with diabetic chronic kidney disease - Allergy status to other antibiotic agents - Shortness of breath - Heart failure, unspecified - Myelodysplastic syndrome, unspecified - penitentiary (current) use of insulin - Personal history of transient ischemic attack (TIA), and cerebral infarction without residual deficits - Chronic kidney disease, unspecified - Other superintendent marine oil terminal (current) drug therapy - Non-ST elevation (NSTEMI) myocardial infarction - Hypertensive heart and chronic kidney disease with heart failure and stage 1 through stage 4 chronic kidney disease, or unspecified chronic kidney disease - adjunct faculty for medical terminology (current) use of aspirin 12/02/2020 18:12 [facility] TYPE: Emergency COMPLAINT: - ABNORMAL LABS DIAGNOSES: - Type 2 diabetes mellitus without complications - Anemia, unspecified - adjunct faculty for medical terminology (current) use of insulin - adjunct faculty for medical terminology (current) use of aspirin - Essential (primary) hypertension - Other chcf (current) drug therapy - Allergy status to other antibiotic agents - Myelodysplastic syndrome, unspecified INPATIENT VISIT TRACKING (12 MO.) 09/14/2021 19:00 [facility] TYPE: Family Practice DIAGNOSES: 0. BACTEREMIA 06/16/2021 23:33 [facility] [place] TYPE: General Medicine DIAGNOSES: - Pneumonia due to coronavirus disease 2019 - Dependence on renal dialysis - COVID, NSTEMI - End stage renal disease - COVID-19 - Heart failure, unspecified - Acute respiratory failure with hypoxia - Non-ST elevation (NSTEMI) myocardial infarction 02/06/2021 18:45 [facility] TYPE: Internal Medicine DIAGNOSES: - [...] tachycardia - Acute kidney failure, unspecified - penitentiary (current) use of insulin 01/14/2021 17:53 Bharathi Lyon PA TYPE: Medical Surgical COMPLAINT: - NSTEMI; CHF [...] status to other antibiotic agents 26. Other chcf (current) drug therapy 27. penitentiary (current) use of aspirin 28. adjunct faculty for medical terminology (current) use of insulin [email or web address]
--- NOTE | 2021-11-16 18:52 | EKG ---
[facility] [address] [place] [address] Signed Sinus tachycardia with 1st degree AV block Left bundle branch block Abnormal ECG When compared with ECG of 09-OCT-2021 16:43, Sinus rhythm has replaced Wide QRS rhythm Confirmed by DARIEN WARE MD ([id number]) on 11/16/2021 6:52:15 PM Electronically Signed By: DARIEN WARE MD 11/16/211851 PATIENT NAME: MARY ALICE PINK Electrocardiogram DATE OF : 41 PHYSICIAN: DARIEN WARE MD REPORT #: [id number] REPORT IS CONFIDENTIAL AND NOT TO BE RELEASED WITHOUT AUTHORIZATION
== END 2021-11-15 21:04 | disposition home or self-care (01) ==
LOC: ED 17:05
DX: R06.02 Shortness of breath (principal); D64.9 Anemia, unspecified; N18.6 End stage renal disease; E11.22 Type 2 diabetes mellitus with diabetic chronic kidney disease; I13.2 Hypertensive heart and chronic kidney disease with heart failure and with stage 5 chronic kidney disease, or end stage renal disease; Z86.73 Personal history of transient ischemic attack (TIA), and cerebral infarction without residual deficits; I50.9 Heart failure, unspecified; Z88.1 Allergy status to other antibiotic agents; Z79.899 Other long term (current) drug therapy; Z79.4 Long term (current) use of insulin; Z79.82 Long term (current) use of aspirin
CPT/HCPCS: 36415; 71045; 80053; 82803; 83735; 84484; 85025; 93005; 93010; 99285-25